=== PATIENT | female | born 2000 | race Caucasian/White ===

== ENCOUNTER 2019-10-06 22:22 | Emergency (ER) | payer MEDICAID, SELFPAY ==
[2019-10-06 22:41] VITALS: BP 134/82; PULSE 110; RESP 16; TEMP 36.6; O2SAT 98; BMI 44.8
[2019-10-06 23:19] LABS: Basophils # 0.1 K/mm3 (0-0.2); Eosinophils # 0.3 K/mm3 (0.0-0.4); Eosinophils % 3.4 % (0.1-12.0); Hematocrit 45.6 % (37.0-47.0); Hemoglobin 15.5 g/dL (12.2-16.2); Lymphocytes # 2.8 K/mm3 (0.7-4.5); Lymphocytes % 28.4 % (10-50); Mean Corpuscular HGB Conc 33.9 g/dL (31.8-35.4); Mean Corpuscular Hemoglobin 30.3 pg (27.0-31.2); Mean Corpuscular Volume 89.3 fl (81-99); Mean Platelet Volume 7.5 fl (7.4-10.4); Monocytes # 0.5 K/mm3 (0.1-1.0); Monocytes % 5.2 % (1.7-9.3); Neutrophils % 61.9 % (37.0-80.0); Platelet Count 340 K/mm3 (142-424); Red Blood Count 5.11 M/mm3 (4.20-5.40); Red Cell Distribution Width 12.7 % (11.5-17.5); White Blood Count 9.7 K/mm3 (4.8-10.8)
[2019-10-06 23:23] LABS: Chloride 103 mmol/L (98-107); Potassium 3.8 mmoL/L (3.5-5.1); Sodium 137 mmol/L (136-145)
[2019-10-06 23:25] LABS: Blood Urea Nitrogen 11 mg/dl (7-17); Creatinine Clearance Estimated 123 mL/min (50-200); Estimated Glomerular Filt Rate 126 ml/min (>60); GFR (African American) 153 ML/MIN (>60)
[2019-10-06 23:26] LABS: Alanine Aminotransferase 35 U/L (12-78); Albumin Level 4.3 g/dl (3.5-5.0); Albumin/Globulin Ratio 1.2 (1.1-1.8); Alkaline Phosphatase 115 U/L (38-126); Anion Gap 10.8 mEq/L (5-15); Aspartate Amino Transferase 28 U/L (14-36); Bilirubin,Total 0.5 mg/dl (0.2-1.3); Calcium 9.3 mg/dl (8.4-10.2); Carbon Dioxide 27 mmol/L (22.0-30.0); Globulin 3.7 g/dL (1.3-3.2); Glucose 90 mg/dl (74-100)
[2019-10-06 23:27] LABS: Lactic Acid 0.9 mmol/L (0.7-2.1)
--- NOTE | 2019-10-07 00:21 | HMH.EDSKAF ---
ED Disposition Clinical Impression: Pilonidal disease Disposition: Home, Self-Care Condition on Discharge: Good Instructions: DI for Pilonidal Cyst Drainage and Removal Additional Instructions: use meds and call surg for follow up Prescriptions: clindamycin HCL [Clindamycin HCl 300mg Cap] 300 mg PO Q6 #28 cap Transmission Status: Pending to [facility] cephALEXin [Keflex 500mg Cap] 500 mg PO TID #30 cap Transmission Status: Pending to [facility] Referrals: Shaniqua Dewitt APRN [Primary Care Provider] - - Critical Care Critical Care Time: No Attestation: On 10/06/19, the high probability of a clinically significant, sudden or life threatening deterioration of the following system(s) required my full and direct attention, intervention and personal management. The time I documented below is in addition to time spent performing reported procedures but includes the following listed in this critical care notation. Medical Decision Making - Medical Records Medical records reviewed: Yes: I reviewed the patient's medical records. - Horace Inquiry Pt receiving controlled substance: No Vital Signs: 10/06/19 22:41 Temperature 97.9 F Temperature Source Oral Pulse Rate [Right Brachial] 110 H Respiratory Rate 16 Blood Pressure [Right Arm] 134/82 Blood Pressure Mean [Right Arm] 99 Blood Pressure Source [Right Arm] Automatic Cuff Blood Pressure Position [Right Arm] Sitting 02 Sat by Pulse Oximetry 98 Oxygen Delivery Method Room Air - Lab Data Lab results reviewed: Yes: I reviewed the patient's lab results. Lab Results 10/06/19 23:10: WBC 9.7, RBC 5.11, Hgb 15.5, Hct 45.6, MCV 89.3, MCH 30.3, MCHC 33.9, RDW 12.7, Plt Count 340, MPV 7.5, Neut % (Auto) 61.9, Lymph % (Auto) 28.4, [place] % (Auto) 5.2, Eos % (Auto) 3.4, Baso % (Auto) 1.0, Neut # (Auto) 6.0, Lymph # (Auto) 2.8, [place] # (Auto) 0.5, Eos # (Auto) 0.3, Baso # (Auto) 0.1 10/06/19 23:10: Sodium 137, Potassium 3.8, Chloride 103, Carbon Dioxide 27, Anion Gap 10.8, BUN 11, Creatinine 0.60, Estimated Creat Clear 123, Estimated GFR 126, Est GFR ( Amer) 153, Glucose 90, Calcium 9.3, Total Bilirubin 0.5, AST 28, ALT 35, Alkaline Phosphatase 115, Total Protein 8.0, Albumin 4.3, Globulin 3.7 H, Albumin/Globulin Ratio 1.2 10/06/19 23:10: Lactate 0.9 Result diagrams: 10/06/19 23:10 10/06/19 23:10 Orders (Tests/Meds): ED MEDICATIONS Generic Name Dose Route Start Last Admin Trade Name Freq PRN Reason Stop Dose Admin Sodium Chloride 1,000 mls @ 999 mls/hr 10/06/19 23:15 10/06/19 23:46 Sod Chlor 0.9% 1000ml Bag IV 10/07/19 00:15 999 mls/hr .Q1H1M MAYELA Administration Ceftriaxone Sodium 1 gm/ 50 mls @ 100 mls/hr 10/07/19 00:30 10/07/19 00:25 Sodium Chloride IV 10/21/19 00:29 100 mls/hr Q24H MAYELA Administration Protocol Discontinued Medications Generic Name Dose Route Start Last Admin Trade Name Freq PRN Reason Stop Dose Admin Ketorolac Tromethamine 30 mg 10/07/19 00:23 10/07/19 00:25 Toradol 30mg/Ml Vial IV 10/07/19 00:24 30 mg ONCE ONE Administration Morphine Sulfate 4 mg 10/07/19 00:23 10/07/19 00:25 Morphine 4mg/Ml Syringe IV 10/07/19 00:24 4 mg ONCE ONE Administration Ondansetron HCl 4 mg 10/07/19 00:23 10/07/19 00:25 Zofran 4mg/2ml Vial IV 10/07/19 00:24 4 mg ONCE ONE Administration ORDERS Category Date Time Status Blood Culture Stat Micro 10/06/19 23:10 Received Skin/Abscess/FB HPI - General Chief complaint: Skin/Abscess/Foreign Body Stated complaint: Spot on butt, spreading to both cheeks Time Seen by Provider: 10/07/19 00:22 Mode of Arrival: Family Vehicle Source of Information: Patient, Medical Record Limitations: No Limitations Description of Symptoms (Recalled from ER Triage Doc. by RN): suspected pilonidal cyst that has increased in size over the course of the last week; pt states is unable to set down and ws concerned about how rapidly it had in
[2019-10-07 00:41] VITALS: BP 138/75; PULSE 76; RESP 16; TEMP 36.7; O2SAT 98
== END 2019-10-07 00:54 | disposition home or self-care (01) ==
PROVIDERS: Emergency Provider Emergency Medicine; PCP Nurse Practitioner Family
DX: L05.91 Pilonidal cyst without abscess (principal); F17.210 Nicotine dependence, cigarettes, uncomplicated; Z88.0 Allergy status to penicillin
CPT/HCPCS: 80053; 83605; 85025; 87040; 96365; 96375; 99283; J2405

== ENCOUNTER 2019-10-15 16:33 | Emergency (ER) | payer MEDICAID, SELFPAY ==
[2019-10-15 16:47] VITALS: BP 133/79; PULSE 85; RESP 20; TEMP 36.6; O2SAT 98; BMI 43.9
--- NOTE | 2019-10-15 16:52 | HMH.EDUTC ---
[facility] [place] Clinical Impression: Encounter for laboratory testing for COVID-19 virus Disposition: Home, Self-Care Condition on Discharge: Good Instructions: Preventing the Spread of Coronavirus Discharge Instructions Additional Instructions: You was given handout for instructions for Quarantine for COVID19 Make sure to follow instructions to help prevent the spread of COVID19 Over the counter Tylenol may help with fever and body aches Return if needed Straight to ER if any life threatening symptoms FOllow up with Family doctor for further treatment and evaluation No work until negative COVID test Referrals: Shaniqua Dewitt APRN [Primary Care Provider] - Forms: Work/School Release Medical Decision Making - Horace Inquiry Pt receiving controlled substance: No Horace was queried for this patient: No Vital Signs: 10/15/19 16:47 Temperature 97.8 F Temperature Source Oral Pulse Rate [Right Brachial] 85 Respiratory Rate 20 Blood Pressure [Right Arm] 133/79 Blood Pressure Mean [Right Arm] 97 Blood Pressure Source [Right Arm] Automatic Cuff Blood Pressure Position [Right Arm] Sitting 02 Sat by Pulse Oximetry 98 Oxygen Delivery Method Room Air Orders (Tests/Meds): ORDERS Category Date Time Status SARS-CoV-2, YADI Stat Lab 10/15/19 16:39 Ordered [facility] - General Stated complaint: Wants COVID-19 Testing Time Seen by Provider: 10/15/19 16:52 Mode of Arrival: Ambulatory Source of Information: Patient Limitations: No Limitations Description of Symptoms (Recalled from Triage Doc. by RN): here for covid testing HEENT Symptoms (Recalled from RN notes): No Resp Symptoms (Recalled from RN notes): No Skin Symptoms (Recalled from RN notes): No MS Symptoms (Recalled from RN notes): No Functional Status (Recalled from RN notes): none - History of Present Illness Provider Complaint: Patient states that she was recently around someone that was tested today for COVID19 and her work told her that she could not return to work without being tested State that she hasnt had any symptoms but was around this person several times over the last couple of weeks so she came in to get checked - Related Data Home Medications Medication Instructions Recorded Confirmed cephALEXin [cephALEXin 500mg 500 mg PO DAILY 10/15/19 10/15/19 capsule*] clindamycin HCL [Clindamycin HCl] 300 mg PO BID 07/15/20 07/15/20 Allergies Allergy/AdvReac Type Severity Reaction Status Date / Time amoxicillin [AMOXICILLIN] Allergy Intermediate I-HIVES Verified 10/15/19 16:40 Penicillins [PENICILLINS] Allergy Intermediate I-HIVES Verified 10/15/19 16:40 - Worker's Comp Is this a Worker's Comp case?: No [facility] History - Hepatitis A Screen Drug use history?: No High risk sexual behaviors?: No History of sexually transmitted infection?: No Currently employed?: No Childcare worker?: No Do you have indoor plumbing?: Yes Do you have electricity?: Yes Attestation statement:: This patient has been screened for Hepatitis A risk factors. I have reviewed the patient's past medical history: Yes Medical History: Denies:: Cancer, Diabetes Mellitus Type 1, Diabetes Mellitus Type 2, Internal Pacemaker, MRSA Other Surgeries: Yes: No Previous Surgery. No: Pacemaker Amputation: No Fractures: No - Social History Smoking Status: Current every day smoker Tobacco Type: cigarettes # Packs/Day (cigarettes): 1 Alcohol Intake: never Substance Use Type: denies use Occupational Status: employed Housing: house Household Members: spouse Family Hx:: Cancer, Diabetes, Heart Attack, Stroke ROS Obtained: Yes All systems reviewed & no additional complaints, Yes Systems reviewed as appropriate & no additional complaints - Constitutional Constitutional: Reports system reviewed and no additional complaints, except as docu - Eyes Eyes: Reports system reviewed and no additional complaints, except as docu - ENT Ears, Nose, Mouth, and Throat: Rep
[2019-10-15 17:10] VITALS: BP 133/79; PULSE 85; RESP 20; TEMP 36.6; O2SAT 98
[2019-10-17 14:09] LABS: Covid-19 Nasal PCR Sendout Lex NOT DETECTED
== END 2019-10-15 17:10 | disposition home or self-care (01) ==
PROVIDERS: Emergency Provider Nurse Practitioner; PCP Nurse Practitioner Family
DX: Z20.828 Contact with and (suspected) exposure to other viral communicable diseases (principal); Z88.0 Allergy status to penicillin
CPT/HCPCS: 99201; U0004

== ENCOUNTER 2020-02-06 10:04 | Emergency (ER) | payer MEDICAID, SELFPAY ==
[2020-02-06 10:04] VITALS: BP 94/68; PULSE 100; RESP 18; O2SAT 98; BMI 32.3
--- NOTE | 2020-02-06 10:09 | XR_ITS ---
PROCEDURE: XR FINGER RT MIN 2V CLINICAL INDICATION: amputation Laceration COMPARISON: No exams were available for comparison FINDINGS: Fracture involves the tuft of the distal phalanx of the 5th finger. The fracture fragment is distracted distally by approximately 4 mm with comminution of that fracture fragment. There is associated soft tissue defect dorsally. The joint spaces are well-preserved. No significant degenerative/arthritic changes. No erosive changes evident. Other findings:None. IMPRESSION: Fracture of the tuft of the distal phalanx of the 5th digit with associated laceration and distraction of the distal fracture fragment Dictated by: Ramos Robles MD 02/06/2020 10:34 Ramos Robles MD in [place] 02/06/2020 10:34
--- NOTE | 2020-02-06 10:17 | HMH.EDGENADL ---
ED Disposition Clinical Impression: Near amputation of finger Disposition: Xfer Short-Term Hosp Condition on Discharge: Fair Additional Instructions: Go to [facility] emergency department now. Do not eat or drink. Referrals: PCP,No [Non-Staff] - Forms: Transfer Record - ED - Critical Care Critical Care Time: No Attestation: On 02/06/20, the high probability of a clinically significant, sudden or life threatening deterioration of the following system(s) required my full and direct attention, intervention and personal management. The time I documented below is in addition to time spent performing reported procedures but includes the following listed in this critical care notation. Medical Decision Making - Horace Inquiry Pt receiving controlled substance: No Vital Signs: 02/06/20 10:04 02/06/20 10:26 Pulse Rate [Left Radial] 100 H 91 H Respiratory Rate 18 Blood Pressure [Right Arm] 94/68 L 137/76 Blood Pressure Mean [Right Arm] 76 96 Blood Pressure Source [Right Arm] Automatic Cuff Automatic Cuff Blood Pressure Position [Right Arm] Sitting Sitting 02 Sat by Pulse Oximetry 98 98 Oxygen Delivery Method Room Air Room Air Orders (Tests/Meds): ED MEDICATIONS Generic Name Dose Route Start Last Admin Trade Name Freq PRN Reason Stop Dose Admin Cefazolin Sodium 2 gm/ Sodium 100 mls @ 200 mls/hr 02/06/20 10:54 Chloride IV 02/06/20 11:23 ONCE ONE Protocol Discontinued Medications Generic Name Dose Route Start Last Admin Trade Name Freq PRN Reason Stop Dose Admin Bupivacaine HCl 1 mg 02/06/20 10:20 02/06/20 10:46 Bupivacaine 0.5% 10ml Vial IJ 02/06/20 10:21 1 mg ONCE ONE Administration - Radiology Data #1 Image(s): Finger(s)/Thumb Image Reviewed: Yes I reviewed the patient's radiology image, Yes I have reviewed radiologist's interpretation PROCEDURE: XR FINGER RT MIN 2V CLINICAL INDICATION: amputation Laceration COMPARISON: No exams were available for comparison FINDINGS: Fracture involves the tuft of the distal phalanx of the 5th finger. The fracture fragment is distracted distally by approximately 4 mm with comminution of that fracture fragment. There is associated soft tissue defect dorsally. The joint spaces are well-preserved. No significant degenerative/arthritic changes. No erosive changes evident. Other findings:None. IMPRESSION: Fracture of the tuft of the distal phalanx of the 5th digit with associated laceration and distraction of the distal fracture fragment Dictated by: Ramos Robles MD 02/06/2020 10:34 Ramos Robles MD in [place] 02/06/2020 10:34 - Physician Consults Physician Consulted: Fady Time: 10:32 Reason -: Orthopedic Eval/Care Comment/Response: Prefers that the patient be transferred to hand surgery for possible salvage of fingertip Additional Consult: Selwyn - Hand Surgery Time: 10:35 Reason -: Other Comment/Response: Ancef 2 g IV. Irrigate wound. Bandage and ulnar gutter splint. Transfer to [facility] emergency department. General Adult HPI - General Chief complaint: Extremity Injury, Upper Stated complaint: partically amputated finger Time Seen by Provider: 02/06/20 10:08 Mode of Arrival: Ambulatory Limitations: No Limitations Description of Symptoms (Recalled from ER Triage Doc. by RN): pt was splitting wood and smashed her right pinky in the splitter. - History of Present Illness HPI narrative: The patient caught her right small fingertip in a wood splitter and has a near amputation of the tip of her small finger. Last oral intake was about 20 minutes prior to arrival, soda. Last food was last night. Last tetanus immunization was about a year and a half ago. She is not diabetic and has no chronic medical problems. She is right-hand dominant merchandise worker. Allergy to penicillin which she believes caused a rash as a child. - Related Data Home Medications Medica
--- NOTE | 2020-02-06 10:23 | PC.NURSE ---
Rad at bedside
[2020-02-06 10:26] VITALS: BP 137/76; PULSE 91; O2SAT 98
--- NOTE | 2020-02-06 10:26 | PC.NURSE ---
Calling [facility] at this time for hand surgery.
--- NOTE | 2020-02-06 10:33 | PC.NURSE ---
ELIGIO ZELAYA speaking with Dr Fraser at at this time.
--- NOTE | 2020-02-06 10:45 | PC.NURSE ---
Report called to Gerald at er
[2020-02-06 11:10] VITALS: BP 130/85; PULSE 89; RESP 18; TEMP 37; O2SAT 100
[2020-02-06 11:18] VITALS: BP 130/85; PULSE 96; O2SAT 100
== END 2020-02-06 11:30 | disposition short-term general hospital (02) ==
PROVIDERS: Emergency Provider Emergency Medicine; PCP Physician Assistant
DX: S68.126A Partial traumatic metacarpophalangeal amputation of right little finger, initial encounter (principal); S62.666A Nondisplaced fracture of distal phalanx of right little finger, initial encounter for closed fracture; W31.89XA Contact with other specified machinery, initial encounter; Y92.89 Other specified places as the place of occurrence of the external cause; F17.210 Nicotine dependence, cigarettes, uncomplicated; Z88.0 Allergy status to penicillin
CPT/HCPCS: 73140; 96365; 99284

== ENCOUNTER → 2021-01-03 11:34 | Outpatient (CLI) | payer OTHER, SELFPAY ==
[2021-01-03 12:08] LABS: Basophils # 0.1 K/mm3 (0-0.2); Basophils % 0.6 % (0.1-2.0); Eosinophils # 0.3 K/mm3 (0.0-0.4); Eosinophils % 2.1 % (0.1-12.0); Hematocrit 44.7 % (37.0-47.0); Hemoglobin 14.5 g/dL (12.2-16.2); Lymphocytes # 2.3 K/mm3 (0.7-4.5); Lymphocytes % 17.8 % (10-50); Mean Corpuscular HGB Conc 32.4 g/dL (31.8-35.4); Mean Corpuscular Hemoglobin 30.1 pg (27.0-31.2); Mean Corpuscular Volume 92.6 fl (81-99); Mean Platelet Volume 8.2 fl (7.4-10.4); Monocytes # 0.5 K/mm3 (0.1-1.0); Monocytes % 3.8 % (1.7-9.3); Neutrophils # 9.6 K/mm3 (1.8-7.8); Neutrophils % 75.6 % (37.0-80.0); Platelet Count 377 K/mm3 (142-424); Red Blood Count 4.82 M/mm3 (4.20-5.40); Red Cell Distribution Width 12.7 % (11.5-17.5); White Blood Count 12.6 K/mm3 (4.8-10.8)
[2021-01-03 12:33] LABS: Urine Pregnancy, HCG Qual. Negative (Negative)
[2021-01-03 13:14] LABS: Anion Gap 10.1 mEq/L (5-15); Blood Urea Nitrogen 8 mg/dl (7-17); Calcium 9.4 mg/dl (8.4-10.2); Carbon Dioxide 24 mmol/L (22.0-30.0); Chloride 108 mmol/L (98-107); Estimated Glomerular Filt Rate 154 ml/min (>60); GFR (African American) 187 ML/MIN (>60); Glucose 95 mg/dl (74-100); Potassium 4.1 mmoL/L (3.5-5.1); Sodium 138 mmol/L (136-145)
== END ==
PROVIDERS: Visit Provider Surgery
DX: Z01.812 Encounter for preprocedural laboratory examination (principal); Z11.52 Encounter for screening for COVID-19; L98.8 Other specified disorders of the skin and subcutaneous tissue
CPT/HCPCS: 36415; 80048; 81025; 85025; C9803; U0003; U0005

== ENCOUNTER 2021-01-04 09:24 | Day surgery (SDC) | payer OTHER, SELFPAY ==
[2021-01-04] VITALS (8 sets, daily range): BP systolic 140–160; BP diastolic 81–98; PULSE 76–115; RESP 16–20; TEMP 36.8–37.2; O2SAT 96–98
--- NOTE | 2021-01-04 10:00 | P.PN_ITS ---
[facility] Anesthesia Checklist - Patient Identification Patient Identification: Arm Band - Structural Data Admitted From: Home Planned Operative Procedure/s: Excision Pilonidal Cyst Consent for Planned Operative Procedure(s) Verified: Yes Verified Documents: Surgical Consent, History and Physical - NPO Status Verified Time NPO: 00:00 - Additional verifications Anesthesia Reactions: No Hx Blood Transfusions: No Blood Transfusion Reaction: No - Airway Assessment C-Spine Mobility Assessed: Yes (mp2) TMJ Mobility Assessed: Yes Dentition: Good Dentition - Neurological Assessment Level of Consciousness: Awake, Alert - Anesthesia Plan Anesthesia Risk discussed: Yes Anesthesia Plan: Verified ASA Class: II Anesthesia Type: General [facility] History I have reviewed the patient's past medical history: Yes Medical History: Reports:: Migraine Denies:: Cancer, Diabetes Mellitus Type 1, Diabetes Mellitus Type 2, Internal Pacemaker, MRSA, Seizures *Have you ever received a pneumonia vaccine?: Yes *Have you received a flu vaccine this season?: No Other Medical History: Denies: Blood Transfusion Reaction Anesthesia experience/problems:: nac Other Surgeries: Yes: Other. No: Pacemaker Amputation: Yes (RT HAND 5TH DIGIT) Fractures: No - *Social History Last grade of school completed: High school graduate Smoking Status: Current every day smoker Tobacco Type: cigarettes # Packs/Day (cigarettes): 1 Alcohol Intake: never Alcohol Intake Frequency:: other Substance Use Type: denies use *Occupational Status:: employed Housing: house Household Members: family *Travel in the last 8 weeks: None Family Hx:: Cancer
--- NOTE | 2021-01-04 11:04 | P.OP_ITS ---
Date of procedure: 01/04/21 Pre-op Diagnosis:: Pilonidal cyst with abscess Post-op Diagnosis:: Same Procedure performed:: Incision and drainage of pilonidal abscess Surgeon:: Wellington Nuñez MD [employer]:: Skyler Reina Anesthesia: GETA Estimated blood loss (mL): 5 Clinical Note:: Patient is a 20-year-old female seen in the office for pilonidal cyst. I had seen her in October 2019 for a pilonidal cyst. That time she has some tenderness in the post coccygeal region which became progressively more severe. She had been seen and evaluated emergency department at that time and was started on antibiotics of cephalexin and clindamycin. When I saw her in the office the area was quite subtle. She was able to be managed nonoperatively. She states however the past 4 days or so she has had some recurrent discomfort. It has become progressively more severe over the past 24 hours. Operative findings:: She had a large amount of thick pus which exuded from the wound Operative note:: Patient was taken to the operating room. She was positioned supine position. General anesthesia was induced via endotracheal tube. She was repositioned in prone jackknife position. The area was prepped and draped in the standard surgical fashion. Incision was made in the mid gluteal cleft adjacent to the area of induration and mild fluctuance. There was a very large amount of thick white pus which exuded from the wound. This was sent for cultures. The incision was opened somewhat superiorly. Overall length of the incision measured approximately 1-1/2 cm. There was somewhat of an abscess cavity toward the right gluteal region. Abscess cavity was thoroughly irrigated. Local anesthetic was infiltrated. The wound was packed with a portion of a saline moistened 4 x 4. Clean dry sterile dressing was applied. Condition: stable Disposition: PACU Specimens:: Culture sent Complications:: None immediately apparent
--- NOTE | 2021-01-04 11:10 | P.PN_ITS ---
[facility] Anesthesia Record Part I Intake, IV Amount: 300 Estimated blood loss (mL): 10 Urine output (mL): 0 Blood Pressure: 155/83 SaO2: 96 Pulse Rate: 115 Respiratory Rate: 16 Temperature: 98.9 F Patient is:: Drowsy, Stable Stable to PACU at:: 11:10
--- NOTE | 2021-01-04 11:43 | SUR.PHASEI ---
1139- detailed report called to casandra escudero in postop
[2021-01-05 08:26] VITALS: BP 140/81; PULSE 86; TEMP 37.2
--- NOTE | 2021-01-05 08:26 | P.PN_ITS ---
[facility] Anesthesia Record Part II Discharge Time: 11:40 Destination: [facility] PACU nurse assessment reviewed?: Yes Patient Condition:: Good Anesthesia Complications:: None Swallowing reflex intact?: Yes Cyanosis?: No Blood Pressure: 140/81 Pulse Rate: 86 Temperature: 98.9 F Mental Status: Alert & Oriented Pain level:: 3 Nausea and/or vomitting:: None Intake, IV Amount: 1,000
== END 2021-01-04 12:15 | disposition home or self-care (01) ==
LOC: OR 09:26
PROVIDERS: PCP Nurse Practitioner Family; Visit Provider Surgery
PROC: (CPT 10081; principal; 2021-01-04 11:00)
DX: L05.01 Pilonidal cyst with abscess (principal); G43.909 Migraine, unspecified, not intractable, without status migrainosus; Z89.021 Acquired absence of right finger(s); Z80.9 Family history of malignant neoplasm, unspecified; Z83.3 Family history of diabetes mellitus; Z82.3 Family history of stroke; Z88.0 Allergy status to penicillin; Z88.1 Allergy status to other antibiotic agents
CPT/HCPCS: 10081; 87070; 87075; 87077; 87186; 87205; 96374; J2405; J2710

== ENCOUNTER → 2021-01-05 12:46 | Outpatient (CLI) | payer OTHER, SELFPAY | PROVIDERS: PCP Nurse Practitioner Family; Visit Provider Surgery | DX: L05.01 Pilonidal cyst with abscess (principal); Z48.01 Encounter for change or removal of surgical wound dressing | CPT/HCPCS: G0463 ==

== ENCOUNTER 2021-01-06 12:38 | Outpatient (CLI) | payer OTHER, SELFPAY | END 2021-01-06 12:50 | disposition home or self-care (01) | LOC: INF 12:38 | PROVIDERS: PCP Nurse Practitioner Family; Visit Provider Surgery | DX: L05.01 Pilonidal cyst with abscess (principal); Z48.01 Encounter for change or removal of surgical wound dressing | CPT/HCPCS: G0463 ==

== ENCOUNTER 2021-01-07 12:46 | Outpatient (CLI) | payer OTHER, SELFPAY ==
--- NOTE | 2021-01-07 14:11 | PC.NURSE ---
1305 - REMOVED DRESSING OVER WOUND AND WET PACKING WITH NS TO MOISTEN PRIOR TO REMOVAL. AFTER PACKING REMOVED, IRRIGATED WOUND WITH NS AND REPACKED WITH SALINE MOISTENED GAUZE. COVERED WITH 2 DRY 4X4 GAUZES FOLDED IN HALF AND TAPED INTO PLACE.
== END 2021-01-07 13:30 | disposition home or self-care (01) ==
LOC: INF 12:47
PROVIDERS: PCP Nurse Practitioner Family; Visit Provider Surgery
DX: L05.01 Pilonidal cyst with abscess (principal); Z48.01 Encounter for change or removal of surgical wound dressing
CPT/HCPCS: G0463

== ENCOUNTER 2021-01-08 13:01 | Outpatient (CLI) | payer OTHER, SELFPAY ==
[2021-01-08 13:40] VITALS: BP 158/78; PULSE 88; RESP 18; TEMP 36.9; O2SAT 97
== END 2021-01-08 13:40 | disposition home or self-care (01) ==
PROVIDERS: PCP Nurse Practitioner Family; Visit Provider Surgery
DX: L05.01 Pilonidal cyst with abscess (principal); Z48.01 Encounter for change or removal of surgical wound dressing
CPT/HCPCS: G0463

== ENCOUNTER 2021-01-09 13:03 | Outpatient (CLI) | payer OTHER, SELFPAY ==
--- NOTE | 2021-01-09 13:35 | PC.NURSE ---
Dressing change completed hema Greenwood RN
== END 2021-01-09 13:21 | disposition home or self-care (01) ==
LOC: INF 13:04
PROVIDERS: PCP Nurse Practitioner Family; Visit Provider Surgery
DX: L05.01 Pilonidal cyst with abscess (principal); Z48.01 Encounter for change or removal of surgical wound dressing
CPT/HCPCS: G0463

== ENCOUNTER 2021-01-10 11:57 | Outpatient (CLI) | payer OTHER, SELFPAY | END 2021-01-10 12:15 | disposition home or self-care (01) | LOC: INF 11:58 | PROVIDERS: PCP Nurse Practitioner Family; Visit Provider Surgery | DX: L05.01 Pilonidal cyst with abscess (principal); Z48.01 Encounter for change or removal of surgical wound dressing | CPT/HCPCS: G0463 ==

== ENCOUNTER 2021-01-11 13:02 | Outpatient (CLI) | payer OTHER, SELFPAY | END 2021-01-11 13:15 | disposition home or self-care (01) | LOC: INF 13:02 | PROVIDERS: PCP Nurse Practitioner Family; Visit Provider Surgery | DX: L05.01 Pilonidal cyst with abscess (principal); Z48.01 Encounter for change or removal of surgical wound dressing | CPT/HCPCS: G0463 ==

== ENCOUNTER 2021-01-12 12:07 | Outpatient (CLI) | payer OTHER, SELFPAY | END 2021-01-12 12:29 | disposition home or self-care (01) | LOC: INF 12:07 | PROVIDERS: PCP Nurse Practitioner Family; Visit Provider Surgery | DX: L05.01 Pilonidal cyst with abscess (principal); Z48.01 Encounter for change or removal of surgical wound dressing | CPT/HCPCS: G0463 ==

== ENCOUNTER 2021-01-13 12:58 | Outpatient (CLI) | payer OTHER, SELFPAY | END 2021-01-13 13:10 | disposition home or self-care (01) | LOC: INF 13:00 | PROVIDERS: PCP Nurse Practitioner Family; Visit Provider Surgery | DX: L05.01 Pilonidal cyst with abscess (principal); Z48.01 Encounter for change or removal of surgical wound dressing | CPT/HCPCS: G0463 ==

== ENCOUNTER 2021-01-15 13:19 | Outpatient (CLI) | payer OTHER, SELFPAY | END 2021-01-15 13:35 | disposition home or self-care (01) | LOC: INF 13:20 | PROVIDERS: PCP Nurse Practitioner Family; Visit Provider Surgery | DX: L05.01 Pilonidal cyst with abscess (principal); Z48.01 Encounter for change or removal of surgical wound dressing | CPT/HCPCS: G0463 ==

== ENCOUNTER 2021-01-17 09:38 | Outpatient (CLI) | payer OTHER, SELFPAY | END 2021-01-17 09:50 | disposition home or self-care (01) | LOC: INF 09:39 | PROVIDERS: PCP Nurse Practitioner Family; Visit Provider Surgery | DX: L05.01 Pilonidal cyst with abscess (principal); Z48.01 Encounter for change or removal of surgical wound dressing | CPT/HCPCS: G0463 ==

== ENCOUNTER 2021-01-18 09:29 | Outpatient (CLI) | payer OTHER, SELFPAY | END 2021-01-18 09:38 | disposition home or self-care (01) | LOC: INF 09:29 | PROVIDERS: PCP Nurse Practitioner Family; Visit Provider Surgery | DX: L05.01 Pilonidal cyst with abscess (principal); Z48.01 Encounter for change or removal of surgical wound dressing | CPT/HCPCS: G0463 ==

== ENCOUNTER 2021-01-19 13:07 | Outpatient (CLI) | payer OTHER, SELFPAY | END 2021-01-19 14:53 | disposition home or self-care (01) | LOC: INF 13:08 | PROVIDERS: PCP Nurse Practitioner Family; Visit Provider Surgery | DX: L05.01 Pilonidal cyst with abscess (principal); Z48.01 Encounter for change or removal of surgical wound dressing | CPT/HCPCS: G0463 ==

== ENCOUNTER 2021-01-20 09:40 | Outpatient (CLI) | payer OTHER, SELFPAY | END 2021-01-20 10:05 | disposition home or self-care (01) | LOC: INF 09:40 | PROVIDERS: PCP Nurse Practitioner Family; Visit Provider Surgery | DX: L05.01 Pilonidal cyst with abscess (principal); Z48.01 Encounter for change or removal of surgical wound dressing | CPT/HCPCS: G0463 ==

== ENCOUNTER 2021-01-21 14:37 | Outpatient (CLI) | payer OTHER, SELFPAY | END 2021-01-21 14:45 | disposition home or self-care (01) | LOC: INF 14:37 | PROVIDERS: PCP Nurse Practitioner Family; Visit Provider Surgery | DX: L05.01 Pilonidal cyst with abscess (principal); Z48.01 Encounter for change or removal of surgical wound dressing | CPT/HCPCS: G0463 ==

== ENCOUNTER 2021-01-22 15:27 | Outpatient (CLI) | payer OTHER, SELFPAY ==
[2021-01-22 15:50] VITALS: BP 130/77; PULSE 105; RESP 18; TEMP 36.8; O2SAT 97
== END 2021-01-22 16:30 | disposition home or self-care (01) ==
LOC: INF 15:28
PROVIDERS: PCP Nurse Practitioner Family; Visit Provider Surgery
DX: L05.01 Pilonidal cyst with abscess (principal); Z48.01 Encounter for change or removal of surgical wound dressing
CPT/HCPCS: G0463

== ENCOUNTER 2021-01-23 15:18 | Outpatient (CLI) | payer OTHER, SELFPAY ==
--- NOTE | 2021-01-23 16:31 | PC.NURSE ---
Old packing removed. Small amount of serosanguineous drainage noted on old packing. Wound was cleansed with saline and packed w/saline soaked piece of 2x2, covered w/dry 4x4's and medipore tape. Pt tolerated well.
== END 2021-01-23 15:31 | disposition home or self-care (01) ==
LOC: INF 15:18
PROVIDERS: PCP Nurse Practitioner Family; Visit Provider Surgery
DX: L05.01 Pilonidal cyst with abscess (principal); Z48.01 Encounter for change or removal of surgical wound dressing
CPT/HCPCS: G0463

== ENCOUNTER 2021-01-24 13:32 | Outpatient (CLI) | payer OTHER, SELFPAY | END 2021-01-24 13:45 | disposition home or self-care (01) | LOC: INF 13:33 | PROVIDERS: PCP Nurse Practitioner Family; Visit Provider Surgery | DX: L05.01 Pilonidal cyst with abscess (principal); Z48.01 Encounter for change or removal of surgical wound dressing | CPT/HCPCS: G0463 ==

== ENCOUNTER 2021-01-25 13:13 | Outpatient (CLI) | payer OTHER, SELFPAY | END 2021-01-25 13:19 | disposition home or self-care (01) | LOC: INF 13:14 | PROVIDERS: PCP Nurse Practitioner Family; Visit Provider Surgery | DX: L05.01 Pilonidal cyst with abscess (principal); Z48.01 Encounter for change or removal of surgical wound dressing | CPT/HCPCS: G0463 ==

== ENCOUNTER 2021-01-26 09:35 | Outpatient (CLI) | payer OTHER, SELFPAY | END 2021-01-26 09:50 | disposition home or self-care (01) | LOC: INF 09:35 | PROVIDERS: PCP Nurse Practitioner Family; Visit Provider Surgery | DX: L05.01 Pilonidal cyst with abscess (principal); Z48.01 Encounter for change or removal of surgical wound dressing | CPT/HCPCS: G0463 ==

== ENCOUNTER 2021-01-27 09:32 | Outpatient (CLI) | payer OTHER, SELFPAY | END 2021-01-27 09:55 | disposition home or self-care (01) | LOC: INF 09:32 | PROVIDERS: PCP Nurse Practitioner Family; Visit Provider Surgery | DX: L05.01 Pilonidal cyst with abscess (principal); Z48.01 Encounter for change or removal of surgical wound dressing | CPT/HCPCS: G0463 ==

== ENCOUNTER 2021-01-31 09:29 | Outpatient (CLI) | payer OTHER, SELFPAY | END 2021-01-31 09:45 | disposition home or self-care (01) | LOC: INF 09:30 | PROVIDERS: PCP Nurse Practitioner Family; Visit Provider Surgery | DX: L05.01 Pilonidal cyst with abscess (principal); Z48.01 Encounter for change or removal of surgical wound dressing | CPT/HCPCS: G0463 ==

== ENCOUNTER 2021-02-01 16:25 | Outpatient (CLI) | payer OTHER, SELFPAY | END 2021-02-01 16:41 | disposition home or self-care (01) | LOC: INF 16:26 | PROVIDERS: PCP Nurse Practitioner Family; Visit Provider Surgery | DX: L05.01 Pilonidal cyst with abscess (principal); Z48.01 Encounter for change or removal of surgical wound dressing | CPT/HCPCS: G0463 ==

== ENCOUNTER 2021-02-02 09:38 | Outpatient (CLI) | payer OTHER, SELFPAY ==
--- NOTE | 2021-02-02 09:54 | PC.NURSE ---
0954-s/p pilonidal cyst removal wound is now healed with small divet noted; pt will not need to continue dressing changes; educated pt on still keeping area clean and dry.
== END 2021-02-02 09:56 | disposition home or self-care (01) ==
LOC: INF 09:38
PROVIDERS: PCP Nurse Practitioner Family; Visit Provider Surgery
DX: L05.01 Pilonidal cyst with abscess (principal); Z48.01 Encounter for change or removal of surgical wound dressing
CPT/HCPCS: G0463

== ENCOUNTER → 2021-03-08 11:13 | Outpatient (CLI) | payer OTHER, SELFPAY | PROVIDERS: PCP Nurse Practitioner Family; Visit Provider Nurse Practitioner | DX: U07.1 COVID-19 (principal) | CPT/HCPCS: C9803; U0003; U0005 ==

== ENCOUNTER → 2021-05-24 10:36 | Outpatient (CLI) | payer OTHER, SELFPAY ==
[2021-05-24 12:08] LABS: HCG,Quantitative 160 mIU/ml (0-5.42)
== END ==
PROVIDERS: Visit Provider Nurse Practitioner Obstetrics & Gynecology
DX: N92.6 Irregular menstruation, unspecified (principal)
CPT/HCPCS: 36415; 84702

== ENCOUNTER 2021-06-14 13:28 | Emergency (ER) | payer OTHER, SELFPAY ==
[2021-06-14 13:55] VITALS: BP 125/77; PULSE 85; RESP 18; TEMP 36.8; O2SAT 100; BMI 40.7
--- NOTE | 2021-06-14 14:03 | HMH.EDNVD ---
ED Disposition Clinical Impression: Hyperemesis arising during Disposition: Home, Self-Care Condition on Discharge: Good Instructions: Hyperemesis Gravidarum Prescriptions: Promethazine HCl [Phenergan 12.5mg Supp] 12.5 mg RC Q8 PRN #15 supp PRN Reason: Nausea And Vomiting Transmission Status: Pending to [id number] Referrals: Shaniqua Dewitt APRN [Primary Care Provider] - - Critical Care Critical Care Time: No Attestation: On 06/14/21, the high probability of a clinically significant, sudden or life threatening deterioration of the following system(s) required my full and direct attention, intervention and personal management. The time I documented below is in addition to time spent performing reported procedures but includes the following listed in this critical care notation. Medical Decision Making - Medical Records Medical records reviewed: Yes: I reviewed the patient's medical records. - Horace Inquiry Pt receiving controlled substance: No Vital Signs: 06/14/21 13:55 06/14/21 15:31 Temperature 98.2 F Temperature Source Oral Pulse Rate 74 Pulse Rate [Left Radial] 85 Respiratory Rate 18 18 Blood Pressure 119/69 Blood Pressure [Right Arm] 125/77 Blood Pressure Mean 83 Blood Pressure Mean [Right Arm] 93 02 Sat by Pulse Oximetry 100 98 Oxygen Delivery Method Room Air - Lab Data Lab Results 06/14/21 13:50: Urine Color Yellow, Urine Appearance Clear, Urine pH 6.5, Ur Specific [place] 1.020, Urine Protein Negative, Urine Glucose (UA) Negative, Urine Ketones Negative, Urine Blood Negative, Urine Nitrate Negative, Urine Bilirubin Negative, Urine Urobilinogen 0.2, Ur Leukocyte Esterase Negative, Urine RBC Occasional, Urine WBC Occasional, Ur Squamous Epith Cells 3-5, Urine Bacteria Trace 06/14/21 13:50: WBC 7.7, RBC 4.53, Hgb 13.6, Hct 41.5, MCV 91.6, MCH 30.1, MCHC 32.9, RDW 13.2, Plt Count 321, MPV 8.1, Neut % (Auto) 72.6, Lymph % (Auto) 21.6, [place] % (Auto) 4.4, Eos % (Auto) 0.4, Baso % (Auto) 1.0, Neut # (Auto) 5.6, Lymph # (Auto) 1.7, [place] # (Auto) 0.3, Eos # (Auto) 0.0, Baso # (Auto) 0.1 06/14/21 13:50: Urine HCG, Qual Positive 06/14/21 13:50: Sodium 135 L, Potassium 3.8, Chloride 106, Carbon Dioxide 22, Anion Gap 10.8, BUN 6 L, Creatinine 0.60, Estimated Creat Clear 240, Estimated GFR 124, Est GFR ( Amer) 150, Glucose 111 H, Calcium 8.3 L, Total Bilirubin 0.3, AST 26, ALT 28, Alkaline Phosphatase 61, Total Protein 7.4, Albumin 4.2, Globulin 3.2, Albumin/Globulin Ratio 1.3, HCG, Quant > [id number] H Result diagrams: 06/14/21 13:50 06/14/21 13:50 Orders (Tests/Meds): ED MEDICATIONS Discontinued Medications Generic Name Dose Route Start Last Admin Trade Name Freq PRN Reason Stop Dose Admin Sodium Chloride 1,000 mls @ 999 mls/hr 06/14/21 14:15 06/14/21 14:17 Sod Chlor 0.9% 1000ml Bag IV 06/14/21 15:15 999 mls/hr .Q1H1M MAYELA Administration Promethazine HCl 12.5 mg 06/14/21 14:02 06/14/21 14:18 Promethazine Hcl 25mg/Ml 1ml Vial IV 06/14/21 14:03 12.5 mg ONCE ONE Administration Sodium Chloride 25 ml 06/14/21 14:02 06/14/21 14:18 Sodium Chloride 0.9% 25ml Bag IV 06/14/21 14:03 25 ml ONCE ONE Administration Nausea/Vomiting/Diarrhea HPI - General Chief complaint: Nausea/Vomiting/Diarrhea Stated complaint: prg vomiting possible dehydration Time Seen by Provider: 06/14/21 14:03 Mode of Arrival: Ambulatory Limitations: No Limitations Description of Symptoms (Recalled from ER Triage Doc. by RN): pt to ed c/o nausea and vomiting since yesterday. pt states she is but has not had her first appointment. pt states she called her OB today and dr clements called her in phenergan to the pharmacy but pt states she cant keep it down. - History of Present Illness HPI Narrative: n/v mult times, recent preg <20 wks Description of Vomiting: watery Severity: moderate Relieving factors: none Exacerbating factors: eating As
--- NOTE | 2021-06-14 14:04 | PC.NURSE ---
spoke with dr clements who was agreeable to treatment.
[2021-06-14 14:06] LABS: Microscopic, Urine URINE MICROSCOPIC (MICROSCOPIC)
[2021-06-14 14:12] LABS: Chloride 106 mmol/L (98-107); Potassium 3.8 mmoL/L (3.5-5.1); Sodium 135 mmol/L (136-145)
[2021-06-14 14:15] LABS: Alanine Aminotransferase 28 U/L (12-78); Albumin Level 4.2 g/dl (3.5-5.0); Albumin/Globulin Ratio 1.3 (1.1-1.8); Alkaline Phosphatase 61 U/L (38-126); Anion Gap 10.8 mEq/L (5-15); Aspartate Amino Transferase 26 U/L (14-36); Bilirubin,Total 0.3 mg/dl (0.2-1.3); Blood Urea Nitrogen 6 mg/dl (7-17); Carbon Dioxide 22 mmol/L (22.0-30.0); Creatinine Clearance Estimated 240 mL/min (50-200); Estimated Glomerular Filt Rate 124 ml/min (>60); GFR (African American) 150 ML/MIN (>60); Globulin 3.2 g/dL (1.3-3.2); Total Protein,Serum 7.4 g/dl (6.3-8.2)
[2021-06-14 14:16] LABS: Appearance,Urine CLEAR (Clear); Basophils # 0.1 K/mm3 (0-0.2); Bilirubin,Urine Negative (Negative); Blood, Urine Negative (Negative); Calcium 8.3 mg/dl (8.4-10.2); Color,Urine YELLOW (Yellow); Eosinophils % 0.4 % (0.1-12.0); Glucose 111 mg/dl (74-100); Glucose,Urine (UA) Negative (Negative); Hematocrit 41.5 % (37.0-47.0); Hemoglobin 13.6 g/dL (12.2-16.2); Ketones,Urine Negative (Negative); Leukocyte Esterase,Urine Negative (Negative); Lymphocytes # 1.7 K/mm3 (0.7-4.5); Lymphocytes % 21.6 % (10-50); Mean Corpuscular HGB Conc 32.9 g/dL (31.8-35.4); Mean Corpuscular Hemoglobin 30.1 pg (27.0-31.2); Mean Corpuscular Volume 91.6 fl (81-99); Mean Platelet Volume 8.1 fl (7.4-10.4); Monocytes # 0.3 K/mm3 (0.1-1.0); Monocytes % 4.4 % (1.7-9.3); Neutrophils # 5.6 K/mm3 (1.8-7.8); Neutrophils % 72.6 % (37.0-80.0); Nitrate,Urine Negative (Negative); PH,Urine 6.5 (5.0-8.5); Platelet Count 321 K/mm3 (142-424); Protein,Urine Negative (Negative); Red Blood Count 4.53 M/mm3 (4.20-5.40); Red Cell Distribution Width 13.2 % (11.5-17.5); Urobilinogen,Urine 0.2 EU/dl (0.2); White Blood Count 7.7 K/mm3 (4.8-10.8)
[2021-06-14 14:18] LABS: Urine Pregnancy, HCG Qual. Positive (Negative)
[2021-06-14 14:31] LABS: Bacteria,Urine Trace /lpf; RBC,Urine Occasional #/hpf (0-3); WBC,Urine Occasional #/hpf (0-3)
[2021-06-14 14:42] LABS: HCG,Quantitative > 15000 mIU/ml (0-5.42)
[2021-06-14 15:31] VITALS: BP 119/69; PULSE 74; RESP 18; O2SAT 98
[2021-06-14 15:47] VITALS: BP 119/69; PULSE 74; RESP 18; TEMP 36.8; O2SAT 98
== END 2021-06-14 16:13 | disposition home or self-care (01) ==
PROVIDERS: Emergency Provider Emergency Medicine; PCP Nurse Practitioner Family
DX: O99.611 Diseases of the digestive system complicating pregnancy, first trimester (principal); O21.1 Hyperemesis gravidarum with metabolic disturbance; O99.331 Smoking (tobacco) complicating pregnancy, first trimester; F17.210 Nicotine dependence, cigarettes, uncomplicated; O99.355 Diseases of the nervous system complicating the puerperium; Z79.1 Long term (current) use of non-steroidal anti-inflammatories (NSAID); Z79.899 Other long term (current) drug therapy; Z88.0 Allergy status to penicillin; Z88.1 Allergy status to other antibiotic agents; Z88.3 Allergy status to other anti-infective agents; Z82.49 Family history of ischemic heart disease and other diseases of the circulatory system; Z83.3 Family history of diabetes mellitus; Z3A.01 Less than 8 weeks gestation of pregnancy
CPT/HCPCS: 80053; 81001; 81025; 84702; 85025; 96361; 96365; 96374; 96375; 99283

== ENCOUNTER → 2021-06-22 15:14 | Outpatient (CLI) | payer OTHER, SELFPAY ==
[2021-06-22 16:12] LABS: Basophils # 0.1 K/mm3 (0-0.2); Basophils % 0.6 % (0.1-2.0); Eosinophils # 0.1 K/mm3 (0.0-0.4); Eosinophils % 0.6 % (0.1-12.0); Hematocrit 43.9 % (37.0-47.0); Hemoglobin 14.4 g/dL (12.2-16.2); Lymphocytes # 1.4 K/mm3 (0.7-4.5); Mean Corpuscular HGB Conc 32.8 g/dL (31.8-35.4); Mean Corpuscular Hemoglobin 29.8 pg (27.0-31.2); Mean Corpuscular Volume 90.9 fl (81-99); Mean Platelet Volume 8.9 fl (7.4-10.4); Monocytes # 0.6 K/mm3 (0.1-1.0); Monocytes % 6.3 % (1.7-9.3); Neutrophils # 7.1 K/mm3 (1.8-7.8); Neutrophils % 77.5 % (37.0-80.0); Platelet Count 344 K/mm3 (142-424); Red Blood Count 4.83 M/mm3 (4.20-5.40); Red Cell Distribution Width 13.2 % (11.5-17.5); White Blood Count 9.2 K/mm3 (4.8-10.8)
[2021-06-24 08:35] LABS: HSV 1 IgG, Type Spec <0.91 index (0.00-0.90); HSV 2 IgG, Type Spec <0.91 index (0.00-0.90)
[2021-06-24 09:26] LABS: HIV Screen 4th Generation wRfx Non Reactive (Non Reactive); Hepatitis B Surface Antigen Negative (Negative); Hepatitis C Antibody 0.1 s/co ratio (0.0-0.9)
[2021-06-24 12:12] LABS: Rapid Plasma Reagin Ab Titer Non Reactive (NonRea<1:1)
== END ==
PROVIDERS: Visit Provider Nurse Practitioner Obstetrics & Gynecology
DX: Z34.90 Encounter for supervision of normal pregnancy, unspecified, unspecified trimester (principal)
CPT/HCPCS: 36415; 85025; 86592; 86695; 86703; 86762; 86790; 86850; 87340; 87380; G0432

== ENCOUNTER → 2021-06-28 12:47 | Outpatient (CLI) | payer OTHER, SELFPAY ==
--- NOTE | 2021-06-28 12:48 | US_ITS ---
FINAL REPORT CLINICAL HISTORY: for dates FINDINGS: Sonographic images of the pelvis were obtained. A single, living intrauterine is noted. A yolk sac is present and measures 0.52 cm. Dustin to rump length measures 2.48 cm which corresponds to 9 weeks 2 days gestation. There is a small amount of fluid adjacent to the gestational sac which may represent a small subchorionic hemorrhage. Heartbeat is identified and measures 176 beats per minute. The right ovary is within normal limits. The left ovary is within normal limits. IMPRESSION: Single, living, intrauterine gestation with 9 weeks 2 days gestational age. There is a small amount of fluid adjacent to the gestational sac which may represent a small subchorionic hemorrhage. Reviewed, Interpreted and Dictated by Wellington Mohr III, MD Transcribed by Mary Ellen Short Authenticated by Wellington Mohr III, MD on 06/28/2021 03:08:46 PM [facility]
== END ==
PROVIDERS: PCP Nurse Practitioner Family; Visit Provider Nurse Practitioner Obstetrics & Gynecology
DX: Z34.90 Encounter for supervision of normal pregnancy, unspecified, unspecified trimester (principal)
CPT/HCPCS: 76801

== ENCOUNTER → 2021-07-22 12:20 | Outpatient (CLI) | payer OTHER, SELFPAY | PROVIDERS: Visit Provider Nurse Practitioner Obstetrics & Gynecology | DX: Z34.90 Encounter for supervision of normal pregnancy, unspecified, unspecified trimester (principal) | CPT/HCPCS: 36415 ==

== ENCOUNTER 2021-08-09 21:10 | Emergency (ER) | payer BC, OTHER, SELFPAY ==
[2021-08-09 21:11] VITALS: BP 135/70; PULSE 75; RESP 16; TEMP 37.1; O2SAT 100; BMI 41.5
[2021-08-09 22:37] LABS: Basophils # 0.1 K/mm3 (0-0.2); Eosinophils # 0.1 K/mm3 (0.0-0.4); Eosinophils % 0.7 % (0.1-12.0); Hematocrit 39.7 % (37.0-47.0); Hemoglobin 13.4 g/dL (12.2-16.2); Lymphocytes # 1.4 K/mm3 (0.7-4.5); Lymphocytes % 17.1 % (10-50); Mean Corpuscular HGB Conc 33.8 g/dL (31.8-35.4); Mean Corpuscular Hemoglobin 30.4 pg (27.0-31.2); Mean Corpuscular Volume 89.9 fl (81-99); Mean Platelet Volume 8.2 fl (7.4-10.4); Monocytes # 0.5 K/mm3 (0.1-1.0); Monocytes % 5.5 % (1.7-9.3); Neutrophils # 6.4 K/mm3 (1.8-7.8); Neutrophils % 75.7 % (37.0-80.0); Platelet Count 308 K/mm3 (142-424); Red Blood Count 4.41 M/mm3 (4.20-5.40); Red Cell Distribution Width 13.2 % (11.5-17.5); White Blood Count 8.5 K/mm3 (4.8-10.8)
--- NOTE | 2021-08-09 22:45 | HMH.EDHA ---
ED Disposition Clinical Impression: Headache Qualifiers: Headache type: unspecified Headache chronicity pattern: acute headache Intractability: not intractable Qualified Code(s): R51.9 - Headache, unspecified Qualifiers: Weeks of gestation: 14 weeks Qualified Code(s): Z3A.14 - 14 weeks gestation of Disposition: Home, Self-Care Condition on Discharge: Good Instructions: DI for Headache Additional Instructions: call pcp or ob in am for follow up Referrals: Shaniqua Dewitt APRN [Primary Care Provider] - Higinio Louise MD [Staff Physician] - - Critical Care Critical Care Time: No Attestation: On 08/09/21, the high probability of a clinically significant, sudden or life threatening deterioration of the following system(s) required my full and direct attention, intervention and personal management. The time I documented below is in addition to time spent performing reported procedures but includes the following listed in this critical care notation. Medical Decision Making - Medical Records Medical records reviewed: Yes: I reviewed the patient's medical records. - Horace Inquiry Pt receiving controlled substance: No Vital Signs: 08/09/21 21:11 Temperature 98.8 F Temperature Source Oral Pulse Rate [Left Radial] 75 Respiratory Rate 16 Blood Pressure [Right Arm] 135/70 Blood Pressure Mean [Right Arm] 91 02 Sat by Pulse Oximetry 100 Oxygen Delivery Method Room Air - Lab Data Lab results reviewed: Yes: I reviewed the patient's lab results. Orders (Tests/Meds): ED MEDICATIONS Generic Name Dose Route Start Last Admin Trade Name Freq PRN Reason Stop Dose Admin Sodium Chloride 1,000 mls @ 999 mls/hr 08/09/21 22:30 08/09/21 22:24 Sod Chlor 0.9% 1000ml Bag IV 08/09/21 23:30 999 mls/hr .Q1H1M MAYELA Administration Discontinued Medications Generic Name Dose Route Start Last Admin Trade Name Freq PRN Reason Stop Dose Admin Acetaminophen 650 mg 08/09/21 22:27 08/09/21 22:30 Acetaminophen 325mg Tab PO 08/09/21 22:28 650 mg ONCE ONE Administration ORDERS Category Date Time Status CMP [Comprehensive Metabolic Panel] Stat Lab 08/09/21 22:20 Received Complete Blood Count Auto Diff Stat Lab 08/09/21 22:20 Received - Physician Consults Physician Consulted: starr Reason -: Pt condition Medical Decision Narrative: stable exam and will give treatment and d/c to call ob in am Headache HPI - General Chief Complaint: Headache Stated Complaint: 15 wk preg GARCIA Time Seen by Provider: 08/09/21 22:45 Mode of Arrival: Ambulatory Source of Information: Patient, Parent(s), Medical Record Limitations: No Limitations Description of Symptoms (Recalled from ER Triage Doc. by RN): PT IS 14 WEEKS AND PRESENTS WITH A MIGRAINE. PT REPORTS THAT SHE TOOK TYLENOL AT 1800 AND HAS TAKEN IT MULTIPLE TIMES TODAY WITHOUT RELIEF. - History of Present Illness HPI Narrative: pt with hx of bitemporal garcia with vomiting today - no fever or rash and no trauma - 15 weeks -no vaginal bleeding MD Complaint: headache Onset (ago): hour(s) Location: temporal Severity: moderate Quality: similar to previous headaches Associated symptoms: nausea, vomiting Treatments prior to arrival: acetaminophen - Related Data Home Medications Medication Instructions Recorded Confirmed prenat.vits,renny,[id number] 1 tab PO DAILY 02/04/21 08/09/21 Previous Rx's Medication Instructions Recorded Promethazine HCl [Phenergan 12.5mg 12.5 mg RC Q8 PRN #15 supp 06/14/21 Supp] ondansetron 4 mg disintegrating 4 mg PO Q6H PRN #30 tab 07/20/21 tablet Allergies Allergy/AdvReac Type Severity Reaction Status Date / Time amoxicillin [AMOXICILLIN] Allergy Intermediate I-HIVES Verified 07/20/21 15:24 Penicillins [PENICILLINS] Allergy Intermediate I-HIVES Verified 07/20/21 15:24 [facility] History - Hepatitis A Screen Attestation statement:: This patient has
--- NOTE | 2021-08-09 22:49 | PC.NURSE ---
Dr. Grey s/w Dr. Louise
[2021-08-09 22:56] LABS: Chloride 104 mmol/L (98-107); Potassium 3.4 mmoL/L (3.5-5.1); Sodium 136 mmol/L (136-145)
[2021-08-09 22:58] LABS: Blood Urea Nitrogen 6 mg/dl (7-17); Creatinine Clearance Estimated 197 mL/min (50-200); Estimated Glomerular Filt Rate 198 ml/min (>60); GFR (African American) 239 ML/MIN (>60)
[2021-08-09 22:59] LABS: Alanine Aminotransferase 21 U/L (12-78); Albumin Level 3.8 g/dl (3.5-5.0); Albumin/Globulin Ratio 1.2 (1.1-1.8); Alkaline Phosphatase 76 U/L (38-126); Anion Gap 12.4 mEq/L (5-15); Aspartate Amino Transferase 32 U/L (14-36); Bilirubin,Total 0.3 mg/dl (0.2-1.3); Carbon Dioxide 23 mmol/L (22.0-30.0); Globulin 3.1 g/dL (1.3-3.2); Glucose 106 mg/dl (74-100); Total Protein,Serum 6.9 g/dl (6.3-8.2)
[2021-08-09 23:05] VITALS: BP 133/78; PULSE 71; RESP 16; TEMP 37.1; O2SAT 99
== END 2021-08-09 23:23 | disposition home or self-care (01) ==
PROVIDERS: Emergency Provider Emergency Medicine; PCP Nurse Practitioner Family
DX: O99.355 Diseases of the nervous system complicating the puerperium (principal); G43.909 Migraine, unspecified, not intractable, without status migrainosus; O21.9 Vomiting of pregnancy, unspecified; O99.330 Smoking (tobacco) complicating pregnancy, unspecified trimester; F17.210 Nicotine dependence, cigarettes, uncomplicated; Z79.899 Other long term (current) drug therapy; Z88.0 Allergy status to penicillin; Z88.3 Allergy status to other anti-infective agents; Z82.49 Family history of ischemic heart disease and other diseases of the circulatory system; Z3A.14 14 weeks gestation of pregnancy; Z83.3 Family history of diabetes mellitus
CPT/HCPCS: 80053; 85025; 96374; 96375; 99284

== ENCOUNTER → 2021-09-14 12:41 | Outpatient (CLI) | payer BC, OTHER, SELFPAY ==
--- NOTE | 2021-09-14 12:41 | US_ITS ---
FINAL REPORT CLINICAL HISTORY: 20 weeks gestation FINDINGS: There is a single live intrauterine gestation. Presentation is cephalic. The cervix is closed and measures 3.3 cm. Placenta is anterior and grade 1. Cardiac activity is confirmed at 163 bpm. The fetus is active. Three-vessel cord with satisfactory umbilical cord insertion. Four-chamber heart is noted. brain and ventricles are unremarkable. Chest and diaphragm are unremarkable. ABDOMEN: Both kidneys are unremarkable. Stomach is unremarkable. SPINE: No anomalies identified. Both arms and legs noted. AMNIOTIC FLUID: Appropriate amount. MEASUREMENTS: ULTRASOUND AGE: 20 weeks 2 days. GESTATION AGE: 20 weeks 3 days. ESTIMATED WEIGHT: 347 g GROWTH PERCENTILE: 40% BPD: 4.7 cm consistent with 20 weeks 2 days. OFD: 6 cm consistent with 20 weeks 3 days. HC: 16.9 cm consistent with 19 weeks 4 days. AC: 15.1 cm consistent with 20 weeks 3 days. FL: 3.4 cm consistent with 20 weeks 4 days. CEREBELLUM: 2.0 cm consistent with 20 weeks 2 days. HUMERUS: 3.2 cm consistent with 20 weeks 6 days. Nuchal fold: 1.8 cm HC/AC: 1.12 CI: 79% FL/BPD: 72% FL/AC: 22% IMPRESSION: Single living IUP with an ultrasound age of 20 weeks 2 days. Reviewed, Interpreted and Dictated by Wellington Mohr III, MD Transcribed by Matty Rebolledo Authenticated and . [facility]
== END ==
PROVIDERS: PCP Nurse Practitioner Family; Visit Provider Nurse Practitioner Obstetrics & Gynecology
DX: Z36.0 Encounter for antenatal screening for chromosomal anomalies (principal); Z3A.20 20 weeks gestation of pregnancy
CPT/HCPCS: 76811

== ENCOUNTER 2021-10-01 20:25 | Outpatient (CLI) | payer OTHER, SELFPAY ==
[2021-10-01 21:00] VITALS: BP 136/87; PULSE 101; RESP 18; TEMP 36.7; O2SAT 96; BMI 42.7
[2021-10-01 21:13] VITALS: BMI 42.7
[2021-10-01 21:19] LABS: Microscopic, Urine URINE MICROSCOPIC (MICROSCOPIC)
[2021-10-01 21:25] LABS: Appearance,Urine SL CLOUDY (Clear); Bilirubin,Urine Negative (Negative); Blood, Urine Negative (Negative); Color,Urine YELLOW (Yellow); Glucose,Urine (UA) Negative (Negative); Ketones,Urine Negative (Negative); Leukocyte Esterase,Urine Negative (Negative); Nitrate,Urine Negative (Negative); PH,Urine 6.5 (5.0-8.5); Protein,Urine Negative (Negative); Urobilinogen,Urine 0.2 EU/dl (0.2)
[2021-10-01 21:29] LABS: Amorphous Sediment,Urine 4+ /lpf; Mucus,Urine 1+ /lpf; Squamous Epithelial Cell,Urine 20-50 #/hpf (0-5)
[2021-10-01 21:34] LABS: Amphetamine/Metha Screen,Urine Negative ng/ml (<1000)
[2021-10-01 21:35] LABS: Barbiturates Screen,Urine Negative ng/ml (<200); Benzodiazepines Screen,Urine Negative ng/ml (<200)
[2021-10-01 21:36] LABS: Cannabinoid Screen,Urine Negative ng/ml (<50)
[2021-10-01 21:37] LABS: Cocaine Screen,Urine Negative ng/ml (<300); Methadone Screen,Urine Negative ng/ml (<300)
[2021-10-01 21:38] LABS: Opiate Screen,Urine Negative ng/ml (<300)
[2021-10-01 21:39] LABS: Phencyclidine Screen,Urine Negative ng/ml (<25)
== END 2021-10-01 23:15 | disposition home or self-care (01) ==
LOC: OBOUT 20:27 → OB 20:28
PROVIDERS: PCP Nurse Practitioner Family; Visit Provider Obstetrics & Gynecology
DX: O26.892 Other specified pregnancy related conditions, second trimester (principal); Z3A.22 22 weeks gestation of pregnancy; R51.9 Headache, unspecified; R11.2 Nausea with vomiting, unspecified; R53.1 Weakness
CPT/HCPCS: 80305; 81001; 96365; 96367; G0463; J2405

== ENCOUNTER 2021-10-16 16:52 | Emergency (ER) | payer BC, OTHER, SELFPAY ==
[2021-10-16 17:11] VITALS: BP 136/86; PULSE 103; RESP 17; TEMP 37.1; O2SAT 97; BMI 45.5
[2021-10-16 17:17] LABS: Adenovirus,PCR Not Detected (NotDetected); Bordetella Pertussis Not Detected (NotDetected); Chlamydophila Pneumoniae, PCR Not Detected (NotDetected); Coronavirus 19, PCR Not Detected (NotDetected); Coronavirus 229E Not Detected (NotDetected); Coronavirus NL63 Not Detected (NotDetected); Coronavirus OC43 Not Detected (NotDetected); Coronovirus HKU1,PCR Not Detected (NotDetected); Influenza A, PCR Not Detected (NotDetected); Influenza AH1, 2009 Not Detected (NotDetected); Influenza AH1, PCR Not Detected (NotDetected); Influenza AH3,PCR Not Detected (NotDetected); Influenza B, PCR Not Detected (NotDetected); Mycoplasma Pneumoniae, PCR Not Detected (NotDetected); Parainfluenza 1, PCR Not Detected (NotDetected); Parainfluenza 2, PCR Not Detected (NotDetected); Parainfluenza 3, PCR Not Detected (NotDetected); Parainfluenza 4, PCR Not Detected (NotDetected); Respiratory Syncytial Virus Not Detected (NotDetected); Rhinovirus/Enterovirus Not Detected (NotDetected)
[2021-10-16 17:30] VITALS: BP 122/76; PULSE 96; RESP 18; O2SAT 98
[2021-10-16 18:00] VITALS: BP 129/66; PULSE 97; RESP 18; O2SAT 98
[2021-10-16 18:30] VITALS: BP 161/85; PULSE 94; RESP 18; O2SAT 99
[2021-10-16 18:34] LABS: Strep Scrn Group A (Rapid) Negative (Negative)
[2021-10-16 18:37] LABS: Human Metapneumovirus Detected (NotDetected)
--- NOTE | 2021-10-16 18:49 | HMH.EDGENADL ---
ED Disposition Clinical Impression: Upper respiratory infection Qualifiers: Weeks of gestation: 25 weeks Qualified Code(s): Z3A.25 - 25 weeks gestation of Disposition: Home, Self-Care Condition on Discharge: Good Instructions: DI for Acute Bronchitis Referrals: Shaniqua Dewitt APRN [Primary Care Provider] - - Critical Care Critical Care Time: No Attestation: On 10/16/21, the high probability of a clinically significant, sudden or life threatening deterioration of the following system(s) required my full and direct attention, intervention and personal management. The time I documented below is in addition to time spent performing reported procedures but includes the following listed in this critical care notation. Medical Decision Making - Medical Records Medical records reviewed: Yes: I reviewed the patient's medical records. - Horace Inquiry Pt receiving controlled substance: No Vital Signs: 10/16/21 17:11 10/16/21 17:30 10/16/21 18:00 Temperature 98.7 F Temperature Source Oral Pulse Rate 96 H 97 H Pulse Rate [Right Radial] 103 H Respiratory Rate 17 18 18 Blood Pressure 122/76 129/66 Blood Pressure [Right Arm] 136/86 Blood Pressure Mean 91 85 Blood Pressure Mean [Right Arm] 102 Blood Pressure Source [Right Arm] Automatic Cuff Blood Pressure Position [Right Arm] Sitting 02 Sat by Pulse Oximetry 97 98 98 Oxygen Delivery Method Room Air 10/16/21 18:30 Temperature Temperature Source Pulse Rate 94 H Pulse Rate [Right Radial] Respiratory Rate 18 Blood Pressure 161/85 H Blood Pressure [Right Arm] Blood Pressure Mean 110 Blood Pressure Mean [Right Arm] Blood Pressure Source [Right Arm] Blood Pressure Position [Right Arm] 02 Sat by Pulse Oximetry 99 Oxygen Delivery Method - Lab Data Lab results reviewed: Yes: I reviewed the patient's lab results. Lab Results 10/16/21 17:07: Chlamy pneumoniae PCR Not detected, Adenovirus (PCR) Not detected, B. pertussis DNA (PCR) Not detected, Coronavirus OC43 (PCR) Not detected, Coronavirus HKU1 (PCR) Not detected, Coronavirus 229E (PCR) Not detected, SARS-CoV-2 (PCR) Not detected, Coronavirus NL63 (PCR) Not detected, Human Metapneumovir PCR Detected A, Influenza A (H1) PCR Not detected, Influ A (H1N1/09) PCR Not detected, Influenza A (H3) PCR Not detected, Influenza Type A (PCR) Not detected, Influenza Type B (PCR) Not detected, M. pneumoniae (PCR) Not detected, Parainfluenza 1 (PCR) Not detected, Parainfluenza 2 (PCR) Not detected, Parainfluenza 3 (PCR) Not detected, Parainfluenza 4 (PCR) Not detected, RSV (PCR) Not detected, Entero/Rhino (PCR) Not detected 10/16/21 18:20: Group A Strep Rapid Negative Orders (Tests/Meds): ORDERS Category Date Time Status Strep Screen Confirmation Stat Micro 10/16/21 18:20 Received General Adult HPI - General Chief complaint: Upper Respiratory Infection Stated complaint: 25 wk preg, with resp isues Time Seen by Provider: 10/16/21 18:53 Mode of Arrival: Ambulatory Limitations: No Limitations Description of Symptoms (Recalled from ER Triage Doc. by RN): Pt states that she woke up yesterday with a sore throat that progressed to GARCIA, nasal congestion and watery eyes. Advises that symptoms have worsened today - History of Present Illness HPI narrative: pt presents with nasal congestion since yesterday. Pt. is 25 weeks ega of . Sxs described as moderate. She denies fever, cough or SOA. Onset (ago): day(s) Severity: mild Consistency: constant Exacerbating factors: none Associated symptoms: negative: fever/chills - Related Data Home Medications Medication Instructions Recorded Confirmed prenat.vits,renny,[id number] 1 tab PO DAILY 02/04/21 10/13/21 Previous Rx's Medication Instructions Recorded Promethazine HCl [Phenergan 12.5mg 12.5 mg RC Q8 PRN #15 supp 06/14/21 Supp] ondansetron 4 mg disintegrating 4 mg PO Q6H PRN #30 tab 07/20/21
[2021-10-16 18:59] VITALS: BP 161/80; PULSE 68; RESP 16; TEMP 36.6; O2SAT 97
== END 2021-10-16 19:01 | disposition home or self-care (01) ==
PROVIDERS: Emergency Provider Emergency Medicine; PCP Nurse Practitioner Family
DX: O26.892 Other specified pregnancy related conditions, second trimester (principal); J06.9 Acute upper respiratory infection, unspecified; Z3A.25 25 weeks gestation of pregnancy; Z88.0 Allergy status to penicillin; Z81.1 Family history of alcohol abuse and dependence; G43.909 Migraine, unspecified, not intractable, without status migrainosus; Z72.0 Tobacco use
CPT/HCPCS: 87430; 87581; 87632; 87798; 99282; C9803; U0003; U0005

== ENCOUNTER → 2021-10-21 11:50 | Outpatient (CLI) | payer OTHER, SELFPAY ==
[2021-10-21 12:53] LABS: Glucose,Fasting 103 mg/dl (74-100)
[2021-10-21 13:43] LABS: Glucose 1 Hour 222 mg/dL (74-100)
== END ==
PROVIDERS: Visit Provider Obstetrics & Gynecology
DX: Z34.90 Encounter for supervision of normal pregnancy, unspecified, unspecified trimester (principal)
CPT/HCPCS: 82951

== ENCOUNTER → 2021-10-25 08:45 | Outpatient (CLI) | payer BC, OTHER, SELFPAY ==
[2021-10-25 09:16] LABS: Glucose,Fasting 97 mg/dl (74-100)
[2021-10-25 10:47] LABS: Glucose 1 Hour 251 mg/dL (74-100)
[2021-10-25 12:01] LABS: Glucose 2 Hour 182 mg/dL (74-100)
[2021-10-25 12:59] LABS: Glucose 3 Hour 147 mg/dL (74-100)
== END ==
PROVIDERS: PCP Nurse Practitioner Family; Visit Provider Nurse Practitioner Obstetrics & Gynecology
DX: Z34.90 Encounter for supervision of normal pregnancy, unspecified, unspecified trimester (principal)
CPT/HCPCS: 36415; 82951

== ENCOUNTER 2021-12-23 10:25 | Outpatient (CLI) | payer OTHER, SELFPAY ==
[2021-12-23 10:35] VITALS: BMI 46.2
[2021-12-23 10:47] VITALS: BP 135/85; PULSE 105; RESP 18; TEMP 36.5; O2SAT 97
[2021-12-23 11:20] LABS: Microscopic, Urine URINE MICROSCOPIC (MICROSCOPIC)
[2021-12-23 11:24] LABS: Appearance,Urine CLEAR (Clear); Bilirubin,Urine Negative (Negative); Blood, Urine Negative (Negative); Color,Urine YELLOW (Yellow); Glucose,Urine (UA) Negative (Negative); Ketones,Urine Negative (Negative); Leukocyte Esterase,Urine Negative (Negative); Nitrate,Urine Negative (Negative); PH,Urine 6.5 (5.0-8.5); Protein,Urine Negative (Negative); Specific Gravity, Urine <= 1.005 (1.005-1.030); Urobilinogen,Urine 0.2 EU/dl (0.2)
[2021-12-23 11:31] LABS: Fetal Membrane Rupture (Rapid) Negative (Negative)
[2021-12-23 11:36] LABS: Benzodiazepines Screen,Urine Negative ng/ml (<200)
[2021-12-23 11:37] LABS: Amphetamine/Metha Screen,Urine Negative ng/ml (<1000); Barbiturates Screen,Urine Negative ng/ml (<200)
[2021-12-23 11:38] LABS: Methadone Screen,Urine Negative ng/ml (<300)
[2021-12-23 11:39] LABS: Cannabinoid Screen,Urine Negative ng/ml (<50); Cocaine Screen,Urine Negative ng/ml (<300)
[2021-12-23 11:40] LABS: Opiate Screen,Urine Negative ng/ml (<300); Phencyclidine Screen,Urine Negative ng/ml (<25)
[2021-12-23 11:52] VITALS: BP 135/85; PULSE 105; RESP 18; TEMP 36.5; O2SAT 97; BMI 46.2
== END 2021-12-23 11:50 | disposition home or self-care (01) ==
LOC: OBOUT 10:28 → OB 10:29
PROVIDERS: Obstetrics & Gynecology; Visit Provider Obstetrics & Gynecology
DX: O26.893 Other specified pregnancy related conditions, third trimester (principal); Z3A.34 34 weeks gestation of pregnancy
CPT/HCPCS: 59025; 80305; 81001; 84112; G0463

== ENCOUNTER 2021-12-26 10:30 | Emergency (ER) | payer OTHER, SELFPAY ==
[2021-12-26 11:35] VITALS: BP 133/85; PULSE 84; RESP 20; TEMP 37.1; O2SAT 98; BMI 45.7
--- NOTE | 2021-12-26 11:54 | EXP.UTC ---
Discharge Plan Disposition Patient Disposition: Home, Self-Care Condition: Good Prescriptions Prescriptions: New azithromycin [Zithromax Z-Donell] 250 mg tablet See Rx Instructions .ROUTE .COMPLEX 5 Days Qty: 6 0RF Rx Instructions: For 250 mg dose pack: take 500 mg today (day 1), then 250 mg for 4 days (days 2-5) No Action prenat.vits,renny,jab-mlnx-sssch Tablet 1 tab PO DAILY metformin 500 mg tablet extended release 24 hr 500 mg PO AM ondansetron 4 mg tablet,disintegrating 4 mg PO Q6H PRN (Reason: nausea and vomiting) Qty: 30 1RF (DME) lancets [OneTouch Delica Plus Lancet] 33 gauge misc See Rx Instructions .ROUTE .MEDSUPPLY Qty: 100 Rx Instructions: As directed (DME) OneTouch Ultra Test Strip See Rx Instructions .ROUTE .MEDSUPPLY Qty: 10 Rx Instructions: As directed (DME) blood-glucose meter [OneTouch Ultra2 Meter] Misc See Rx Instructions .ROUTE .MEDSUPPLY Qty: 1 Rx Instructions: As directed promethazine 12.5 MG suppository 12.5 mg RC Q8 PRN (Reason: Nausea And Vomiting) Qty: 15 0RF Referrals Follow up/Referrals: Jong Grey MD [Primary Care Provider] - See instructions Activity Restrictions/Add. Instructions Additional Instructions/Restrictions: *Monitor Temp, Over the counter Motrin or Tylenol as directed/as needed Tylenol every 4 hours and Motrin every 6 hours (as long as your family doctor has told you that you can take it) for fever or pain. and straight to ER if unable to lower temp less than 101.0 after medication given *Warm salt water gargles may help to soothe the throat *Throat Lozenges? *Warm fluids like tea with honey may help to soothe the throat? *Sleep elevated *Humidifier/Vaporizer Your throat swab was sent for culture. Those results are typically sent to your primary care. Be sure to follow up in 2-3 days with your family doctor/primary care physician if no improvement so they can review those result and treat if necessary. If you don?t have a primary care doctor, I recommend you get one but in the mean time, you will have to return to a walk in clinic Follow up IMMEDIATELY for new or worsening symptoms or no Noticeable improvement over the next 48-72 hours. 911 for difficulty breathing or swallowing Clinical Impressions Clinical Impression: Sinusitis Instructions Patient Instructions: DI for Sinusitis, Sinusitis Discharge ED Provider: Latasha Garcia [facility] HPI General Stated complaint: sore and swollen throat Mode of Arrival: Ambulatory Source of Information: Patient Limitations: No Limitations Time Seen by Provider: 12/26/21 11:54 Description of Symptoms (Recalled from Triage Doc. by RN): PATIENT STATES SHE HAS HAD A SINUS INFECTION/BRONCHITIS FOR ABOUT A MONTH AND A HALF BUT HAS ONLY BEEN GIVEN CLARITIN FOR IT AND IS NOT BETTER. SHE ALSO STATES SHE WOKE UP THIS MORNING WITH SORE THROAT HEENT Symptoms (Recalled from RN notes): Yes Resp Symptoms (Recalled from RN notes): No Skin Symptoms (Recalled from RN notes): No MS Symptoms (Recalled from RN notes): No Functional Status (Recalled from RN notes): WNL History of Present Illness Provider Complaint: Patient states that she has been fighting bronchitis and sinusitis for over a month with Claritan and OTC sinus medications that is not working States that she is 35wks OB and today she woke up feeling like her throat was on fire and raw and irritated so she came in to get checked to see if there was anything she could take or do Related Data Home Medications Medication Instructions Recorded Confirmed prenat.vits,renny,[id number] 1 tab PO DAILY Supplement 02/04/21 12/23/21 blood sugar diagnostic (OneTouch #10 ea 11/25/21 12/23/21 Ultra Test strips) blood-glucose meter (OneTouch #1 ea 11/25/21 12/23/21 Ultra2 Meter) lancets 33 gauge (OneTouch Delica #100 ea 11/25/21 12/23/21 Plus Lancet) metformin 500 mg tablet,extende
[2021-12-26 11:58] LABS: UTC Strep Screen (Rapid) Negative (Negative)
[2021-12-26 12:07] VITALS: BP 133/85; PULSE 84; RESP 20; TEMP 37.1; O2SAT 98
== END 2021-12-26 12:10 | disposition home or self-care (01) ==
PROVIDERS: Emergency Provider Nurse Practitioner; PCP Emergency Medicine
DX: O26.893 Other specified pregnancy related conditions, third trimester (principal); O24.419 Gestational diabetes mellitus in pregnancy, unspecified control; O99.513 Diseases of the respiratory system complicating pregnancy, third trimester; J40 Bronchitis, not specified as acute or chronic; J02.9 Acute pharyngitis, unspecified; J32.9 Chronic sinusitis, unspecified; O21.9 Vomiting of pregnancy, unspecified; R51.9 Headache, unspecified; O99.333 Smoking (tobacco) complicating pregnancy, third trimester; Z79.4 Long term (current) use of insulin; Z79.899 Other long term (current) drug therapy; Z88.0 Allergy status to penicillin; Z88.1 Allergy status to other antibiotic agents; Z82.49 Family history of ischemic heart disease and other diseases of the circulatory system; Z3A.35 35 weeks gestation of pregnancy; Z88.3 Allergy status to other anti-infective agents; Z83.3 Family history of diabetes mellitus; Z80.9 Family history of malignant neoplasm, unspecified
CPT/HCPCS: 87880; 99213; G0463

== ENCOUNTER 2021-12-30 11:47 | Outpatient (CLI) | payer OTHER, SELFPAY ==
[2021-12-30 11:48] VITALS: BMI 46.9
--- NOTE | 2021-12-30 12:29 | US_ITS ---
FINAL REPORT CLINICAL HISTORY: bradycardia FINDINGS: There is a single live intrauterine gestation. Presentation is cephalic. Placenta is anterior high prematurely grade 3. movement is noted. There is significant calcification in the placenta and at the base plate. Amniotic fluid is 9.6 cm. Biophysical profile: Breathin Movement: 2 Tone: 2 Fluid: 2 Biophysical profile score: 8/8 IMPRESSION: Biophysical profile score 8/8. Reviewed, Interpreted and Dictated by Osmany Hyde MD Transcribed by Mely Vivar Authenticated and [facility]
[2021-12-30 12:33] VITALS: BP 140/89; PULSE 88; RESP 18; TEMP 36.5; O2SAT 97; BMI 46.9
[2021-12-30 12:54] LABS: Appearance,Urine CLEAR (Clear); Bilirubin,Urine Negative (Negative); Blood, Urine Negative (Negative); Color,Urine YELLOW (Yellow); Glucose,Urine (UA) Negative (Negative); Ketones,Urine Negative (Negative); Leukocyte Esterase,Urine 1+ (Negative); Microscopic, Urine URINE MICROSCOPIC (MICROSCOPIC); Nitrate,Urine Negative (Negative); PH,Urine 6.5 (5.0-8.5); Protein,Urine Negative (Negative); Specific Gravity, Urine <= 1.005 (1.005-1.030); Urobilinogen,Urine 0.2 EU/dl (0.2)
[2021-12-30 13:08] LABS: Amphetamine/Metha Screen,Urine Negative ng/ml (<1000)
[2021-12-30 13:09] LABS: Barbiturates Screen,Urine Negative ng/ml (<200)
[2021-12-30 13:10] LABS: Benzodiazepines Screen,Urine Negative ng/ml (<200); Cannabinoid Screen,Urine Negative ng/ml (<50)
[2021-12-30 13:11] LABS: Cocaine Screen,Urine Negative ng/ml (<300)
[2021-12-30 13:12] LABS: Bacteria,Urine 1+ /lpf; Methadone Screen,Urine Negative ng/ml (<300); Opiate Screen,Urine Negative ng/ml (<300)
[2021-12-30 13:13] LABS: Phencyclidine Screen,Urine Negative ng/ml (<25)
== END 2021-12-30 15:43 | disposition home or self-care (01) ==
LOC: OBOUT 11:49 → OB 11:50
PROVIDERS: PCP Nurse Practitioner Family; Referring Provider Obstetrics & Gynecology; Visit Provider Obstetrics & Gynecology
DX: O36.8331 Maternal care for abnormalities of the fetal heart rate or rhythm, third trimester, fetus 1 (principal); Z3A.35 35 weeks gestation of pregnancy
CPT/HCPCS: 59025; 76819; 80305; 81001; 87086; G0463

== ENCOUNTER → 2022-01-04 10:30 | Outpatient (CLI) | payer OTHER, SELFPAY | PROVIDERS: Visit Provider Obstetrics & Gynecology | DX: Z34.90 Encounter for supervision of normal pregnancy, unspecified, unspecified trimester (principal) ==

== ENCOUNTER 2022-01-05 06:16 | Inpatient (IN) | payer OTHER, SELFPAY ==
[2022-01-04] VITALS (10 sets, daily range): BP systolic 138–175; BP diastolic 86–130; PULSE 101; RESP 16; TEMP 36.6; O2SAT 100; BMI 47.1
[2022-01-04 11:57] LABS: Basophils % 0.5 % (0.1-2.0); Eosinophils # 0.1 K/mm3 (0.0-0.4); Eosinophils % 1.8 % (0.1-12.0); Hemoglobin 11.3 g/dL (12.2-16.2); Lymphocytes # 1.7 K/mm3 (0.7-4.5); Lymphocytes % 22.6 % (10-50); Mean Corpuscular HGB Conc 33.3 g/dL (31.8-35.4); Mean Corpuscular Hemoglobin 29.6 pg (27.0-31.2); Mean Corpuscular Volume 88.8 fl (81-99); Monocytes # 0.4 K/mm3 (0.1-1.0); Monocytes % 5.4 % (1.7-9.3); Neutrophils # 5.3 K/mm3 (1.8-7.8); Neutrophils % 69.6 % (37.0-80.0); Platelet Count 285 K/mm3 (142-424); Red Blood Count 3.83 M/mm3 (4.20-5.40); Red Cell Distribution Width 13.2 % (11.5-17.5); White Blood Count 7.6 K/mm3 (4.8-10.8)
[2022-01-04 12:08] LABS: D-Dimer 1.51 ug/mL (0.0-0.5)
[2022-01-04 12:19] LABS: Coronavirus 19, PCR Not Detected (NotDetected); Influenza A, PCR Not Detected (NotDetected); Influenza B, PCR Not Detected (NotDetected)
[2022-01-04 12:25] LABS: Activated Partial Thrombo Time 27.1 seconds (22.8-30.6); Chloride 107 mmol/L (98-107); Fibrinogen 504 mg/dL (229.9-363.5); INR 0.93 (0.9-1.1); Prothrombin Time 10.1 seconds (10.1-12.5); Sodium 140 mmol/L (136-145)
[2022-01-04 12:27] LABS: Potassium 2.9 mmoL/L (3.5-5.1)
[2022-01-04 12:28] LABS: Alanine Aminotransferase 15 U/L (12-78); Anion Gap 12.9 mEq/L (5-15); Aspartate Amino Transferase 28 U/L (14-36); Calcium 7.8 mg/dl (8.4-10.2); Carbon Dioxide 23 mmol/L (22.0-30.0); Creatinine Clearance Estimated 181 mL/min (50-200); Estimated Glomerular Filt Rate 198 ml/min (>60); GFR (African American) 239 ML/MIN (>60); Glucose 77 mg/dl (74-100)
[2022-01-04 12:31] LABS: Blood Urea Nitrogen < 2 mg/dl (7-17)
[2022-01-04 12:42] LABS: Magnesium 1.7 mg/dl (1.6-2.3)
[2022-01-04 13:37] LABS: Uric Acid 4.8 mg/dl (2.5-6.2)
[2022-01-04 15:35] LABS: POC Glucose,Bedside 122 (70-110)
--- NOTE | 2022-01-04 16:35 | EXP.OB.APHP ---
OB - H&P: HPI Antepartum History of Present Illness Chief complaint: Preeclampsia with severe features History of present illness: Ms Jose Macdonald is a 21 yo at 36w3d, by LMP and confirmed by first trimester ultrasound, with EDC 01/29/22, who presents to [facility] Labor [facility] Delivery from the office for elevated blood pressure, 160/114. She admits to intermittent headaches. She also has bilateral lower extremity swelling. She is a GDMA2 taking Metformin 500 mg daily. She is following with [facility] at [facility] for GDM. She had an ultrasound at [facility] yesterday, 01/03/22, and was found to have a headache and elevated BP. She was sent to [facility] L&D for evaluation. Blood pressures were mild range and normotensive. Headache relieved by Tylenol. [facility] labs within normal limits. Upon arrival to L&D today, 01/04/22, BP was severe range 160/120, 175/128. She was given IV Labetalol 20 mg x 1 dose. Repeat BP was 160/130. She then received IV Labetalol 40 mg x 1 dose. Repeat BP was 138/86. [facility] labs within normal limits. However, potassium was low, 2.9. History of Present Criteria for establishing EDC:: LMP confirmed by 1st trimester US care: good care Ultrasounds: normal mid trimester US Obstetrical complications: gestational diabetes and preeclampsia Labs Blood type: A (+) positive Rubella: immune RPR/VDRL: nonreactive GBS status: unknown HBsAG: negative [facility] Medical History (Updated 01/04/22 @ 17:09 by Maricruz Sol DO) Gestational diabetes mellitus (GDM) Headache Hypokalemia Pilonidal cyst Pre-eclampsia, severe, third trimester Surgical History History of hand surgery Family History Other Cancer Diabetes Heart attack Stroke Social History Smoking Status: Current every day smoker tobacco type: cigarettes packs per day: 1 (uses vape pen) second hand exposure: Yes (uses vape pen) alcohol intake: never substance use type: marijuana current occupational status: employed Travel in the last 8 weeks: None household members: family housing: house marital status: single current occupation: [employer] current occupational exposures/hazards: No sexually active: Yes caffeine: No do you feel safe at home: Yes victim of physical abuse: No victim of emotional abuse: No victim of sexual abuse: No Review of Systems Review of Systems Review of systems:: pertinent systems reviewed and negative unless documented below Constitutional Constitutional: Reports headache(s) ENT Ears, Nose, Mouth, and Throat: Reports headache(s) *Cardiovascular Cardiovascular: Reports leg edema *Musculoskeletal Comments: + bilateral lower extremity edema *Neurologic Neurologic: Reports headache(s) Meds Home Medications and Allergies Home Medications Medication Instructions Recorded Confirmed Type prenat.vits,renny,cma-izit-mggce 1 tab PO DAILY Supplement 02/04/21 01/04/22 History promethazine 12.5 mg rectal 12.5 mg KS Q8 PRN Nausea And 06/14/21 01/04/22 Rx suppository Vomiting #15 supp ondansetron 4 mg disintegrating 4 mg PO Q6H PRN nausea and 07/20/21 01/04/22 Rx tablet vomiting #30 tabs blood sugar diagnostic (OneTouch #10 ea 11/25/21 01/04/22 History Ultra Test strips) blood-glucose meter (OneTouch #1 ea 11/25/21 01/04/22 History Ultra2 Meter) lancets 33 gauge (OneTouch Delica #100 ea 11/25/21 01/04/22 History Plus Lancet) metformin 500 mg tablet,extended 500 mg PO AM 12/23/21 01/04/22 History release 24 hr azithromycin 250 mg tablet See Rx Instructions PO .COMPLEX 5 12/26/21 01/04/22 Rx (Zithromax Z-Donell) days #6 tabs New Prescriptions to Start Prescriptions: Allergies Allergy/AdvReac Type Severity Reaction Status Date / Time amoxicillin [AMOXICILLIN] Allergy Intermediate I-HIVES Verified
[2022-01-04 19:42] LABS: Magnesium 4.2 mg/dl (1.6-2.3)
[2022-01-05] VITALS (8 sets, daily range): BP systolic 152–169; BP diastolic 10–109; PULSE 98–104; RESP 18–22; TEMP 36.4–36.9; O2SAT 93–97
[2022-01-05 04:30] LABS: POC Glucose,Bedside 87 (70-110)
--- NOTE | 2022-01-05 08:01 | EXP.LABOR.NO ---
Labor Note Subjective: Date: 01/05/22 Time: 08:01 regular contraction Objective: NST:: Reactive Contractions:: every 2-3 minutes Cervical Dilation:: 3 Effacement:: 80% Station: -2 Membranes: artificially ruptured (AROM with amniotomy hook at 0744, clear fluid) Fetus: Monitoring?: Yes monitoring type:: Internal Comment:: IUPC and FSE placed without difficulty Assessment: Labor progressing?: Yes All Active Problems (Updated 01/04/22 @ 17:09 by Maricruz Sol DO) Hypokalemia (Acute) Pre-eclampsia, severe, third trimester (Acute) Hyperemesis arising during (Acute) (Acute) Morbid obesity with BMI of 40.0-44.9, adult (Acute) Tobacco smoking affecting (Acute) Sinusitis (Acute) Gestational diabetes mellitus (GDM) (Chronic) Headache (Acute) Plan: Continue to monitor?: Yes
[2022-01-05 08:04] LABS: Magnesium 4.8 mg/dl (1.6-2.3)
--- NOTE | 2022-01-05 14:04 | P.PN_ITS ---
[facility] Medical History Gestational diabetes mellitus (GDM) Headache Hypokalemia Pilonidal cyst Pre-eclampsia, severe, third trimester Surgical History History of hand surgery Family History Other Cancer Diabetes Heart attack Stroke Social History Smoking Status: Current every day smoker tobacco type: cigarettes packs per day: 1 (uses vape pen) second hand exposure: Yes (uses vape pen) alcohol intake: never substance use type: marijuana current occupational status: employed Travel in the last 8 weeks: None household members: family housing: house marital status: single current occupation: [employer] current occupational exposures/hazards: No sexually active: Yes caffeine: No do you feel safe at home: Yes victim of physical abuse: No victim of emotional abuse: No victim of sexual abuse: No [facility] Anesthesia Checklist Patient Identification Patient Identification: Arm Band and Verbal (Name & ) Structural Data Admitted From: Inpatient Planned Operative Procedure/s: Labor epidural Consent for Planned Operative Procedure(s) Verified: Yes NPO Status Verified Time NPO: 13:00 (Ice chips) Chart Verification Results Verified: CBC and BMP Additional verifications Patient : Yes Anesthesia Reactions: No Hx Blood Transfusions: No Blood Transfusion Reaction: No Airway Assessment C-Spine Mobility Assessed: Yes TMJ Mobility Assessed: Yes Dentition: Good Dentition Neurological Assessment Level of Consciousness: Awake Hx Seizures: No Numbness or tingling in extremities: No Anesthesia Plan Anesthesia Risk discussed: Yes Anesthesia Plan: Verified ASA Class: III Anesthesia Type: Epidural
--- NOTE | 2022-01-05 16:03 | EXP.LABOR.NO ---
Labor Note Subjective: Date: 01/05/22 Time: 16:03 regular contraction Comment:: Patient comfortable with epidural Objective: NST:: Reactive Contractions:: every 2-3 minutes Cervical Dilation:: 5 Effacement:: 90% Station: -1 Membranes: artificially ruptured Fetus: Monitoring?: Yes monitoring type:: Internal Assessment: Labor progressing?: Yes All Active Problems (Updated 01/04/22 @ 17:09 by Maricruz Sol DO) Hypokalemia (Acute) Pre-eclampsia, severe, third trimester (Acute) Hyperemesis arising during (Acute) (Acute) Morbid obesity with BMI of 40.0-44.9, adult (Acute) Tobacco smoking affecting (Acute) Sinusitis (Acute) Gestational diabetes mellitus (GDM) (Chronic) Headache (Acute) Plan: Continue to monitor?: Yes
--- NOTE | 2022-01-05 19:45 | PC.NURSE ---
1941-Surgery team paged 1941-Cole returned call. 1942-Italia returned call. 1943-Michelle returned call.
--- NOTE | 2022-01-05 19:49 | EXP.LABOR.NO ---
Labor Note Subjective: Date: 01/05/22 Time: 19:49 regular contraction Objective: NST:: Reactive Contractions:: every 2-3 minutes Cervical Dilation:: 5 Effacement:: 90% Station: -1 Membranes: artificially ruptured Fetus: Monitoring?: Yes monitoring type:: Internal Assessment: Labor progressing?: No All Active Problems (Updated 01/04/22 @ 17:09 by Maricruz Sol, ) Hypokalemia (Acute) Pre-eclampsia, severe, third trimester (Acute) Hyperemesis arising during (Acute) (Acute) Morbid obesity with BMI of 40.0-44.9, adult (Acute) Tobacco smoking affecting (Acute) Sinusitis (Acute) Gestational diabetes mellitus (GDM) (Chronic) Headache (Acute) Comment:: Failure to progress Plan: Plan for ?: Yes Additional information:: - Cervical exam unchanged over 6.5 hours - Pitocin reached 18 units - Discussed risks, benefits, alternatives, expectations and possible complications of primary . All questions addressed answered. Patient voiced understanding of risks and possible complications. Consent form signed. - To OR for PLTCS - Continue mag sulfate for 24 hours after delivery
[2022-01-05 20:16] LABS: Microscopic, Urine URINE MICROSCOPIC (MICROSCOPIC)
[2022-01-05 20:53] LABS: Appearance,Urine CLEAR (Clear); Bilirubin,Urine Negative (Negative); Blood, Urine Negative (Negative); Color,Urine YELLOW (Yellow); Glucose,Urine (UA) Negative (Negative); Ketones,Urine TRACE (Negative); Leukocyte Esterase,Urine Negative (Negative); Nitrate,Urine Negative (Negative); Protein,Urine Negative (Negative); Specific Gravity, Urine >= 1.030 (1.005-1.030); Urobilinogen,Urine 0.2 EU/dl (0.2)
[2022-01-05 20:54] LABS: OB Protein,Urine (DIP) Negative (Negative)
[2022-01-05 21:04] LABS: Amphetamine/Metha Screen,Urine Negative ng/ml (<1000)
[2022-01-05 21:05] LABS: Barbiturates Screen,Urine Negative ng/ml (<200)
[2022-01-05 21:06] LABS: Benzodiazepines Screen,Urine Negative ng/ml (<200); Cannabinoid Screen,Urine Negative ng/ml (<50)
[2022-01-05 21:07] LABS: Cocaine Screen,Urine Negative ng/ml (<300)
[2022-01-05 21:08] LABS: Methadone Screen,Urine Negative ng/ml (<300); Opiate Screen,Urine Negative ng/ml (<300)
[2022-01-05 21:09] LABS: Phencyclidine Screen,Urine Negative ng/ml (<25)
[2022-01-05 21:28] LABS: Bacteria,Urine Trace /lpf; WBC,Urine Occasional #/hpf (0-3)
--- NOTE | 2022-01-05 21:32 | SUR.OPER ---
2047-viable female born at this time 2048-very minimal cord blood obtained per Dr. Sol after delivery of for routine blood work, only able to obtain very small amount in red blood vial, Dr. Sol OB staff and Dr. Brantley aware
--- NOTE | 2022-01-05 21:47 | P.PNANES_ITS ---
[facility] Anesthesia Record Part I Anesthesia Record I Intake, IV Amount: 1,000 Estimated blood loss (mL): 500 Urine output (mL): 0 Blood Pressure: 157/109 SaO2: 93 Pulse Rate: 104 Respiratory Rate: 22 Temperature: 98.4 F Patient is:: Awake Stable to PACU at:: 21:40
--- NOTE | 2022-01-05 21:48 | EXP.OP.NOTE ---
Date of procedure: 01/05/22 Pre-op Diagnosis:: 1. IUP at 36w4d 2. Preeclampsia with severe features 3. Gestational Diabetes Mellitus, A2 4. Morbid obesity 5. Hypokalemia 6. Failure to progress Post-op Diagnosis:: 1. IUP at 36w4d 2. Preeclampsia with severe features 3. Gestational Diabetes Mellitus, A2 4. Morbid obesity 5. Hypokalemia 6. Failure to progress Procedure performed:: Primary Low Transverse section Surgeon:: Maricruz Sol DO Pre Press Proofer(s):: Mary Jane Anthony MD PRESS WASHER:: Kaci Mazariegos Anesthesia: epidural Estimated blood loss (mL): 500 Clinical Note:: Ms Jose Macdonald is a 21 yo at 36w3d admitted to [facility] Labor and Delivery for induction of labor secondary to preeclampsia with severe features. She was treated with IV Labetalol and mag sulfate was started. Induction was performed with Cervidil followed by Pitocin and amniotomy. GBS was collected on 01/04/22 and in process. Cervical exam was 5/90/-1 at about 1330. She received an epidural. Cervical exam at 1600 was 5/90/-1. Cervical exam at 1940 was unchanged at 5/90/-1. No cervical post exchange manager 6.5 hours. Patient was fully internalized. Pitocin reached 18 miliunits. Discussed failure to progress with patient. Decision was made to proceed with primary . Operative findings:: 1. Uterus, bilateral fallopian tubes and bilateral ovaries grossly normal 2. Live female baby weighing 6 lbs 7 oz and APGARs 8, 8 Operative note:: The risks, benefits and alternatives of the procedure were reviewed with the patient. Informed consent was obtained. Patient was taken to the operating room where epidural was bolused. The patient received Clindamycin preoperatively. Patient was placed in dorsal supine position with a leftward tilt. SCDs in place. Good catheter had been placed and was draining clear urine prior to the start of the procedure. heart tones were obtained. Patient was then prepped and draped in normal sterile fashion. Vagina was prepped with Betadine swabs x 3. Allis clamp test was performed to ensure adequate anesthesia. A Pfannenstiel skin incision was made 2 cm above pubic symphysis. This was carried through to underlying layer of fascia. Fascia was incised in midline, extended laterally with Hernandez scissors. Superior aspect of fascial incision was grasped with two Chester clamps, elevated up, and rectus muscle dissected off bluntly and sharply with Hernandez scissors. The retcus muscle was then in the midline and the peritoneum was entered bluntly with a digit. Peritoneal incision was then extended superiorly and inferiorly with good visualization of the bladder. Ottoniel retractor was inserted. Metzenbaum scissors were used on the vesicouterine peritoneum to create a bladder flap. The lower uterine segment was incised in a transverse fashion. Head was delivered without difficulty. Remainder of body was delivered without difficulty. Mouth and nares were bulb suctioned. Spontaneous cry was noted. Delayed cord clamping was performed for 60 seconds. The umbilical cord was clamped and cut. The was handed to awaiting pediatric staff in stable condition. Dr. Brantley was present. Apgars were 8(1 min), 8(5 min). Small amount of cord blood was obtained. Gentle traction on the umbilical cord and uterine fundal massage delivered the placenta. Placenta was intact. Placenta will be sent to pathology for review. Uterus was cleared of all clots and debris with a moist laparotomy sponge. Corners of the uterine incision were grasped with Allis clamps. The uterine incision was reapproximated with # 1 Vicryl suture in a running, locked stitch. Second layer of the same stitch was used to imbricate the incision. Excellent hemostasis was noted. Posterior cul-de-sac was cleaned with moist laparotomy sponge. (Uterus returned to the abdomen)Gutters cleared of all clots and debris with a moist laparotomy sponge. Reinspection of the lower uterine segment demonstrated small amount of oozing
[2022-01-05 22:22] LABS: POC Glucose,Bedside 103 (70-110)
--- NOTE | 2022-01-05 22:51 | PC.NURSE ---
2112-detailed report called to Daniel,RN, pt eating few ice chips at this time and susan well, reports pain still easing, vss-at baseline 2115-fsbs checked with results of 103, pt transported to OB room 277 via hospital bed w/angelic rails up and left in care of VANNA Sanchez with bed locked in lowest position, family at bedside, vss @ baseline
[2022-01-06 07:03] LABS: Basophils # 0.1 K/mm3 (0-0.2); Basophils % 0.5 % (0.1-2.0); Eosinophils % 0.2 % (0.1-12.0); Hematocrit 34.1 % (37.0-47.0); Hemoglobin 11.3 g/dL (12.2-16.2); Lymphocytes # 1.6 K/mm3 (0.7-4.5); Lymphocytes % 16.1 % (10-50); Mean Corpuscular HGB Conc 33.2 g/dL (31.8-35.4); Mean Corpuscular Hemoglobin 29.5 pg (27.0-31.2); Mean Corpuscular Volume 88.9 fl (81-99); Mean Platelet Volume 8.9 fl (7.4-10.4); Monocytes # 0.5 K/mm3 (0.1-1.0); Monocytes % 5.2 % (1.7-9.3); Neutrophils # 7.8 K/mm3 (1.8-7.8); Platelet Count 315 K/mm3 (142-424); Red Blood Count 3.83 M/mm3 (4.20-5.40); Red Cell Distribution Width 13.2 % (11.5-17.5)
[2022-01-06 07:44] LABS: Chloride 104 mmol/L (98-107)
[2022-01-06 07:45] LABS: Sodium 136 mmol/L (136-145)
[2022-01-06 07:47] LABS: Alanine Aminotransferase 12 U/L (12-78); Alkaline Phosphatase 167 U/L (38-126); Aspartate Amino Transferase 28 U/L (14-36); Blood Urea Nitrogen 2 mg/dl (7-17); Creatinine Clearance Estimated 121 mL/min (50-200); Estimated Glomerular Filt Rate 124 ml/min (>60); GFR (African American) 150 ML/MIN (>60)
[2022-01-06 07:48] LABS: Albumin Level 2.5 g/dl (3.5-5.0); Albumin/Globulin Ratio 0.9 (1.1-1.8); Calcium 7.3 mg/dl (8.4-10.2); Carbon Dioxide 23 mmol/L (22.0-30.0); Globulin 2.9 g/dL (1.3-3.2); Glucose 88 mg/dl (74-100); Total Protein,Serum 5.4 g/dl (6.3-8.2)
[2022-01-06 07:49] LABS: Magnesium 5.4 mg/dl (1.6-2.3)
[2022-01-06 08:15] LABS: Bilirubin,Total < 0.1 mg/dl (0.2-1.3)
[2022-01-06 09:18] VITALS: BP 156/89; PULSE 98; TEMP 36.4
--- NOTE | 2022-01-06 09:18 | EXP.ANES.II ---
[facility] Anesthesia Record Part II Anesthesia Record Part II Discharge Time: 22:10 Destination: Obstetric PACU nurse assessment reviewed?: Yes Patient Condition:: Good Anesthesia Complications:: None Swallowing reflex intact?: Yes Cyanosis?: No Blood Pressure: 156/89 Pulse Rate: 98 Temperature: 97.6 F Mental Status: Alert & Oriented Pain level:: 5 Nausea and/or vomitting:: None Intake, IV Amount: 0
--- NOTE | 2022-01-06 10:11 | SW/DCPLANNER ---
Addendum entered by Miri Kolb 01/10/22 14:38: Infant cord screen is negative. Original Note: I received a consult for this patient regarding: positive marijuana on first appointment. Patient tested positive for THC on 06/22/21. The following urine drug screens are negative: 10/01/21, 12/23/21, 12/30/21 and 01/04/22. Patient delivered female (Erika Nathan). 's father (Barry Nathan 10/05/99) was present at the time of my visit. Patient, Barry, and Barry's two children (Yuval Briggs 06/16/14 and Willi Nathan 05/29/16) will reside at [address] [place] [address] in [place]. Contact number for patient is [phone]. Patient is established with [facility] and is interested in HANDS program. I will reach out to Diane gómez/ RAMONA to inform her of delivery. Patient stated that she has the following items at home: crib, carseat, clothing, diapers and will be breast feeding. Patient stated that she will have transportation to all follow up appointments. Patient is expected to discharge over the weekend. Per nursing staff (Cintia) patient/father are appropriate with .
--- NOTE | 2022-01-06 10:19 | EXP.PN ---
Subjective *Date: 01/06/22 *Time: 10:19 Interval history: POD # 1 s/p PLTCS Patient sleeping upon entry into the room. She is still on mag sulfate. Pain controlled at rest but reports increased pain with getting out of bed. TAP block was unsuccessful. She is breast feeding. Appropriate lochia. Good catheter in place draining clear urine. Not passing flatus yet. Admits to nausea and vomiting. Denies fever/chills, chest pain and shortness of breath. Denies headaches and vision changes. Admits to lower extremity swelling. Exam Data for Last 24 hours Vital signs and Labs for Last 24 Hours: Temp Pulse Resp BP Pulse Ox 97.6 F 98 H 22 156/89 H 96 01/06/22 09:18 01/06/22 09:18 01/05/22 22:10 01/06/22 09:18 01/05/22 22:10 Laboratory Results - last 24 hr 01/04/22 20:00: Urine Color Yellow, Urine Appearance Clear, Urine pH 6.0, Ur Specific [place] >= 1.030, Urine Protein Negative, Urine Glucose (UA) Negative, Urine Ketones Trace, Urine Blood Negative, Urine Nitrate Negative, Urine Bilirubin Negative, Urine Urobilinogen 0.2, Ur Leukocyte Esterase Negative, Urine RBC None, Urine WBC Occasional, Ur Squamous Epith Cells None, Urine Bacteria Trace 01/04/22 20:00: Urine Opiates Screen Negative, Urine Methadone Screen Negative, Ur Barbituates Screen Negative, Ur Phencyclidine Scrn Negative, Ur Amphetamines Screen Negative, U Benzodiazepines Scrn Negative, Urine Cocaine Screen Negative, U Marijuana (THC) Screen Negative 01/04/22 20:00: Urine Protein Negative 01/05/22 22:15: POC Glucose 103 01/06/22 06:19: Magnesium 5.4 H D 01/06/22 06:19: WBC 10.0 D, RBC 3.83 L, Hgb 11.3 L, Hct 34.1 L, MCV 88.9, MCH 29.5, MCHC 33.2, RDW 13.2, Plt Count 315, MPV 8.9, Neut % (Auto) 78.0, Lymph % (Auto) 16.1, [place] % (Auto) 5.2, Eos % (Auto) 0.2, Baso % (Auto) 0.5, Neut # (Auto) 7.8, Lymph # (Auto) 1.6, [place] # (Auto) 0.5, Eos # (Auto) 0.0, Baso # (Auto) 0.1 01/06/22 06:19: Sodium 136, Potassium 3.0 L, Chloride 104, Carbon Dioxide 23, Anion Gap 12.0, BUN 2 L, Creatinine 0.60 D, Estimated Creat Clear 121, Estimated GFR 124, Est GFR ( Amer) 150 D, Glucose 88, Calcium 7.3 L, Total Bilirubin < 0.1 L, AST 28, ALT 12, Alkaline Phosphatase 167 H, Total Protein 5.4 L, Albumin 2.5 L, Globulin 2.9, Albumin/Globulin Ratio 0.9 L I & O for Last 24 hours: Intake & Output 01/03/22 01/04/22 01/05/22 01/06/22 23:59 23:59 23:59 23:59 Intake Total 1185 / 1185 0 / 0 Output Total 575 / 575 Balance 610 / 610 0 / 0 Weight 266 lb Constitutional Constitutional: no acute distress *Routine HEENT Exam Head: Present normocephalic Eye: Absent conjunctivae pink ENT: Present mucous membranes moist *Routine Respiratory Exam Respiratory: Present CTA bilaterally and normal respiratory effort *Routine Cardiovascular Exam Cardiovascular: Present RRR *Routine Abdominal Exam Abdominal: Present soft; Absent normoactive bowel sounds (Hypoactive bowel sounds), tenderness or distended Comments: Uterine fundus firm and below umbilicus, Pfannenstiel incision clean/dry/intact with steri strips covering incision *Routine Extremities Exam Extremities: Present edema (+2 bilateral lower extremity edema) and full ROM; Absent calf tenderness *Routine Neurological Exam Neurological: Present alert and oriented X3 Routine Psychiatric Exam Psychiatric: Present normal affect and cooperative Assessment and Plan *Assessment and plan (1) : Status: Acute Qualifiers: Weeks of gestation: 36 weeks Qualified Code(s): Z3A.36 - 36 weeks gestation of Category: Medical Code(s): Z34.90 - Encounter for supervision of normal , unspecified, unspecified trimester (2) Pre-eclampsia, severe, third trimester: Status: Acute Category: Medical Code(s): O14.13 - Severe pre-eclampsia, third trimester (3) Gestational diabetes mellitus (GDM): Status: Chronic Qualifiers: Gestational diabetes mellitus control:
[2022-01-07 08:55] VITALS: BP 134/88; PULSE 105; RESP 18; TEMP 36.9; O2SAT 96
[2022-01-07 10:20] LABS: Potassium 3.5 mmoL/L (3.5-5.1)
--- NOTE | 2022-01-07 15:20 | EXP.PN ---
Subjective *Date: 01/07/22 *Time: 15:20 Interval history: POD # 2 s/p PLTCS Resting comfortably in bed. Pain controlled. She is breast feeding. Light lochia. Voiding without difficulty. Passing flatus. Tolerating regular diet. Denies fever/chills, chest pain and shortness of breath. Denies headache and vision changes. Admits to lower extremity swelling. Exam Data for Last 24 hours Vital signs and Labs for Last 24 Hours: Temp Pulse Resp BP Pulse Ox 98.5 F 105 H 18 134/88 96 01/07/22 08:55 01/07/22 08:55 01/07/22 08:55 01/07/22 08:55 01/07/22 08:55 Laboratory Results - last 24 hr 01/07/22 10:07: Potassium 3.5 I & O for Last 24 hours: Intake & Output 01/04/22 01/05/22 01/06/22 01/07/22 23:59 23:59 23:59 23:59 Intake Total 1185 / 1185 0 / 0 Output Total 575 / 575 Balance 610 / 610 0 / 0 Weight 266 lb Constitutional Constitutional: no acute distress and obese *Routine Respiratory Exam Respiratory: Present CTA bilaterally and normal respiratory effort *Routine Cardiovascular Exam Cardiovascular: Present RRR *Routine Abdominal Exam Abdominal: Present soft (Uterine fundus firm and below umbilicus, incision clean/dry/intact with steri strips in place) and normoactive bowel sounds; Absent tenderness or distended *Routine Extremities Exam Extremities: Present edema (+2 bilateral lower extremity edema) and full ROM; Absent calf tenderness or tenderness *Routine Neurological Exam Neurological: Present alert, oriented X3 and moving all extremities Routine Psychiatric Exam Psychiatric: Present normal affect and cooperative Assessment and Plan *Assessment and plan (1) : Status: Acute Qualifiers: Weeks of gestation: 36 weeks Qualified Code(s): Z3A.36 - 36 weeks gestation of Category: Medical Code(s): Z34.90 - Encounter for supervision of normal , unspecified, unspecified trimester (2) Pre-eclampsia, severe, third trimester: Status: Acute Category: Medical Code(s): O14.13 - Severe pre-eclampsia, third trimester (3) Gestational diabetes mellitus (GDM): Status: Chronic Qualifiers: Gestational diabetes mellitus control: oral hypoglycemic-controlled Trimester: third trimester Qualified Code(s): O24.415 - Gestational diabetes mellitus in , controlled by oral hypoglycemic drugs Category: Medical Code(s): O24.419 - Gestational diabetes mellitus in , unspecified control (4) Morbid obesity with BMI of 40.0-44.9, adult: Status: Acute Category: Medical Code(s): E66.01 - Morbid (severe) obesity due to excess calories; Z68.41 - Body mass index [BMI] 40.0-44.9, adult (5) Tobacco smoking affecting : Status: Acute Category: Medical Code(s): O99.330 - Smoking (tobacco) complicating , unspecified trimester (6) Hypokalemia: Status: Acute Category: Medical Code(s): E87.6 - Hypokalemia (7) S/P section: Status: Acute Category: Surgical Code(s): Z98.891 - History of uterine scar from previous surgery Plan Continue routine care Potassium today is 3.5. Last dose of Klor-Con this evening Continue PO pain meds Encouraged increased ambulation Continue Labetalol 100 mg PO BID Plan d/c home tomorrow
[2022-01-07 16:10] VITALS: BP 152/88; PULSE 114; RESP 18; TEMP 36.8; O2SAT 98
[2022-01-08 09:09] VITALS: BP 144/94; PULSE 95; RESP 17; TEMP 36.8; O2SAT 98
--- NOTE | 2022-01-08 10:25 | EXP.DC.SUM ---
General Admission date:: 01/05/22 Discharge date: 01/08/22 HPI HPI HPI: POD # 3 s/p PLTCS She is feeling well. Light lochia. Pain controlled. She is breast feeding. Voiding without difficulty. Passing flatus. She had a BM. Tolerating regular diet. Denies fever/chills, chest pain and shortness of breath. Denies headaches and dizziness. Admits to lower extremity swelling. Hospital Course Hospital Course Hospital Course: Ms Jose Macdonald is a 21 yo at 36w3d admitted to [facility] Labor and Delivery for induction of labor secondary to preeclampsia with severe features. She was treated with IV Labetalol and mag sulfate was started. Induction was performed with Cervidil followed by Pitocin and amniotomy. GBS was collected on 01/04/22 and in process. Cervical exam was 5/90/-1 at about 1330. She received an epidural. Cervical exam at 1600 was 5/90/-1.? Cervical exam at 1940 was unchanged at 5/90/-1. No cervical pattern changer 6.5 hours. Patient was fully internalized. Pitocin reached 18 miliunits. Discussed failure to progress with patient. Decision was made to proceed with primary .?She underwent a primary section on 01/05/22. She delivered a baby girl (baby's name is Erika) weighing 6 lb 7 oz with APGARs 8, 8. EBL was 500 cc. POD # 1 she was on mag sulfate. She admitted to appropriate pain somewhat controlled with medication. She was breast feeding. Appropriate amount of lochia. Heart was regular rate and rhythm, lungs were clear to auscultation. Abdomen was soft, appropriate tenderness to palpation. Bowel sounds were hypoactive. Good catheter was in place draining clear urine. Blood pressure was elevated. She denied symptoms. She was started on Labetalol 100 mg PO BID. Mag sulfate was discontinued 24 hours after delivery, ~ 2000 on 01/06/22. POD # 2. She was feeling better. Pain controlled. Light lochia. Breast feeding. Voiding without difficulty and passing flatus. Heart was regular rate and rhythm, lungs were clear to auscultation. Abdomen was soft, appropriate tenderness to palpation. Bowel sounds were normoactive. Tolerating regular diet. Vital signs stable. BP normal to mild range. Patient remained asymptomatic. She had +2 bilateral lower extremity swelling. No calf tenderness to palpation. POD # 3. She was feeling better. Pain controlled. Light lochia. Breast feeding. Voiding without difficulty and passing flatus. She had a BM. Heart was regular rate and rhythm, lungs were clear to auscultation. Abdomen was soft, appropriate tenderness to palpation. Bowel sounds were normoactive. Tolerating regular diet. Vital signs stable. BP continued normal and mild range. Patient remained asymptomatic. She had +1 bilateral lower extremity swelling, no calf tenderness to palpation. Exam Data for Last 24 hours Vital signs and Labs for Last 24 Hours: Temp Pulse Resp BP Pulse Ox 98.2 F 95 H 17 144/94 H 98 01/08/22 09:09 01/08/22 09:09 01/08/22 09:09 01/08/22 09:09 01/08/22 09:09 Laboratory Results - last 24 hr 01/07/22 10:07: Potassium 3.5 I & O for Last 24 hours: Intake & Output 01/05/22 01/06/22 01/07/22 01/08/22 23:59 23:59 23:59 23:59 Intake Total 1185 / 1185 0 / 0 Output Total 575 / 575 Balance 610 / 610 0 / 0 Constitutional Constitutional: no acute distress and obese *Routine HEENT Exam Head: Present normocephalic Eye: Absent conjunctivae pink ENT: Present mucous membranes moist *Routine Neck Exam Neck: Present full ROM *Routine Respiratory Exam Respiratory: Present CTA bilaterally and normal respiratory effort *Routine Cardiovascular Exam Cardiovascular: Present RRR *Routine Abdominal Exam Abdominal: Present soft, normoactive bowel sounds and other (uterine fundus firm and below umbilicus, pfannenstiel incision clean/dry/intact, no erythema or drainage. Steri strips in place); Absent tenderness or distended *Routine Extremities Exam Extremities: Present edema (+1 bilateral lower extremity edema)
== END 2022-01-08 11:30 | disposition home or self-care (01) | DRG 786 ==
LOC: OBOUT 06:18 → OB 06:18
PROVIDERS: Admitting Provider Obstetrics & Gynecology; Visit Provider Obstetrics & Gynecology
PROC: 10D00Z1 Extraction of Products of Conception, Low, Open Approach (ICD-10-PCS; CPT 59514; principal; 2022-01-05 20:15)
DX: O14.13 Severe pre-eclampsia, third trimester (principal); O60.14X0 Preterm labor third trimester with preterm delivery third trimester, not applicable or unspecified; Z3A.36 36 weeks gestation of pregnancy; O24.415 Gestational diabetes mellitus in pregnancy, controlled by oral hypoglycemic drugs; O99.330 Smoking (tobacco) complicating pregnancy, unspecified trimester; E87.6 Hypokalemia; F17.210 Nicotine dependence, cigarettes, uncomplicated; O66.40 Failed trial of labor, unspecified; Z37.0 Single live birth
CPT/HCPCS: 59514; 36415; 59025; 80048; 80053; 80305; 81001; 81002; 82962; 83735; 84132; 84450; 84460; 84550; 85025; 85378; 85384; 85610; 85730; 86403; 86850; 94761; C1758; C9803; G0283; J0595; J2405; U0003; U0005

== ENCOUNTER → 2022-01-19 17:28 | Outpatient (CLI) | payer OTHER, SELFPAY | PROVIDERS: PCP Obstetrics & Gynecology; Visit Provider Obstetrics & Gynecology | DX: N39.0 Urinary tract infection, site not specified (principal); B96.89 Other specified bacterial agents as the cause of diseases classified elsewhere | CPT/HCPCS: 87086; 87088; 87186 ==

== ENCOUNTER 2022-03-02 06:50 | Emergency (ER) | payer OTHER, SELFPAY ==
--- NOTE | 2022-03-02 06:47 | ECG_ITS ---
APPROVED REPORT Exam: Resting ECG HR:83 bpm ECG Measurements Heart Rate 83 AXES ND 151 P 42 QRSd 93 QRS 6 QT 368 T 3 QTc 408 Conclusion SINUS RHYTHM NORMAL ECG UNCONFIRMED REPORT Electronically signed by : Neville Eaton MD 03/02/2022 21:32:02
[2022-03-02 06:50] VITALS: BP 140/99; PULSE 79; RESP 18; TEMP 36.8; O2SAT 98; BMI 41.1
[2022-03-02 07:01] LABS: Basophils # 0.1 K/mm3 (0-0.2); Basophils % 1.1 % (0.1-2.0); Eosinophils # 0.1 K/mm3 (0.0-0.4); Hematocrit 41.5 % (37.0-47.0); Lymphocytes # 1.2 K/mm3 (0.7-4.5); Lymphocytes % 15.5 % (10-50); Mean Corpuscular HGB Conc 31.4 g/dL (31.8-35.4); Mean Corpuscular Volume 89.1 fl (81-99); Mean Platelet Volume 8.2 fl (7.4-10.4); Monocytes # 0.4 K/mm3 (0.1-1.0); Monocytes % 4.8 % (1.7-9.3); Neutrophils # 6.2 K/mm3 (1.8-7.8); Neutrophils % 77.6 % (37.0-80.0); Platelet Count 387 K/mm3 (142-424); Red Blood Count 4.66 M/mm3 (4.20-5.40); Red Cell Distribution Width 14.4 % (11.5-17.5)
[2022-03-02 07:08] LABS: Chloride 102 mmol/L (98-107); Potassium 3.8 mmoL/L (3.5-5.1); Sodium 138 mmol/L (136-145)
[2022-03-02 07:11] LABS: Alanine Aminotransferase 42 U/L (12-78); Alkaline Phosphatase 131 U/L (38-126); Amylase 47 U/L (30-110); Anion Gap 11.8 mEq/L (5-15); Aspartate Amino Transferase 31 U/L (14-36); Bilirubin,Total 0.2 mg/dl (0.2-1.3); Blood Urea Nitrogen 14 mg/dl (7-17); Calcium 9.4 mg/dl (8.4-10.2); Carbon Dioxide 28 mmol/L (22.0-30.0); Creatinine Clearance Estimated 182 mL/min (50-200); Estimated Glomerular Filt Rate 89 ml/min (>60); GFR (African American) 108 ML/MIN (>60); Glucose 117 mg/dl (74-100); Lipase 48 U/L (23-300)
[2022-03-02 07:12] LABS: Albumin Level 4.5 g/dl (3.5-5.0); Albumin/Globulin Ratio 1.3 (1.1-1.8); Globulin 3.4 g/dL (1.3-3.2); Total Protein,Serum 7.9 g/dl (6.3-8.2)
[2022-03-02 07:15] LABS: HCG Qualitative, Serum Negative (Negative)
--- NOTE | 2022-03-02 07:25 | HMH.EDABDPAI ---
Discharge Plan Disposition Patient Disposition: Home, Self-Care Prescriptions Prescriptions: New ondansetron HCl 4 mg Tablet 4 mg PO Q8H PRN (Reason: Nausea) Qty: 20 0RF No Action metoclopramide HCl [Reglan] 10 mg tablet 10 mg PO Q8H 14 Days Qty: 42 0RF labetalol 100 mg Tablet 100 mg PO BID Qty: 60 1RF Referrals Follow up/Referrals: Wellington Nuñez MD [Staff Physician] - See instructions Edilberto Hines MD [Staff Physician] - See instructions Clinical Impressions Clinical Impression: Cholelithiasis Instructions Patient Instructions: DI for Gallstones Discharge ED Provider: Jong Grey Abdominal Pain HPI General Chief Complaint: Abdominal Pain Stated Complaint: epigastric pain Time Seen by Provider: 03/02/22 07:10 Mode of Arrival: Ambulatory Source of Information: Patient and Medical Record Limitations: No Limitations Description of Symptoms (Recalled from ER Triage Doc. by RN): pt c/o epigastic pain and vomitting that started about midnight History of Present Illness HPI narrative: has upper abd pain which started last pm complaint: abdominal pain Onset (ago): hour(s) Consistency: intermittent Location: RUQ Severity: moderate Quality: sharp Associated symptoms: nausea Related Data Previous Rx's Medication Instructions Recorded labetalol 100 mg tablet 100 mg PO BID #60 tabs 01/07/22 metoclopramide HCl 10 mg tablet 10 mg PO Q8H 14 days #42 tabs 02/13/22 (Reglan) ondansetron HCl 4 mg tablet 4 mg PO Q8H PRN Nausea #20 tabs 03/02/22 Allergies Allergy/AdvReac Type Severity Reaction Status Date / Time amoxicillin [AMOXICILLIN] Allergy Intermediate I-HIVES Verified 02/20/22 13:40 Penicillins [PENICILLINS] Allergy Intermediate I-HIVES Verified 02/20/22 13:40 [facility] Disclaimer: The information contained in this section may have been updated after the patient was seen, as this information can be updated by other users. Medical History Decreased Gestational diabetes mellitus (GDM) Headache History of gestational diabetes History of pre-eclampsia Hypokalemia Pilonidal cyst Pre-eclampsia, severe, third trimester Tobacco smoking affecting Surgical History History of hand surgery S/P section S/P section Family History Other Cancer Diabetes Heart attack Stroke Social History Smoking Status: Never smoker second hand exposure: Yes (uses vape pen) alcohol intake: never substance use type: marijuana current occupational status: employed Travel in the last 8 weeks: None household members: family housing: house marital status: single current occupation: [employer] current occupational exposures/hazards: No sexually active: Yes caffeine: No do you feel safe at home: Yes victim of physical abuse: No victim of emotional abuse: No victim of sexual abuse: No ROS Obtained: Yes All systems reviewed & no additional complaints except as documented Physical Exam General General appearance: alert and obese Head Head exam: normocephalic Eye Eye exam: Present PERRL and EOMI ENT ENT exam: Present mucous membranes moist Neck Neck exam: Present trachea midline Respiratory Respiratory exam: Absent respiratory distress Cardiovascular Cardiovascular exam: Present regular rate Abdominal Exam Abdominal exam: Present soft and Taveras's sign Abdominal tenderness: Present RUQ and moderate Extremities Exam Extremities exam: Present full ROM Neurological Exam Neurological exam: Present alert and CN II-XII intact Psychiatric Psychiatric exam: Present normal affect Skin Skin exam: Absent rash Medical Decision Making Medical Records Medical records reviewed: Yes I reviewed the patient'
--- NOTE | 2022-03-02 07:26 | US_ITS ---
FINAL REPORT CLINICAL HISTORY: ruq and epigastric pain FINDINGS: Ultrasound images of the right upper quadrant were obtained. The liver parenchyma demonstrates focal fatty infiltration. The gallbladder is well visualized and the wall appears normal. There are gallstones in the dependent portion of the gallbladder. The common duct is normal. Limited images of the right kidney are unremarkable. IMPRESSION: Cholelithiasis. Focal fatty infiltration of the liver. Reviewed, Interpreted and Dictated by Azam Carrillo MD Transcribed by Matty Rebolledo Authenticated and [facility]
--- NOTE | 2022-03-02 07:26 | PC.NURSE ---
RADIOLOGY NOTIFIED OF GALLBLADDER US
--- NOTE | 2022-03-02 07:28 | PC.NURSE ---
PT REQUESTING PAIN MEDICATION, DR. AMARO NOTIFIED. WARM BLANKET PROVIDED PER PT REQUEST
--- NOTE | 2022-03-02 07:36 | PC.NURSE ---
PT TO U/S AT THIS TIME VIA WC
--- NOTE | 2022-03-02 08:07 | PC.NURSE ---
pt returned from us
--- NOTE | 2022-03-02 08:10 | PC.NURSE ---
notified ER MD Grey pt is vomiting
--- NOTE | 2022-03-02 08:13 | PC.NURSE ---
ALL MEDICATIONS VERIFIED WITH RASHI IN PHARMACY, SAFE TO GIVE WHILE
--- NOTE | 2022-03-02 08:46 | PC.NURSE ---
DR AMARO AT BEDSIDE TO DISCUSS POC WITH PT
[2022-03-02 09:09] VITALS: BP 141/104; PULSE 87; RESP 17; TEMP 36.6; O2SAT 98
== END 2022-03-02 09:14 | disposition home or self-care (01) ==
PROVIDERS: Emergency Provider Emergency Medicine; PCP Physician Assistant
DX: K80.20 Calculus of gallbladder without cholecystitis without obstruction; Z88.0 Allergy status to penicillin; Z88.1 Allergy status to other antibiotic agents; Z83.3 Family history of diabetes mellitus; Z80.9 Family history of malignant neoplasm, unspecified; Z82.3 Family history of stroke; F12.90 Cannabis use, unspecified, uncomplicated
CPT/HCPCS: 76705; 80053; 82150; 83690; 84703; 85025; 93005; 96365; 96375; 99284; J2405

== ENCOUNTER 2022-03-06 14:25 | Emergency (ER) | payer OTHER, SELFPAY ==
[2022-03-06 16:02] VITALS: BP 0/0; PULSE 0; RESP 0; TEMP -17.7; TEMP 0
== END 2022-03-06 16:03 | disposition left against medical advice (07) ==
LOC: UTC 14:28
PROVIDERS: Emergency Provider Nurse Practitioner; PCP Physician Assistant
DX: Z53.21 Procedure and treatment not carried out due to patient leaving prior to being seen by health care provider (principal)

== ENCOUNTER 2022-03-06 20:11 | Emergency (ER) | payer OTHER, SELFPAY ==
[2022-03-06 21:49] VITALS: BP 0/0; PULSE 0; RESP 0; TEMP -17.7; TEMP 0; O2SAT 0
== END 2022-03-06 21:49 | disposition left against medical advice (07) ==
LOC: ER 21:40
PROVIDERS: Emergency Provider Emergency Medicine; PCP Physician Assistant
DX: Z53.21 Procedure and treatment not carried out due to patient leaving prior to being seen by health care provider (principal)

== ENCOUNTER → 2022-03-23 10:36 | Outpatient (CLI) | payer OTHER, SELFPAY ==
[2022-03-23 11:06] LABS: Basophils # 0.1 K/mm3 (0-0.2); Basophils % 1.5 % (0.1-2.0); Eosinophils # 0.1 K/mm3 (0.0-0.4); Eosinophils % 2.2 % (0.1-12.0); Hematocrit 38.7 % (37.0-47.0); Hemoglobin 12.4 g/dL (12.2-16.2); Lymphocytes # 2.3 K/mm3 (0.7-4.5); Lymphocytes % 36.5 % (10-50); Mean Corpuscular HGB Conc 31.9 g/dL (31.8-35.4); Mean Corpuscular Hemoglobin 27.1 pg (27.0-31.2); Mean Corpuscular Volume 84.9 fl (81-99); Mean Platelet Volume 7.6 fl (7.4-10.4); Monocytes # 0.2 K/mm3 (0.1-1.0); Monocytes % 3.9 % (1.7-9.3); Neutrophils # 3.5 K/mm3 (1.8-7.8); Platelet Count 648 K/mm3 (142-424); Red Blood Count 4.56 M/mm3 (4.20-5.40); Red Cell Distribution Width 14.8 % (11.5-17.5); White Blood Count 6.3 K/mm3 (4.8-10.8)
[2022-03-23 11:31] LABS: Alanine Aminotransferase 41 U/L (12-78); Albumin Level 4.2 g/dl (3.5-5.0); Albumin/Globulin Ratio 1.3 (1.1-1.8); Alkaline Phosphatase 116 U/L (38-126); Amylase 78 U/L (30-110); Anion Gap 14.2 mEq/L (5-15); Aspartate Amino Transferase 27 U/L (14-36); Bilirubin,Total 0.3 mg/dl (0.2-1.3); Blood Urea Nitrogen 12 mg/dl (7-17); Calcium 9.9 mg/dl (8.4-10.2); Carbon Dioxide 24 mmol/L (22.0-30.0); Chloride 106 mmol/L (98-107); Estimated Glomerular Filt Rate 104 ml/min (>60); GFR (African American) 125 ML/MIN (>60); Globulin 3.2 g/dL (1.3-3.2); Glucose 98 mg/dl (74-100); Lipase 535 U/L (23-300); Potassium 4.2 mmoL/L (3.5-5.1); Sodium 140 mmol/L (136-145); Total Protein,Serum 7.4 g/dl (6.3-8.2)
== END ==
PROVIDERS: PCP Physician Assistant; Visit Provider Surgery
DX: Z01.812 Encounter for preprocedural laboratory examination (principal); K80.20 Calculus of gallbladder without cholecystitis without obstruction
CPT/HCPCS: 36415; 80053; 82150; 83690; 85025

== ENCOUNTER 2022-04-17 09:03 | Day surgery (SDC) | payer OTHER, SELFPAY ==
[2022-04-13 12:36] VITALS: BMI 41.1
[2022-04-17] VITALS (14 sets, daily range): BP systolic 112–159; BP diastolic 73–93; PULSE 80–107; RESP 8–18; TEMP 36.2–43; O2SAT 91–98
[2022-04-17 09:24] LABS: Urine Pregnancy, HCG Qual. Negative (Negative)
--- NOTE | 2022-04-17 09:43 | P.PN_ITS ---
[facility] Disclaimer: The information contained in this section may have been updated after the patient was seen, as this information can be updated by other users. Medical History Decreased Gestational diabetes mellitus (GDM) Headache History of gestational diabetes History of pre-eclampsia Hypokalemia Pilonidal cyst Pre-eclampsia, severe, third trimester Tobacco smoking affecting Surgical History History of hand surgery S/P section S/P section Family History Other Cancer Diabetes Heart attack Stroke Social History (Updated 04/17/22 @ 09:22 by Rula Mcgovern RN) Smoking Status: Never smoker second hand exposure: Yes (uses vape pen) alcohol intake: never substance use type: marijuana current occupational status: employed Travel in the last 8 weeks: None household members: family housing: house marital status: single current occupation: [employer] current occupational exposures/hazards: No sexually active: Yes caffeine: Yes do you feel safe at home: Yes victim of physical abuse: No victim of emotional abuse: No victim of sexual abuse: No [facility] Anesthesia Checklist Patient Identification Patient Identification: Arm Band Structural Data Admitted From: Home Planned Operative Procedure/s: Laparoscopic Cholecystectomy Consent for Planned Operative Procedure(s) Verified: Yes Verified Documents: Surgical Consent and History and Physical NPO Status Verified Time NPO: 00:00 Additional verifications Anesthesia Reactions: No Hx Blood Transfusions: No Blood Transfusion Reaction: No Airway Assessment C-Spine Mobility Assessed: Yes TMJ Mobility Assessed: Yes Dentition: Good Dentition Neurological Assessment Level of Consciousness: Awake and Alert Anesthesia Plan Anesthesia Risk discussed: Yes Anesthesia Plan: Verified ASA Class: III Anesthesia Type: General
[2022-04-17 09:48] LABS: Lipase 77 U/L (23-300)
[2022-04-17 10:34] LABS: Chloride 106 mmol/L (98-107); Potassium 4.1 mmoL/L (3.5-5.1); Sodium 139 mmol/L (136-145)
[2022-04-17 10:36] LABS: Alanine Aminotransferase 37 U/L (12-78); Amylase 43 U/L (30-110); Anion Gap 14.1 mEq/L (5-15); Aspartate Amino Transferase 33 U/L (14-36); Blood Urea Nitrogen 14 mg/dl (7-17); Carbon Dioxide 23 mmol/L (22.0-30.0); Creatinine Clearance Estimated 240 mL/min (50-200); Estimated Glomerular Filt Rate 123 ml/min (>60); GFR (African American) 149 ML/MIN (>60)
[2022-04-17 10:37] LABS: Albumin/Globulin Ratio 1.3 (1.1-1.8); Alkaline Phosphatase 84 U/L (38-126); Bilirubin,Total 0.5 mg/dl (0.2-1.3); Calcium 8.6 mg/dl (8.4-10.2); Globulin 3.2 g/dL (1.3-3.2); Glucose 94 mg/dl (74-100); Total Protein,Serum 7.2 g/dl (6.3-8.2)
--- NOTE | 2022-04-17 10:37 | P.PN_ITS ---
[facility] Disclaimer: The information contained in this section may have been updated after the patient was seen, as this information can be updated by other users. Medical History Decreased Gestational diabetes mellitus (GDM) Headache History of gestational diabetes History of pre-eclampsia Hypokalemia Pilonidal cyst Pre-eclampsia, severe, third trimester Tobacco smoking affecting Surgical History History of hand surgery S/P section S/P section Family History Other Cancer Diabetes Heart attack Stroke Social History (Updated 04/17/22 @ 09:22 by Rula Mcgovern RN) Smoking Status: Never smoker second hand exposure: Yes (uses vape pen) alcohol intake: never substance use type: marijuana current occupational status: employed Travel in the last 8 weeks: None household members: family housing: house marital status: single current occupation: [employer] current occupational exposures/hazards: No sexually active: Yes caffeine: Yes do you feel safe at home: Yes victim of physical abuse: No victim of emotional abuse: No victim of sexual abuse: No [facility] Anesthesia Checklist Patient Identification Patient Identification: Arm Band and Verbal (Name & ) Structural Data Admitted From: Home Planned Operative Procedure/s: Laparascopic Cholecystectomy Verified Documents: Surgical Consent NPO Status Verified Time NPO: 00:00 Chart Verification Results Verified: HCG Additional verifications Anesthesia Reactions: No Hx Blood Transfusions: No Blood Transfusion Reaction: No Airway Assessment C-Spine Mobility Assessed: Yes TMJ Mobility Assessed: Yes Dentition: Good Dentition Neurological Assessment Level of Consciousness: Awake, Alert and Appropriate Anesthesia Plan Anesthesia Risk discussed: Yes ASA Class: III Anesthesia Type: General
--- NOTE | 2022-04-17 11:07 | P.OP_ITS ---
Date of procedure: 04/17/22 Pre-op Diagnosis:: History of biliary pancreatitis, symptomatic gallstones Post-op Diagnosis:: Same Procedure performed:: Laparoscopic cholecystectomy Surgeon:: Wellington Nuñez MD PAPER FINAL INSPECTOR:: Geraldo Harris Anesthesia: ZAC Estimated blood loss (mL): 15 Clinical Note:: Patient is a 21-year-old female who presents for cholecystectomy. She was referred by the emergency department for gallbladder.? I had previously seen her for pilonidal cyst.? She is 2 months from a .? She was seen in the ER on 03/02/2022 with epigastric pain and vomiting.? She had an ultrasound of the gallbladder which revealed gallstones with no gallbladder wall thickening and fatty liver.? Blood work was unremarkable.? She was managed as an outpatient at that time with normal blood work and findings consistent with symptomatic gallstones. A couple days later she had recurrent symptoms. She ultimately had symptoms consistent with biliary pancreatitis and possibly an ascending cholangitis. At outside facility she underwent ERCP with sphincterotomy. She did convalesce. She was seen as a surgical consultation. Arrangements were made for cholecystectomy. Consideration was given for possible intraoperative cholangiogram. Patient has had some ongoing symptoms consistent with biliary colic. She underwent blood work which revealed above normal lipase after she was seen as a surgical consultation. Blood work was repeated the day of surgery and this revealed normal liver function tests and normal pancreatic enzymes. Operative findings:: She has somewhat thickened gallbladder. There were omental adhesions to the gallbladder. She did have fatty liver. Operative note:: Patient was taken to the operating room. She was given preoperative intravenous antibiotics. In the operating room she was placed in a supine position. General anesthesia was induced via endotracheal tube. Abdomen was prepped and draped in the standard surgical fashion. Subumbilical skin incision was made and while performing abdominal wall lift Veress needle was inserted. CO2 pneumoperitoneum was achieved to 15 mmHg. 11 mm optical trocar was inserted in the umbilicus. She was positioned in reverse Trendelenburg left side down. A couple of 5 mm trochars were inserted in the right upper abdomen. 10 mm trocar was inserted in the epigastrium. Gallbladder was grasped retracted anteriorly and superiorly over the dome of the liver. Adhesions were taken down using ANTHONY ultrasonic robotic ofelia and blunt dissection. Blunt dissection was carried out the neck of the gallbladder bluntly incising the visceral peritoneum. The cystic duct and cystic artery were clearly identified. While waiting for her lab repeat to return dissection was carried out prior to dividing the cystic duct. Once the laboratory values returned showing normal liver function tests and normal pancreatic enzymes cystic duct was multiply clipped and sharply divided. Cystic artery was carefully coagulated with ANTHONY ultrasonic robotic ofelia and divided. Gallbladder was dissected free from the remainder of its liver attachments with ANTHONY ultrasonic robotic ofelia. Gallbladder was placed within an Endo Catch retrieval device removed from the peritoneal cavity via the umbilical trocar site. There was good hemostasis of the gallbladder fossa. Fascia at the umbilicus was closed with the laparoscopic Neoclose device. Local anesthetic was infiltrated. Deep dermal tissue at the umbilical incision was closed with 0 Vicryl suture. Skin incision was closed with 4-0 Monocryl in a subcuticular fashion. Dermabond and dressings were applied. Condition: stable Disposition: PACU Complications:: None immediately apparent
--- NOTE | 2022-04-17 11:16 | P.PNANES_ITS ---
[facility] [place] Anesthesia Record Part I Anesthesia Record I Intake, IV Amount: 1,100 Estimated blood loss (mL): 5 Urine output (mL): 0 Blood Pressure: 127/84 SaO2: 91 Pulse Rate: 90 Respiratory Rate: 16 Temperature: 97.7 F Patient is:: Drowsy, Nasal O2, Oral/Nasal airway and Stable Stable to PACU at:: 11:14
--- NOTE | 2022-04-17 12:04 | PC.NURSE ---
1200- gave report to postop THatfieldRN- patient has warm blanket over abd for comfort, denies pain. asking for a pepsi
--- NOTE | 2022-04-17 15:39 | P.PNANES_ITS ---
[facility] Anesthesia Record Part II Anesthesia Record Part II Discharge Time: 12:00 Destination: Surgical Day Care (OP Surgery) PACU nurse assessment reviewed?: Yes Patient Condition:: Good Anesthesia Complications:: None Swallowing reflex intact?: Yes Cyanosis?: No Blood Pressure: 112/81 Pulse Rate: 93 Temperature: 97.2 F Mental Status: Alert & Oriented Pain level:: 0 Nausea and/or vomitting:: None Intake, IV Amount: 0
== END 2022-04-17 12:35 | disposition home or self-care (01) ==
PROVIDERS: PCP Physician Assistant; Visit Provider Surgery
PROC: 0FT44ZZ Resection of Gallbladder, Percutaneous Endoscopic Approach (ICD-10-PCS; CPT 47562; principal; 2022-04-17 10:45)
DX: K80.12 Calculus of gallbladder with acute and chronic cholecystitis without obstruction (principal); K76.0 Fatty (change of) liver, not elsewhere classified
CPT/HCPCS: 47562; 80053; 81025; 82150; 83690; 96374; J2405

== ENCOUNTER 2022-08-28 17:33 | Emergency (ER) | payer OTHER, SELFPAY ==
[2022-08-28 17:34] VITALS: BP 187/86; PULSE 98; RESP 18; TEMP 36.8; O2SAT 99; BMI 44.2
--- NOTE | 2022-08-28 17:46 | XR_ITS ---
PROCEDURE INFORMATION: Exam: XR Left Ankle Exam date and time: 08/28/2022 5:49 PM Age: 22 years old Clinical indication: Injury or trauma; Fall; Blunt trauma; Ankle; Left TECHNIQUE: Imaging protocol: Radiologic exam of the left ankle. Views: 3 or more views. COMPARISON: No relevant prior studies available. FINDINGS: Bones/joints: Osseous alignment is normal. No acute fracture arthritic change Soft tissues: Lateral soft tissue swelling noted IMPRESSION: No acute fracture
--- NOTE | 2022-08-28 17:47 | XR_ITS ---
PROCEDURE INFORMATION: Exam: XR Right Knee Exam date and time: 08/28/2022 5:49 PM Age: 22 years old Clinical indication: Injury or trauma; Fall; Blunt trauma; Knee; Right TECHNIQUE: Imaging protocol: Radiologic exam of the right knee. Views: 3 views. COMPARISON: No relevant prior studies available. FINDINGS: Bones/joints: Normal. Soft tissues: Normal. IMPRESSION: No acute findings.
--- NOTE | 2022-08-28 17:48 | PC.NURSE ---
DR CORONEL AT BEDSIDE
--- NOTE | 2022-08-28 17:53 | PC.NURSE ---
XR AT BEDSIDE
--- NOTE | 2022-08-28 17:55 | HMH.EDGENADL ---
Discharge Plan Disposition Patient Disposition: Home, Self-Care Condition: Good Prescriptions Prescriptions: No Action norgestimate-ethinyl estradiol [Sprintec (28)] 0.25-35 mg-mcg tablet 1 tab PO DAILY Qty: 84 1RF Referrals Follow up/Referrals: Esther Pacheco PA [Primary Care Provider] - See instructions Activity Restrictions/Add. Instructions Additional Instructions/Restrictions: Tylenol or Motrin, rest ice and elevation as needed for discomfort. Avoid prolonged standing or strenuous physical activity until symptoms subside. Clinical Impressions Clinical Impression: Contusion of knee, right, Left ankle sprain Discharge ED Provider: Alexx Magaña General Adult HPI General Chief complaint: PAIN Stated complaint: AO 08/27@2300 injured R knee L foot Time Seen by Provider: 08/28/22 17:47 Mode of Arrival: Ambulatory Limitations: No Limitations Description of Symptoms (Recalled from ER Triage Doc. by RN): PT WITH C/O LEFT FOOT/ANKLE PAIN AND RIGHT KNEE PAIN AFTER A FALL LAST NIGHT History of Present Illness HPI narrative: Patient presents complaint of pain to the right knee and left ankle following mechanical fall last night she also states she struck her chin but denies loss of consciousness. She describes the pain as moderate to the lower extremities and worse with weightbearing. Related Data Previous Rx's Medication Instructions Recorded norgestimate 0.25 mg-ethinyl 1 tab PO DAILY #84 tabs 06/09/22 estradiol 35 mcg tablet (Sprintec (28)) Allergies Allergy/AdvReac Type Severity Reaction Status Date / Time amoxicillin [AMOXICILLIN] Allergy Intermediate I-HIVES Verified 07/24/22 10:44 Penicillins [PENICILLINS] Allergy Intermediate I-HIVES Verified 07/24/22 10:44 [facility] Disclaimer: The information contained in this section may have been updated after the patient was seen, as this information can be updated by other users. 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 History of laparoscopic cholecystectomy S/P section Family History Other Cancer Diabetes Heart attack Stroke Social History Smoking Status: Current every day smoker second hand exposure: Yes (uses vape pen) alcohol intake: never current occupational status: employed Travel in the last 8 weeks: None household members: family housing: house marital status: single current occupation: [employer] current occupational exposures/hazards: No sexually active: Yes caffeine: Yes do you feel safe at home: Yes victim of physical abuse: No victim of emotional abuse: No victim of sexual abuse: No ROS Obtained: Yes All systems reviewed & no additional complaints except as documented Physical Exam General General appearance: alert and in no apparent distress Head Head exam: normocephalic, normal inspection and other (There is minimal if any tenderness to the chin. There is no malocclusion.) Eye Eye exam: Present normal appearance, PERRL and EOMI ENT ENT exam: Present normal exam Neck Neck exam: Present normal inspection, full ROM and trachea midline; Absent meningismus or lymphadenopathy Chest Chest inspection: Present normal inspection and symmetric chest wall rise; Absent tenderness Respiratory Respiratory exam: Present normal lung sounds bilaterally; Absent respiratory distress Cardiovascular Cardiovascular exam: Present regular rate and normal rhythm; Absent JVD Abdominal
[2022-08-28 18:52] VITALS: BP 153/97; PULSE 87; RESP 17; TEMP 37; O2SAT 98
== END 2022-08-28 18:54 | disposition home or self-care (01) ==
PROVIDERS: Emergency Provider Emergency Medicine; PCP Physician Assistant
DX: M25.561 Pain in right knee (principal); M25.572 Pain in left ankle and joints of left foot; W19.XXXA Unspecified fall, initial encounter; F17.290 Nicotine dependence, other tobacco product, uncomplicated
CPT/HCPCS: 73562; 73610; 99284

== ENCOUNTER 2022-11-07 19:57 | Emergency (ER) | payer OTHER, SELFPAY ==
[2022-11-07 19:59] VITALS: BP 138/85; PULSE 104; RESP 20; TEMP 36.8; O2SAT 97; BMI 45.3
[2022-11-07 21:20] VITALS: BP 126/89; PULSE 81; RESP 17; TEMP 36.8; O2SAT 98
--- NOTE | 2022-11-09 23:51 | HMH.EDGENADL ---
Discharge Plan Disposition Patient Disposition: Home, Self-Care Condition: Good Prescriptions Prescriptions: No Action promethazine 12.5 mg tablet 12.5 mg PO TID 3 Days Qty: 9 0RF norgestimate-ethinyl estradiol [Sprintec (28)] 0.25-35 mg-mcg tablet 1 tab PO DAILY Qty: 84 1RF Referrals Follow up/Referrals: Esther Pacheco PA [Primary Care Provider] - See instructions Activity Restrictions/Add. Instructions Additional Instructions/Restrictions: Please follow-up with your GI doctor. Please follow-up with your primary care provider. Please return to the emergency department if you develop any new or worsening symptoms or become concerned for your health. Clinical Impressions Clinical Impression: Diarrhea Instructions Patient Instructions: DI for Diarrhea and Traveler's Diarrhea -- Adult, DI for Nausea -- Adult Discharge ED Provider: Brant Plata Adult HPI General Chief complaint: Nausea/Vomiting/Diarrhea Stated complaint: nuasea, abd pain, V/D Time Seen by Provider: 11/07/22 20:16 Mode of Arrival: Ambulatory Source of Information: Patient Limitations: No Limitations Description of Symptoms (Recalled from ER Triage Doc. by RN): pt reports n/v/d and rt side abd pain since gallbladder was removed 04/17/22 History of Present Illness HPI narrative: 22-year-old female history of chronic abdominal pain, chronic nausea and vomiting, chronic diarrhea since April when she had her gallbladder removed who presents with concern for blood in her stool. She reports that she went to the bathroom during her 's softball game this evening and noted red in her stool. She reports it looked to be adherent to the stool, it was not black in nature. Reports no significant prior history of blood in her stool. Reports that she does not think she ate anything red today. She reports a history of anal fissures, hemorrhoids, not on blood thinners. Has not had any other episodes. Regarding her chronic abdominal pain and nausea and vomiting, it is stable from prior. She is not here for evaluation of the symptoms. Related Data Previous Rx's Medication Instructions Recorded norgestimate 0.25 mg-ethinyl 1 tab PO DAILY #84 tabs 09/03/22 estradiol 35 mcg tablet (Sprintec (28)) promethazine 12.5 mg tablet 12.5 mg PO TID 3 days #9 tabs 11/09/22 Allergies Allergy/AdvReac Type Severity Reaction Status Date / Time amoxicillin [AMOXICILLIN] Allergy Intermediate I-HIVES Verified 11/09/22 09:03 Penicillins [PENICILLINS] Allergy Intermediate I-HIVES Verified 11/09/22 09:03 [facility] Disclaimer: The information contained in this section may have been updated after the patient was seen, as this information can be updated by other users. Medical History (Updated 11/09/22 @ 15:29 by Wellington Nuñez MD) Abnormal uterine bleeding Decreased Gestational diabetes mellitus (GDM) Headache History of gestational diabetes History of pre-eclampsia Hypokalemia Pilonidal cyst Pre-eclampsia, severe, third trimester Tobacco smoking affecting Surgical History (Updated 11/09/22 @ 09:04 by DARBY Lund) History of hand surgery History of laparoscopic cholecystectomy History of surgical removal of pilonidal cyst S/P section Family History Other Cancer Diabetes Heart attack Stroke Social History Smoking Status: Current every day smoker second hand exposure: Yes (uses vape pen) alcohol intake: never current occupational status: employed Travel in the last 8 weeks: None household members: family housing: house marital status: single current occupation: [employer] current occupational exposures/hazards: No sexually active: Yes caffeine: Yes do you feel safe at home: Yes victim of physical abuse: No victim of emoti
== END 2022-11-07 21:20 | disposition home or self-care (01) ==
PROVIDERS: Emergency Provider Emergency Medicine; PCP Physician Assistant
DX: R10.9 Unspecified abdominal pain (principal); R11.2 Nausea with vomiting, unspecified; R19.7 Diarrhea, unspecified; F17.290 Nicotine dependence, other tobacco product, uncomplicated
CPT/HCPCS: 96374; 99284; J2405

== ENCOUNTER → 2022-11-09 09:48 | Outpatient (CLI) | payer OTHER, SELFPAY ==
[2022-11-09 10:29] LABS: Basophils % 0.6 % (0.1-2.0); Eosinophils # 0.1 K/mm3 (0.0-0.4); Hematocrit 44.7 % (37.0-47.0); Hemoglobin 14.4 g/dL (12.2-16.2); Lymphocytes # 1.5 K/mm3 (0.7-4.5); Lymphocytes % 24.5 % (10-50); Mean Corpuscular HGB Conc 32.2 g/dL (31.8-35.4); Mean Corpuscular Volume 86.8 fl (81-99); Mean Platelet Volume 8.3 fl (7.4-10.4); Monocytes # 0.4 K/mm3 (0.1-1.0); Monocytes % 6.5 % (1.7-9.3); Neutrophils # 4.1 K/mm3 (1.8-7.8); Neutrophils % 67.4 % (37.0-80.0); Platelet Count 270 K/mm3 (142-424); Red Blood Count 5.15 M/mm3 (4.20-5.40); Red Cell Distribution Width 13.6 % (11.5-17.5); White Blood Count 6.1 K/mm3 (4.8-10.8)
[2022-11-09 11:07] LABS: Alanine Aminotransferase 45 U/L (12-78); Albumin Level 4.6 g/dl (3.5-5.0); Albumin/Globulin Ratio 1.2 (1.1-1.8); Alkaline Phosphatase 98 U/L (38-126); Amylase 38 U/L (30-110); Anion Gap 16.6 mEq/L (5-15); Aspartate Amino Transferase 42 U/L (14-36); Bilirubin,Total 0.5 mg/dl (0.2-1.3); Blood Urea Nitrogen 8 mg/dl (7-17); Calcium 9.5 mg/dl (8.4-10.2); Carbon Dioxide 23 mmol/L (22.0-30.0); Chloride 105 mmol/L (98-107); Estimated Glomerular Filt Rate 103 ml/min (>60); GFR (African American) 124 ML/MIN (>60); Glucose 111 mg/dl (74-100); Lipase 49 U/L (23-300); Potassium 3.6 mmoL/L (3.5-5.1); Sodium 141 mmol/L (136-145); Total Protein,Serum 8.6 g/dl (6.3-8.2)
[2022-11-10 12:16] LABS: HBsAg Screen Negative (Negative); HCV Ab Non Reactive (Non Reactive); Hep A Ab, IGM Negative (Negative); Hep B Core Ab, IgM Negative (Negative)
== END ==
PROVIDERS: Visit Provider Surgery
DX: R10.9 Unspecified abdominal pain (principal)
CPT/HCPCS: 36415; 80053; 80074; 82150; 83690; 85025

== ENCOUNTER → 2022-11-10 13:43 | Outpatient (CLI) | payer OTHER, SELFPAY ==
[2022-11-10 13:49] LABS: Adenovirus F 40/41, stool Not Detected (NotDetected); Astrovirus Not Detected (NotDetected); Campylobacter Not Detected (NotDetected); Clostridium Difficile A/B, PCR Not Detected (NotDetected); Cryptosporidium Not Detected (NotDetected); Cyclospora Cayetanesis Not Detected (NotDetected); Entamoeba histolytica Not Detected (NotDetected); Enteroaggregative E coli Not Detected (NotDetected); Enterotoxigenic E coli Not Detected (NotDetected); Giardia lamblia Not Detected (NotDetected); Norovirus Not Detected (NotDetected); Plesimonas Shigalloides, PCR Not Detected (NotDetected); Rotavirus A Not Detected (NotDetected); Salmonella, PCR Not Detected (NotDetected); Sapovirus Not Detected (NotDetected); Shiga-like toxin E coli Not Detected (NotDetected); Shigella Enterovasive E coli Not Detected (NotDetected); Vibrio Cholerae Not Detected (NotDetected); Vibrio, PCR Not Detected (NotDetected); Yersinia Entercolitica, PCR Not Detected (NotDetected)
[2022-11-10 18:41] LABS: Enteropathogenic E coli Detected (NotDetected)
== END ==
LOC: LAB 13:44
PROVIDERS: Visit Provider Surgery
DX: R10.9 Unspecified abdominal pain (principal); A04.0 Enteropathogenic Escherichia coli infection
CPT/HCPCS: 87506

== ENCOUNTER 2022-11-11 19:51 | Emergency (ER) | payer OTHER, SELFPAY ==
[2022-11-11 20:00] VITALS: PULSE 79; O2SAT 97
[2022-11-11 20:01] VITALS: BP 139/79; PULSE 81; RESP 15; TEMP 36.6; O2SAT 98; BMI 45.3
--- NOTE | 2022-11-11 20:04 | HMH.EDGENADL ---
Discharge Plan Disposition Patient Disposition: Home, Self-Care Condition: Good Prescriptions Prescriptions: New azithromycin 500 mg tablet 500 mg PO DAILY 3 Days Qty: 3 0RF prochlorperazine maleate [Compazine] 5 mg tablet 5 mg PO DAILY Qty: 10 0RF Discontinued promethazine 12.5 mg tablet 12.5 mg PO TID ciprofloxacin HCl 500 mg tablet 500 mg PO BID No Action norgestimate-ethinyl estradiol [Sprintec (28)] 0.25-35 mg-mcg tablet 1 tab PO DAILY Referrals Follow up/Referrals: Provider,Referral, MD [Primary Care Provider] - See instructions Clinical Impressions Clinical Impression: Acute infectious diarrhea Instructions Patient Instructions: DI for Acute Abdominal Pain Discharge ED Provider: Aubrey Hebert General Adult HPI General Chief complaint: Abdominal Pain Stated complaint: ecoli seen by micheline Malcolm pain Time Seen by Provider: 11/11/22 20:03 History of Present Illness HPI narrative: Patient presents for evaluation of severe upset stomach and nausea and vomiting after administration of oral fluoroquinolone for treatment of infectious diarrhea. Symptoms were acute in onset starting today, constant, improved at this time, however has had longstanding history of nonbloody diarrhea and emesis after cholecystectomy, GI pathogen panel revealed E. coli in stool. Course of fluoroquinolone prescribed by surgeon earlier today. She is only taken 1 dose, patient denies any known allergies to medications. Describes associated chronic diffuse abdominal pain, able to have bowel movements and pass flatus, no urinary symptoms Related Data Home Medications Medication Instructions Recorded Confirmed norgestimate 0.25 mg-ethinyl 1 tab PO DAILY bc 11/11/22 11/11/22 estradiol 35 mcg tablet (Sprintec (28)) Previous Rx's Medication Instructions Recorded azithromycin 500 mg tablet 500 mg PO DAILY 3 days #3 tabs 11/11/22 prochlorperazine maleate 5 mg 5 mg PO DAILY #10 tabs 11/11/22 tablet (Compazine) Allergies Allergy/AdvReac Type Severity Reaction Status Date / Time amoxicillin [AMOXICILLIN] Allergy Intermediate I-HIVES Verified 11/09/22 09:03 Penicillins [PENICILLINS] Allergy Intermediate I-HIVES Verified 11/09/22 09:03 [facility] Disclaimer: The information contained in this section may have been updated after the patient was seen, as this information can be updated by other users. Medical History (Updated 11/11/22 @ 21:14 by Aubrey Hebert MD) Abnormal uterine bleeding Decreased Gestational diabetes mellitus (GDM) Headache History of gestational diabetes History of pre-eclampsia Hypokalemia Pilonidal cyst Pre-eclampsia, severe, third trimester Tobacco smoking affecting Surgical History (Updated 11/09/22 @ 09:04 by DARBY Lund) History of hand surgery History of laparoscopic cholecystectomy History of surgical removal of pilonidal cyst S/P section Family History Other Cancer Diabetes Heart attack Stroke Social History Smoking Status: Unknown if ever smoked second hand exposure: Yes (uses vape pen) alcohol intake: never current occupational status: employed Travel in the last 8 weeks: None household members: family housing: house marital status: single current occupation: [employer] current occupational exposures/hazards: No sexually active: Yes caffeine: Yes do you feel safe at home: Yes victim of physical abuse: No victim of emotional abuse: No victim of sexual abuse: No ROS Obtained: Yes Systems reviewed as appropriate & no additional complaints except as documented Physical Exam General General appearance: alert and in no apparent distress Head Head exam: atraumatic and normocephalic Eye Eye exam: Present normal appearance Neck N
[2022-11-11 20:30] VITALS: PULSE 78; O2SAT 100
--- NOTE | 2022-11-11 20:54 | PC.NURSE ---
patient to bathroom, visitor at bedside call light within reach
[2022-11-11 21:01] VITALS: BP 126/75; PULSE 84; O2SAT 97
[2022-11-11 21:20] VITALS: BP 126/75; PULSE 88; RESP 14; TEMP 36.1; O2SAT 97
== END 2022-11-11 21:29 | disposition home or self-care (01) ==
PROVIDERS: Emergency Provider Emergency Medicine
DX: A04.4 Other intestinal Escherichia coli infections (principal)
CPT/HCPCS: 96361; 96374; 99284

== ENCOUNTER → 2022-11-20 09:44 | Outpatient (CLI) | payer OTHER, SELFPAY ==
--- NOTE | 2022-11-20 09:47 | CT_ITS ---
FINAL REPORT TECHNIQUE: After the administration of intravenous contrast, axial images were obtained through the abdomen and pelvis by computed tomography. This study was performed with technique to keep radiation doses as low as reasonably achievable, (ALARA). Individualized dose reduction techniques using automated exposure control or adjustment of the MA and/or KV according to the patient's size were employed. CLINICAL HISTORY: abdominal pain pt states she was only able to drink 3/4 of the bottle of oral contrast and then started vomiting. refused to drink anymore FINDINGS: Abdomen: The lung bases are clear. There is mild fatty infiltration of the liver. Patient is status postcholecystectomy. Calcified granulomas are seen in the spleen. The adrenals are normal. The pancreas is unremarkable. The kidneys enhance appropriately. The aorta is normal in caliber. There is no free fluid or adenopathy. Pelvis: The appendix is normal. Uterus is present. There is possible mild mucosal prominence of the proximal small bowel which may be due to mild enteritis. The urinary bladder is unremarkable. There is no free fluid or adenopathy. IMPRESSION: Possible mild enteritis. Reviewed, Interpreted and Dictated by Azam Carrillo MD Transcribed by Lucie Moreno Authenticated and [facility][1]
== END ==
PROVIDERS: Visit Provider Surgery
DX: R10.9 Unspecified abdominal pain (principal); R11.2 Nausea with vomiting, unspecified
CPT/HCPCS: 74177; Q9967

== ENCOUNTER 2022-12-08 13:24 | Emergency (ER) | payer OTHER, SELFPAY ==
[2022-12-08 13:36] VITALS: BP 142/94; PULSE 105; RESP 20; TEMP 36.7; O2SAT 99; BMI 46.2
--- NOTE | 2022-12-08 13:37 | PC.NURSE ---
Dr. Melvin at [facility] for pt eval
[2022-12-08 13:39] LABS: Coronavirus 19, PCR Not Detected (NotDetected); Influenza A, PCR Not Detected (NotDetected); Influenza B, PCR Not Detected (NotDetected)
--- NOTE | 2022-12-08 13:44 | HMH.EDGENADL ---
Discharge Plan Disposition Patient Disposition: Home, Self-Care Condition: Good Prescriptions Prescriptions: No Action norgestimate-ethinyl estradiol [Sprintec (28)] 0.25-35 mg-mcg tablet 1 tab PO DAILY azithromycin 500 mg tablet 500 mg PO DAILY 3 Days Qty: 3 0RF prochlorperazine maleate [Compazine] 5 mg tablet 5 mg PO DAILY Qty: 10 0RF Referrals Follow up/Referrals: Provider,Referral, [Primary Care Provider] - See instructions Activity Restrictions/Add. Instructions Additional Instructions/Restrictions: Please return to the emergency department if you experience any new or worsening symptoms. Clinical Impressions Clinical Impression: Acute viral syndrome Migraine Qualifiers: Migraine type: unspecified Status migrainosus presence: without status migrainosus Intractability: not intractable Qualified Code(s): G43.909 - Migraine, unspecified, not intractable, without status migrainosus Discharge ED Provider: Aubrey Hebert General Adult HPI <Alexx Melvin MD - Last Filed: 12/08/22 15:53> General Chief complaint: Upper Respiratory Infection Stated complaint: Headache, vomiting, possible dehydration, chills Time Seen by Provider: 12/08/22 13:30 Mode of Arrival: Ambulatory Source of Information: Patient Limitations: No Limitations Description of Symptoms (Recalled from ER Triage Doc. by RN): pt to ed c/o headache, body aches x2 days. History of Present Illness HPI narrative: Is a 22-year-old female with history of migraine remotely presenting with migraine. Patient states that she started having migraines 2 days prior to arrival which was initially mild and has been crescendo in nature. Generalized migraine, does not radiate, not photophobic or phonophobic, but associated with chills and body aches. Denies pain with range of motion of neck, vision changes, neck stiffness, sore throat. Has had nausea without vomiting and denies diarrhea. No rash. No sick contacts that she knows of and no fevers. Has not noticed anything that makes it better or worse, but she has been taking Tylenol and Motrin without relief. Related Data Home Medications Medication Instructions Recorded Confirmed norgestimate 0.25 mg-ethinyl 1 tab PO DAILY bc 11/11/22 11/11/22 estradiol 35 mcg tablet (Sprintec (28)) Previous Rx's Medication Instructions Recorded azithromycin 500 mg tablet 500 mg PO DAILY 3 days #3 tabs 11/11/22 prochlorperazine maleate 5 mg 5 mg PO DAILY #10 tabs 11/11/22 tablet (Compazine) Allergies Allergy/AdvReac Type Severity Reaction Status Date / Time amoxicillin [AMOXICILLIN] Allergy Intermediate I-HIVES Verified 11/09/22 09:03 Penicillins [PENICILLINS] Allergy Intermediate I-HIVES Verified 11/09/22 09:03 [facility] <Alexx Melvin MD - Last Filed: 12/08/22 15:53> [facility] Disclaimer: The information contained in this section may have been updated after the patient was seen, as this information can be updated by other users. Medical History (Updated 12/08/22 @ 16:58 by Aubrey Hebert MD) Abnormal uterine bleeding Decreased Gestational diabetes mellitus (GDM) Headache History of gestational diabetes History of pre-eclampsia Hypokalemia Pilonidal cyst Pre-eclampsia, severe, third trimester Tobacco smoking affecting Surgical History (Updated 11/09/22 @ 09:04 by DARBY Lund) History of hand surgery History of laparoscopic cholecystectomy History of surgical removal of pilonidal cyst S/P section Family History Other Cancer Diabetes Heart attack Stroke Social History Smoking Status: Never smoker second hand exposure: Yes (uses vape pen) alcohol intake: never current occupational status: employed Travel in the last 8 weeks: None household members: family housing: house marital status: si
[2022-12-08 15:00] VITALS: BP 114/66; PULSE 77; O2SAT 97
--- NOTE | 2022-12-08 15:04 | PC.NURSE ---
Rounded on pt. No needs voiced at this time.
--- NOTE | 2022-12-08 15:16 | PC.NURSE ---
Dr. Melvin at [facility]
[2022-12-08 15:20] LABS: Chloride 103 mmol/L (98-107); Potassium 3.5 mmoL/L (3.5-5.1); Sodium 137 mmol/L (136-145)
[2022-12-08 15:23] LABS: Alanine Aminotransferase 30 U/L (12-78); Albumin Level 3.9 g/dl (3.5-5.0); Alkaline Phosphatase 93 U/L (38-126); Anion Gap 14.5 mEq/L (5-15); Aspartate Amino Transferase 30 U/L (14-36); Bilirubin,Total 0.4 mg/dl (0.2-1.3); Blood Urea Nitrogen 10 mg/dl (7-17); Carbon Dioxide 23 mmol/L (22.0-30.0); Creatinine Clearance Estimated 103 mL/min (50-200); Estimated Glomerular Filt Rate 103 ml/min (>60); GFR (African American) 124 ML/MIN (>60); Globulin 3.9 g/dL (1.3-3.2); Total Protein,Serum 7.8 g/dl (6.3-8.2)
[2022-12-08 15:24] LABS: Calcium 9.3 mg/dl (8.4-10.2); Glucose 103 mg/dl (74-100)
[2022-12-08 15:31] VITALS: BP 109/64; PULSE 91; O2SAT 96
[2022-12-08 16:35] LABS: Microscopic, Urine URINE MICROSCOPIC (MICROSCOPIC)
[2022-12-08 16:36] LABS: Basophils % 0.3 % (0.1-2.0); Eosinophils % 0.3 % (0.1-12.0); Hematocrit 41.8 % (37.0-47.0); Hemoglobin 13.3 g/dL (12.2-16.2); Lymphocytes # 1.1 K/mm3 (0.7-4.5); Lymphocytes % 21.6 % (10-50); Mean Corpuscular HGB Conc 31.7 g/dL (31.8-35.4); Mean Corpuscular Hemoglobin 28.2 pg (27.0-31.2); Mean Corpuscular Volume 88.9 fl (81-99); Mean Platelet Volume 8.6 fl (7.4-10.4); Monocytes # 0.3 K/mm3 (0.1-1.0); Monocytes % 5.6 % (1.7-9.3); Neutrophils # 3.6 K/mm3 (1.8-7.8); Neutrophils % 72.2 % (37.0-80.0); Platelet Count 239 K/mm3 (142-424); Red Cell Distribution Width 13.4 % (11.5-17.5); White Blood Count 4.9 K/mm3 (4.8-10.8)
[2022-12-08 16:37] LABS: Appearance,Urine CLEAR (Clear); Bilirubin,Urine Negative (Negative); Blood, Urine Negative (Negative); Color,Urine YELLOW (Yellow); Glucose,Urine (UA) Negative (Negative); Ketones,Urine Negative (Negative); Leukocyte Esterase,Urine Negative (Negative); Nitrate,Urine Negative (Negative); PH,Urine 6.5 (5.0-8.5); Protein,Urine Negative (Negative); Specific Gravity, Urine <= 1.005 (1.005-1.030); Urobilinogen,Urine 0.2 EU/dl (0.2)
[2022-12-08 16:39] LABS: Urine Pregnancy, HCG Qual. Negative (Negative)
[2022-12-08 16:51] LABS: Squamous Epithelial Cell,Urine Occasional #/hpf (0-5); WBC,Urine Occasional #/hpf (0-3)
[2022-12-08 17:22] VITALS: BP 112/70; PULSE 94; RESP 20; TEMP 36.7; O2SAT 97
== END 2022-12-08 17:22 | disposition home or self-care (01) ==
PROVIDERS: Emergency Medicine; Emergency Provider Emergency Medicine
DX: G43.909 Migraine, unspecified, not intractable, without status migrainosus (principal); B34.9 Viral infection, unspecified
CPT/HCPCS: 80053; 81001; 81025; 85025; 87636; 96361; 96374; 96375; 99285; J0131

== ENCOUNTER → 2022-12-25 09:53 | Outpatient (CLI) | payer OTHER, SELFPAY ==
[2022-12-25 10:33] LABS: Occult Blood,Stool Negative (Negative)
[2022-12-29 13:53] LABS: Calprotectin, Fecal <5 ug/g (0-120)
[2022-12-29 15:04] LABS: Pancreatic Elastase, Fecal 234 (>200)
== END ==
PROVIDERS: PCP Physician Assistant; Visit Provider Nurse Practitioner
DX: R19.7 Diarrhea, unspecified (principal); R10.10 Upper abdominal pain, unspecified
CPT/HCPCS: 82272; 82656; 83993; G0328

== ENCOUNTER 2023-01-11 20:17 | Observation (INO) | payer OTHER, SELFPAY ==
[2023-01-11 20:18] VITALS: BP 154/99; PULSE 101; RESP 18; TEMP 37; O2SAT 96; BMI 44.6
--- NOTE | 2023-01-11 21:05 | CT_ITS ---
PROCEDURE INFORMATION: Exam: CT Abdomen And Pelvis With Contrast Exam date and time: 01/11/2023 10:21 PM Age: 22 years old Clinical indication: Abdominal pain; Epigastric; Additional info: Persistent n/v, epigastric pain TECHNIQUE: Imaging protocol: Computed tomography of the abdomen and pelvis with contrast. Radiation optimization: All CT scans at this facility use at least one of these dose optimization techniques: automated exposure control; mA and/or kV adjustment per patient size (includes targeted exams where dose is matched to clinical indication); or iterative reconstruction. Contrast material: ISOVUE; Contrast volume: 75 ml; Contrast route: IV; REPORTING DATA: Count of CT and Cardiac NM exams in prior 12 months: This patient has received [address] and 0 known cardiac nuclear medicine studies in the 12 months prior to the current study. COMPARISON: CT ABDOMEN PELVIS W CON 11/20/2022 9:55 AM FINDINGS: Diaphragm: Small hiatal hernia. Liver: Normal. No mass. Gallbladder and bile ducts: Post cholecystectomy. Pancreas: Normal. No ductal dilation. Spleen: Numerous calcified granulomata within the spleen. Adrenal glands: Normal. No mass. Kidneys and ureters: Normal. No hydronephrosis. Stomach and bowel: Unremarkable. No obstruction. No mucosal thickening. Appendix: No evidence of appendicitis. Intraperitoneal space: Unremarkable. No free air. No significant fluid collection. Vasculature: Unremarkable. No abdominal aortic aneurysm. Lymph nodes: Unremarkable. No enlarged lymph nodes. Urinary bladder: Unremarkable as visualized. Reproductive: Unremarkable as visualized. Bones/joints: Unremarkable. No acute fracture. Soft tissues: Tiny, fat containing umbilical hernia. IMPRESSION: 1. Small hiatal hernia. 2. Post cholecystectomy. 3. Tiny, fat containing umbilical hernia.
[2023-01-11 21:23] LABS: Basophils % 0.4 % (0.1-2.0); Eosinophils # 0.1 K/mm3 (0.0-0.4); Eosinophils % 0.7 % (0.1-12.0); Hematocrit 40.6 % (37.0-47.0); Lymphocytes # 1.3 K/mm3 (0.7-4.5); Lymphocytes % 16.7 % (10-50); Mean Corpuscular HGB Conc 34.4 g/dL (31.8-35.4); Mean Corpuscular Hemoglobin 30.1 pg (27.0-31.2); Mean Corpuscular Volume 87.5 fl (81-99); Mean Platelet Volume 8.9 fl (7.4-10.4); Monocytes # 0.2 K/mm3 (0.1-1.0); Neutrophils # 6.1 K/mm3 (1.8-7.8); Neutrophils % 79.2 % (37.0-80.0); Platelet Count 272 K/mm3 (142-424); Red Blood Count 4.64 M/mm3 (4.20-5.40); White Blood Count 7.7 K/mm3 (4.8-10.8)
[2023-01-11 21:24] LABS: Acetone, Serum (Rapid) None Detected (None Detect)
[2023-01-11 21:29] LABS: Alanine Aminotransferase 52 U/L (12-78); Albumin Level 4.4 g/dl (3.5-5.0); Albumin/Globulin Ratio 1.1 (1.1-1.8); Alkaline Phosphatase 71 U/L (38-126); Anion Gap 15.5 mEq/L (5-15); Aspartate Amino Transferase 46 U/L (14-36); Bilirubin,Total 0.4 mg/dl (0.2-1.3); Blood Urea Nitrogen 8 mg/dl (7-17); Calcium 9.3 mg/dl (8.4-10.2); Carbon Dioxide 24 mmol/L (22.0-30.0); Chloride 103 mmol/L (98-107); Creatinine Clearance Estimated 103 mL/min (50-200); Estimated Glomerular Filt Rate 103 ml/min (>60); GFR (African American) 124 ML/MIN (>60); Globulin 3.9 g/dL (1.3-3.2); Glucose 112 mg/dl (74-100); Potassium 3.5 mmoL/L (3.5-5.1); Sodium 139 mmol/L (136-145); Total Protein,Serum 8.3 g/dl (6.3-8.2)
[2023-01-11 21:31] LABS: Lipase 44 U/L (23-300)
[2023-01-11 21:39] LABS: Microscopic, Urine URINE MICROSCOPIC (MICROSCOPIC)
--- NOTE | 2023-01-11 21:43 | HMH.EDGENADL ---
Discharge Plan Disposition Patient Disposition: Admitted Chief Complaint: Abdominal Pain Prescriptions Prescriptions: No Action norgestimate-ethinyl estradiol [Sprintec (28)] 0.25-35 mg-mcg tablet 1 tab PO DAILY Referrals Follow up/Referrals: Corine Lucas PA [Primary Care Provider] - See instructions Clinical Impressions Clinical Impression: Vomiting and diarrhea, Abdominal pain Instructions Patient Instructions: DI for Acute Abdominal Pain Discharge ED Provider: Alexx Melvin General Adult HPI General Chief complaint: Abdominal Pain Stated complaint: abd pain, chills V/D Time Seen by Provider: 01/11/23 20:55 Mode of Arrival: Ambulatory Source of Information: Patient Limitations: No Limitations Description of Symptoms (Recalled from ER Triage Doc. by RN): PT C/O RUQ,RLQ,LLQ ABD PAIN 11/09, N/V, ONSET SEVERAL MONTHS AGO SINCE GALL BLADDER REMOVAL, REOCCURRING THIS MORNING History of Present Illness HPI narrative: 22-year-old female history of abdominal pain, migraines, chronic vomiting and diarrhea presenting with abdominal pain, vomiting and diarrhea. Patient had gallbladder removed in April 2022, states that this is when her vomiting and diarrhea started. Has been getting worse over the past few days. Having diffuse abdominal pain. Vomiting is greenish-yellow, stool is dark, slimy. Patient ran out of Zofran, so came to the ER for further evaluation. Currently following with GI. Here to [facility]. Denies fevers or chills, yellowing of the skin or eyes, dysuria hematuria, abnormal vaginal discharge or bleeding, chance of , or any other concerns. Related Data Home Medications Medication Instructions Recorded Confirmed norgestimate 0.25 mg-ethinyl 1 tab PO DAILY bc 11/11/22 01/11/23 estradiol 35 mcg tablet (Sprintec (28)) Allergies Allergy/AdvReac Type Severity Reaction Status Date / Time amoxicillin [AMOXICILLIN] Allergy Intermediate I-HIVES Verified 12/21/22 09:35 Penicillins [PENICILLINS] Allergy Intermediate I-HIVES Verified 12/21/22 09:35 [facility] Disclaimer: The information contained in this section may have been updated after the patient was seen, as this information can be updated by other users. 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 History of laparoscopic cholecystectomy History of surgical removal of pilonidal cyst S/P section Family History Other Cancer Diabetes Heart attack Stroke Social History Smoking Status: Never smoker second hand exposure: Yes (uses vape pen) alcohol intake: never current occupational status: employed Travel in the last 8 weeks: None household members: family housing: house marital status: single current occupation: [employer] current occupational exposures/hazards: No sexually active: Yes caffeine: Yes do you feel safe at home: Yes victim of physical abuse: No victim of emotional abuse: No victim of sexual abuse: No ROS Obtained: Yes All systems reviewed & no additional complaints except as documented Physical Exam General General appearance: alert, in distress and obese Head Head exam: atraumatic and normocephalic Eye Eye exam: Present normal appearance, PERRL and EOMI ENT ENT exam: Present mucous membranes moist Neck Neck exam: Present normal inspection, full ROM and trachea midline Respiratory Respiratory exam: Present normal lung sounds bilater
[2023-01-11 21:45] LABS: Appearance,Urine CLEAR (Clear); Blood, Urine 3+ (Negative); Color,Urine YELLOW (Yellow); Glucose,Urine (UA) Negative (Negative); Ketones,Urine 2+ (Negative); Leukocyte Esterase,Urine Negative (Negative); Nitrate,Urine Negative (Negative); PH,Urine 7.5 (5.0-8.5); Protein,Urine 1+ (Negative); Specific Gravity, Urine 1.025 (1.005-1.030); Urobilinogen,Urine 0.2 EU/dl (0.2)
[2023-01-11 21:47] LABS: Bilirubin,Urine Negative (Negative)
[2023-01-11 21:53] LABS: HCG,Quantitative < 2 mIU/ml (0-5.42)
[2023-01-11 22:00] LABS: RBC,Urine 20-50 #/hpf (0-3); Squamous Epithelial Cell,Urine Occasional #/hpf (0-5)
--- NOTE | 2023-01-11 22:12 | ECG_ITS ---
APPROVED REPORT Exam: Resting ECG HR:71 bpm ECG Measurements Heart Rate 71 AXES UT 154 P 42 QRSd 119 QRS 32 QT 395 T -4 QTc 418 Conclusion SINUS RHYTHM WITH SINUS ARRHYTHMIA MODERATE INTRAVENTRICULAR CONDUCTION DELAY [110+ ms QRS DURATION] NONSPECIFIC ST & T-WAVE ABNORMALITY BORDERLINE ECG UNCONFIRMED REPORT Electronically signed by : Neville Eaton MD 01/13/2023 11:03:47
--- NOTE | 2023-01-11 22:14 | PC.NURSE ---
in room talking with patient at this time.
--- NOTE | 2023-01-11 22:18 | PC.NURSE ---
patient gone CT at this time.
--- NOTE | 2023-01-11 22:24 | PC.NURSE ---
patient back in room at this time
--- NOTE | 2023-01-11 22:25 | PC.NURSE ---
rounded on patient no new complaints.
--- NOTE | 2023-01-11 22:45 | PC.NURSE ---
AFTER ADMINISTRATION OF DROPERIDOL PT BEGAN TO DESAT WHEN FALLING TO SLEEP, EASILY AROUSED AND RESOLVED, ADMINISTERED 2L OXYGEN VIA NC TO SUPPLEMENT PT WHILE MEDICATED
--- NOTE | 2023-01-11 22:45 | INFXCTL.NOTE ---
assisted with moving patient up in bed.
[2023-01-11 23:01] VITALS: BP 119/66; PULSE 65; RESP 15; O2SAT 96
[2023-01-11 23:38] VITALS: BP 113/59; RESP 12
--- NOTE | 2023-01-11 23:57 | EXP.HP ---
History of Present Illness *Admission Date: 01/11/23 *Reason for visit:: intractable N/V *History of present illness: This is a 22-year-old female morbidly obese, with PMHx of gestational diabetes, migraine, cholelithiasis s/p recent cholecystectomy, abdominal pain, chronic vomiting and diarrhea presented to ER with abdominal pain, vomiting and diarrhea. Patient had gallbladder removed in April 2022, states that this is when her vomiting and diarrhea started. Has been getting worse over the past few days. Having diffuse abdominal pain. Vomiting is greenish-yellow, stool is dark, slimy. Patient ran out of Zofran, so came to the ER for further evaluation. History obtained from mother at bedside and ER documentation, since patient currently somnolent after light sedation given. Currently following with GI as outpatient. recent history of EPEC. Denies fevers or chills, yellowing of the skin or eyes, dysuria hematuria, abnormal vaginal discharge or bleeding, chance of , or any other concerns. Admitted for further treatment. [facility] Medical History (Updated 01/12/23 @ 09:39 by Shamir Anderson MD) BMI 45.0-49.9, adult History of gestational diabetes History of pre-eclampsia Tobacco dependence Surgical History History of hand surgery History of laparoscopic cholecystectomy History of surgical removal of pilonidal cyst S/P section Family History Other Cancer Diabetes Heart attack Stroke Social History (Updated 01/12/23 @ 01:22 by Marion Delgado RN) Smoking Status: Never smoker second hand exposure: Yes (uses vape pen) alcohol intake: never current occupational status: employed Travel in the last 8 weeks: None household members: family housing: house marital status: single current occupation: [employer] current occupational exposures/hazards: No sexually active: Yes caffeine: Yes do you feel safe at home: Yes victim of physical abuse: No victim of emotional abuse: No victim of sexual abuse: No Review of Systems Review of Systems Review of systems:: unable to obtain Meds Home Medications and Allergies Home Medications Medication Instructions Recorded Confirmed Type norgestimate 0.25 mg-ethinyl 1 tab PO DAILY Control 01/12/23 01/12/23 History estradiol 35 mcg tablet (Estarylla) New Prescriptions to Start Prescriptions: Allergies Allergy/AdvReac Type Severity Reaction Status Date / Time amoxicillin [AMOXICILLIN] Allergy Intermediate I-HIVES Verified 12/21/22 09:35 Penicillins [PENICILLINS] Allergy Intermediate I-HIVES Verified 12/21/22 09:35 Exam Data for Last 24 hours Vital signs and Labs for Last 24 Hours: Temp Pulse Resp BP Pulse Ox O2 Del Method 98.6 F 101 H 18 154/99 H 96 Nasal Cannula 01/11/23 20:18 01/11/23 20:18 01/11/23 20:18 01/11/23 20:18 01/11/23 20:18 01/11/23 20:18 Laboratory Results - last 24 hr 01/11/23 20:50: WBC 7.7, RBC 4.64, Hgb 14.0, Hct 40.6, MCV 87.5, MCH 30.1, MCHC 34.4, RDW 13.0, Plt Count 272, MPV 8.9, Neut % (Auto) 79.2, Lymph % (Auto) 16.7, [place] % (Auto) 3.0, Eos % (Auto) 0.7, Baso % (Auto) 0.4, Neut # (Auto) 6.1, Lymph # (Auto) 1.3, [place] # (Auto) 0.2, Eos # (Auto) 0.1, Baso # (Auto) 0.0, Sodium 139, Potassium 3.5, Chloride 103, Carbon Dioxide 24, Anion Gap 15.5 H, BUN 8, Creatinine 0.70, Estimated Creat Clear 103, Estimated GFR 103, Est GFR ( Amer) 124, Glucose 112 H, Calcium 9.3, Total Bilirubin 0.4, AST 46 H, ALT 52, Alkaline Phosphatase 71, Total Protein 8.3 H, Albumin 4.4, Globulin 3.9 H, Albumin/Globulin Ratio 1.1, Lipase 44, HCG, Quant < 2, Acetone Level None detected 01/11/23 21:37: Urine Color Yellow, Urine Appearance Clear, Urine pH 7.5, Ur Specific [place] 1.025, Urine Protein 1+, Urine Glucose (UA) Negative, Urine Ketones 2+, Urine Blood 3+, Urine Nitrate Negative, Urin
[2023-01-12 00:15] LABS: Hemoglobin A1C 5.1 % (4.0-6.0)
[2023-01-12 00:20] LABS: Lactic Acid 0.8 mmol/L (0.7-2.1)
[2023-01-12 00:34] VITALS: BP 113/59; PULSE 96; RESP 16; TEMP 37.1; O2SAT 99
[2023-01-12 00:58] VITALS: BP 123/80; PULSE 90; RESP 18; TEMP 36.8; O2SAT 90; BMI 44.4
--- NOTE | 2023-01-12 01:10 | PC.NURSE ---
pt arrived to the floor @00:53
[2023-01-12 04:00] VITALS: BP 127/66; PULSE 81; RESP 18; TEMP 36.8; O2SAT 99; BMI 44.4
[2023-01-12 05:34] LABS: POC Glucose,Bedside 94 (70-110)
[2023-01-12 06:38] LABS: Basophils % 0.5 % (0.1-2.0); Eosinophils % 0.5 % (0.1-12.0); Hematocrit 38.8 % (37.0-47.0); Hemoglobin 13.7 g/dL (12.2-16.2); Lymphocytes # 1.9 K/mm3 (0.7-4.5); Lymphocytes % 28.5 % (10-50); Mean Corpuscular HGB Conc 35.2 g/dL (31.8-35.4); Mean Corpuscular Hemoglobin 30.7 pg (27.0-31.2); Mean Corpuscular Volume 87.2 fl (81-99); Mean Platelet Volume 8.8 fl (7.4-10.4); Monocytes # 0.4 K/mm3 (0.1-1.0); Monocytes % 6.5 % (1.7-9.3); Neutrophils # 4.2 K/mm3 (1.8-7.8); Platelet Count 286 K/mm3 (142-424); Red Blood Count 4.46 M/mm3 (4.20-5.40); Red Cell Distribution Width 12.9 % (11.5-17.5); White Blood Count 6.5 K/mm3 (4.8-10.8)
[2023-01-12 06:48] LABS: Chloride 107 mmol/L (98-107); Potassium 3.7 mmoL/L (3.5-5.1); Sodium 138 mmol/L (136-145)
[2023-01-12 06:50] LABS: Alanine Aminotransferase 40 U/L (12-78); Aspartate Amino Transferase 33 U/L (14-36); Blood Urea Nitrogen 7 mg/dl (7-17); Creatinine Clearance Estimated 114 mL/min (50-200); Estimated Glomerular Filt Rate 123 ml/min (>60); GFR (African American) 149 ML/MIN (>60)
[2023-01-12 06:51] LABS: Albumin Level 3.7 g/dl (3.5-5.0); Albumin/Globulin Ratio 1.1 (1.1-1.8); Alkaline Phosphatase 66 U/L (38-126); Anion Gap 12.7 mEq/L (5-15); Bilirubin,Total 0.7 mg/dl (0.2-1.3); Calcium 8.6 mg/dl (8.4-10.2); Carbon Dioxide 22 mmol/L (22.0-30.0); Globulin 3.3 g/dL (1.3-3.2); Glucose 98 mg/dl (74-100); Magnesium 2.1 mg/dl (1.6-2.3)
[2023-01-12 07:16] VITALS: BP 132/65; PULSE 68; RESP 18; TEMP 36.8; O2SAT 98
[2023-01-12 07:51] LABS: Thyroid Stimulating Hormone 1.14 uIU/mL (0.465-4.68)
--- NOTE | 2023-01-12 07:52 | PC.NURSE ---
table games shift manager went to start an iv at shift change and patient stated that both times the nurse got the iv in and blood to draw, that it desouza. She had the nurse remove them both. I went in to start an iv and she wanted to wait until she was more awake.
[2023-01-12 07:54] VITALS: O2SAT 98
--- NOTE | 2023-01-12 08:50 | PC.NURSE ---
New iv placed right AC 20g one stick.
--- NOTE | 2023-01-12 08:54 | HMH.PHAINT1 ---
Pharmacy Intervention Comments: MEDICATION RECONCILIATION COMPLETED ON PATIENT USING EXTERNAL FILL HISTORY FROM PHARMACY. -GARRY MCCOY, BETHANIED
--- NOTE | 2023-01-12 09:55 | EXP.DC.SUM ---
General Admission date:: 01/12/23 Discharge date: 01/12/23 HPI HPI HPI: This is a 22-year-old female morbidly obese, with PMHx of gestational diabetes, migraine, cholelithiasis s/p recent cholecystectomy, abdominal pain, chronic vomiting and diarrhea presented to ER with abdominal pain, vomiting and diarrhea. Patient had gallbladder removed in April 2022, states that this is when her vomiting and diarrhea started. Has been getting worse over the past few days. Having diffuse abdominal pain. Vomiting is greenish-yellow, stool is dark, slimy. Patient ran out of Zofran, so came to the ER for further evaluation. History obtained from mother at bedside and ER documentation, since patient currently somnolent after light sedation given. Currently following with GI as outpatient. recent history of EPEC. Denies fevers or chills, yellowing of the skin or eyes, dysuria hematuria, abnormal vaginal discharge or bleeding, chance of , or any other concerns. Admitted for further treatment. Hospital Course Hospital Course Hospital Course: Patient was admitted with continued IV fluid resuscitation. Her labs and inflammatory markers were trended and identified improvement. With her fluid resuscitation and IV antiemetics the patient identified improvement and inquired about discharge home. We have recommended that she discontinue vaping and avoid CBD containing products. 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 With her BMI 45 we have Recommended discussions with her PCP concerning GLP-1 agonist. I spent [id number] time with the patient and nursing staff concerning the discharge process. We discussed the admitting diagnoses and hospital course. We discussed identified improvement and the patient's desire to be discharged. We reviewed inpatient studies and imaging. The patient voiced understanding on the importance of follow-up with her primary care provider and cutting machine operator helper. The patient plans to be compliant with the medication regimen prescribed and follow-up appointments. She understands that she can return to the emergency department with any sudden changes or concerns. Exam Data for Last 24 hours Vital signs and Labs for Last 24 Hours: Temp Pulse Resp BP Pulse Ox O2 Del Method O2 Flow Rate 98.3 F 68 18 132/65 98 Room Air 2 01/12/23 07:16 01/12/23 07:16 01/12/23 07:16 01/12/23 07:16 01/12/23 07:54 01/12/23 07:54 01/12/23 00:34 Laboratory Results - last 24 hr 01/11/23 20:50: WBC 7.7, RBC 4.64, Hgb 14.0, Hct 40.6, MCV 87.5, MCH 30.1, MCHC 34.4, RDW 13.0, Plt Count 272, MPV 8.9, Neut % (Auto) 79.2, Lymph % (Auto) 16.7, [place] % (Auto) 3.0, Eos % (Auto) 0.7, Baso % (Auto) 0.4, Neut # (Auto) 6.1, Lymph # (Auto) 1.3, [place] # (Auto) 0.2, Eos # (Auto) 0.1, Baso # (Auto) 0.0, Sodium 139, Potassium 3.5, Chloride 103, Carbon Dioxide 24, Anion Gap 15.5 H, BUN 8, Creatinine 0.70, Estimated Creat Clear 103, Estimated GFR 103, Est GFR ( Amer) 124, Glucose 112 H, Hemoglobin A1c 5.1, Calcium 9.3, Total Bilirubin 0.4, AST 46 H, ALT 52, Alkaline Phosphatase 71, Total Protein 8.3 H, Albumin 4.4, Globulin 3.9 H, Albumin/Globulin Ratio 1.1, Lipase 44, HCG, Quant < 2, Acetone Level None detected 01/11/23 21:37: Urine Color Yellow, Urine Appearance Clear, Urine pH 7.5, Ur Specific [place] 1.025, Urine Protein 1+, Urine Glucose (UA) Negative, Urine Ketones 2+, Urine Blood 3+, Urine Nitrate Negative, Urine Bilirubin Negative, Urine Urobilinogen 0.2, Ur Leukocyte Esterase Negative, Urine RBC 20-50, Urine WBC 3-5, Ur Squamous Epith Cells Occasional, Urine Bacteria None 01/12/23 00:01: Lactate 0.8 01/12/23 05:20: POC Glucose 94 01/12/23 06:30: WBC 6.5, RBC 4.46, Hgb 13.7, Hct 38.8, MCV 87.2, MCH 30.7, MCHC 35.2, RDW 12.9, Plt Count 286, MPV 8.8, Neut % (Auto) 64.0, Lymph % (Auto) 28.5, [place] % (Auto) 6.5, Eos % (Auto) 0.5, Baso % (Auto) 0.5, Neut # (Auto) 4.2, Lymph # (Auto
--- NOTE | 2023-01-17 09:47 | CARE MANAGER ---
Unable to reach patient via phone to discuss recent discharge. Call attempted x 2 and VM was left.
== END 2023-01-12 10:47 | disposition home or self-care (01) ==
LOC: ER 23:38 → 2ND 01-12 00:14
PROVIDERS: Nurse Practitioner Family; Admitting Provider Family Medicine; Emergency Provider Emergency Medicine; PCP Physician Assistant; Visit Provider Family Medicine
DX: R11.10 Vomiting, unspecified (principal); K91.89 Other postprocedural complications and disorders of digestive system; G43.909 Migraine, unspecified, not intractable, without status migrainosus; E66.01 Morbid (severe) obesity due to excess calories; Z68.41 Body mass index [BMI] 40.0-44.9, adult; F17.290 Nicotine dependence, other tobacco product, uncomplicated; R19.7 Diarrhea, unspecified
CPT/HCPCS: 36415; 74177; 80053; 81001; 82009; 82962; 83036; 83605; 83690; 83735; 84443; 84702; 85025; 93005; 99285; G0378; J0131; J1790; Q9967

== ENCOUNTER 2023-01-24 11:31 | Emergency (ER) | payer OTHER, SELFPAY ==
[2023-01-24 11:44] VITALS: BP 121/77; PULSE 90; RESP 16; TEMP 36.8; O2SAT 99; BMI 44.2
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
[2023-01-24 12:06] LABS: Basophils % 0.4 % (0.1-2.0); Eosinophils # 0.1 K/mm3 (0.0-0.4); Hematocrit 40.9 % (37.0-47.0); Hemoglobin 14.4 g/dL (12.2-16.2); Lymphocytes # 0.6 K/mm3 (0.7-4.5); Lymphocytes % 7.4 % (10-50); Mean Corpuscular HGB Conc 35.2 g/dL (31.8-35.4); Mean Corpuscular Hemoglobin 30.5 pg (27.0-31.2); Mean Corpuscular Volume 86.8 fl (81-99); Mean Platelet Volume 8.8 fl (7.4-10.4); Monocytes # 0.3 K/mm3 (0.1-1.0); Monocytes % 3.9 % (1.7-9.3); Neutrophils # 7.1 K/mm3 (1.8-7.8); Neutrophils % 87.3 % (37.0-80.0); Platelet Count 275 K/mm3 (142-424); Red Blood Count 4.71 M/mm3 (4.20-5.40); Red Cell Distribution Width 12.8 % (11.5-17.5); White Blood Count 8.2 K/mm3 (4.8-10.8)
[2023-01-24 12:06] LABS: Microscopic, Urine URINE MICROSCOPIC (MICROSCOPIC)
[2023-01-24 12:15] LABS: Appearance,Urine CLEAR (Clear); Bilirubin,Urine Negative (Negative); Blood, Urine Negative (Negative); Color,Urine YELLOW (Yellow); Glucose,Urine (UA) Negative (Negative); Ketones,Urine Negative (Negative); Leukocyte Esterase,Urine Negative (Negative); Nitrate,Urine Negative (Negative); PH,Urine 6.5 (5.0-8.5); Protein,Urine Negative (Negative); Urobilinogen,Urine 0.2 EU/dl (0.2)
[2023-01-24 12:16] LABS: MANUAL DIFFERENTIAL MANUAL DIFFERENTIAL (MANUAL DIFF)
[2023-01-24 12:18] LABS: Alanine Aminotransferase 52 U/L (12-78); Albumin Level 4.2 g/dl (3.5-5.0); Albumin/Globulin Ratio 1.2 (1.1-1.8); Alkaline Phosphatase 87 U/L (38-126); Anion Gap 19.7 mEq/L (5-15); Aspartate Amino Transferase 43 U/L (14-36); Bilirubin,Total 0.6 mg/dl (0.2-1.3); Blood Urea Nitrogen 13 mg/dl (7-17); Calcium 8.9 mg/dl (8.4-10.2); Carbon Dioxide 18 mmol/L (22.0-30.0); Chloride 105 mmol/L (98-107); Creatinine Clearance Estimated 120 mL/min (50-200); Estimated Glomerular Filt Rate 123 ml/min (>60); GFR (African American) 149 ML/MIN (>60); Globulin 3.5 g/dL (1.3-3.2); Glucose 121 mg/dl (74-100); HCG Qualitative, Serum Negative (Negative); Lipase 36 U/L (23-300); Magnesium 1.8 mg/dl (1.6-2.3); Potassium 3.7 mmoL/L (3.5-5.1); Sodium 139 mmol/L (136-145); Total Protein,Serum 7.7 g/dl (6.3-8.2)
[2023-01-24 12:19] LABS: Lactic Acid 1.9 mmol/L (0.7-2.1)
[2023-01-24 12:49] LABS: Lymphocytes % 11 % (10-50); Neutrophils % 89 % (42-76); Platelet Estimate Normal; RBC Morphology Normal; Total Cells Counted 100
--- NOTE | 2023-01-24 12:57 | PC.NURSE ---
Pt asked for something to drink. After checking with the doctor he advised that she could have anything.. Pt requsted a sprite which she was given.
[2023-01-24 13:41] VITALS: BP 104/71; PULSE 84; RESP 18; TEMP 36.7; O2SAT 97
== END 2023-01-24 13:42 | disposition home or self-care (01) ==
PROVIDERS: Emergency Provider Emergency Medicine
DX: R10.9 Unspecified abdominal pain (principal); R11.2 Nausea with vomiting, unspecified; R19.7 Diarrhea, unspecified; F17.290 Nicotine dependence, other tobacco product, uncomplicated; E66.01 Morbid (severe) obesity due to excess calories; Z68.41 Body mass index [BMI] 40.0-44.9, adult
CPT/HCPCS: 80053; 81001; 83605; 83690; 83735; 84703; 85007; 85025; 96361; 96374; 96375; 99284

== ENCOUNTER 2023-02-01 12:06 | Day surgery (SDC) | payer OTHER, SELFPAY ==
[2023-02-01 12:22] VITALS: BMI 44.6
[2023-02-01 12:29] VITALS: BP 133/66; PULSE 91; RESP 18; TEMP 36.2; O2SAT 97
[2023-02-01 12:41] LABS: Urine Pregnancy, HCG Qual. Negative (Negative)
--- NOTE | 2023-02-01 13:02 | EXP.ANES.CKL ---
[facility] Disclaimer: The information contained in this section may have been updated after the patient was seen, as this information can be updated by other users. Medical History BMI 45.0-49.9, adult History of gestational diabetes History of pre-eclampsia Tobacco dependence Surgical History History of hand surgery History of laparoscopic cholecystectomy History of surgical removal of pilonidal cyst S/P section Family History Other Cancer Diabetes Heart attack Stroke Social History Smoking Status: Current every day smoker second hand exposure: Yes (uses vape pen) alcohol intake: never substance use type: denies use current occupational status: employed Travel in the last 8 weeks: None household members: family housing: house marital status: single current occupation: [employer] current occupational exposures/hazards: No sexually active: Yes caffeine: Yes do you feel safe at home: Yes victim of physical abuse: No victim of emotional abuse: No victim of sexual abuse: No [facility] Anesthesia Checklist Patient Identification Patient Identification: Arm Band and Verbal (Name & ) Structural Data Admitted From: Home Planned Operative Procedure/s: EGD Consent for Planned Operative Procedure(s) Verified: Yes Verified Documents: Surgical Consent NPO Status Verified Time NPO: 00:00 Chart Verification Results Verified: HCG Additional verifications Anesthesia Reactions: No Hx Blood Transfusions: No Blood Transfusion Reaction: No Airway Assessment Mallampati Score:: Class II C-Spine Mobility Assessed: Yes TMJ Mobility Assessed: Yes Dentition: Good Dentition Neurological Assessment Level of Consciousness: Awake Hx Seizures: No Numbness or tingling in extremities: No Anesthesia Plan Anesthesia Risk discussed: Yes Anesthesia Plan: Verified ASA Class: III Anesthesia Type: MAC
[2023-02-01 13:07] VITALS: O2SAT 97
[2023-02-01 13:20] VITALS: BP 122/69; PULSE 83; RESP 14; TEMP 36.4; O2SAT 93
--- NOTE | 2023-02-01 13:22 | HMH.SCOPE ---
Procedure: Date: 02/01/23 Patient Date of :: 2000 Procedure Performed:: Diagnostic EGD Indications:: Abdominal pain, N/V/D Performing Provider:: Kael Thornton MD Referring Provider:: Makayla Thornton APRN Sedation:: Propofol Procedure:: The gastroscope was gently passed through the incisoral orifice into the oral cavity and under direct visualization the esophagus was intubated. The endoscope was passed down the esophagus, through the stomach, and into the duodenum. Color, texture, mucosa, and anatomy of the esophagus, stomach, and duodenum were carefully examined with the scope. Findings:: Oropharynx: normal Esophagus: normal EG Junction: intact at 40 cm Cardia: normal Fundus: normal Body: normal Antrum: normal Duodenal bulb: normal Duodenum (second and third portion): normal Impression: Normal colonoscopy Recommendations:: Symptomatic therapy & f/u with GI Clinic for dose adjustment Complications:: None Estimated blood obtained (mL): 0 Colonoscopy Component Colonoscopy Component Was a colonoscopy performed during today's procedure?: No
[2023-02-01 13:30] VITALS: BP 125/72; PULSE 94; RESP 16; O2SAT 93
[2023-02-01 13:40] VITALS: BP 136/75; PULSE 82; RESP 16; O2SAT 96
[2023-02-01 13:50] VITALS: BP 129/65; PULSE 81; RESP 16; TEMP 36.6; O2SAT 96
== END 2023-02-01 14:00 | disposition home or self-care (01) ==
PROVIDERS: PCP Physician Assistant; Visit Provider Internal Medicine Gastroenterology
PROC: 0DJ08ZZ Inspection of Upper Intestinal Tract, Via Natural or Artificial Opening Endoscopic (ICD-10-PCS; CPT 43235; principal; 2023-02-01 13:30)
DX: R10.9 Unspecified abdominal pain (principal); R11.2 Nausea with vomiting, unspecified; R19.7 Diarrhea, unspecified
CPT/HCPCS: 43235; 81025; J2704

== ENCOUNTER 2023-04-24 11:11 | Emergency (ER) | payer OTHER, SELFPAY ==
[2023-04-24 11:50] VITALS: BP 134/88; PULSE 118; RESP 18; TEMP 36.7; O2SAT 97; BMI 44.9
--- NOTE | 2023-04-24 11:52 | ED_ITS ---
Discharge Plan Disposition Patient Disposition: Home, Self-Care Condition: Good Prescriptions Prescriptions: New oseltamivir [Tamiflu] 75 mg capsule 75 mg PO BID Qty: 10 0RF ctcwidbouepjlfs-ambepsysp-VE [Bromfed DM] 2-30-10 mg/5 mL Syrup 5 ml PO Q6H PRN (Reason: Cough) Qty: 240 0RF ondansetron 4 mg Tablet,Disintegrating 4 mg PO Q8H PRN (Reason: Nausea) Qty: 12 0RF No Action ondansetron HCl 4 mg tablet 4 mg PO Q8H PRN (Reason: nausea and vomiting) Qty: 20 0RF oxybutynin chloride 5 mg tablet extended release 24hr 5 mg PO DAILY Qty: 30 2RF Eucrisa 2 % ointment 1 applic topical BID Qty: 100 0RF norgestimate-ethinyl estradiol [Estarylla] 0.25-35 mg-mcg tablet 1 tab PO DAILY Patient Comments: TAKE 1 TABLET BY MOUTH DAILY colestipol 1 gram tablet 1 g PO BID 60 Days Qty: 120 1RF Referrals Follow up/Referrals: Esther Pacheco PA [Primary Care Provider] - See instructions Activity Restrictions/Add. Instructions Additional Instructions/Restrictions: Drink plenty of fluids. Take tylenol or ibuprofen for pain or fever. Take the medications as directed. Follow up with your regular doctor. GO TO THE ER FOR ANY WORSENING SYMPTOMS Clinical Impressions Clinical Impression: Influenza B Instructions Patient Instructions: DI for Influenza -- Adult, Ondansetron, Oseltamivir Discharge ED Provider: Chacho Roger [facility] General Stated complaint: cough, fever, sob Time Seen by Provider: 04/24/23 11:52 History of Present Illness Provider Complaint: She states that for the past 2 days she has had fever, body aches, chills, cough, and sore throat. Related Data Home Medications Medication Instructions Recorded Confirmed norgestimate 0.25 mg-ethinyl 1 tab PO DAILY Control 01/12/23 03/14/23 estradiol 35 mcg tablet (Estarylla) Previous Rx's Medication Instructions Recorded colestipol 1 gram tablet 1 g PO BID 60 days #120 tabs 02/01/23 ondansetron HCl 4 mg tablet 4 mg PO Q8H PRN nausea and 03/14/23 vomiting #20 tabs oxybutynin chloride 5 mg 5 mg PO DAILY #30 tabs 03/14/23 tablet,extended release 24 hr crisaborole 2 % topical ointment 1 applic topical BID #100 grams 03/15/23 (Eucrisa) btbtowtmdxmemly-ikxaqlowtuoljkt-HT 5 ml PO Q6H PRN Cough #240 mL 04/24/23 2 mg-30 mg-10 mg/5 mL oral syrup (Bromfed DM) ondansetron 4 mg disintegrating 4 mg PO Q8H PRN Nausea #12 tabs 04/24/23 tablet oseltamivir 75 mg capsule (Tamiflu) 75 mg PO BID #10 caps 04/24/23 Allergies Allergy/AdvReac Type Severity Reaction Status Date / Time amoxicillin [AMOXICILLIN] Allergy Intermediate I-HIVES Verified 04/24/23 12:12 Penicillins [PENICILLINS] Allergy Intermediate I-HIVES Verified 04/24/23 12:12 PFS PFSH Disclaimer: The information contained in this section may have been updated after the patient was seen, as this information can be updated by other users. 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 History of laparoscopic cholecystectomy History of surgical removal of pilonidal cyst S/P section Family History Other Cancer Diabetes Heart attack Stroke Social History Smoking Status: Current every day smoker second hand exposure: Yes (uses vape pen) alcohol intake: never substance use type: denies use current occupational status: employed Travel in the last 8 weeks: None household members: family housing: house marital status: single current occupation: [email or web address] current occupational exposures/hazards: No sexually active: Yes caffeine: Yes do you feel safe at home: Yes victim of physical abuse: No victim of emotional abuse: No victim of sexual abuse: No ROS Obtained: Yes All systems reviewed & no additional complaints except as documented Constitutional Constitutional: Reports chills and Reports fever(s) Eyes Eyes: Denies eye discharge ENT Ears, Nose, Mouth, and Throat: Reports as per HPI Cardiovascular Cardiovascular: Denies chest pain Respiratory Respiratory: Denies chest congestion and Reports cough Gastrointestinal Gastrointestingal: Reports nausea; Denies abdominal pain, constipation, cramping, diarrhea or vomiting Musculoskeletal Musculoskeletal: Denies arthralgias Integumentary/Breasts Skin/Breast: Denies rash Neurologic Neurologic: Denies paresthesias Physical Exam General General appearance: alert and in no apparent distress Head Head exam: atraumatic, normocephalic and normal inspection Eye Eye exam: Present normal appearance, PERRL and EOMI ENT ENT exam: Present normal exam, normal oropharynx, mucous membranes moist, TM's normal bilaterally and normal external ear exam Neck Neck exam: Present normal inspection, full ROM and trachea midline; Absent meningismus or lymphadenopathy Chest Chest inspection: Present normal inspection and symmetric chest wall rise; Absent tenderness Respiratory Respiratory exam: Present normal lung sounds bilaterally; Absent respiratory distress Cardiovascular Cardiovascular exam: Present regular rate and normal rhythm; Absent JVD Abdominal Exam Abdominal exam: Present soft and normal bowel sounds; Absent distention, tenderness or guarding Extremities Exam Extremities exam: Present normal inspection, full ROM and normal capillary refill; Absent calf tenderness Back Exam Back exam: Present normal inspection; Absent tenderness Neurological Exam Neurological exam: Present alert and oriented X3 Psychiatric Psychiatric exam: Present normal affect and normal mood Skin Skin exam: Present warm, dry, intact and normal color Lymphatic Lymphatic Findings: no adenopathy Medical Decision Making Medical Records Medical records reviewed: No I reviewed the patient's medical records. Horace Inquiry Pt receiving controlled substance: No Lab Data Lab results reviewed: Yes I reviewed the patient's lab results.
[2023-04-24 12:13] LABS: UTC Influenza A Antigen Negative (Negative); UTC Strep Screen (Rapid) Negative (Negative)
[2023-04-24 12:14] LABS: UTC Influenza B Antigen Positive (Negative)
[2023-04-24 12:28] VITALS: BP 134/88; PULSE 118; RESP 18; TEMP 36.7; O2SAT 97
== END 2023-04-24 12:28 | disposition home or self-care (01) ==
PROVIDERS: Emergency Provider Nurse Practitioner Family; PCP Physician Assistant
DX: J10.1 Influenza due to other identified influenza virus with other respiratory manifestations (principal); R05.9 Cough, unspecified; R11.0 Nausea; R50.9 Fever, unspecified; R07.0 Pain in throat; M79.18 Myalgia, other site; F17.290 Nicotine dependence, other tobacco product, uncomplicated; E66.01 Morbid (severe) obesity due to excess calories; Z68.42 Body mass index [BMI] 45.0-49.9, adult
CPT/HCPCS: 87804; 87880; 99212; 99214; G0463

== ENCOUNTER 2023-04-27 12:19 | Emergency (ER) | payer OTHER, SELFPAY ==
[2023-04-27 12:19] VITALS: BP 132/91; PULSE 113; RESP 20; TEMP 36.7; O2SAT 99; BMI 44.8
--- NOTE | 2023-04-27 12:37 | PC.NURSE ---
Dr. Melvin at [facility] for pt eval
--- NOTE | 2023-04-27 12:52 | HMH.EDGENADL ---
Discharge Plan Disposition Patient Disposition: Home, Self-Care Prescriptions Prescriptions: New oseltamivir [Tamiflu] 75 mg capsule 75 mg PO BID 5 Days Qty: 10 0RF ondansetron 4 mg tablet,disintegrating 4 mg PO Q6H PRN (Reason: nausea and vomiting) Qty: 10 0RF No Action ondansetron HCl 4 mg tablet 4 mg PO Q8H PRN (Reason: nausea and vomiting) Qty: 20 0RF oxybutynin chloride 5 mg tablet extended release 24hr 5 mg PO DAILY Qty: 30 2RF Eucrisa 2 % ointment 1 applic topical BID Qty: 100 0RF norgestimate-ethinyl estradiol [Estarylla] 0.25-35 mg-mcg tablet 1 tab PO DAILY Patient Comments: TAKE 1 TABLET BY MOUTH DAILY colestipol 1 gram tablet 1 g PO BID 60 Days Qty: 120 1RF oseltamivir [Tamiflu] 75 mg capsule 75 mg PO BID Qty: 10 0RF vhrbwpbelprialp-kudrfxrgz-YN [Bromfed DM] 2-30-10 mg/5 mL Syrup 5 ml PO Q6H PRN (Reason: Cough) Qty: 240 0RF ondansetron 4 mg Tablet,Disintegrating 4 mg PO Q8H PRN (Reason: Nausea) Qty: 12 0RF Referrals Follow up/Referrals: Esther Pacheco PA [Primary Care Provider] - See instructions Activity Restrictions/Add. Instructions Additional Instructions/Restrictions: Call your family doctor to establish care for this visit to the emergency department and schedule follow-up within 48 hours to ensure improvement. If you have any worsening of your condition or any other concerning signs or symptoms, return to the emergency department or your primary care doctor for further evaluation. Clinical Impressions Clinical Impression: Influenza B Discharge ED Provider: Alexx Melvin General Adult HPI General Chief complaint: Upper Respiratory Infection Stated complaint: flu, vomiting, diarrea, pain all of body Time Seen by Provider: 04/27/23 12:20 Mode of Arrival: Ambulatory Source of Information: Patient Limitations: No Limitations Description of Symptoms (Recalled from ER Triage Doc. by RN): Patient diagnosed with the Flu on 04/24. States she has body aches, cough, congestion, SOB and unable to sleep due to pain. History of Present Illness HPI narrative: 23-year-old female presenting with multiple complaints. Patient states I feel like I am dying. She was diagnosed with the flu on Sunday, 5 days prior to this visit Related Data Home Medications Medication Instructions Recorded Confirmed norgestimate 0.25 mg-ethinyl 1 tab PO DAILY Control 01/12/23 03/14/23 estradiol 35 mcg tablet (Estarylla) Previous Rx's Medication Instructions Recorded colestipol 1 gram tablet 1 g PO BID 60 days #120 tabs 02/01/23 ondansetron HCl 4 mg tablet 4 mg PO Q8H PRN nausea and 03/14/23 vomiting #20 tabs oxybutynin chloride 5 mg 5 mg PO DAILY #30 tabs 03/14/23 tablet,extended release 24 hr crisaborole 2 % topical ointment 1 applic topical BID #100 grams 03/15/23 (Eucrisa) drhjmsddkgumeyc-ltcfdzpdbytalix-HU 5 ml PO Q6H PRN Cough #240 mL 04/24/23 2 mg-30 mg-10 mg/5 mL oral syrup (Bromfed DM) ondansetron 4 mg disintegrating 4 mg PO Q8H PRN Nausea #12 tabs 04/24/23 tablet oseltamivir 75 mg capsule (Tamiflu) 75 mg PO BID #10 caps 04/24/23 ondansetron 4 mg disintegrating 4 mg PO Q6H PRN nausea and 04/27/23 tablet vomiting #10 tabs oseltamivir 75 mg capsule (Tamiflu) 75 mg PO BID 5 days #10 caps 04/27/23 Allergies Allergy/AdvReac Type Severity Reaction Status Date / Time amoxicillin [AMOXICILLIN] Allergy Intermediate I-HIVES Verified 04/24/23 12:12 Penicillins [PENICILLINS] Allergy Intermediate I-HIVES Verified 04/24/23 12:12 [facility] Disclaimer: The information contained in this section may have been updated after the patient was seen, as this information can be updated by other users. 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 History of laparoscopic cholecystectomy History of surgical removal of pilonidal cyst S/P section Family History Other Cancer Diabetes Heart attack Stroke Social History Smoking Status: Current every day smoker second hand exposure: Yes (uses vape pen) alcohol intake: never substance use type: denies use current occupational status: employed Travel in the last 8 weeks: None household members: family housing: house marital status: single current occupation: [employer] current occupational exposures/hazards: No sexually active: Yes caffeine: Yes do you feel safe at home: Yes victim of physical abuse: No victim of emotional abuse: No victim of sexual abuse: No ROS Obtained: Yes All systems reviewed & no additional complaints except as documented Physical Exam General General appearance: alert and in no apparent distress Head Head exam: atraumatic and normocephalic Eye Eye exam: Present normal appearance, PERRL and EOMI ENT ENT exam: Present mucous membranes moist Neck Neck exam: Present normal inspection, full ROM and trachea midline Respiratory Respiratory exam: Absent respiratory distress, wheezes, stridor, accessory muscle use or prolonged expiratory phase Cardiovascular Cardiovascular exam: Present normal rhythm Abdominal Exam Abdominal exam: Present soft; Absent distention, tenderness, guarding, rebound or rigidity Extremities Exam Extremities exam: Absent edema Neurological Exam Neurological exam: Present alert, oriented X3, CN II-XII intact and normal gait; Absent motor sensory deficit Skin Skin exam: Present warm and dry; Absent diaphoresis or erythema Medical Decision Making Medical Records Medical records reviewed: Yes I reviewed the patient's medical records. Horace Inquiry Pt receiving controlled substance: No Horace was queried for this patient: No Vital Signs: 04/27/23 12:19 Temperature 98.1 F Temperature Source Oral Pulse Rate [Radial] 113 H Respiratory Rate 20 Blood Pressure [Right Arm] 132/91 H Blood Pressure Mean [Right Arm] 104 Blood Pressure Source [Right Arm] Automatic Cuff Blood Pressure Position [Right Arm] Sitting 02 Sat by Pulse Oximetry 99 Oxygen Delivery Method Room Air Orders (Tests/Meds): ED MEDICATIONS Discontinued Medications Generic Name Dose Route Start Last Admin Trade Name Freq PRN Reason Stop Dose Admin Dexamethasone 10 mg 04/27/23 12:38 04/27/23 13:01 Dexamethasone 4mg Tablet PO 04/27/23 12:39 10 mg ONCE ONE Administration Ibuprofen 600 mg 04/27/23 12:38 04/27/23 13:01 Ibuprofen 600 Mg Tablet PO 04/27/23 12:39 600 mg ONCE ONE Administration Ondansetron HCl 4 mg 04/27/23 12:38 04/27/23 13:02 Ondansetron 4mg Odt SL 04/27/23 12:39 4 mg ONCE ONE Administration ORDERS Category Date Time Status UA [Urinalysis and Microscopic] Stat Lab 04/27/23 13:33 Ordered Medical Decision Narrative: 23-year-old female presenting with multiple complaints after being flu be positive. On physical exam, patient well-appearing. She is tachycardic, but also feeling uncomfortable. Lungs clear to auscultation. No evidence of rash. No lymphadenopathy. Patient states that she has not been able to filler picker her medications at the pharmacy due to insurance issues. Medication sent to pharmacy here in clinic pharmacy because they do accept her insurance. No workup was deemed appropriate at this time due to fluid positivity and complaints of bodyaches, fevers and chills, generalized systemic signs and symptoms. She was given Decadron p.o. and Zofran p.o. Able to tolerate p.o. intake. Patient urinating and voiding without issue here in the emergency department. Because patient at baseline without signs or symptoms of clinical decompensation, deemed appropriate for discharge. Results were relayed to patient who voiced understanding and were agreeable to outpatient management and follow up. At the time of discharge the patient was hemodynamically stable, tolerating PO, and mobilizing appropriately. Critical Care Critical Care Time Critical Care Time: No
[2023-04-27] MEDS: DEXAMETHASONE 4MG TABLET 10 MG PO (13:01)
[2023-04-27] MEDS: IBUPROFEN 600 MG TABLET PO (13:01)
[2023-04-27] MEDS: ONDANSETRON 4MG ODT 4 MG SL (13:02)
--- NOTE | 2023-04-27 13:09 | PC.NURSE ---
Pt provided with warm blanket
--- NOTE | 2023-04-27 14:05 | PC.NURSE ---
pt went to bathroom twice, did not give a urine sample at this time. aware
[2023-04-27 14:20] VITALS: BP 116/84; PULSE 90; RESP 18; TEMP 36.7; O2SAT 98
== END 2023-04-27 14:21 | disposition home or self-care (01) ==
PROVIDERS: Emergency Provider Emergency Medicine; PCP Physician Assistant
DX: J10.1 Influenza due to other identified influenza virus with other respiratory manifestations (principal); J10.2 Influenza due to other identified influenza virus with gastrointestinal manifestations; R05.9 Cough, unspecified; R09.81 Nasal congestion; R06.02 Shortness of breath; R11.10 Vomiting, unspecified; R19.7 Diarrhea, unspecified; F17.200 Nicotine dependence, unspecified, uncomplicated
CPT/HCPCS: 99283

== ENCOUNTER 2023-08-08 15:58 | Outpatient (CLI) | payer OTHER, SELFPAY ==
--- NOTE | 2023-08-08 15:59 | US_ITS ---
PROCEDURE: US TRANSVAGINAL CLINICAL INDICATION: abnormal unterine bleeding COMPARISON: CT CT ABDOMEN PELVIS W CON from 01/11/2023 FINDINGS: Transvaginal sonographic images of the pelvis were obtained. UTERUS: 6.3cm x 4.4cmx 2.8 cm anteverted with a combined endometrial thickness of 3.5mm. LEFT OVARY: 2.8 cmx2.0cmx1.7cm with a volume of 5ml. There are several follicles. The largest measures 0.9 cm x 0.8 cm x 0.8 cm. RIGHT OVARY: 2.9 cm x 1.9 cmx2.0cm with a volume of 5.7ml. There are several small follicles. There is a dominant follicle measuring 1.4 cm x 0.8 cm x 1.0 cm. Both ovaries are seen and appear polycystic. Doppler flow to both ovaries are seen. There is no fluid in the cul-de-sac. IMPRESSION: 1. Anteverted uterus normal in shape and size. 2. The endometrium is thin. 3. Both ovaries are seen and have a polycystic appearance. 4. No fluid in the cul-de-sac. Dictated by: Higinio Louise MD 08/08/2023 17:00 Higinio Louise MD in OV 08/08/2023 17:00
== END 2023-08-08 23:59 | disposition home or self-care (01) ==
LOC: RAD 15:59
PROVIDERS: PCP Physician Assistant; Referring Provider Obstetrics & Gynecology; Visit Provider Obstetrics & Gynecology
DX: N93.9 Abnormal uterine and vaginal bleeding, unspecified (principal); N92.6 Irregular menstruation, unspecified
CPT/HCPCS: 76830

== ENCOUNTER 2023-08-15 12:58 | Outpatient (CLI) | payer OTHER, SELFPAY ==
[2023-08-15 13:31] LABS: Basophils # 0.1 K/mm3 (0-0.2); Basophils % 1.7 % (0.1-2.0); Eosinophils # 0.2 K/mm3 (0.0-0.4); Eosinophils % 2.2 % (0.1-12.0); Hematocrit 45.4 % (37.0-47.0); Hemoglobin 14.5 g/dL (12.2-16.2); Lymphocytes # 2.4 K/mm3 (0.7-4.5); Mean Corpuscular HGB Conc 32.1 g/dL (31.8-35.4); Mean Corpuscular Hemoglobin 29.2 pg (27.0-31.2); Monocytes # 0.4 K/mm3 (0.1-1.0); Monocytes % 5.1 % (1.7-9.3); Neutrophils # 5.1 K/mm3 (1.8-7.8); Platelet Count 335 K/mm3 (142-424); Red Blood Count 4.99 M/mm3 (4.20-5.40); Red Cell Distribution Width 13.3 % (11.5-17.5); White Blood Count 8.3 K/mm3 (4.8-10.8)
[2023-08-15 14:23] LABS: Hemoglobin A1C 5.1 % (4.0-6.0)
[2023-08-15 14:29] LABS: Alanine Aminotransferase 22 U/L (12-78); Albumin Level 4.2 g/dl (3.5-5.0); Albumin/Globulin Ratio 1.4 (1.1-1.8); Alkaline Phosphatase 74 U/L (38-126); Anion Gap 12.2 mEq/L (5-15); Aspartate Amino Transferase 21 U/L (14-36); Bilirubin,Total 0.3 mg/dl (0.2-1.3); Blood Urea Nitrogen 13 mg/dl (7-17); Calcium 9.5 mg/dl (8.4-10.2); Carbon Dioxide 29 mmol/L (22.0-30.0); Chloride 101 mmol/L (98-107); Estimated Glomerular Filt Rate 102 ml/min (>60); GFR (African American) 123 ML/MIN (>60); Globulin 3.1 g/dL (1.3-3.2); Glucose 78 mg/dl (74-100); Glucose,Fasting 78 mg/dl (74-100); Potassium 4.2 mmoL/L (3.5-5.1); Sodium 138 mmol/L (136-145); Total Protein,Serum 7.3 g/dl (6.3-8.2)
[2023-08-15 14:56] LABS: Thyroid Stimulating Hormone 1.44 uIU/mL (0.465-4.68)
[2023-08-17 11:14] LABS: Insulin Level Total 13.2 uIU/mL (2.6-24.9)
[2023-08-17 15:33] LABS: Estradiol 33.1 pg/mL (.); FSH 7.3 mIU/mL (.)
[2023-08-21 22:08] LABS: Testosterone, Total, LC/MS 27 ng/dL (.)
[2023-08-23 09:22] LABS: Anti Mullerian Hormone (AMH) 2.18
== END 2023-08-15 23:59 | disposition home or self-care (01) ==
LOC: LAB 12:59
PROVIDERS: PCP Physician Assistant; Visit Provider Obstetrics & Gynecology
DX: N93.9 Abnormal uterine and vaginal bleeding, unspecified (principal)
CPT/HCPCS: 36415; 80053; 82397; 82670; 82947; 83001; 83036; 83525; 84403; 84443; 85025

== ENCOUNTER 2023-09-03 11:03 | Outpatient (CLI) | payer OTHER, SELFPAY | END 2023-09-03 23:59 | disposition home or self-care (01) | LOC: RT 11:04 | PROVIDERS: PCP Physician Assistant; Visit Provider Physician Assistant | DX: R03.0 Elevated blood-pressure reading, without diagnosis of hypertension (principal) | CPT/HCPCS: 93225; 93227 ==

== ENCOUNTER 2023-09-20 08:33 | Outpatient (CLI) | payer OTHER, SELFPAY ==
--- NOTE | 2023-09-20 08:38 | US_ITS ---
FINAL REPORT TECHNIQUE: Ultrasound images of the kidneys and bladder were obtained. CLINICAL HISTORY: .hypertension FINDINGS: The right kidney measures 11.3 cm in length. It is normal in echogenicity. There is no hydronephrosis. The left kidney measures 11.8 cm in length. It is normal in echogenicity. There is no hydronephrosis. The urinary bladder is unremarkable. IMPRESSION: No hydronephrosis. Reviewed, Interpreted and Dictated by Osmany Hyde MD Transcribed by Lucie Moreno Authenticated and [facility]
== END 2023-09-20 23:59 | disposition home or self-care (01) ==
LOC: RAD 08:34
PROVIDERS: PCP Physician Assistant; Visit Provider Physician Assistant
DX: R03.0 Elevated blood-pressure reading, without diagnosis of hypertension (principal)
CPT/HCPCS: 76770

== ENCOUNTER 2023-10-22 10:24 | Outpatient (CLI) | payer OTHER, SELFPAY ==
[2023-10-22 16:50] LABS: Basophils # 0.1 K/mm3 (0-0.2); Basophils % 1.3 % (0.1-2.0); Eosinophils # 0.3 K/mm3 (0.0-0.4); Eosinophils % 4.4 % (0.1-12.0); Hematocrit 43.4 % (37.0-47.0); Hemoglobin 14.5 g/dL (12.2-16.2); Lymphocytes # 1.6 K/mm3 (0.7-4.5); Lymphocytes % 23.7 % (10-50); Mean Corpuscular HGB Conc 33.3 g/dL (31.8-35.4); Mean Corpuscular Hemoglobin 30.4 pg (27.0-31.2); Mean Corpuscular Volume 91.3 fl (81-99); Mean Platelet Volume 7.9 fl (7.4-10.4); Monocytes # 0.4 K/mm3 (0.1-1.0); Monocytes % 5.8 % (1.7-9.3); Neutrophils # 4.4 K/mm3 (1.8-7.8); Neutrophils % 64.8 % (37.0-80.0); Platelet Count 302 K/mm3 (142-424); Red Blood Count 4.75 M/mm3 (4.20-5.40); Red Cell Distribution Width 14.1 % (11.5-17.5); White Blood Count 6.8 K/mm3 (4.8-10.8)
[2023-10-22 17:22] LABS: Alanine Aminotransferase 27 U/L (12-78); Albumin Level 4.1 g/dl (3.5-5.0); Albumin/Globulin Ratio 1.3 (1.1-1.8); Alkaline Phosphatase 81 U/L (38-126); Anion Gap 12.9 mEq/L (5-15); Aspartate Amino Transferase 23 U/L (14-36); Bilirubin,Total 0.3 mg/dl (0.2-1.3); Blood Urea Nitrogen 11 mg/dl (7-17); Calcium 9.7 mg/dl (8.4-10.2); Carbon Dioxide 28 mmol/L (22.0-30.0); Chloride 103 mmol/L (98-107); Chol/HDL Ratio 4.2 (1-3.5); Cholesterol 168 mg/dl (140-200); Estimated Glomerular Filt Rate 87 ml/min (>60); GFR (African American) 106 ML/MIN (>60); Globulin 3.1 g/dL (1.3-3.2); Glucose 89 mg/dl (74-100); HDL Cholesterol 40 mg/dl (40-60); Potassium 3.9 mmoL/L (3.5-5.1); Sodium 140 mmol/L (136-145); Total Protein,Serum 7.2 g/dl (6.3-8.2); Triglycerides 169 mg/dl (30-150); VLDL Cholesterol 34 mg/dL (0-40)
[2023-10-22 17:27] LABS: Hemoglobin A1C 4.8 % (4.0-6.0)
[2023-10-22 17:36] LABS: Direct LDL Cholesterol 97.89 mg/dL (100-129)
== END 2023-10-22 23:59 | disposition home or self-care (01) ==
LOC: LAB.DROPOF 10-23 10:24
PROVIDERS: PCP Physician Assistant; Visit Provider Physician Assistant
DX: E28.2 Polycystic ovarian syndrome (principal); R53.83 Other fatigue; E66.01 Morbid (severe) obesity due to excess calories; Z68.41 Body mass index [BMI] 40.0-44.9, adult
CPT/HCPCS: 80050; 80053; 80061; 82306; 83036; 84443; 84681; 85025

== ENCOUNTER 2023-10-29 15:19 | Outpatient (CLI) | payer OTHER, SELFPAY ==
--- NOTE | 2023-10-29 15:19 | US_ITS ---
FINAL REPORT CLINICAL HISTORY: left ankle swelling, current vaping, HTN, bilateral rest pain COMPARISON: None FINDINGS: ANKLE-BRACHIAL PRESSURE INDICES Pressure indices are as follows: RIGHT LOWER EXTREMITY: Ankle-brachial pressure index: 1.2 Comments: Normal LEFT LOWER EXTREMITY: Ankle-brachial pressure index: Comments: Normal CONCLUSION: No evidence of significant obstructive peripheral vascular disease of the lower extremities Reviewed, Interpreted and Dictated by Azam Carrillo MD Transcribed by Natalia Amaral Authenticated and [facility]
== END 2023-10-29 23:59 | disposition home or self-care (01) ==
LOC: RT 15:19
PROVIDERS: PCP Physician Assistant; Visit Provider Physician Assistant
DX: M25.472 Effusion, left ankle (principal)
CPT/HCPCS: 93923

== ENCOUNTER 2024-01-18 17:44 | Emergency (ER) | payer SELFPAY ==
[2024-01-18 17:48] VITALS: BP 145/95; PULSE 85; RESP 18; TEMP 37.1; O2SAT 99; BMI 44.2
--- NOTE | 2024-01-18 18:30 | ED_ITS ---
<Statement entered by Ashanti Pulido DO - 01/18/24 22:49> I was consulted by the SAMANTHA, and we discussed the complexity of the problems being addressed. I approved the treatment and management plan for this patient's care in the emergency department, thus performing a substantive portion of the medical decision making. Ashanti Pulido DO Discharge Plan Disposition Patient Disposition: Home, Self-Care Condition: Fair Prescriptions Prescriptions: New promethazine 12.5 mg tablet 12.5 mg PO TID PRN (Reason: allergy symptoms) Qty: 10 0RF Rx Instructions: 3 doses during day; last dose no later than 4 hr before bedtime No Action metformin 500 mg tablet 500 mg PO DAILY Patient Comments: TAKE 1 TABLET BY MOUTH ONCE DAILY spironolactone 25 mg tablet 25 mg PO DAILY Patient Comments: TAKE 1 TABLET BY MOUTH ONCE DAILY Vraylar 1.5 mg capsule 1.5 mg PO DAILY Patient Comments: Take 1 capsule by mouth once daily azithromycin [Zithromax] 250 mg tablet 250 mg PO UD DOSE PK Qty: 6 0RF Rx Instructions: Take two (2) tablets today, then one (1) tablet days #2 thru #5 [id number]-mrliwpige-SL [Bromfed DM] 2-30-10 mg/5 mL Syrup 5 ml PO Q6H PRN (Reason: Cough) Qty: 240 0RF Referrals Follow up/Referrals: Esther Pacheco PA [Primary Care Provider] - See instructions Activity Restrictions/Add. Instructions Additional Instructions/Restrictions: Increase fluids and rest. Take meds as directed. Please call your OB on Sunday Clinical Impressions Clinical Impression: , Vomiting affecting Instructions Patient Instructions: DI for Diarrhea and Traveler's Diarrhea -- Adult, DI for Diarrhea and Traveler's Diarrhea -- Child, DI for Nausea -- Adult, DI for Nausea -- Child Print Language Print Language: Cuban Discharge ED Provider: Ashanti Pulido General Adult HPI General Chief complaint: Nausea/Vomiting/Diarrhea Stated complaint: with HG & morning sickness Time Seen by Provider: 01/18/24 17:52 Mode of Arrival: Ambulatory Source of Information: Patient Limitations: No Limitations Description of Symptoms (Recalled from ER Triage Doc. by RN): Patient presents to ED and states she took a home pregancy test today that was positive. Last menstral cycle was October 04-. Patient reports she is never regular with her cycles. Reports she can not keep anything down for 1 week, increased nasuea and vomiting today. History of Present Illness HPI narrative: This is a 23-year-old female who presents to the ED today for complaint of morning sickness. She woke up today vomiting and abdominal pain that is diffuse. She says her last menstrual period was October 04. She complains that she did take a test this morning and it turned positive. She has had fever, chills, diarrhea. She has not taken her temp but feels like she has had a fever. She has had no sick contacts. No cramping and no bleeding no cold symptoms. This will be her second she has a 2-year-old daughter. She had hyperemesis gravidarum the first . Related Data Home Medications ?Medication ?Instructions ?Recorded ?Confirmed cariprazine 1.5 mg capsule 1.5 mg PO DAILY 12/04/23 12/04/23 (Vraylar) metformin 500 mg tablet 500 mg PO DAILY 12/04/23 12/04/23 spironolactone 25 mg tablet 25 mg PO DAILY 12/04/23 12/04/23 Previous Rx's ?Medication ?Instructions ?Recorded azithromycin 250 mg tablet 250 mg PO UD DOSE PK #6 tabs 12/04/23 (Zithromax) jvvxjbrqbutsbom-cimusdbemudzdam-TI 5 ml PO Q6H PRN Cough #240 mL 12/04/23 2 mg-30 mg-10 mg/5 mL oral syrup (Bromfed DM) promethazine 12.5 mg tablet 12.5 mg PO TID PRN allergy 01/18/24 symptoms #10 tabs Allergies Allergy/AdvReac Type Severity Reaction Status Date / Time amoxicillin [AMOXICILLIN] Allergy Intermediate I-HIVES Verified 10/22/23 15:10 Penicillins [PENICILLINS] Allergy Intermediate I-HIVES Verified 10/22/23 15:[address] [facility] Disclaimer: The information contained in this section may have been updated after the patient was seen, as this information can be updated by other users. Medical History (Updated 01/18/24 @ 21:06 by Cass Castanon (ED), [employer]ENT) Tetrahydrocannabinol (THC) use disorder, mild, abuse Patient desires PCOS (polycystic ovarian syndrome) Elevated blood pressure reading Tobacco dependence BMI 45.0-49.9, adult History of gestational diabetes History of pre-eclampsia Surgical History History of surgical removal of pilonidal cyst History of laparoscopic cholecystectomy S/P section History of hand surgery Family History Other Cancer Diabetes Heart attack Stroke Social History Smoking Status: Current every day smoker second hand exposure: Yes (uses vape pen) alcohol intake: never substance use type: denies use current occupational status: employed Travel in the last 8 weeks: None household members: family housing: house marital status: single current occupation: [employer] current occupational exposures/hazards: No sexually active: Yes caffeine: Yes do you feel safe at home: Yes victim of physical abuse: No victim of emotional abuse: No victim of sexual abuse: No Other Medical History Have you received the Flu Vaccine for this season: No Have you received the Pneumonia Vaccine: No ROS Obtained: Yes Systems reviewed as appropriate & no additional complaints except as documented Constitutional Constitutional: Reports as per HPI Physical Exam General General appearance: alert Comment: Nauseated Head Head exam: atraumatic and normocephalic Eye Eye exam: Present normal appearance, PERRL and EOMI ENT ENT exam: Present normal exam, normal oropharynx and mucous membranes moist Neck Neck exam: Present normal inspection, full ROM and trachea midline Chest Chest inspection: Present normal inspection Respiratory Respiratory exam: Present normal lung sounds bilaterally Cardiovascular Cardiovascular exam: Present regular rate, normal rhythm, normal heart sounds, +S1 and +S2 Abdominal Exam Abdominal exam: Present soft, tenderness (Diffuse) and normal bowel sounds Extremities Exam Extremities exam: Present normal inspection, full ROM and normal capillary refill Neurological Exam Neurological exam: Present alert and oriented X3 Skin Skin exam: Present warm, dry and intact Medical Decision Making Medical Records Screening: Per USPSTF and CDC recommendations, given the prevalence of disease in our region, it is our hospital?s policy to screen for HIV and viral Hepatitis for all patients aged 18 and over and those with ongoing risk factors. Horace Inquiry Pt receiving controlled substance: No Horace was queried for this patient: No Vital Signs: 01/18/24 17:48 01/18/24 19:01 01/18/24 21:05 Temperature 98.7 F 97.7 F Temperature Source Oral Oral Pulse Rate 75 91 H Pulse Rate [Right Brachial] 85 Respiratory Rate 18 20 Blood Pressure 135/76 132/75 Blood Pressure [Right Arm] 145/95 H Blood Pressure Mean [Right Arm] 111 Blood Pressure Source Automatic Cuff Blood Pressure Source [Right Arm] Automatic Cuff Blood Pressure Position Sitting Blood Pressure Position [Right Arm] Supine 02 Sat by Pulse Oximetry 99 99 Oxygen Delivery Method Room Air Room Air Room Air Lab Data Lab Results 01/18/24 18:28: Urine Color Yellow, Urine Appearance Clear, Urine pH 7.0, Ur Specific [employer] 1.015, Urine Protein Negative, Urine Glucose (UA) Negative, Urine Ketones 2+, Urine Blood Negative, Urine Nitrate Negative, Urine Bilirubin Negative, Urine Urobilinogen 0.2, Ur Leukocyte Esterase 1+ A, Urine RBC Occasional, Urine WBC Tntc, Ur Squamous Epith Cells 10-20, Urine Bacteria 2+ 01/18/24 18:30: WBC 9.4, RBC 5.16, Hgb 15.3, Hct 45.8, MCV 88.8, MCH 29.6, MCHC 33.4, RDW 13.1, Plt Count 318, MPV 7.9, Neut % (Auto) 87.4 H, Lymph % (Auto) 7.0 L, [place] % (Auto) 4.6, Eos % (Auto) 0.3, Baso % (Auto) 0.6, Neut # (Auto) 8.2 H, Lymph # (Auto) 0.7, [place] # (Auto) 0.4, Eos # (Auto) 0.0, Baso # (Auto) 0.1, Total Counted 100, Neutrophils % (Manual) 90 H, Lymphocytes % (Manual) 6 L, Atypical Lymphs % 1.0, Monocytes % (Manual) 3, Platelet Estimate Normal, RBC Morphology Normal, Sodium 138, Potassium 4.0, Chloride 105, Carbon Dioxide 23, Anion Gap 14.0, BUN 10, Creatinine 0.60, Estimated Creat Clear 119, Estimated GFR 122, Est GFR ( Amer) 147, Glucose 116 H, Calcium 9.5, Total Bilirubin 0.7, AST 36, ALT 37, Alkaline Phosphatase 79, Total Protein 8.6 H, Albumin 4.8, Globulin 3.8 H, Albumin/Globulin Ratio 1.3, Lipase 61, HCG, Quant [id number] H, HIV 1&2 Antibody Rapid Nonreactive 01/18/24 18:30 01/18/24 18:30 Orders (Tests/Meds): ED MEDICATIONS Discontinued Medications Generic Name Dose Route Start Last Admin Trade Name Freq PRN Reason Stop Dose Admin Diphenhydramine HCl 50 mg 01/18/24 18:27 01/18/24 18:33 Diphenhydramine 50mg/Ml Vial IV 01/18/24 18:28 50 mg ONCE ONE Administration Famotidine 20 mg 01/18/24 19:23 01/18/24 19:45 Famotidine 20mg/2ml Vial IV 01/18/24 19:24 20 mg ONCE ONE Administration Lactated Ringer's 1,000 mls @ 999 mls/hr 01/18/24 18:27 01/18/24 18:33 Lactated Ringer's 1000 Ml Bag IV 01/18/24 19:27 999 mls/hr .Q1H1M ONE Administration Metoclopramide HCl 5 mg 01/18/24 20:21 01/18/24 20:27 Metoclopramide Hcl 10mg/2ml Vial IVP 01/18/24 20:22 5 mg ONCE ONE Administration Ondansetron HCl 4 mg 01/18/24 18:27 01/18/24 18:33 Ondansetron 4mg/2ml Vial IV 01/18/24 18:28 4 mg ONCE ONE Administration Promethazine HCl 12.5 mg 01/18/24 19:23 01/18/24 19:45 Promethazine Hcl 25mg/Ml 1ml Vial IV 01/18/24 19:24 12.5 mg ONCE ONE Administration Sodium Chloride 8 ml 01/18/24 19:23 Sodium Chloride 0.9% 10ml Vial IV 02/17/24 19:22 NEEDED PRN dilute pepcid Sodium Chloride 25 ml 01/18/24 19:23 01/18/24 19:45 Sodium Chloride 0.9% 25ml Bag IV 01/18/24 19:24 25 ml ONCE ONE Administration ORDERS Category Date Time Status Complete Blood Count Auto Diff Stat Lab 01/18/24 18:30 Completed Comprehensive Metabolic Panel Stat Lab 01/18/24 18:30 Completed HCG,Quantitative Stat Lab 01/18/24 18:30 Completed HIV (1&2) Antibody Rapid Stat Lab 01/18/24 18:30 Completed Hep C Ab with Reflex to RNA Stat Lab 01/18/24 18:30 Received Lipase Stat Lab 01/18/24 18:30 Completed Urinalysis and Microscopic Stat Lab 01/18/24 18:28 Completed Urine Culture Stat Micro 01/18/24 18:28 Received Medical Decision Narrative: Insert review patient is a 23-year-old female presenting to the emergency department for evaluation of vomiting, diarrhea and . Patient is hemodynamically stable and nontoxic-appearing upon arrival, afebrile. Differential diagnosis includes for hyperemesis gravidarum, vomiting among others. Workup will be conducted with hematologic labs. Initial inventions include crystalloid bolus, antiemetics. Initial workup reviewed by me positive leuks, hCG quant of over 10,000. Upon repeat evaluation patient's pain is improved, appears better perfused. If patient complained several times of nausea so she was given several antiemetics and Pepcid for her symptoms. Dr. Pulido and I discussed her care and we have given Pepcid, Zofran, Benadryl, Phenergan and Reglan for her symptoms. Patient was sleeping when I checked on her the last time. She sees Dr. Kaye for OB. Patient is safe for discharge home Critical Care Critical Care Time Critical Care Time: No
[2024-01-18] MEDS: LACTATED RINGERS 1000ML 1,000 ML 999 ML IV (18:33)
[2024-01-18] MEDS: diphenhydrAMINE 50MG/ML VIAL 50 MG IV (18:33)
[2024-01-18] MEDS: ONDANSETRON 4MG/2ML VIAL 4 MG IV (18:33)
[2024-01-18 18:49] LABS: Albumin Level 4.8 g/dl (3.5-5.0); Basophils # 0.1 K/mm3 (0-0.2); Basophils % 0.6 % (0.1-2.0); Chloride 105 mmol/L (98-107); Eosinophils % 0.3 % (0.1-12.0); Hematocrit 45.8 % (37.0-47.0); Hemoglobin 15.3 g/dL (12.2-16.2); Lymphocytes # 0.7 K/mm3 (0.7-4.5); Mean Corpuscular HGB Conc 33.4 g/dL (31.8-35.4); Mean Corpuscular Hemoglobin 29.6 pg (27.0-31.2); Mean Corpuscular Volume 88.8 fl (81-99); Mean Platelet Volume 7.9 fl (7.4-10.4); Monocytes # 0.4 K/mm3 (0.1-1.0); Monocytes % 4.6 % (1.7-9.3); Neutrophils # 8.2 K/mm3 (1.8-7.8); Neutrophils % 87.4 % (37.0-80.0); Platelet Count 318 K/mm3 (142-424); Red Blood Count 5.16 M/mm3 (4.20-5.40); Red Cell Distribution Width 13.1 % (11.5-17.5); Sodium 138 mmol/L (136-145); White Blood Count 9.4 K/mm3 (4.8-10.8)
[2024-01-18 18:51] LABS: Blood Urea Nitrogen 10 mg/dl (7-17); Creatinine Clearance Estimated 119 mL/min (50-200); Estimated Glomerular Filt Rate 122 ml/min (>60); GFR (African American) 147 ML/MIN (>60)
[2024-01-18 18:52] LABS: Alanine Aminotransferase 37 U/L (12-78); Albumin/Globulin Ratio 1.3 (1.1-1.8); Alkaline Phosphatase 79 U/L (38-126); Aspartate Amino Transferase 36 U/L (14-36); Bilirubin,Total 0.7 mg/dl (0.2-1.3); Calcium 9.5 mg/dl (8.4-10.2); Carbon Dioxide 23 mmol/L (22.0-30.0); Globulin 3.8 g/dL (1.3-3.2); Glucose 116 mg/dl (74-100); Lipase 61 U/L (23-300); Total Protein,Serum 8.6 g/dl (6.3-8.2)
[2024-01-18 18:58] LABS: MANUAL DIFFERENTIAL MANUAL DIFFERENTIAL (MANUAL DIFF)
[2024-01-18 19:01] VITALS: BP 135/76; PULSE 75; O2SAT 99
[2024-01-18 19:06] LABS: Microscopic, Urine URINE MICROSCOPIC (MICROSCOPIC)
[2024-01-18 19:09] LABS: Appearance,Urine CLEAR (Clear); Bilirubin,Urine Negative (Negative); Blood, Urine Negative (Negative); Color,Urine YELLOW (Yellow); Glucose,Urine (UA) Negative (Negative); Ketones,Urine 2+ (Negative); Leukocyte Esterase,Urine 1+ (Negative); Nitrate,Urine Negative (Negative); Protein,Urine Negative (Negative); Specific Gravity, Urine 1.015 (1.005-1.030); Urobilinogen,Urine 0.2 EU/dl (0.2)
[2024-01-18 19:09] LABS: HCG,Quantitative 10340 mIU/ml (0-5.42)
[2024-01-18 19:28] LABS: Bacteria,Urine 2+ /lpf; RBC,Urine Occasional #/hpf (0-3); WBC,Urine TNTC #/hpf (0-3)
[2024-01-18] MEDS: SODIUM CHLORIDE 0.9% 25ML BAG 25 ML IV (19:45)
[2024-01-18] MEDS: FAMOTIDINE 20MG/2ML VIAL 20 MG IV (19:45)
[2024-01-18] MEDS: PROMETHAZINE HCL 25MG/ML 1ML VIAL 12.5 MG IV (19:45)
[2024-01-18] MEDS: METOCLOPRAMIDE HCL 10MG/2ML VIAL 5 MG IVP (20:27)
[2024-01-18 20:35] LABS: Lymphocytes % 6 % (10-50); Monocytes % 3 % (2-9); Neutrophils % 90 % (42-76); Total Cells Counted 100
[2024-01-18 20:47] LABS: Platelet Estimate Normal; RBC Morphology Normal
[2024-01-18 21:05] VITALS: BP 132/75; PULSE 91; RESP 20; TEMP 36.5; O2SAT 97
[2024-01-18 21:21] LABS: HIV (1&2) Antibody Rapid NONREACTIVE (NONREACTIVE)
[2024-01-20 08:29] LABS: HCV Ab Non Reactive (Non Reactive)
== END 2024-01-18 21:12 | disposition home or self-care (01) ==
PROVIDERS: Nurse Practitioner; Emergency Provider Emergency Medicine; PCP Physician Assistant
DX: Z34.90 Encounter for supervision of normal pregnancy, unspecified, unspecified trimester (principal); R11.2 Nausea with vomiting, unspecified; R10.9 Unspecified abdominal pain; R50.9 Fever, unspecified; R19.7 Diarrhea, unspecified
CPT/HCPCS: 80053; 81001; 83690; 84702; 85007; 85025; 86803; 87086; 87088; 87186; 87389; 96361; 96374; 96375; 99283; J1200; J2405; J2550; J2765; J7120; S0028

== ENCOUNTER 2024-01-21 11:37 | Emergency (ER) | payer SELFPAY ==
[2024-01-21 11:47] VITALS: BP 130/80; PULSE 71; RESP 16; TEMP 36.8; O2SAT 100; BMI 44.8
[2024-01-21] MEDS: DEXTROSE 5%-LACTATED RINGERS 1,000 ML 999 ML IV (12:05)
[2024-01-21] MEDS: ONDANSETRON 4MG/2ML VIAL 4 MG IV (12:05)
[2024-01-21 12:43] LABS: Basophils # 0.1 K/mm3 (0-0.2); Basophils % 0.7 % (0.1-2.0); Eosinophils % 0.2 % (0.1-12.0); Hematocrit 46.6 % (37.0-47.0); Hemoglobin 15.6 g/dL (12.2-16.2); Lymphocytes # 1.4 K/mm3 (0.7-4.5); Lymphocytes % 14.8 % (10-50); Mean Corpuscular HGB Conc 33.5 g/dL (31.8-35.4); Mean Corpuscular Hemoglobin 29.8 pg (27.0-31.2); Mean Platelet Volume 7.7 fl (7.4-10.4); Monocytes # 0.4 K/mm3 (0.1-1.0); Monocytes % 4.4 % (1.7-9.3); Neutrophils # 7.5 K/mm3 (1.8-7.8); Neutrophils % 79.8 % (37.0-80.0); Platelet Count 346 K/mm3 (142-424); Red Blood Count 5.23 M/mm3 (4.20-5.40); White Blood Count 9.4 K/mm3 (4.8-10.8)
[2024-01-21 12:48] LABS: Albumin Level 4.9 g/dl (3.5-5.0)
[2024-01-21 12:51] LABS: Alanine Aminotransferase 36 U/L (12-78); Albumin/Globulin Ratio 1.3 (1.1-1.8); Aspartate Amino Transferase 35 U/L (14-36); Blood Urea Nitrogen 11 mg/dl (7-17); Carbon Dioxide 26 mmol/L (22.0-30.0); Creatinine Clearance Estimated 89 mL/min (50-200); Estimated Glomerular Filt Rate 87 ml/min (>60); GFR (African American) 106 ML/MIN (>60); Globulin 3.7 g/dL (1.3-3.2); Total Protein,Serum 8.6 g/dl (6.3-8.2)
[2024-01-21 12:52] LABS: Phosphorous 3.2 mg/dl (2.5-4.5)
--- NOTE | 2024-01-21 12:58 | HMH.EDGENADL ---
Discharge Plan Disposition Patient Disposition: Home, Self-Care Prescriptions Prescriptions: New promethazine 25 mg tablet 25 mg PO TID PRN (Reason: nausea and vomiting) 5 Days Qty: 20 0RF ondansetron 4 mg tablet,disintegrating 4 mg PO Q6H PRN (Reason: nausea and vomiting) 5 Days Qty: 20 0RF No Action promethazine 12.5 mg tablet 12.5 mg PO Q6H PRN (Reason: nausea and vomiting) Qty: 30 0RF metformin 500 mg tablet 500 mg PO DAILY Patient Comments: TAKE 1 TABLET BY MOUTH ONCE DAILY spironolactone 25 mg tablet 25 mg PO DAILY Patient Comments: TAKE 1 TABLET BY MOUTH ONCE DAILY Vraylar 1.5 mg capsule 1.5 mg PO DAILY Patient Comments: Take 1 capsule by mouth once daily azithromycin [Zithromax] 250 mg tablet 250 mg PO UD DOSE PK Qty: 6 0RF Rx Instructions: Take two (2) tablets today, then one (1) tablet days #2 thru #5 ukdfoyporvufcjr-nrwwjesie-SD [Bromfed DM] 2-30-10 mg/5 mL Syrup 5 ml PO Q6H PRN (Reason: Cough) Qty: 240 0RF Referrals Follow up/Referrals: Esther Pacheco PA [Primary Care Provider] - See instructions Activity Restrictions/Add. Instructions Additional Instructions/Restrictions: Please have Dr. Kaye follow-up on the blood test that have been ordered specifically the electrolytes. We will try to keep an eye on them as well. As discussed you may take your Phenergan first-line and if you are not improving and continued nausea and vomiting please take your Zofran. Return with any significant worsening symptoms such as abdominal pain loss of fluid vaginal bleeding or contractions etc. Clinical Impressions Clinical Impression: Nausea and vomiting during Instructions Patient Instructions: DI for Diarrhea and Traveler's Diarrhea -- Adult, DI for Diarrhea and Traveler's Diarrhea -- Child, DI for Nausea -- Adult, DI for Nausea -- Child Print Language Print Language: Hebrew Discharge ED Provider: Neli Anthony General Adult HPI General Chief complaint: Nausea/Vomiting/Diarrhea Stated complaint: Severe vomiting, Time Seen by Provider: 01/21/24 12:35 Mode of Arrival: Ambulatory Source of Information: Patient Limitations: No Limitations Description of Symptoms (Recalled from ER Triage Doc. by RN): pt is here for N/V. pt states she found out she was on 01/17 and seen here for the N/V. pt is . pts first OB appointment was scheduled today with Dr. Richard at 1315. pt had HG with her first . pt also reports tightness in her abd. pt takes vraylar daily, no other medications. pt denies vaginal bleeding or discharge. pt states she is approximately 10wks . unsure of LMP because of irregular cycles. History of Present Illness HPI narrative: Patient is a unknown gestational age presenting today with nausea and vomiting. She had hyperemesis gravidarum in the first and vomited throughout her entire last time. She was here few days ago and had a prescription of Phenergan which has not been helping at home. She also has an appointment today at [address] Kaye. She has a history of PCOS and has not been having periods and she does not know exactly when she got . But she has been having on protected sex. Denies any abdominal pain vaginal bleeding loss of fluid contractions etc. Related Data Home Medications ?Medication ?Instructions ?Recorded ?Confirmed cariprazine 1.5 mg capsule 1.5 mg PO DAILY 12/04/23 12/04/23 (Vraylar) metformin 500 mg tablet 500 mg PO DAILY 12/04/23 12/04/23 spironolactone 25 mg tablet 25 mg PO DAILY 12/04/23 12/04/23 Previous Rx's ?Medication ?Instructions ?Recorded azithromycin 250 mg tablet 250 mg PO UD DOSE PK #6 tabs 12/04/23 (Zithromax) poqfvqoxkytotvg-epakwubngudsqtt-SU 5 ml PO Q6H PRN Cough #240 mL 12/04/23 2 mg-30 mg-10 mg/5 mL oral syrup (Bromfed DM) ondansetron 4 mg disintegrating 4 mg PO Q6H PRN nausea and 01/21/24 tablet vomiting 5 days #20 tabs promethazine 12.5 mg tablet 12.5 mg PO Q6H PRN nausea and 01/21/24 vomiting #30 tabs promethazine 25 mg tablet 25 mg PO TID PRN nausea and 01/21/24 vomiting 5 days #20 tabs Allergies Allergy/AdvReac Type Severity Reaction Status Date / Time amoxicillin [AMOXICILLIN] Allergy Intermediate I-HIVES Verified 01/21/24 12:16 Penicillins [PENICILLINS] Allergy Intermediate I-HIVES Verified 01/21/24 12:16 [facility] Disclaimer: The information contained in this section may have been updated after the patient was seen, as this information can be updated by other users. Medical History (Updated 01/21/24 @ 12:57 by Neli Anthony MD) Tetrahydrocannabinol (THC) use disorder, mild, abuse Patient desires PCOS (polycystic ovarian syndrome) Elevated blood pressure reading Tobacco dependence BMI 45.0-49.9, adult History of gestational diabetes History of pre-eclampsia Surgical History History of surgical removal of pilonidal cyst History of laparoscopic cholecystectomy S/P section History of hand surgery Family History Other Cancer Diabetes Heart attack Stroke Social History Smoking Status: Current every day smoker second hand exposure: Yes (uses vape pen) alcohol intake: never substance use type: denies use current occupational status: employed Travel in the last 8 weeks: None household members: family housing: house marital status: single current occupation: [id number] current occupational exposures/hazards: No sexually active: Yes caffeine: Yes do you feel safe at home: Yes victim of physical abuse: No victim of emotional abuse: No victim of sexual abuse: No Other Medical History Have you received the Flu Vaccine for this season: No Have you received the Pneumonia Vaccine: No ROS Obtained: Yes All systems reviewed & no additional complaints except as documented Physical Exam General General appearance: alert and in no apparent distress Respiratory Respiratory exam: Present normal lung sounds bilaterally Cardiovascular Cardiovascular exam: Present regular rate and normal rhythm Abdominal Exam Abdominal exam: Present soft; Absent distention or tenderness Neurological Exam Neurological exam: Present alert and oriented X3 Medical Decision Making Medical Records Screening: Per USPSTF and CDC recommendations, given the prevalence of disease in our region, it is our hospital?s policy to screen for HIV and viral Hepatitis for all patients aged 18 and over and those with ongoing risk factors. Horace Inquiry Pt receiving controlled substance: No Vital Signs: 01/21/24 11:47 Temperature 98.2 F Temperature Source Oral Pulse Rate [Left] 71 Respiratory Rate 16 Blood Pressure [Right Arm] 130/80 Blood Pressure Mean [Right Arm] 96 Blood Pressure Source [Right Arm] Automatic Cuff Blood Pressure Position [Right Arm] Sitting 02 Sat by Pulse Oximetry 100 Oxygen Delivery Method Room Air Lab Data Lab results reviewed: Yes I reviewed the patient's lab results. Lab Results 01/21/24 11:59: WBC 9.4, RBC 5.23, Hgb 15.6, Hct 46.6, MCV 89.0, MCH 29.8, MCHC 33.5, RDW 13.0, Plt Count 346, MPV 7.7, Neut % (Auto) 79.8, Lymph % (Auto) 14.8, [place] % (Auto) 4.4, Eos % (Auto) 0.2, Baso % (Auto) 0.7, Neut # (Auto) 7.5, Lymph # (Auto) 1.4, [place] # (Auto) 0.4, Eos # (Auto) 0.0, Baso # (Auto) 0.1 01/21/24 11:59 Orders (Tests/Meds): ED MEDICATIONS Generic Name Dose Route Start Last Admin Trade Name Freq PRN Reason Stop Dose Admin Dextrose/Lactated Ringer's 1,000 mls @ 999 mls/hr 01/21/24 12:00 01/21/24 12:05 Dextrose 5% In Lactated Ringer's 1000ml IV 01/21/24 13:00 999 mls/hr .Q1H1M ONE Administration Discontinued Medications Generic Name Dose Route Start Last Admin Trade Name Freq PRN Reason Stop Dose Admin Ondansetron HCl 4 mg 01/21/24 12:18 01/21/24 12:05 Ondansetron 4mg/2ml Vial IV 01/21/24 12:19 4 mg ONCE ONE Administration ORDERS Category Date Time Status POCUS Point of Care (ER Only) Stat Exams 01/21/24 12:36 Ordered CBC w/Auto Diff [Complete Blood Count Auto Diff] Stat Lab 01/21/24 11:59 Completed CMP [Comprehensive Metabolic Panel] Stat Lab 01/21/24 11:59 Received HCG,Quantitative Stat Lab 01/21/24 11:59 Received Magnesium Stat Lab 01/21/24 11:59 Received Phosphorous Stat Lab 01/21/24 11:59 Received Medical Decision Narrative: unknown dates presents today with nausea and vomiting setting of a positive test. Limited bedside ultrasound shows a living IUP with gestational sac and yolk sac consistent with approximately 8 weeks IUP. Ectopic unlikely. Abdominal exam is benign. She did have blood work that was drawn however she was initially in triage during a busy time in the emergency department she was initiated on IV fluids and Zofran per my request in order and labs are pending but she has an appoint with Dr. Kaye at 115 so I discharged her prior to results being back and advised that she follow-up with her ELECT[employer]PER[employer] doctor to see if there is any significant abnormalities on her blood test and to return with any significant worsening we will also try to keep an eye on this as well. She felt much better after her IV fluids and Zofran. I had an extensive discussion with her regarding the pros and cons of Zofran in particular the literature review on whether or not there truly associated teratogenic side effects from the medication. When she is failing other medications I strongly advised that she take Zofran at home if she continues to have nausea vomiting or to come to the emergency department for IV fluids and antiemetics. Overall this appears to be a normal with associated nausea and vomiting. She has not lost any significant amount of weight nor which she severely dehydrated. She was stable for outpatient follow-up with Dr. Kaye. She was prescribed 12 and half milligrams of Phenergan a few days ago which is a very low dose for this patient to the higher dose was prescribed she has been advised to take that first line and then second line Zofran if she still symptomatic. Procedures Miscellaneous Procedure Procedure Performed: Limited OB ultrasound Indication: Confirmation of with a positive test Identified structures: [-Uterus -Left adnexa -Right adnexa -Pouch of [place]] Findings: Uterus: Definitive IUP with gestational sac and yolk sac identified approximately 8 weeks FHR: Unable to be seen given gestational age Right adnexa: No free f fluid Left adnexa: No free fluid Cul de sac: Free fluid absent Impression: Single living IUP approximately 8 weeks based on gestational sac diameter Images [were saved/were not saved] to permanent archive The study [was/was not] technically adequate CPT Transabdominal: 38991-56 This study was performed by me, and I personally interpreted all images/videos. Based on my clinical judgement, these images were [adequate/inadequate] and [did/did not] necessitate further imaging. Critical Care Critical Care Time Critical Care Time: No
[2024-01-21 13:03] VITALS: BP 130/76; PULSE 71; RESP 18; TEMP 36.7; O2SAT 100
[2024-01-21 13:39] LABS: HCG,Quantitative 15517 mIU/ml (0-5.42)
[2024-01-21 13:57] LABS: Alkaline Phosphatase 73 U/L (38-126); Anion Gap 13.1 mEq/L (5-15); Bilirubin,Total 0.9 mg/dl (0.2-1.3); Calcium 9.6 mg/dl (8.4-10.2); Chloride 101 mmol/L (98-107); Glucose 110 mg/dl (74-100); Magnesium 1.9 mg/dl (1.6-2.3); Potassium 3.1 mmoL/L (3.5-5.1); Sodium 137 mmol/L (136-145)
== END 2024-01-21 13:03 | disposition home or self-care (01) ==
PROVIDERS: Emergency Provider Student in an Organized Health Care Education/Training Program; PCP Physician Assistant
DX: O21.9 Vomiting of pregnancy, unspecified (principal)
CPT/HCPCS: 80053; 83735; 84100; 84702; 85025; 96361; 96374; 99283; J2405

== ENCOUNTER 2024-01-21 13:53 | Outpatient (CLI) | payer OTHER, SELFPAY ==
[2024-01-21 13:57] VITALS: BMI 44.2
[2024-01-21 14:25] VITALS: BP 95/58; PULSE 75; RESP 16; TEMP 36.8; O2SAT 97; BMI 44.2
[2024-01-21] MEDS: PANTOPRAZOLE 40MG VIAL 40 MG IV (14:37)
[2024-01-21] MEDS: MVI, ADULT NO.1 WITH VIT K 10 ML, THIAMINE HCL 100 MG, MAGNESIUM SULFATE 2 GM in LACTAT... 254 ML IV (14:38)
--- NOTE | 2024-01-21 14:55 | PC.NURSE ---
14:00 Pt. arrived to unit ambulatory. Pt. reports unknown gestation, as she has infrequent periods and took a test sunday01/18/2024, and has only been seen in ER since. Pt. denies vaginal bleeding and reports voiding prior to arrival. Pt. into room 272.
--- NOTE | 2024-01-21 14:57 | PC.NURSE ---
1340- Dr. Sol called unit to inform staff of pt. being sent in. Orders received to give 1L Banana Bag. give 40mg IV protonix, pt. may have zofran or phenergan if hasn't had it in 6 hours, UA, UDS, and Discharge pt. home after infusion. Orders read back and verified.
[2024-01-21] MEDS: PROMETHAZINE HCL 25MG/ML 1ML VIAL 12.5 MG IV (15:08)
[2024-01-21] MEDS: 0.9 % SODIUM CHLORIDE 25 ML 100 ML IV (15:08)
--- NOTE | 2024-01-21 15:51 | PC.NURSE ---
Pt. laying on left side playing on phone. Pt. denies needs.
--- NOTE | 2024-01-21 16:44 | PC.NURSE ---
16:35 Pt. laying in bed, watching Phone, Pt. requests Starry and crackers. Pt. denies further needs.
[2024-01-21 17:03] LABS: Microscopic, Urine URINE MICROSCOPIC (MICROSCOPIC)
[2024-01-21 17:06] LABS: Amphetamine/Metha Screen,Urine Negative ng/ml (<1000)
[2024-01-21 17:07] LABS: Barbiturates Screen,Urine Negative ng/ml (<200); Benzodiazepines Screen,Urine Negative ng/ml (<200)
[2024-01-21 17:08] LABS: Cannabinoid Screen,Urine Positive ng/ml (<50); Cocaine Screen,Urine Negative ng/ml (<300)
[2024-01-21 17:09] LABS: Methadone Screen,Urine Negative ng/ml (<300)
[2024-01-21 17:09] LABS: Appearance,Urine CLEAR (Clear); Bilirubin,Urine Negative (Negative); Blood, Urine Negative (Negative); Color,Urine YELLOW (Yellow); Glucose,Urine (UA) Negative (Negative); Ketones,Urine Negative (Negative); Leukocyte Esterase,Urine 2+ (Negative); Nitrate,Urine Negative (Negative); Protein,Urine Negative (Negative); Specific Gravity, Urine 1.015 (1.005-1.030)
[2024-01-21 17:10] LABS: Opiate Screen,Urine Negative ng/ml (<300); Phencyclidine Screen,Urine Negative ng/ml (<25)
[2024-01-21 17:52] LABS: Bacteria,Urine 3+ /lpf; WBC,Urine TNTC #/hpf (0-3)
--- NOTE | 2024-01-21 17:57 | PC.NURSE ---
Pt. resting in bed, Pt. denies needs. IV remains infusing.
--- NOTE | 2024-01-21 18:30 | PC.NURSE ---
Pt. sitting up in bed, playing on phone, pt. denies needs. Pt. tolerates IV infusion well.
--- NOTE | 2024-01-21 19:01 | PC.NURSE ---
report given to Coreen Woods RN
--- NOTE | 2024-01-21 19:18 | PC.NURSE ---
1909 IV infusion complete, tolerated well by pt. Pt reports she feels drowsy but is feeling better. [place] and soft drink provided as requested. IV removed, site covered with 2x2 and coban. Pt reports her S/O is en route to hospital for D/C home.
== END 2024-01-21 19:15 | disposition home or self-care (01) ==
LOC: OBOUT 13:54 → OB 13:55
PROVIDERS: PCP Physician Assistant; Visit Provider Nurse Practitioner Obstetrics & Gynecology
DX: O21.9 Vomiting of pregnancy, unspecified (principal)
CPT/HCPCS: 80307; 81001; 87086; 87088; 87186; G0463; J2550; J3411; J7120

== ENCOUNTER 2024-01-25 16:12 | Outpatient (CLI) | payer OTHER, SELFPAY | END 2024-01-25 23:59 | disposition home or self-care (01) | LOC: LAB.DROPOF 16:12 | PROVIDERS: PCP Obstetrics & Gynecology; Visit Provider Obstetrics & Gynecology | DX: Z34.81 Encounter for supervision of other normal pregnancy, first trimester (principal) | CPT/HCPCS: 87086 ==

== ENCOUNTER 2024-02-25 18:11 | Emergency (ER) | payer OTHER, SELFPAY ==
[2024-02-25 18:26] VITALS: BP 133/83; PULSE 106; RESP 18; TEMP 36.8; O2SAT 99; BMI 43.9
--- NOTE | 2024-02-25 18:47 | PC.NURSE ---
FHT 138
[2024-02-25 18:51] LABS: Microscopic, Urine URINE MICROSCOPIC (MICROSCOPIC)
--- NOTE | 2024-02-25 18:56 | ED_ITS ---
<Statement entered by Ashanti Pulido DO - 02/25/24 22:54> I was consulted by the SAMANTHA, and we discussed the complexity of the problems being addressed. I approved the treatment and management plan for this patient's care in the emergency department, thus performing a substantive portion of the medical decision making. On my assessment of the patient, she is ambulatory and neurologically intact in her lower extremities. She states that she has pain in her low back that radiates to her bilateral buttocks as well as a paresthesia sensation in her lower legs. No true numbness noted on exam. She is neurologically intact. No saddle anesthesia, incontinence, urinary retention, fecal incontinence, or other concerns. Ultimately based on reassuring history and exam, I do not have concern for cauda equina syndrome or spinal cord compression. I feel she likely has low back pain with bilateral sciatica. I did thoroughly explain these alarm findings concerning for spinal cord compression and cauda equina syndrome to the patient and advised that should she start experiencing any of these, it would be reason to return to the emergency department right away for emergent imaging, and she expressed understanding agreement. I charlee consulted gynecology who advised short course of ibuprofen is safe in 1st/2nd trimester. Patient also has been dealing with hyperemesis gravidarum and continues to complain of nausea and vomiting as well as mild headache. For this, will treat with IV fluids, IV Reglan, IV Benadryl, and IV Tylenol. Patient had improvement. She does have some ketones in her urine in the setting of hyperemesis gravidarum, so I did order bolus of fluids but she stated she did not want to stay any longer for that and was ready to go home. Given this, patient was discharged via patient directed discharge. She was given short course of NSAIDs after this was discussed with gynecology and she was given instructions for close follow-up and strict return precautions. Ashanti Pulido DO Discharge Plan Prescriptions Prescriptions: New ibuprofen 600 mg tablet 600 mg PO Q8H 2 Days Qty: 6 0RF ondansetron 4 mg tablet,disintegrating 4 mg PO Q8H PRN (Reason: nausea and vomiting) 4 Days Qty: 12 0RF No Action nitrofurantoin macrocrystal 100 mg capsule 100 mg PO BID Qty: 14 0RF Rx Instructions: must administer with a meal/food ondansetron 4 mg tablet,disintegrating 4 mg PO Q6H Qty: 20 1RF promethazine 25 mg tablet 25 mg PO TID PRN (Reason: nausea and vomiting) Qty: 20 0RF Vraylar 1.5 mg capsule 1.5 mg PO DAILY Patient Comments: Take 1 capsule by mouth once daily Referrals Follow up/Referrals: Esther Pacheco PA [Primary Care Provider] - See instructions Activity Restrictions/Add. Instructions Additional Instructions/Restrictions: You were evaluated in the emergency department today. Please follow-up closely with your primary care provider as well as with your furniture repairer over the next 24 to 48 hours. supervisor rose grading your prescription for ibuprofen and take as prescribed fourth 2 days only. Beyond this, do not take NSAIDs during , as they can be harmful. A short course during your 1st-2nd trimester under the supervision of a doctor is okay. Make sure you stay hydrated. Take Zofran as needed for nausea and vomiting. You may also take Tylenol every 4-6 hours at home as needed for pain. Return to the emergency department right away for new or worsening symptoms, such as inability to control your bladder or bowels, numbness and tingling in your groin area or you wipe after using the bathroom, fever greater than 100.4 ?F, or other concerns. Clinical Impressions Clinical Impression: Acute bilateral low back pain with bilateral sciatica Instructions Patient Instructions: DI for Low Back Pain Print Language Print Language: Cape Verdean Discharge ED Provider: Ashanti Pulido General Adult HPI General Chief complaint: Back Pain/Injury Stated complaint: back pain/numbness down legs ante pardum 11 Time Seen by Provider: 02/25/24 18:15 Mode of Arrival: Ambulatory Source of Information: Patient Limitations: No Limitations Description of Symptoms (Recalled from ER Triage Doc. by RN): PT C/O LOWER BACK PAIN THAT IS SHARP AND RADIATES DOWN HER LEGS THAT BECOMES NUMB THE FARTHER DISTAL IT IS. PT STATES THE PAIN IS 5/10. PT DENIES URINARY OR ABD SYMPTOMS. PT IS 11WK 3D . PT HAS 1 LIVING CHILD AND THIS IS HER SECOND . WITH HER PREVIOUS SHE HAD GESTATIONAL DM, PREECLAMPSIA, AND HG. LMP WAS THE END OF SEPTEMBER. PT HAS HAD A CONFIRMATION US AND HER OB IS . PT ALSO C/O A GENERALIZED GARCIA THAT IS ACHING AND THROBBING IN NATURE AND A 5/10. History of Present Illness HPI narrative: Patient presents for evaluation of bilateral low back pain with bilateral radiculopathy and numbness. Patient is 11 weeks and has been suffering from hyperemesis gravidarum. Patient states that she got up last night out of bed to go get a drink of water and while at the sink felt sharp bilateral low back pain and then began having initially pain radiating down her right leg. Patient states that today the pain is present and both lower extremities with some paresthesias. She denies motor or sensory loss, bowel or bladder incontinence, saddle anesthesia, or trauma. Patient states that elevating her legs on a pillow helped briefly last night. She has not taken anything else for it and has had difficulty holding anything down at all. She denies any fever chills hemoptysis hematochezia melena dysuria hematuria vaginal discharge. Related Data Home Medications ?Medication ?Instructions ?Recorded ?Confirmed cariprazine 1.5 mg capsule 1.5 mg PO DAILY 12/04/23 01/25/24 ([facility]) Previous Rx's ?Medication ?Instructions ?Recorded nitrofurantoin macrocrystal 100 mg 100 mg PO BID #14 caps 01/23/24 capsule ondansetron 4 mg disintegrating 4 mg PO Q6H #20 tabs 02/19/24 tablet promethazine 25 mg tablet 25 mg PO TID PRN nausea and 02/19/24 vomiting #20 tabs ibuprofen 600 mg tablet 600 mg PO Q8H pain 2 days #6 tabs 02/25/24 ondansetron 4 mg disintegrating 4 mg PO Q8H PRN nausea and 02/25/24 tablet vomiting 4 days #12 tabs Allergies Allergy/AdvReac Type Severity Reaction Status Date / Time amoxicillin (AMOXICILLIN) Allergy Intermediate I-HIVES Verified 01/25/24 10:21 Penicillins (PENICILLINS) Allergy Intermediate I-HIVES Verified 01/25/24 10:21 PFS PFS Disclaimer: The information contained in this section may have been updated after the patient was seen, as this information can be updated by other users. Medical History (Updated 02/25/24 @ 20:16 by Ashanti Pulido DO) Marijuana use during Maternal obesity affecting , antepartum History of pre-eclampsia in prior , currently Early stage of Tetrahydrocannabinol (THC) use disorder, mild, abuse Patient desires PCOS (polycystic ovarian syndrome) Elevated blood pressure reading Tobacco dependence BMI 45.0-49.9, adult History of gestational diabetes History of pre-eclampsia Surgical History History of surgical removal of pilonidal cyst History of laparoscopic cholecystectomy S/P section History of hand surgery Family History Other Cancer Diabetes Heart attack Stroke Social History Smoking Status: Current every day smoker second hand exposure: Yes (uses vape pen) alcohol intake: never substance use type: denies use current occupational status: unemployed household members: family housing: house marital status: single current occupation: [employer] current occupational exposures/hazards: No sexually active: Yes caffeine: Yes do you feel safe at home: Yes victim of physical abuse: No victim of emotional abuse: No victim of sexual abuse: No Other Medical History Have you received the Flu Vaccine for this season: No Have you received the Pneumonia Vaccine: No ROS Obtained: Yes Systems reviewed as appropriate & no additional complaints except as documented Physical Exam General General appearance: alert and in no apparent distress Respiratory Respiratory exam: Present normal lung sounds bilaterally Cardiovascular Cardiovascular exam: Present regular rate Neurological Exam Neurological exam: Present alert and oriented X3 Medical Decision Making Medical Records Medical records reviewed: Yes I reviewed the patient's medical records. Screening: Per USPSTF and CDC recommendations, given the prevalence of disease in our region, it is our hospital?s policy to screen for HIV and viral Hepatitis for all patients aged 18 and over and those with ongoing risk factors. Horace Inquiry Pt receiving controlled substance: No Vital Signs: 02/25/24 18:26 Temperature 98.3 F Temperature Source Oral Pulse Rate [Left] 106 H Respiratory Rate 18 Blood Pressure [Right Arm] 133/83 Blood Pressure Mean [Right Arm] 99 Blood Pressure Source [Right Arm] Automatic Cuff Blood Pressure Position [Right Arm] Sitting 02 Sat by Pulse Oximetry 99 Oxygen Delivery Method Room Air Lab Data Lab results reviewed: Yes I reviewed the patient's lab results. Lab Results 02/25/24 18:24: Urine Color [place], Urine Appearance Sl cloudy, Urine pH 7.5, Ur Specific [place] 1.020, Urine Protein Trace, Urine Glucose (UA) Negative, Urine Ketones 2+, Urine Blood Negative, Urine Nitrate Negative, Urine Bilirubin 1+ A, Urine Urobilinogen 2.0, Ur Leukocyte Esterase Negative, Urine RBC None, Urine WBC 5-10, Ur Squamous Epith Cells 20-50, Urine Bacteria 3+, Urine Mucus 3+ 02/25/24 19:45: WBC 4.4 L, RBC 4.71, Hgb 14.2, Hct 41.1, MCV 87.4, MCH 30.3, MCHC 34.6, RDW 13.3, Plt Count 216, MPV 8.4, Neut % (Auto) 76.6, Lymph % (Auto) 12.6, [place] % (Auto) 9.7 H, Eos % (Auto) 0.2, Baso % (Auto) 0.8, Neut # (Auto) 3.4, Lymph # (Auto) 0.6 L, [place] # (Auto) 0.4, Eos # (Auto) 0.0, Baso # (Auto) 0.0, Sodium 136, Potassium 3.5, Chloride 103, Carbon Dioxide 24, Anion Gap 12.5, BUN 3 L, Creatinine 0.60, Estimated Creat Clear 113, Estimated GFR 122, Est GFR ( Amer) 147, Glucose 92, Calcium 9.1, Total Bilirubin 0.5, AST 26, ALT 26, Alkaline Phosphatase 67, Total Protein 7.2, Albumin 3.9, Globulin 3.3 H, Albumin/Globulin Ratio 1.2 02/25/24 19:45 02/25/24 19:45 Orders (Tests/Meds): ED MEDICATIONS Generic Name Dose Route Start Last Admin Trade Name Freq PRN Reason Stop Dose Admin Sodium Chloride 1,000 mls @ 999 mls/hr 02/25/24 20:14 Sod Chlor 0.9% 1000ml Bag IV 02/25/24 21:14 .Q1H1M ONE Discontinued Medications Generic Name Dose Route Start Last Admin Trade Name Freq PRN Reason Stop Dose Admin Acetaminophen 1,000 mg 02/25/24 19:06 02/25/24 19:38 Acetaminophen 1,000mg/100ml Vial IV 02/25/24 19:07 1,000 mg ONCE ONE Administration Diphenhydramine HCl 25 mg 02/25/24 19:07 02/25/24 19:39 Diphenhydramine 50mg/Ml Vial IV 02/25/24 19:08 25 mg ONCE ONE Administration Metoclopramide HCl 10 mg 02/25/24 19:06 02/25/24 19:38 Metoclopramide Hcl 10mg/2ml Vial IVP 02/25/24 19:07 10 mg ONCE ONE Administration ORDERS Category Date Time Status Beta HCG, Quant [HCG,Quantitative] Stat Lab 02/25/24 19:45 Results CBC w/Auto Diff [Complete Blood Count Auto Diff] Stat Lab 02/25/24 19:45 Completed CMP [Comprehensive Metabolic Panel] Stat Lab 02/25/24 19:45 Results UA [Urinalysis and Microscopic] Stat Lab 02/25/24 18:24 Completed Urine Culture Stat Micro 02/25/24 18:24 Received Medical Decision Narrative: In summary patient is a 23-year-old female who presents to the emergency department for evaluation of acute low back pain with sciatica. Patient is hemodynamically stable upon arrival, afebrile. Physical exam is remarkable for no loss of motor or sensory but has painful bending of the low back painful to palpation in the paraspinous musculature but no obvious deformity. Patient's current BMI is 43.9. Patient has no saddle anesthesia and is not incontinent of urine.. Differential diagnosis includes musculoskeletal strain versus degenerative disc disease versus sciatica etc. Initial workup will be conducted with hematologic labs urinalysis. Initial interventions include crystalloid bolus Tylenol Benadryl Reglan. Initial workup reviewed by me shows her hematologic labs are nonactionable and her urinalysis is contaminated thus unreliable specimen. Upon repeat evaluation patient reports no improvement in her symptoms despite initial intervention. Given this we are limited in both treatment and evaluation due to her ongoing and the lack of red flags for any serious or life-threatening condition. Patient had heart rate of 111. Given this patient is appropriate for discharge with prescription for 600 mg every 8 hours of ibuprofen and referral back to her WEBSPHERE ADMINISTRATOR for further evaluation and care and MAURICIO. Critical Care Critical Care Time Critical Care Time: No
[2024-02-25 19:33] LABS: Appearance,Urine SL CLOUDY (Clear); Blood, Urine Negative (Negative); Color,Urine ORANGE (Yellow); Glucose,Urine (UA) Negative (Negative); Ketones,Urine 2+ (Negative); Leukocyte Esterase,Urine Negative (Negative); Nitrate,Urine Negative (Negative); PH,Urine 7.5 (5.0-8.5); Protein,Urine TRACE (Negative)
[2024-02-25] MEDS: METOCLOPRAMIDE HCL 10MG/2ML VIAL 10 MG IVP (19:38)
[2024-02-25] MEDS: ACETAMINOPHEN 1,000MG/100ML VIAL 1000 MG IV (19:38)
[2024-02-25 19:39] LABS: Bilirubin,Urine 1+ (Negative)
[2024-02-25] MEDS: diphenhydrAMINE 50MG/ML VIAL 25 MG IV (19:39)
[2024-02-25 20:00] LABS: Squamous Epithelial Cell,Urine 20-50 #/hpf (0-5)
[2024-02-25 20:01] LABS: Bacteria,Urine 3+ /lpf; Mucus,Urine 3+ /lpf
[2024-02-25 20:06] LABS: Basophils % 0.8 % (0.1-2.0); Eosinophils % 0.2 % (0.1-12.0); Hematocrit 41.1 % (37.0-47.0); Hemoglobin 14.2 g/dL (12.2-16.2); Lymphocytes # 0.6 K/mm3 (0.7-4.5); Lymphocytes % 12.6 % (10-50); Mean Corpuscular HGB Conc 34.6 g/dL (31.8-35.4); Mean Corpuscular Hemoglobin 30.3 pg (27.0-31.2); Mean Corpuscular Volume 87.4 fl (81-99); Mean Platelet Volume 8.4 fl (7.4-10.4); Monocytes # 0.4 K/mm3 (0.1-1.0); Monocytes % 9.7 % (1.7-9.3); Neutrophils # 3.4 K/mm3 (1.8-7.8); Neutrophils % 76.6 % (37.0-80.0); Platelet Count 216 K/mm3 (142-424); Red Blood Count 4.71 M/mm3 (4.20-5.40); Red Cell Distribution Width 13.3 % (11.5-17.5); White Blood Count 4.4 K/mm3 (4.8-10.8)
[2024-02-25 20:08] LABS: Albumin Level 3.9 g/dl (3.5-5.0); Chloride 103 mmol/L (98-107); Potassium 3.5 mmoL/L (3.5-5.1); Sodium 136 mmol/L (136-145)
[2024-02-25 20:11] LABS: Alanine Aminotransferase 26 U/L (12-78); Albumin/Globulin Ratio 1.2 (1.1-1.8); Anion Gap 12.5 mEq/L (5-15); Aspartate Amino Transferase 26 U/L (14-36); Blood Urea Nitrogen 3 mg/dl (7-17); Carbon Dioxide 24 mmol/L (22.0-30.0); Creatinine Clearance Estimated 113 mL/min (50-200); Estimated Glomerular Filt Rate 122 ml/min (>60); GFR (African American) 147 ML/MIN (>60); Globulin 3.3 g/dL (1.3-3.2); Total Protein,Serum 7.2 g/dl (6.3-8.2)
[2024-02-25 20:12] LABS: Alkaline Phosphatase 67 U/L (38-126); Bilirubin,Total 0.5 mg/dl (0.2-1.3); Calcium 9.1 mg/dl (8.4-10.2); Glucose 92 mg/dl (74-100)
[2024-02-25 20:49] VITALS: BP 100/62; PULSE 89; RESP 16; TEMP 36.8; O2SAT 96
[2024-02-25 21:01] LABS: HCG,Quantitative 88306 mIU/ml (0-5.42)
== END 2024-02-25 20:50 | disposition home or self-care (01) ==
PROVIDERS: Emergency Provider Emergency Medicine; PCP Physician Assistant
DX: M54.42 Lumbago with sciatica, left side (principal); R20.2 Paresthesia of skin; R51.9 Headache, unspecified
CPT/HCPCS: 80053; 81001; 84702; 85025; 87086; 96361; 96374; 96375; 99283; J0131; J1200; J2765

== ENCOUNTER 2024-02-26 12:15 | Outpatient (CLI) | payer OTHER, SELFPAY ==
[2024-02-26 12:40] LABS: Eosinophils % 0.2 % (0.1-12.0); Hemoglobin 14.6 g/dL (12.2-16.2); Lymphocytes # 0.9 K/mm3 (0.7-4.5); Mean Corpuscular HGB Conc 34.8 g/dL (31.8-35.4); Mean Corpuscular Hemoglobin 30.3 pg (27.0-31.2); Mean Corpuscular Volume 86.9 fl (81-99); Mean Platelet Volume 8.5 fl (7.4-10.4); Monocytes # 0.3 K/mm3 (0.1-1.0); Monocytes % 7.9 % (1.7-9.3); Neutrophils # 2.5 K/mm3 (1.8-7.8); Platelet Count 235 K/mm3 (142-424); Red Blood Count 4.84 M/mm3 (4.20-5.40); Red Cell Distribution Width 13.3 % (11.5-17.5); White Blood Count 3.7 K/mm3 (4.8-10.8)
[2024-02-26 18:16] LABS: HIV (1&2) Antibody Rapid NONREACTIVE (NONREACTIVE)
[2024-02-27 09:16] LABS: HCV Ab Non Reactive (Non Reactive); Hepatitis B Surface Antigen Negative (Negative)
[2024-02-27 10:31] LABS: Rubella Antibodies, IgG 1.65 index (Immune >0.99)
[2024-02-27 14:52] LABS: RPR W/RFX Titers Nonreactive (Nonreactive)
== END 2024-02-26 23:59 | disposition home or self-care (01) ==
LOC: LAB 12:17
PROVIDERS: PCP Physician Assistant; Visit Provider Obstetrics & Gynecology
DX: Z34.81 Encounter for supervision of other normal pregnancy, first trimester (principal)
CPT/HCPCS: 85025; 86592; 86762; 86803; 86850; 87340; 87389

== ENCOUNTER 2024-02-27 21:11 | Emergency (ER) | payer OTHER, SELFPAY ==
[2024-02-27 21:28] VITALS: BP 123/84; PULSE 126; RESP 16; TEMP 37.1; O2SAT 98; BMI 43.9
--- NOTE | 2024-02-27 21:34 | PC.NURSE ---
Pt awake alert and oriented x4 Skin pink warm and dry Lips cracked Pt appears dry. Resp full and easy FONTANA x4. Mother at bedside. abd soft and rounded. +bowel sounds x4
--- NOTE | 2024-02-27 21:51 | ED_ITS ---
Discharge Plan Disposition Patient Disposition: Home, Self-Care Prescriptions Prescriptions: New nitrofurantoin monohyd/m-cryst [Macrobid] 100 mg capsule 100 mg PO BID 5 Days Qty: 10 0RF Rx Instructions: must administer with a meal/food No Action promethazine 25 mg suppository 25 mg NC Q6H PRN (Reason: nausea and vomiting) Qty: 12 2RF doxylamine-pyridoxine (vit B6) [Diclegis] 10-10 mg tablet,delayed release (DR/EC) 1 tab PO TID Qty: 30 1RF ondansetron 4 mg tablet,disintegrating 4 mg PO Q6H Qty: 20 1RF promethazine 25 mg tablet 25 mg PO TID PRN (Reason: nausea and vomiting) Qty: 20 0RF Vraylar 1.5 mg capsule 1.5 mg PO DAILY Patient Comments: Take 1 capsule by mouth once daily Referrals Follow up/Referrals: Esther Pacheco PA [Primary Care Provider] - See instructions Activity Restrictions/Add. Instructions Additional Instructions/Restrictions: At this time it was felt you are safe to be discharged home. If new or worsening symptoms please do not hesitate to return the emergency department. Please take your antibiotics as discussed. For vomiting please get Unisom (doxylamine) and take 12.5 mg every 6 hours as well as vitamin B6 10 mg every 6 hours for nausea and vomiting in . Please follow-up with your OB within 1 week to recheck your potassium and see how things are going. Clinical Impressions Clinical Impression: Vomiting affecting , Hypokalemia, UTI (urinary tract infection) Instructions Patient Instructions: DI for Nausea -- Adult Print Language Print Language: Cymraes Discharge ED Provider: Ehsan Ellis General Adult HPI General Chief complaint: Nausea/Vomiting/Diarrhea Stated complaint: abdominal pain,nausea Time Seen by Provider: 02/27/24 21:25 Mode of Arrival: Ambulatory Source of Information: Patient Limitations: No Limitations Description of Symptoms (Recalled from ER Triage Doc. by RN): vomiting Pt states she is 11 weeks and cannot keep down food or drink for past 2 days. History of Present Illness HPI narrative: Patient is a G2, P1 EGA 11 weeks who has been dealing with hyperemesis gravidarum throughout her presents emergency department for evaluation of vomiting in . She has a chronic vomiting throughout her however has been worse over the last 24 to 48 hours. She has failed promethazine and Zofran. They called her in Diclegis today which was unfortunately not covered by her insurance. She tried to use promethazine suppositories which came back out immediately after insertion. She states that her OB has encouraged her to smoke marijuana for her vomiting which has been unsuccessful however after hitting a vape pen earlier this evening she does feel as if her symptoms have began to subside. She presents here for continued evaluation. She does not have any significant abdominal pain no chest pain no vaginal bleeding or discharge reported. Related Data Home Medications ?Medication ?Instructions ?Recorded ?Confirmed cariprazine 1.5 mg capsule 1.5 mg PO DAILY 12/04/23 02/27/24 (Vraylar) Previous Rx's ?Medication ?Instructions ?Recorded ondansetron 4 mg disintegrating 4 mg PO Q6H #20 tabs 02/19/24 tablet promethazine 25 mg tablet 25 mg PO TID PRN nausea and 02/19/24 vomiting #20 tabs doxylamine 10 mg-pyridoxine (vit 1 tab PO TID #30 tabs 02/27/24 B6) 10 mg tablet,delayed release (Diclegis) nitrofurantoin 100 mg PO BID UTI 5 days #10 caps 02/27/24 monohydrate/macrocrystals 100 mg capsule (Macrobid) promethazine 25 mg rectal 25 mg NC Q6H PRN nausea and 02/27/24 suppository vomiting #12 ea Allergies Allergy/AdvReac Type Severity Reaction Status Date / Time amoxicillin (AMOXICILLIN) Allergy Intermediate I-HIVES Verified 02/27/24 10:41 Penicillins (PENICILLINS) Allergy Intermediate I-HIVES Verified 02/27/24 10:41 [facility] Disclaimer: The information contained in this section may have been updated after the patient was seen, as this information can be updated by other users. 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 Family History Other Cancer Diabetes Heart attack Stroke Social History Smoking Status: Never smoker second hand exposure: Yes (uses vape pen) alcohol intake: never substance use type: denies use current occupational status: unemployed household members: family housing: house marital status: single current occupation: [employer] current occupational exposures/hazards: No sexually active: Yes caffeine: Yes do you feel safe at home: Yes victim of physical abuse: No victim of emotional abuse: No victim of sexual abuse: No Other Medical History Have you received the Flu Vaccine for this season: No Have you received the Pneumonia Vaccine: No ROS Obtained: Yes Systems reviewed as appropriate & no additional complaints except as documented Physical Exam General General appearance: alert and in no apparent distress Head Head exam: atraumatic and normocephalic Eye Eye exam: Present PERRL and EOMI ENT ENT exam: Present mucous membranes moist Neck Neck exam: Present normal inspection Chest Chest inspection: Present normal inspection and symmetric chest wall rise Respiratory Respiratory exam: Present normal lung sounds bilaterally; Absent respiratory distress Cardiovascular Cardiovascular exam: Present normal rhythm and tachycardia Abdominal Exam Abdominal exam: Present soft; Absent tenderness Extremities Exam Extremities exam: Present normal inspection Neurological Exam Neurological exam: Present alert Psychiatric Psychiatric exam: Present normal affect Skin Skin exam: Present warm and dry Medical Decision Making Medical Records Screening: Per USPSTF and CDC recommendations, given the prevalence of disease in our region, it is our hospital?s policy to screen for HIV and viral Hepatitis for all patients aged 18 and over and those with ongoing risk factors. Horace Inquiry Pt receiving controlled substance: No Vital Signs: 02/27/24 21:28 Temperature 98.7 F Temperature Source Oral Pulse Rate [Right Brachial] 126 H Respiratory Rate 16 Blood Pressure [Right Arm] 123/84 Blood Pressure Mean [Right Arm] 97 Blood Pressure Source [Right Arm] Automatic Cuff Blood Pressure Position [Right Arm] Supine 02 Sat by Pulse Oximetry 98 Oxygen Delivery Method Room Air Lab Data Lab Results 02/27/24 21:25: WBC 5.7 D, RBC 4.81, Hgb 14.6, Hct 42.0, MCV 87.3, MCH 30.4, MCHC 34.8, RDW 13.2, Plt Count 243, MPV 8.8, Neut % (Auto) 72.6, Lymph % (Auto) 19.1, [place] % (Auto) 7.3, Eos % (Auto) 0.4, Baso % (Auto) 0.6, Neut # (Auto) 4.2, Lymph # (Auto) 1.1, [place] # (Auto) 0.4, Eos # (Auto) 0.0, Baso # (Auto) 0.0, Sodium 138, Potassium 3.1 L, Chloride 102, Carbon Dioxide 24, Anion Gap 15.1 H, BUN 5 L D, Creatinine 0.60, Estimated Creat Clear 113, Estimated GFR 122, Est GFR ( Amer) 147, Glucose 97, Calcium 9.2, Magnesium 1.9, Total Bilirubin 0.4, AST 30, ALT 33 D, Alkaline Phosphatase 85, Total Protein 7.6, Albumin 4.2, Globulin 3.4 H, Albumin/Globulin Ratio 1.2, Lipase 58 02/27/24 21:50: Urine Color Yellow, Urine Appearance Sl cloudy, Urine pH 7.0, Ur Specific [place] 1.020, Urine Protein 1+ A, Urine Glucose (UA) Negative, Urine Ketones 2+, Urine Blood Negative, Urine Nitrate Negative, Urine Bilirubin Negative, Urine Urobilinogen 1.0, Ur Leukocyte Esterase 2+ A, Urine RBC 3-5, Urine WBC 10-20, Ur Squamous Epith Cells 5-10, Amorphous Sediment 2+, Urine Bacteria 3+, Urine Mucus 1+ 02/27/24 21:25 02/27/24 21:25 Orders (Tests/Meds): ED MEDICATIONS Discontinued Medications Generic Name Dose Route Start Last Admin Trade Name Freq PRN Reason Stop Dose Admin Doxylamine Succinate/Pyridoxine 1 tab 02/27/24 21:50 02/27/24 22:07 Doxylamine 10mg/Pyridoxine 10mg Tablet PO 02/27/24 21:51 1 tab ONCE ONE Administration Sodium Chloride 1,000 mls @ 999 mls/hr 02/27/24 21:55 02/27/24 22:08 Sod Chlor 0.9% 1000ml Bag IV 02/27/24 22:55 999 mls/hr .Q1H1M ONE Administration ORDERS Category Date Time Status CBC w/Auto Diff [Complete Blood Count Auto Diff] Stat Lab 02/27/24 21:25 Completed CMP [Comprehensive Metabolic Panel] Stat Lab 02/27/24 21:25 Completed Lipase Stat Lab 02/27/24 21:25 Completed MG [Magnesium] Stat Lab 02/27/24 21:25 Completed UA [Urinalysis and Microscopic] Stat Lab 02/27/24 21:50 Completed Urine Culture Stat Micro 02/27/24 21:50 Received Medical Decision Narrative: In summary patient is a 23-year-old female weeks presents emergency department for evaluation of vomiting in that is been vomiting throughout with hyperemesis gravidarum. Patient is hemodynamically stable nontoxic-appearing upon arrival, tachycardic, afebrile. Per review of Dr. Sol's note 10?25 she has had single intrauterine documented on ultrasound therefore does not need to be repeated formally here. Workup screening for electrolyte derangement and CL will be conducted with hematologic labs. Initial inventions include Diclegis crystalloid bolus given that she has failed Phenergan, ondansetron, suppository. Initial workup reviewed by me, no significant leukocytosis, mild hypokalemia which will be repleted orally, no CL fortunately. Urinalysis interpreted by me and equivocal due to squamous cells however is consistent with bacteria in the urine which will be treated with Macrobid. Upon repeat evaluation patient was tolerating p.o. at bedside with resolution of tachycardia. Given this we will give Macrobid for urinary tract infection and replete potassium orally. Patient is appropriate for discharge at this time and will continue to follow-up on an outpatient basis. Critical Care Critical Care Time Critical Care Time: No
[2024-02-27 22:00] LABS: Microscopic, Urine URINE MICROSCOPIC (MICROSCOPIC)
[2024-02-27 22:02] LABS: Appearance,Urine SL CLOUDY (Clear); Blood, Urine Negative (Negative); Color,Urine YELLOW (Yellow); Glucose,Urine (UA) Negative (Negative); Ketones,Urine 2+ (Negative); Leukocyte Esterase,Urine 2+ (Negative); Nitrate,Urine Negative (Negative); Protein,Urine 1+ (Negative)
[2024-02-27 22:05] LABS: Bilirubin,Urine Negative (Negative)
[2024-02-27] MEDS: DOXYLAMINE 10MG/PYRIDOXINE 10MG TABLET 1 TAB PO (22:07)
[2024-02-27] MEDS: 0.9 % SODIUM CHLORIDE 1000ML 1,000 ML 999 ML IV (22:08)
[2024-02-27 22:10] LABS: Amorphous Sediment,Urine 2+ /lpf; Bacteria,Urine 3+ /lpf; Mucus,Urine 1+ /lpf
[2024-02-27 22:12] LABS: Basophils % 0.6 % (0.1-2.0); Eosinophils % 0.4 % (0.1-12.0); Hemoglobin 14.6 g/dL (12.2-16.2); Lymphocytes # 1.1 K/mm3 (0.7-4.5); Lymphocytes % 19.1 % (10-50); Mean Corpuscular HGB Conc 34.8 g/dL (31.8-35.4); Mean Corpuscular Hemoglobin 30.4 pg (27.0-31.2); Mean Corpuscular Volume 87.3 fl (81-99); Mean Platelet Volume 8.8 fl (7.4-10.4); Monocytes # 0.4 K/mm3 (0.1-1.0); Monocytes % 7.3 % (1.7-9.3); Neutrophils # 4.2 K/mm3 (1.8-7.8); Neutrophils % 72.6 % (37.0-80.0); Platelet Count 243 K/mm3 (142-424); Red Blood Count 4.81 M/mm3 (4.20-5.40); Red Cell Distribution Width 13.2 % (11.5-17.5); White Blood Count 5.7 K/mm3 (4.8-10.8)
[2024-02-27 22:19] LABS: Lipase 58 U/L (23-300)
[2024-02-27 22:20] LABS: Alanine Aminotransferase 33 U/L (12-78); Albumin Level 4.2 g/dl (3.5-5.0); Albumin/Globulin Ratio 1.2 (1.1-1.8); Alkaline Phosphatase 85 U/L (38-126); Anion Gap 15.1 mEq/L (5-15); Aspartate Amino Transferase 30 U/L (14-36); Bilirubin,Total 0.4 mg/dl (0.2-1.3); Blood Urea Nitrogen 5 mg/dl (7-17); Calcium 9.2 mg/dl (8.4-10.2); Carbon Dioxide 24 mmol/L (22.0-30.0); Chloride 102 mmol/L (98-107); Creatinine Clearance Estimated 113 mL/min (50-200); Estimated Glomerular Filt Rate 122 ml/min (>60); GFR (African American) 147 ML/MIN (>60); Globulin 3.4 g/dL (1.3-3.2); Glucose 97 mg/dl (74-100); Magnesium 1.9 mg/dl (1.6-2.3); Potassium 3.1 mmoL/L (3.5-5.1); Sodium 138 mmol/L (136-145); Total Protein,Serum 7.6 g/dl (6.3-8.2)
--- NOTE | 2024-02-27 23:19 | PC.NURSE ---
Pt eating some crackers and has drank a sprite. Tolerating PO well IV fluids still infusing
[2024-02-27] MEDS: NITROFURANTOIN 100MG CAPSULE 100 MG PO (23:35)
[2024-02-27] MEDS: POTASSIUM CHLORIDE 20MEQ TAB 40 MEQ PO (23:35)
[2024-02-27 23:51] VITALS: BP 106/62; PULSE 75; RESP 24; TEMP 36.8; O2SAT 96
== END 2024-02-27 23:58 | disposition home or self-care (01) ==
PROVIDERS: Emergency Provider Emergency Medicine; PCP Physician Assistant
DX: O21.9 Vomiting of pregnancy, unspecified (principal); N39.0 Urinary tract infection, site not specified; E87.6 Hypokalemia
CPT/HCPCS: 80053; 81001; 83690; 83735; 85025; 87086; 96360; 99283; J7030

== ENCOUNTER 2024-04-30 10:24 | Outpatient (CLI) | payer OTHER, SELFPAY ==
--- NOTE | 2024-04-30 10:25 | US_ITS ---
PROCEDURE: US OB /MATERNAL DETAIL CLINICAL INDICATION: 20 wk anatomy COMPARISON: US POINT OF CARE US (ER ONLY) from 01/21/2024 FINDINGS: Transabdominal sonographic images of the pelvis were obtained. From her established due date she is 20 weeks 6 days. Single viable intrauterine gestation. Cephalic position. Placenta: Anteriorplacenta grade 1. There is an average amount of fluid. The cervix appears satisfactory. Closed and measuring 3.34 cm in length. Complete survey performed and was unremarkable on the submitted images as in PACS. No discrete anomalies identified on survey imaging by technologist. Active fetus. Three-vessel cord with satisfactory umbilical cord insertion. 4- chamber heart noted. Situs, aortic arch, LVOT, RVOT, three-vessel view appear normal. Survey of brain & ventricles Unremarkable. Cerebellum, thalamus, choroid plexus, cisterna magna appear normal. Face and neck survey unremarkable. Profile, nasion, lips and nose appeared normal. Diaphragm and chest views unremarkable. Abdomen: Both kidneys noted and unremarkable. Stomach and bladder noted and satisfactory. Spine: Survey of the spine satisfactory with no anomalies identified nor imaged. Cervical, thoracic, lower spine appear normal. Both arms and legs noted. Amniotic Fluid: Adequate. MVP 4.06 cm Measurements: Average ultrasound age 21weeks 4days. Estimated due date by ultrasound age 0609/06/2024. Estimated weight 423g BPD = 21weeks 4days HC = 21weeks 3days AC = 21weeks 5days FL = 21weeks 2days Growth Percentile= 76 Heart Rate = 146bpm Cerebellum = 20weeks 4days Humerus = 21weeks 2days HC/AC is 1.15 FL/BPD is 0.69 FL/AC is 0.21 IMPRESSION: 1. Viable fetus in the cephalic presentation with an anterior placenta grade 1. 2. The fluid is within normal limits with an MVP 4.06 cm. 3. Anatomical scan appears normal. 4. biometry is consistent with the dates. Dictated by: Higinio Louise MD 04/30/2024 12:04 Higinio Louise MD in [facility] 04/30/2024 12:04
== END 2024-04-30 23:59 | disposition home or self-care (01) ==
LOC: RAD 10:25
PROVIDERS: PCP Obstetrics & Gynecology; Visit Provider Obstetrics & Gynecology
DX: O09.292 Supervision of pregnancy with other poor reproductive or obstetric history, second trimester (principal); O99.212 Obesity complicating pregnancy, second trimester; Z3A.20 20 weeks gestation of pregnancy; E87.6 Hypokalemia
CPT/HCPCS: 76811

== ENCOUNTER 2024-06-04 16:37 | Outpatient (CLI) | payer OTHER, SELFPAY ==
[2024-06-04 17:00] VITALS: BP 125/80; PULSE 100; RESP 18; TEMP 36.7; O2SAT 99
[2024-06-04 17:13] VITALS: BMI 46.0
[2024-06-04 17:15] VITALS: BP 131/84; BMI 46.0
[2024-06-04 17:30] VITALS: BP 120/72
[2024-06-04] MEDS: PROMETHAZINE HCL 25MG/ML 1ML VIAL 12.5 MG IV (17:35)
[2024-06-04] MEDS: SODIUM CHLORIDE 0.9% 25ML BAG 25 ML IV (17:36)
[2024-06-04] MEDS: LACTATED RINGERS 1000ML 500 ML IV (17:36)
[2024-06-04 17:45] VITALS: BP 127/76
[2024-06-04 17:59] LABS: Basophils % 0.4 % (0.1-2.0); Chloride 106 mmol/L (98-107); Eosinophils # 0.1 K/mm3 (0.0-0.4); Eosinophils % 0.6 % (0.1-12.0); Hematocrit 36.1 % (37.0-47.0); Hemoglobin 11.9 g/dL (12.2-16.2); Lymphocytes # 1.1 K/mm3 (0.7-4.5); Lymphocytes % 13.6 % (10-50); Mean Corpuscular Hemoglobin 29.2 pg (27.0-31.2); Mean Corpuscular Volume 88.5 fl (81-99); Mean Platelet Volume 10.3 fl (7.4-10.4); Monocytes # 0.4 K/mm3 (0.1-1.0); Monocytes % 4.4 % (1.7-9.3); Neutrophils # 6.5 K/mm3 (1.8-7.8); Platelet Count 312 K/mm3 (142-424); Red Blood Count 4.08 M/mm3 (4.20-5.40); Red Cell Distribution Width 12.2 % (11.5-17.5); White Blood Count 8.2 K/mm3 (4.8-10.8)
[2024-06-04 18:00] VITALS: BP 127/90
[2024-06-04 18:00] LABS: Albumin Level 3.8 g/dl (3.5-5.0); Potassium 3.4 mmoL/L (3.5-5.1); Sodium 136 mmol/L (136-145)
[2024-06-04 18:02] LABS: Alanine Aminotransferase 22 U/L (12-78); Anion Gap 11.4 mEq/L (5-15); Aspartate Amino Transferase 26 U/L (14-36); Blood Urea Nitrogen 4 mg/dl (7-17); Carbon Dioxide 22 mmol/L (22.0-30.0); Creatinine Clearance Estimated 135 mL/min (50-200); Estimated Glomerular Filt Rate 149 ml/min (>60); GFR (African American) 180 ML/MIN (>60)
[2024-06-04 18:03] LABS: Albumin/Globulin Ratio 1.2 (1.1-1.8); Alkaline Phosphatase 111 U/L (38-126); Bilirubin,Total 0.3 mg/dl (0.2-1.3); Globulin 3.1 g/dL (1.3-3.2); Glucose 86 mg/dl (74-100); Total Protein,Serum 6.9 g/dl (6.3-8.2)
[2024-06-04 18:10] LABS: Activated Partial Thrombo Time 25.1 seconds (22.8-30.6); Fibrinogen 547 mg/dL (229.9-363.5); Prothrombin Time 10.2 seconds (10.1-12.5)
[2024-06-04 18:15] VITALS: BP 105/71
[2024-06-04 18:24] LABS: Creatinine,Urine Random 133 mg/dL (Not Estab.)
[2024-06-04 18:50] LABS: Uric Acid 5.1 mg/dl (2.5-6.2)
== END 2024-06-04 18:49 | disposition home or self-care (01) ==
LOC: OBOUT 16:39 → OB 16:40
PROVIDERS: Visit Provider Obstetrics & Gynecology
DX: O13.2 Gestational [pregnancy-induced] hypertension without significant proteinuria, second trimester (principal); Z3A.25 25 weeks gestation of pregnancy
CPT/HCPCS: 80053; 82570; 84156; 84550; 85025; 85384; 85610; 85730; G0463; J2550; J7120

== ENCOUNTER 2024-06-06 15:58 | Outpatient (CLI) | payer OTHER, SELFPAY ==
[2024-06-06 16:16] LABS: Total Volume,Urine 1200 mL (600-1600)
[2024-06-06 16:20] LABS: Total Protein 24 Hour,Urine 156 mg/24 hr (40-90)
== END 2024-06-06 23:59 | disposition home or self-care (01) ==
LOC: LAB 15:59
PROVIDERS: Visit Provider Obstetrics & Gynecology
DX: O16.2 Unspecified maternal hypertension, second trimester (principal); Z3A.25 25 weeks gestation of pregnancy
CPT/HCPCS: 84155

== ENCOUNTER 2024-07-16 12:56 | Outpatient (CLI) | payer OTHER, SELFPAY ==
[2024-07-16] MEDS: LACTATED RINGERS 1000ML 1,000 ML 999 ML IV (13:40)
[2024-07-16] MEDS: ONDANSETRON 4MG/2ML VIAL 4 MG IV (13:40)
[2024-07-16 13:56] VITALS: BP 131/86; PULSE 105; RESP 18; TEMP 36.9; O2SAT 97; BMI 46.3
[2024-07-16 14:14] LABS: Microscopic, Urine URINE MICROSCOPIC (MICROSCOPIC)
[2024-07-16 14:15] LABS: Basophils % 0.2 % (0.1-2.0); Eosinophils % 0.3 % (0.1-12.0); Hematocrit 35.4 % (37.0-47.0); Hemoglobin 11.8 g/dL (12.2-16.2); Lymphocytes # 0.9 K/mm3 (0.7-4.5); Lymphocytes % 15.3 % (10-50); Mean Corpuscular HGB Conc 33.3 g/dL (31.8-35.4); Mean Corpuscular Hemoglobin 28.5 pg (27.0-31.2); Mean Corpuscular Volume 85.5 fl (81-99); Mean Platelet Volume 10.6 fl (7.4-10.4); Monocytes # 0.3 K/mm3 (0.1-1.0); Monocytes % 4.4 % (1.7-9.3); Neutrophils # 4.8 K/mm3 (1.8-7.8); Neutrophils % 78.8 % (37.0-80.0); Nucleated Red Blood Cells # 0 10^3/uL; Nucleated Red Blood Cells % 0 %; Platelet Count 245 K/mm3 (142-424); Red Blood Count 4.14 M/mm3 (4.20-5.40); Red Cell Distribution Width 13.2 % (11.5-17.5); Red Cell Distribution Width-SD 39.7 fL; White Blood Count 6.1 K/mm3 (4.8-10.8)
[2024-07-16 14:29] LABS: Appearance,Urine SL CLOUDY (Clear); Blood, Urine Negative (Negative); Color,Urine YELLOW (Yellow); Glucose,Urine (UA) Negative (Negative); Ketones,Urine 3+ (Negative); Leukocyte Esterase,Urine Negative (Negative); Nitrate,Urine Negative (Negative); Protein,Urine TRACE (Negative); Specific Gravity, Urine 1.025 (1.005-1.030); Urobilinogen,Urine 0.2 EU/dl (0.2)
[2024-07-16 14:36] LABS: Alanine Aminotransferase 17 U/L (12-78); Albumin Level 3.5 g/dl (3.5-5.0); Albumin/Globulin Ratio 0.9 (1.1-1.8); Alkaline Phosphatase 136 U/L (38-126); Anion Gap 13.4 mEq/L (5-15); Aspartate Amino Transferase 22 U/L (14-36); Bilirubin,Total 0.5 mg/dl (0.2-1.3); Blood Urea Nitrogen 4 mg/dl (7-17); Calcium 8.8 mg/dl (8.4-10.2); Carbon Dioxide 20 mmol/L (22.0-30.0); Chloride 108 mmol/L (98-107); Creatinine Clearance Estimated 135 mL/min (50-200); Estimated Glomerular Filt Rate 149 ml/min (>60); GFR (African American) 180 ML/MIN (>60); Globulin 3.7 g/dL (1.3-3.2); Glucose 87 mg/dl (74-100); Potassium 3.4 mmoL/L (3.5-5.1); Sodium 138 mmol/L (136-145); Total Protein,Serum 7.2 g/dl (6.3-8.2)
[2024-07-16 14:46] LABS: Bilirubin,Urine 1+ (Negative)
[2024-07-16 14:47] LABS: Amorphous Sediment,Urine 4+ /lpf
[2024-07-16 15:01] LABS: Opiate Screen,Urine Negative ng/ml (<300)
[2024-07-16 15:02] LABS: Phencyclidine Screen,Urine Negative ng/ml (<25)
[2024-07-16 15:07] LABS: Amphetamine/Metha Screen,Urine Negative ng/ml (<1000)
[2024-07-16 15:08] LABS: Barbiturates Screen,Urine Negative ng/ml (<200); Benzodiazepines Screen,Urine Negative ng/ml (<200)
[2024-07-16 15:13] LABS: Cocaine Screen,Urine Negative ng/ml (<300); Methadone Screen,Urine Negative ng/ml (<300)
[2024-07-16 15:14] LABS: Cannabinoid Screen,Urine Positive ng/ml (<50)
[2024-07-16 23:41] LABS: RPR W/RFX Titers Nonreactive (Nonreactive)
== END 2024-07-16 15:05 | disposition home or self-care (01) ==
LOC: OBOUT 12:58 → OB 12:58
PROVIDERS: PCP Physician Assistant; Visit Provider Obstetrics & Gynecology
DX: O60.03 Preterm labor without delivery, third trimester (principal); Z3A.31 31 weeks gestation of pregnancy; O26.893 Other specified pregnancy related conditions, third trimester
CPT/HCPCS: 80053; 80307; 81001; 85025; 86592; G0463; J2405; J7120

== ENCOUNTER 2024-07-18 12:58 | Outpatient (CLI) | payer OTHER, SELFPAY ==
--- NOTE | 2024-07-18 13:00 | US_ITS ---
PROCEDURE: US OB BIOPHYSICAL PROFILE CLINICAL INDICATION: GDM, Elevated Bloodpressure during COMPARISON: US POINT OF CARE US (ER ONLY) from 01/21/2024 US US OB /MATERNAL DETAIL from 04/30/2024 FINDINGS: Transabdominal sonographic images of the uterus were obtained. From her established due date she is 32weeks 1day. The following parameters are obtained: Viable Fetus in the cephalic presentation with an anterior placenta grade 2. Average ultrasound age is 33weeks 2days Estimated weight 2,037g, 4 lb 8 oz The cervix measures 3.55 cm. Measurements: heart Rate = 136bpm BPD = 33weeks 6days, 86 percentile HC = 34weeks 3days, 72 percentile AC = 32weeks 6days, 69 percentile FL = 31weeks 6days, 26 percentile HC/AC is 1.07 FL/BPD is 0.73 FL/AC is 0.21 59 percentile Amniotic fluid index: 11.72cm ,MVP 4.29 cm. Qualitative AFV:2 Breathing movements: 2 Gross Body Movements: 2 Tone: 2 Biophysical profile score: 8 No obvious anomalies evident.Kidneys, profile, stomach, bladder, four-chamber heart, three-vessel cord appear normal. IMPRESSION: 1. Viable fetus in the cephalic presentation with an anterior placenta grade 2. 2. The fluid is within normal limits with an amniotic fluid index of 11.72 cm, MVP 4.29 cm. 3. Biophysical profile is 8/8 with good breathing movement seen. 4. There has been good interval growth with the fetus currently 59th percentile. 5. Limited anatomical scan appears normal. Dictated by: Higinio Louise MD 07/18/2024 20:28 Higinio Louise MD in [facility] 07/18/2024 20:28
== END 2024-07-18 23:59 | disposition home or self-care (01) ==
LOC: RAD 12:59
PROVIDERS: PCP Obstetrics & Gynecology; Visit Provider Obstetrics & Gynecology
DX: O24.419 Gestational diabetes mellitus in pregnancy, unspecified control (principal); O16.3 Unspecified maternal hypertension, third trimester; Z98.891 History of uterine scar from previous surgery; Z3A.32 32 weeks gestation of pregnancy
CPT/HCPCS: 76816; 76819

== ENCOUNTER 2024-07-21 20:40 | Outpatient (CLI) | payer OTHER, SELFPAY ==
[2024-07-21 20:45] VITALS: BMI 46.3
[2024-07-21 20:48] VITALS: BP 120/75; PULSE 98; RESP 17; TEMP 36.9; O2SAT 97; BMI 46.3
[2024-07-21 21:21] LABS: Microscopic, Urine URINE MICROSCOPIC (MICROSCOPIC)
[2024-07-21] MEDS: LACTATED RINGERS 1000ML 1,000 ML 999 ML IV (21:25)
[2024-07-21] MEDS: PROMETHAZINE HCL 25MG/ML 1ML VIAL 12.5 MG IV (21:26)
[2024-07-21 21:31] LABS: Appearance,Urine CLEAR (Clear); Blood, Urine Negative (Negative); Glucose,Urine (UA) Negative (Negative); Ketones,Urine 3+ (Negative); Leukocyte Esterase,Urine Negative (Negative); Nitrate,Urine Negative (Negative); PH,Urine 6.5 (5.0-8.5); Protein,Urine Negative (Negative); Specific Gravity, Urine >= 1.030 (1.005-1.030); Urobilinogen,Urine 0.2 EU/dl (0.2)
[2024-07-21 21:34] LABS: Chloride 111 mmol/L (98-107)
[2024-07-21 21:35] LABS: Albumin Level 3.4 g/dl (3.5-5.0); Basophils % 0.1 % (0.1-2.0); Eosinophils % 0.3 % (0.1-12.0); Hematocrit 33.7 % (37.0-47.0); Hemoglobin 11.2 g/dL (12.2-16.2); Lymphocytes # 1.2 K/mm3 (0.7-4.5); Lymphocytes % 17.8 % (10-50); Mean Corpuscular HGB Conc 33.2 g/dL (31.8-35.4); Mean Corpuscular Hemoglobin 28.2 pg (27.0-31.2); Mean Corpuscular Volume 84.9 fl (81-99); Mean Platelet Volume 10.7 fl (7.4-10.4); Monocytes # 0.4 K/mm3 (0.1-1.0); Neutrophils # 5.3 K/mm3 (1.8-7.8); Neutrophils % 76.4 % (37.0-80.0); Nucleated Red Blood Cells # 0 10^3/uL; Nucleated Red Blood Cells % 0 %; Platelet Count 247 K/mm3 (142-424); Potassium 3.1 mmoL/L (3.5-5.1); Red Blood Count 3.97 M/mm3 (4.20-5.40); Red Cell Distribution Width-SD 39.5 fL; Sodium 137 mmol/L (136-145)
[2024-07-21 21:37] LABS: Alanine Aminotransferase 17 U/L (12-78); Anion Gap 12.1 mEq/L (5-15); Aspartate Amino Transferase 26 U/L (14-36); Blood Urea Nitrogen 4 mg/dl (7-17); Carbon Dioxide 17 mmol/L (22.0-30.0); Creatinine Clearance Estimated 169 mL/min (50-200); Estimated Glomerular Filt Rate 193 ml/min (>60); GFR (African American) 233 ML/MIN (>60)
[2024-07-21 21:38] LABS: Albumin/Globulin Ratio 0.9 (1.1-1.8); Alkaline Phosphatase 131 U/L (38-126); Bilirubin,Total 0.6 mg/dl (0.2-1.3); Calcium 8.8 mg/dl (8.4-10.2); Globulin 3.6 g/dL (1.3-3.2); Glucose 87 mg/dl (74-100)
[2024-07-21 21:42] LABS: Bilirubin,Urine Negative (Negative); Color,Urine Dark Yellow (Yellow)
[2024-07-21 22:16] LABS: Bacteria,Urine 1+ /lpf; Mucus,Urine 1+ /lpf; RBC,Urine Occasional #/hpf (0-3); WBC,Urine Occasional #/hpf (0-3)
[2024-07-21] MEDS: POTASSIUM CHLORIDE 20MEQ TAB 40 MEQ PO (22:28)
[2024-07-21] MEDS: PANTOPRAZOLE 40MG VIAL 40 MG IV (22:28)
== END 2024-07-21 23:05 | disposition home or self-care (01) ==
LOC: OBOUT 20:43 → OB 20:43
PROVIDERS: PCP Physician Assistant; Visit Provider Obstetrics & Gynecology
DX: O21.1 Hyperemesis gravidarum with metabolic disturbance (principal); Z3A.32 32 weeks gestation of pregnancy
CPT/HCPCS: 80053; 81001; 85025; G0463; J2550; J7120

== ENCOUNTER 2024-07-25 12:47 | Outpatient (CLI) | payer OTHER, SELFPAY ==
--- NOTE | 2024-07-25 13:00 | US_ITS ---
PROCEDURE: US OB BIOPHYSICAL PROFILE CLINICAL INDICATION: GDM, Elevated Bloodpressure in COMPARISON: US US OB /MATERNAL DETAIL from 04/30/2024 US US OB BIOPHYSICAL PROFILE from 07/18/2024 FINDINGS: Transabdominal sonographic images of the uterus were obtained. From her established due date she is 33weeks 1day. The following parameters are obtained: Viable Fetus in the cephalic presentation with an anterior placenta grade 2. Cervix measures 3.16 cm Measurements: heart Rate = 125bpm Amniotic fluid index: 11.27cm, MVP 4.89 cm. Qualitative AFV:2 Breathing movements: 2 Gross Body Movements: 2 Tone: 2 Biophysical profile score: 8 No obvious anomalies evident.Kidneys, profile, stomach, bladder, four-chamber heart, three-vessel cord appear normal. IMPRESSION: 1. Viable fetus in the cephalic presentation with anterior placenta grade 2. 2. The fluid is within normal limits with an amniotic fluid index 11.27 cm, MVP 4.89 cm. 3. Biophysical profile is 8/8 with good breathing movement and movement seen. 4. Limited anatomical scan appears normal. Dictated by: Higinio Louise MD 07/25/2024 20:25 Higinio Louise MD in [facility] 07/25/2024 20:25
== END 2024-07-25 23:59 | disposition home or self-care (01) ==
LOC: RAD 12:48
PROVIDERS: PCP Physician Assistant; Visit Provider Obstetrics & Gynecology
DX: O24.419 Gestational diabetes mellitus in pregnancy, unspecified control (principal); O16.3 Unspecified maternal hypertension, third trimester; Z98.891 History of uterine scar from previous surgery; Z3A.33 33 weeks gestation of pregnancy
CPT/HCPCS: 76819

== ENCOUNTER 2024-07-29 10:44 | Outpatient (CLI) | payer OTHER, SELFPAY ==
--- NOTE | 2024-07-29 11:30 | US_ITS ---
PROCEDURE: US OB BIOPHYSICAL PROFILE CLINICAL INDICATION: 11:30am Today per Skyler, non reactive NST COMPARISON: US US OB /MATERNAL DETAIL from 04/30/2024 US US OB BIOPHYSICAL PROFILE from 07/18/2024 US US OB BIOPHYSICAL PROFILE from 07/25/2024 FINDINGS: Transabdominal sonographic images of the uterus were obtained. From her established due date she is 33weeks 5days. The following parameters are obtained: Viable Fetus in the cephalic presentation with an anterior placenta grade 2-3. Measurements: heart Rate = 120bpm Amniotic fluid index: 7.36cm, MVP 2.86 cm Qualitative AFV:2 Breathing movements: 2 Gross Body Movements: 2 Tone: 2 Biophysical profile score: 8 No obvious anomalies evident.Kidneys, profile, stomach, bladder, four-chamber heart, three-vessel cord appear normal. IMPRESSION: 1. Viable fetus in the cephalic presentation with anterior placenta grade 2-3. 2. The fluid is within normal limits with amniotic fluid index 7.36 cm, MVP 2.86 cm. Subjectively the fluid appears decreased. 3. Biophysical profile is 8/8 with good breathing movement and movement seen. 4. Limited anatomical scan appears normal. Dictated by: Higinio Louise MD 07/29/2024 13:41 Higinio Louise MD in [place] 07/29/2024 13:41
== END 2024-07-29 23:59 | disposition home or self-care (01) ==
LOC: RAD 10:45
PROVIDERS: PCP Obstetrics & Gynecology; Visit Provider Obstetrics & Gynecology
DX: O36.8330 Maternal care for abnormalities of the fetal heart rate or rhythm, third trimester, not applicable or unspecified (principal); Z3A.33 33 weeks gestation of pregnancy
CPT/HCPCS: 76819

== ENCOUNTER 2024-08-01 12:39 | Outpatient (CLI) | payer OTHER, SELFPAY ==
--- NOTE | 2024-08-01 13:00 | US_ITS ---
PROCEDURE: US OB BIOPHYSICAL PROFILE CLINICAL INDICATION: GDM, Elevated Bloodpressure in COMPARISON: US US OB /MATERNAL DETAIL from 04/30/2024 US OB BIOPHYSICAL PROFILE from 07/18/2024 US OB BIOPHYSICAL PROFILE from 07/25/2024 [facility] OB BIOPHYSICAL PROFILE from 07/29/2024 FINDINGS: Transabdominal sonographic images of the uterus were obtained. From her established due date she is 34weeks 1day. The following parameters are obtained: Viable Fetus in the cephalic presentation with an anterior placenta grade 2. Cervix measures 2.7 cm Measurements: heart Rate = 127bpm Amniotic fluid index: 7.95cm, MVP 3.24 cm Qualitative AFV:2 Breathing movements: 2 Gross Body Movements: 2 Tone: 2 Biophysical profile score: 8 No obvious anomalies evident.Kidneys, bladder, stomach, three-vessel cord appear normal. IMPRESSION: 1. Viable fetus in the cephalic presentation with an anterior placenta grade 2. 2. The fluid is within normal limits with amniotic fluid index 7.95 cm, MVP 3.24 cm. 3. Biophysical profile is 8/8 with good breathing movement and movement seen. 4. Limited anatomical scan appears normal. Dictated by: Higinio Louise MD 08/02/2024 08:53 Higinio Louise MD in [place] 08/02/2024 08:53
== END 2024-08-01 23:59 | disposition home or self-care (01) ==
LOC: RAD 12:39
PROVIDERS: PCP Obstetrics & Gynecology; Visit Provider Obstetrics & Gynecology
DX: O24.419 Gestational diabetes mellitus in pregnancy, unspecified control (principal); O16.3 Unspecified maternal hypertension, third trimester; Z98.891 History of uterine scar from previous surgery; Z3A.34 34 weeks gestation of pregnancy
CPT/HCPCS: 76819

== ENCOUNTER 2024-08-08 12:41 | Outpatient (CLI) | payer OTHER, SELFPAY ==
--- NOTE | 2024-08-08 13:00 | US_ITS ---
PROCEDURE: US OB BIOPHYSICAL PROFILE CLINICAL INDICATION: GDM, Elevated Bloodpressure in COMPARISON: US US OB /MATERNAL DETAIL from 04/30/2024 US OB BIOPHYSICAL PROFILE from 07/18/2024 [facility] OB BIOPHYSICAL PROFILE from 07/25/2024 [facility] OB BIOPHYSICAL PROFILE from 07/29/2024 [facility] OB BIOPHYSICAL PROFILE from 08/01/2024 FINDINGS: Transabdominal sonographic images of the uterus were obtained. From her established due date she is 35weeks 1day. The following parameters are obtained: Viable Fetus in the cephalic presentation with an anterior placenta grade 2. The cervix measures 3.94 cm Measurements: heart Rate = 129bpm Amniotic fluid index: 18.59cm, MVP 6.36 cm Qualitative AFV:2 Breathing movements: 2 Gross Body Movements: 2 Tone: 2 Biophysical profile score: 8 No obvious anomalies evident.Kidneys, stomach, bladder, four-chamber heart, three-vessel cord appear normal. IMPRESSION: 1. Viable fetus in the cephalic presentation with an anterior placenta grade 2. 2. The fluid is within normal limits with an amniotic fluid index 18.59 cm, MVP 6.36 cm. 3. Biophysical profile is 8/8 with good breathing movement and movement seen. 4. Limited anatomical scan appears normal. Dictated by: Higinio Louise MD 08/09/2024 07:32 Higinio Louise MD in [facility] 08/09/2024 07:32
== END 2024-08-08 23:59 | disposition home or self-care (01) ==
LOC: RAD 12:42
PROVIDERS: PCP Obstetrics & Gynecology; Visit Provider Obstetrics & Gynecology
DX: O24.419 Gestational diabetes mellitus in pregnancy, unspecified control (principal); O16.9 Unspecified maternal hypertension, unspecified trimester; Z3A.35 35 weeks gestation of pregnancy
CPT/HCPCS: 76819

== ENCOUNTER 2024-08-15 13:14 | Outpatient (CLI) | payer OTHER, SELFPAY ==
--- NOTE | 2024-08-15 13:45 | US_ITS ---
PROCEDURE: US OB BIOPHYSICAL PROFILE CLINICAL INDICATION: GDM COMPARISON: US US OB /MATERNAL DETAIL from 04/30/2024 US OB BIOPHYSICAL PROFILE from 07/18/2024 US OB BIOPHYSICAL PROFILE from 07/25/2024 US OB BIOPHYSICAL PROFILE from 07/29/2024 US OB BIOPHYSICAL PROFILE from 08/01/2024 [facility] OB BIOPHYSICAL PROFILE from 08/08/2024 FINDINGS: Transabdominal sonographic images of the uterus were obtained. From her established due date she is 36weeks 1day. The following parameters are obtained: Viable Fetus in the cephalic presentation with an anterior placenta grade 2-3. The cervix measures 3.38 cm Measurements: heart Rate = 130bpm Amniotic fluid index: 14.64cm, MVP 5.67 cm Qualitative AFV:2 Breathing movements: 2 Gross Body Movements: 2 Tone: 2 Biophysical profile score: 8 No obvious anomalies evident.Kidneys, stomach, bladder, three-vessel cord appear normal. IMPRESSION: 1. Viable fetus in the cephalic presentation with an anterior placenta grade 2-3. 2. Fluid is within normal limits with an amniotic fluid index 14.64 cm, MVP 5.67 cm. 3. Biophysical profile is 8/8 with good breathing movement and movement seen. 4. Limited anatomical scan appears normal. Dictated by: Higinio Louise MD 08/16/2024 10:22 Higinio Louise MD in [place] 08/16/2024 10:22
== END 2024-08-15 23:59 | disposition home or self-care (01) ==
LOC: RAD 13:15
PROVIDERS: PCP Obstetrics & Gynecology; Visit Provider Obstetrics & Gynecology
DX: O24.419 Gestational diabetes mellitus in pregnancy, unspecified control (principal); O16.9 Unspecified maternal hypertension, unspecified trimester; Z98.891 History of uterine scar from previous surgery; O99.210 Obesity complicating pregnancy, unspecified trimester; Z3A.36 36 weeks gestation of pregnancy
CPT/HCPCS: 76819

== ENCOUNTER 2024-08-22 12:43 | Outpatient (CLI) | payer OTHER, SELFPAY ==
--- NOTE | 2024-08-22 13:00 | US_ITS ---
PROCEDURE: US OB BIOPHYSICAL PROFILE CLINICAL INDICATION: GDM, Elevated Bloodpressure in COMPARISON: US POINT OF CARE US (ER ONLY) from 01/21/2024 US OB /MATERNAL DETAIL from 04/30/2024 US OB BIOPHYSICAL PROFILE from 07/18/2024 US OB BIOPHYSICAL PROFILE from 07/25/2024 US OB BIOPHYSICAL PROFILE from 07/29/2024 US OB BIOPHYSICAL PROFILE from 08/01/2024 [facility] OB BIOPHYSICAL PROFILE from 08/08/2024 [facility] OB BIOPHYSICAL PROFILE from 08/15/2024 FINDINGS: Transabdominal sonographic images of the uterus were obtained. From her established due date she is 37 weeks 1 day. The following parameters are obtained: Viable Fetus in the cephalic presentation with an anterior placenta grade 2-3. Average ultrasound age is 37weeks 2days Estimated weight 2,846g The cervix measures 3.46 cm Measurements: heart Rate = 130bpm BPD = 38weeks 1day, 86 percentile HC = 40weeks 0 days, 86 percentile AC = 35weeks 1day, 12 percentile FL = 35weeks 6days, 18 percentile HC/AC is 1.11 FL/BPD is 0.75 FL/AC is 0.22 percentile Amniotic fluid index: 10.47cm, MVP 4.42 cm Qualitative AFV:2 Breathing movements: 2 Gross Body Movements: 2 Tone: 2 Biophysical profile score: 8 No obvious anomalies evident.Kidneys, profile, stomach, bladder, four-chamber heart, three-vessel cord appear normal. IMPRESSION: 1. Viable fetus in the cephalic presentation with an anterior placenta grade 2-3. 2. The fluid is within normal limits with an amniotic fluid index 10.47 cm, MVP 4.42 cm. 3. Biophysical profile is 8/8 with good breathing movement and movement seen. 4. There has been good interval growth with the ultrasound age consistent with dates. 5. Limited anatomical scan appears normal. Dictated by: Higinio Louise MD 08/23/2024 06:03 Higinio Louise MD in [place] 08/23/2024 06:03
== END 2024-08-22 23:59 | disposition home or self-care (01) ==
LOC: RAD 12:43
PROVIDERS: PCP Physician Assistant; Visit Provider Obstetrics & Gynecology
DX: O24.419 Gestational diabetes mellitus in pregnancy, unspecified control (principal); O16.3 Unspecified maternal hypertension, third trimester; O34.22 Maternal care for cesarean scar defect (isthmocele); Z3A.37 37 weeks gestation of pregnancy
CPT/HCPCS: 76816; 76819

== ENCOUNTER 2024-08-22 14:47 | Outpatient (CLI) | payer OTHER, SELFPAY ==
[2024-08-22 15:16] VITALS: BMI 46.3
[2024-08-22 15:26] VITALS: BMI 46.3
[2024-08-22 15:35] LABS: Microscopic, Urine URINE MICROSCOPIC (MICROSCOPIC)
[2024-08-22 15:36] LABS: Appearance,Urine CLEAR (Clear); Bilirubin,Urine Negative (Negative); Blood, Urine Negative (Negative); Color,Urine YELLOW (Yellow); Glucose,Urine (UA) Negative (Negative); Ketones,Urine Negative (Negative); Leukocyte Esterase,Urine Negative (Negative); Nitrate,Urine Negative (Negative); Protein,Urine Negative (Negative); Urobilinogen,Urine 0.2 EU/dl (0.2)
[2024-08-22 15:39] LABS: Basophils % 0.2 % (0.1-2.0); Eosinophils % 0.6 % (0.1-12.0); Hemoglobin 10.5 g/dL (12.2-16.2); Immature Granulocytes # 0.07 10^3uL; Immature Granulocytes % 1.1 %; Lymphocytes % 15.6 % (10-50); Mean Corpuscular HGB Conc 31.8 g/dL (31.8-35.4); Mean Corpuscular Hemoglobin 26.8 pg (27.0-31.2); Mean Corpuscular Volume 84.2 fl (81-99); Monocytes # 0.4 K/mm3 (0.1-1.0); Monocytes % 5.4 % (1.7-9.3); Neutrophils % 77.1 % (37.0-80.0); Nucleated Red Blood Cells # 0 10^3/uL; Nucleated Red Blood Cells % 0 %; Platelet Count 210 K/mm3 (142-424); Red Blood Count 3.92 M/mm3 (4.20-5.40); Red Cell Distribution Width 13.5 % (11.5-17.5); Red Cell Distribution Width-SD 41.1 fL; White Blood Count 6.5 K/mm3 (4.8-10.8)
[2024-08-22 15:52] LABS: Alanine Aminotransferase 14 U/L (12-78); Albumin Level 3.1 g/dl (3.5-5.0); Alkaline Phosphatase 140 U/L (38-126); Aspartate Amino Transferase 25 U/L (14-36); Bilirubin,Total 0.4 mg/dl (0.2-1.3); Blood Urea Nitrogen 3 mg/dl (7-17); Calcium 8.7 mg/dl (8.4-10.2); Carbon Dioxide 22 mmol/L (22.0-30.0); Chloride 110 mmol/L (98-107); Creatinine Clearance Estimated 135 mL/min (50-200); Estimated Glomerular Filt Rate 149 ml/min (>60); GFR (African American) 180 ML/MIN (>60); Glucose 94 mg/dl (74-100); Sodium 136 mmol/L (136-145); Total Protein,Serum 6.1 g/dl (6.3-8.2); Uric Acid 4.1 mg/dl (2.5-6.2)
[2024-08-22 15:55] LABS: Creatinine,Urine Random 40 mg/dL (Not Estab.)
[2024-08-22 15:58] LABS: Anion Gap 7.4 mEq/L (5-15); Potassium 3.4 mmoL/L (3.5-5.1)
[2024-08-22 16:01] LABS: Activated Partial Thrombo Time 25.6 seconds (22.8-30.6); Fibrinogen 515 mg/dL (229.9-363.5); INR 0.94 (0.9-1.1); Prothrombin Time 10.5 seconds (10.1-12.5)
[2024-08-22 16:19] LABS: RBC,Urine Occasional #/hpf (0-3)
[2024-08-22 16:20] LABS: Bacteria,Urine 4+ /lpf
== END 2024-08-22 17:00 | disposition home or self-care (01) ==
LOC: OBOUT 14:49 → OB 14:50
PROVIDERS: PCP Physician Assistant; Visit Provider Nurse Practitioner Obstetrics & Gynecology
DX: O16.3 Unspecified maternal hypertension, third trimester (principal); O24.419 Gestational diabetes mellitus in pregnancy, unspecified control; Z3A.35 35 weeks gestation of pregnancy
CPT/HCPCS: 36415; 80053; 81001; 82570; 84156; 84550; 85025; 85384; 85610; 85730; 87086

== ENCOUNTER 2024-08-27 11:00 | Outpatient (CLI) | payer OTHER, SELFPAY ==
[2024-08-27 11:18] VITALS: BMI 46.4
[2024-08-27 11:20] VITALS: BP 116/75; PULSE 109; RESP 19; TEMP 36.6; O2SAT 95; BMI 46.4
[2024-08-27 11:23] LABS: POC Glucose,Bedside 118 (70-110)
[2024-08-27 11:34] LABS: Basophils % 0.3 % (0.1-2.0); Eosinophils # 0.1 Kmm3 (0.0-0.4); Hematocrit 32.2 % (37.0-47.0); Hemoglobin 10.5 g/dL (12.2-16.2); Immature Granulocytes # 0.06 10^3uL; Lymphocytes # 1.1 K/mm3 (0.7-4.5); Lymphocytes % 16.7 % (10-50); Mean Corpuscular HGB Conc 32.6 g/dL (31.8-35.4); Mean Corpuscular Hemoglobin 27.5 pg (27.0-31.2); Mean Corpuscular Volume 84.3 fl (81-99); Mean Platelet Volume 10.9 fl (7.4-10.4); Monocytes # 0.3 K/mm3 (0.1-1.0); Monocytes % 4.3 % (1.7-9.3); Neutrophils # 4.8 K/mm3 (1.8-7.8); Neutrophils % 76.7 % (37.0-80.0); Nucleated Red Blood Cells # 0 10^3/uL; Nucleated Red Blood Cells % 0 %; Platelet Count 239 K/mm3 (142-424); Red Blood Count 3.82 M/mm3 (4.20-5.40); Red Cell Distribution Width 13.6 % (11.5-17.5); Red Cell Distribution Width-SD 41.4 fL; White Blood Count 6.3 K/mm3 (4.8-10.8)
[2024-08-27 11:38] LABS: Creatinine,Urine Random 50 mg/dL (Not Estab.)
[2024-08-27 11:42] LABS: Chloride 109 mmol/L (98-107); Sodium 135 mmol/L (136-145)
[2024-08-27 11:43] LABS: Potassium 3.7 mmoL/L (3.5-5.1)
[2024-08-27 11:45] LABS: Alanine Aminotransferase 15 U/L (12-78); Alkaline Phosphatase 135 U/L (38-126); Anion Gap 8.7 mEq/L (5-15); Aspartate Amino Transferase 22 U/L (14-36); Bilirubin,Total 0.3 mg/dl (0.2-1.3); Blood Urea Nitrogen 5 mg/dl (7-17); Carbon Dioxide 21 mmol/L (22.0-30.0); Creatinine Clearance Estimated 169 mL/min (50-200); Estimated Glomerular Filt Rate 193 ml/min (>60); GFR (African American) 233 ML/MIN (>60); Globulin 3.1 g/dL (1.3-3.2); Total Protein,Serum 6.1 g/dl (6.3-8.2)
[2024-08-27 11:46] LABS: Calcium 8.7 mg/dl (8.4-10.2); Glucose 113 mg/dl (74-100)
== END 2024-08-27 12:15 | disposition home or self-care (01) ==
LOC: OBOUT 11:01 → OB 11:01
PROVIDERS: PCP Physician Assistant; Visit Provider Obstetrics & Gynecology
DX: O09.293 Supervision of pregnancy with other poor reproductive or obstetric history, third trimester (principal); O99.323 Drug use complicating pregnancy, third trimester; O16.3 Unspecified maternal hypertension, third trimester; O99.213 Obesity complicating pregnancy, third trimester; E66.9 Obesity, unspecified; F12.90 Cannabis use, unspecified, uncomplicated; Z3A.37 37 weeks gestation of pregnancy
CPT/HCPCS: 36415; 59025; 80053; 82570; 82962; 84156; 85025; G0463

== ENCOUNTER 2024-08-27 13:38 | Inpatient (IN) | payer OTHER, SELFPAY ==
--- NOTE | 2024-08-27 13:52 | P.CONPHA_ITS ---
Pharmacy Intervention Comments: MEDICATION RECONCILIATION COMPLETED ON PATIENT USING EXTERNAL FILL HISTORY FROM PHARMACY AND LIST FROM TECHNICIAN TEST [facility]S OFFICE. -BETHANIE LEONGD
--- NOTE | 2024-08-27 13:52 | HMH.PHAINT1 ---
Pharmacy Intervention Comments: MEDICATION RECONCILIATION COMPLETED ON PATIENT USING EXTERNAL FILL HISTORY FROM PHARMACY AND LIST FROM SENIOR ONLINE MARKETING MANAGER OFFICE. -BETHANIE LEONGD
[2024-08-27 14:01] VITALS: BMI 46.4
[2024-08-27 15:30] VITALS: BP 132/92; PULSE 103; RESP 19; TEMP 36.7; O2SAT 98; BMI 46.7
[2024-08-27] MEDS: METFORMIN 500MG TABLET 500 MG PO (17:12)
[2024-08-27 19:41] VITALS: BP 151/79; PULSE 110; RESP 16; TEMP 36.8; O2SAT 99
[2024-08-27 19:57] VITALS: BP 126/78
[2024-08-27 20:12] VITALS: BP 125/76; PULSE 107; RESP 16
[2024-08-27 20:42] LABS: Benzodiazepines Screen,Urine Negative ng/ml (<200)
[2024-08-27 20:43] LABS: Amphetamine/Metha Screen,Urine Negative ng/ml (<1000)
[2024-08-27 20:44] LABS: Barbiturates Screen,Urine Negative ng/ml (<200); Methadone Screen,Urine Negative ng/ml (<300)
[2024-08-27 20:45] LABS: Cannabinoid Screen,Urine Positive ng/ml (<50)
[2024-08-27 20:46] LABS: Cocaine Screen,Urine Negative ng/ml (<300)
[2024-08-27 20:47] LABS: Opiate Screen,Urine Negative ng/ml (<300)
[2024-08-27 20:48] LABS: Phencyclidine Screen,Urine Negative ng/ml (<25)
[2024-08-27] MEDS: LABETALOL 100MG TABLET 100 MG PO (21:19)
[2024-08-27 21:34] LABS: POC Glucose,Bedside 108 (70-110)
[2024-08-27 23:58] VITALS: BP 125/58; PULSE 108; RESP 16; TEMP 36.8; O2SAT 99
[2024-08-28] VITALS (8 sets, daily range): BP systolic 119–141; BP diastolic 63–88; PULSE 87–100; RESP 16–18; TEMP 36.6–37; O2SAT 97–98
[2024-08-28] MEDS: LACTATED RINGERS 1000ML 1,000 ML 999 ML IV (06:10)
--- NOTE | 2024-08-28 06:59 | EXP.OB.APHP ---
OB - H&P: HPI Antepartum History of Present Illness Chief complaint: Gestational hypertension History of present illness: Ms Jose Macdonald is a 24 yo at 38w0d admitted to [facility] L&D for monitoring overnight and scheduled repeat this morning. has been complicated by newly diagnosed GHTN (she was started on Labetalol 100 mg BID 06/24/24); GDMA2 on Metformin 500 mg PO BID, maternal obesity, marijuana use during and nausea/vomiting throughout . She has had good care. She is complete with childbearing and desires permanent sterilization. History of Present Criteria for establishing EDC:: based on 1st trimester US only care: good care Ultrasounds: normal mid trimester US Obstetrical complications: gestational diabetes, gestational hypertension and previous Labs Blood type: A (+) positive Rubella: immune RPR/VDRL: nonreactive HBsAG: negative PFSH PFS Disclaimer: The information contained in this section may have been updated after the patient was seen, as this information can be updated by other users. Medical History Gestational hypertension Request for sterilization GDM, class A2 Elevated blood pressure complicating , antepartum Marijuana use during Maternal obesity affecting , antepartum History of pre-eclampsia in prior , currently Early stage of Tetrahydrocannabinol (THC) use disorder, mild, abuse Patient desires PCOS (polycystic ovarian syndrome) Elevated blood pressure reading Tobacco dependence BMI 45.0-49.9, adult History of gestational diabetes History of pre-eclampsia Surgical History History of History of surgical removal of pilonidal cyst History of laparoscopic cholecystectomy S/P section History of hand surgery Family History Other Cancer Diabetes Heart attack Stroke Social History (Updated 08/27/24 @ 18:36 by Alondra Bray RN) Smoking Status: Current every day smoker tobacco type: e-cigarettes second hand exposure: Yes (uses vape pen) alcohol intake: never substance use type: denies use current occupational status: unemployed Travel in the last 8 weeks?: None household members: family housing: house marital status: single current occupation: [employer] current occupational exposures/hazards: No sexually active: Yes caffeine: Yes do you feel safe at home: Yes victim of physical abuse: No victim of emotional abuse: No victim of sexual abuse: No Have you lived/traveled outside [place] in past 30 days?: No Contact w/someone who lives/traveled outside US past 30 days?: No Exposure to someone with infectious disease in past 14 days?: No Do you have a fever (greater than 100.4 F or 38 C)?: No Have you tested positive for COVID-19?: No Exposed to someone with COVID-19 in past 14 days?: No Do you have a sore throat?: No Do you have a cough?: No Do you have any weakness?: No Are you experiencing any nausea/vomitting?: No Do you have any diarrhea?: No Are you experiencing any unusual bleeding?: No Do you have any muscle aches/pain?: No Do you have any abdominal pain?: No Are you experiencing loss of taste or smell?: No Other Medical History Have you received the Flu Vaccine for this season: No Have you received the Pneumonia Vaccine: No Review of Systems Review of Systems Review of systems:: pertinent systems reviewed and negative unless documented below *Gastrointestinal Gastrointestinal: Reports nausea and Reports vomiting Meds Home Medications and Allergies Home Medications ?Medication ?Instructions ?Recorded ?Confirmed ?Type pyridoxine (vitamin B6) 25 mg 25 mg PO TID #30 tabs 05/14/24 08/27/24 Rx tablet blood-glucose meter #1 ea 06/06/24 08/27/24 Rx cariprazine 1.5 mg capsule 1.5 mg PO DAILY #30 caps 06/26/24 08/27/24 Rx (Vraylar) pantoprazole 40 mg tablet,delayed 40 mg PO DAILY #30 tabs 07/22/24 08/27/24 Rx release metformin 500 mg tablet,extended 500 mg PO BID 07/29/24 08/27/24 History release 24 hr labetalol 100 mg tablet 100 mg PO BID 08/27/24 08/27/24 History ondansetron 4 mg disintegrating 4 mg PO Q6HP PRN Nausea And 08/27/24 08/27/24 History tablet Vomiting New Prescriptions to Start Prescriptions: Allergies Allergy/AdvReac Type Severity Reaction Status Date / Time amoxicillin (AMOXICILLIN) Allergy Intermediate I-HIVES Verified 08/27/24 18:48 Penicillins (PENICILLINS) Allergy Intermediate I-HIVES Verified 08/27/24 18:48 OB - H&P: Exam Physical Exam Vital signs: Temp Pulse Resp BP Pulse Ox O2 Del Method 98.6 F 96 H 16 131/73 97 Room Air 08/28/24 05:35 08/28/24 05:35 08/28/24 05:35 08/28/24 05:35 08/28/24 05:35 08/28/24 05:35 Constitutional no acute distress, obese and cooperative Routine HEENT Exam Head: Present normocephalic and atraumatic Eye: Absent conjunctivae pink ENT: Present mucous membranes moist Routine Neck Exam Present full ROM Routine Respiratory Exam Present CTA bilaterally and normal respiratory effort Routine Cardiovascular Exam Present RRR Routine Abdominal Exam Present soft (Gravid) and obese; Absent tenderness Routine Rectal Exam Patient deferred: visual exam Routine Exam External: Present normal urethra appearance; Absent erythema, swelling, lesions, lacerations, vulvar erythema or vulvar tenderness Routine Extremities Exam Present full ROM; Absent edema or calf tenderness Routine Neurological Exam Present alert, moving all extremities and normal speech Routine Psychiatric Exam Present normal affect and cooperative OB - A/P Antepartum (1) Gestational hypertension: Status: Acute (2) GDM, class A2: Status: Acute (3) Maternal obesity affecting , antepartum: Status: Acute (4) Marijuana use during : Status: Acute (5) History of pre-eclampsia in prior , currently : Status: Acute (6) History of : Status: Acute (7) Request for sterilization: Status: Acute Additional Plan Additional Information:: Admit to [facility] L&D for scheduled repeat with bilateral salpingectomy Reviewed risks, benefits, alternatives, expectations and possible complications of surgery. All questions addressed and answered. She voiced understanding of risks and possible complications. Consent form signed Proceed with RLTCS and BS
[2024-08-28] MEDS: CLINDAMYCIN PHOSPHATE 900 MG in 0.9 % SODIUM CHLORIDE 100 ML 200 MG IV (07:00)
[2024-08-28] MEDS: CITRIC ACID/SODIUM CITRATE ORAL SOLN 30ML UDC 30 ML PO (07:19)
[2024-08-28 08:05] LABS: Cord Blood PH 7.29 (7.35-7.45)
[2024-08-28] MEDS: GENTAMICIN SULFATE IV (08:15)
[2024-08-28] MEDS: SODIUM CHLORIDE 0.9% IV (08:15)
--- NOTE | 2024-08-28 08:55 | EXP.ANES.CKL ---
[facility] Disclaimer: The information contained in this section may have been updated after the patient was seen, as this information can be updated by other users. Medical History Gestational hypertension Request for sterilization GDM, class A2 Elevated blood pressure complicating , antepartum Marijuana use during Maternal obesity affecting , antepartum History of pre-eclampsia in prior , currently Early stage of Tetrahydrocannabinol (THC) use disorder, mild, abuse Patient desires PCOS (polycystic ovarian syndrome) Elevated blood pressure reading Tobacco dependence BMI 45.0-49.9, adult History of gestational diabetes History of pre-eclampsia Surgical History History of History of surgical removal of pilonidal cyst History of laparoscopic cholecystectomy S/P section History of hand surgery Family History Other Cancer Diabetes Heart attack Stroke Social History (Updated 08/27/24 @ 18:36 by Alondra Bray RN) Smoking Status: Current every day smoker tobacco type: e-cigarettes second hand exposure: Yes (uses vape pen) alcohol intake: never substance use type: denies use current occupational status: unemployed Travel in the last 8 weeks?: None household members: family housing: house marital status: single current occupation: [employer] current occupational exposures/hazards: No sexually active: Yes caffeine: Yes do you feel safe at home: Yes victim of physical abuse: No victim of emotional abuse: No victim of sexual abuse: No [facility] Anesthesia Checklist Patient Identification Patient Identification: Arm Band Structural Data Admitted From: Home Planned Operative Procedure/s: Repeat C/S, Bilateral Salpingectomy Consent for Planned Operative Procedure(s) Verified: Yes Verified Documents: Surgical Consent and History and Physical NPO Status Verified Time NPO: 00:00 Additional verifications Anesthesia Reactions: No Hx Blood Transfusions: No Blood Transfusion Reaction: No Airway Assessment Mallampati Score:: Class II C-Spine Mobility Assessed: Yes TMJ Mobility Assessed: Yes Dentition: Good Dentition Neurological Assessment Level of Consciousness: Awake, Alert and Appropriate Anesthesia Plan Anesthesia Risk discussed: Yes Anesthesia Plan: Verified ASA Class: II Anesthesia Type: Spinal (with Bilateral TAP Block)
--- NOTE | 2024-08-28 08:55 | EXP.ANES.I ---
[facility] Anesthesia Record Part I Anesthesia Record I Intake, IV Amount: 1,000 Hydration: Adequate Estimated blood loss (mL): 600 Urine output (mL): 200 Blood Products used (#): none Blood Pressure: 126/82 SaO2: 97 Pulse Rate: 94 Airway Patency: Patent Respiratory Rate: 16 Temperature: 97.9 F Patient is:: Awake and Stable Stable to PACU at:: 08:45
--- NOTE | 2024-08-28 09:00 | EXP.OP.NOTE ---
Date of procedure: 08/28/24 Pre-op Diagnosis:: 1. IUP at 38 weeks 2. GHTN 3. GDMA2 4. Maternal obesity 5. Marijuana use in 6. History of x 1 7. Complete family status, desires permanent sterilization Post-op Diagnosis:: 1. IUP at 38 weeks 2. GHTN 3. GDMA2 4. Maternal obesity 5. Marijuana use in 6. History of x 1 7. Complete family status, desires permanent sterilization Procedure performed:: 1. Repeat low transverse section 2. Bilateral salpingectomy Surgeon:: Maricruz Sol DO [employer] Aide(s):: Maryellen Viramontes DO Anesthesia: spinal Estimated blood loss (mL): 500 Clinical Note:: Ms Jose Macdonald is a 24 yo at 38w0d admitted to [facility] L&D for monitoring overnight and scheduled repeat this morning. has been complicated by newly diagnosed GHTN (she was started on Labetalol 100 mg BID 06/24/24); GDMA2 on Metformin 500 mg PO BID, maternal obesity, marijuana use during and nausea/vomiting throughout . She has had good care. She is complete with childbearing and desires permanent sterilization. Operative findings:: 1. Live male baby, Jonny Marmolejo, weighing 7 lb 10 oz 2. Grossly normal appearing uterus, bilateral fallopian tubes and ovaries Operative note:: The risks, benefits and alternatives of the procedure were reviewed with the patient. Informed consent was obtained. Patient was taken to the operating room where spinal anesthesia was placed. The patient received Clindamycin and Gentamicin preoperatively. Patient was placed in dorsal supine position with a leftward tilt. SCDs in place. Good catheter was inserted and draining clear urine prior to the start of the procedure. heart tones were obtained. Patient was then prepped and draped in normal sterile fashion. Allis clamp test was performed to ensure adequate anesthesia. A skin incision was made along prior Pfannenstiel scar. This was carried through to underlying layer of fascia. Fascia was incised in midline, extended laterally with Hernandez scissors. Superior aspect of fascial incision was grasped with two Chester clamps, elevated up, and rectus muscle dissected off bluntly and sharply with Hernandez scissors. Inferior aspect of fascial incision was grasped with two Chester clamps, elevated up, and rectus muscle dissected off bluntly and sharply with Hernandez scissors. The rectus muscle was then in the midline and the peritoneum was entered bluntly with a digit. Peritoneal incision was then extended superiorly and inferiorly with good visualization of the bladder. Ottoniel retractor was inserted. The lower uterine segment was incised in a transverse fashion. Clear amniotic fluid was noted. Head was delivered without difficulty. Remainder of body was delivered without difficulty. Mouth and nares were bulb suctioned and baby was stimulated to encourage cry. Delayed cord clamping was performed for 51 seconds. The umbilical cord was clamped and cut. The infant was handed to awaiting pediatric staff in stable condition. Dr. Eaton was present. Apgars were 6(1 min), 8(5 min). Section of umbilical cord was obtaiend for cord gases. Cord blood was obtained. Gentle traction on the umbilical cord and uterine fundal massage delivered the placenta. Placenta was intact. Placenta will be sent to pathology for review. Uterus was cleared of all clots and debris with a moist laparotomy sponge. Corners of the uterine incision were grasped with Allis clamps. The uterine incision was reapproximated with # 1 Vicryl suture in a running, locked stitch. Vesicouterine peritoneum was reapproximated in a running locked stitch with 2-0 Vicryl suture. Hemostasis was noted. Posterior cul-de-sac was cleaned with moist laparotomy sponge. Gutters cleared of all clots and debris with a moist laparotomy sponge. Attention was then turned to the left fallopian tube, which was grasped with a [place] clamp. Enseal device was used to clamp, ligate and transect the right mesosalpinx and fallopian tube at uterine cornua,. Same procedure was carried out on the contralateral side. Reinspection of the lower uterine segment demonstrated hemostasis. At this point all instruments and sponges were removed from the pelvis.? The peritoneum was grasped with Freya clamps x 3. The peritoneum was reapproximated with 0 Vicryl suture in a running stitch. The corners of the fascia were grasped with Chester clamps, and the fascia was reapproximated with two # 1 Vicryl suture overlapped to the right of midline. Subcutaneous tissue was irrigated with clear return of fluids. The subcutaneous tissue was reapproximated with 3-0 Vicryl. The skin was reapproximated with Insorb patricia. Steri strips and Telfa was placed over closed Pfannenstiel skin incision. At the end of the procedure, the uterus was firm with minimal vaginal bleeding. Patient tolerated the procedure well. Instrument, sponges and needle counts were correct x 2. Mom and baby were transported to recovery room in stable condition. Condition: stable Disposition: floor Specimens:: 1. Placenta and umbilical cord 2. Bilateral fallopian tubes Complications:: None
[2024-08-28 09:10] LABS: RPR W/RFX Titers Nonreactive (Nonreactive)
[2024-08-28] MEDS: PROMETHAZINE HCL 25MG/ML 1ML VIAL 12.5 MG IV (09:29)
[2024-08-28] MEDS: OXYTOCIN/RINGERS LACTATE 30 UNITS/500 ML BAG 40 UNITS IV (09:38)
[2024-08-28] MEDS: LABETALOL 100MG TABLET 100 MG PO ×2 (09:44→21:00)
[2024-08-28] MEDS: PAT OWN MED ***VRAYLAR 1.5 MG 1 EACH PO (09:44)
[2024-08-28] MEDS: LACTATED RINGERS 1000ML 1,000 ML 125 ML IV (09:44)
[2024-08-28] MEDS: ACETAMINOPHEN 500MG TAB 1000 MG PO ×3 (09:46→23:56)
--- NOTE | 2024-08-28 10:31 | P.PNANES_ITS ---
[facility] Anesthesia Record Part II Anesthesia Record Part II Discharge Time: 09:15 Destination: Obstetric PACU nurse assessment reviewed?: Yes Patient Condition:: Good Anesthesia Complications:: None Swallowing reflex intact?: Yes Airway Patency: Patent Cyanosis?: No Blood Pressure: 141/88 SaO2: 98 Respiratory Rate: 16 Pulse Rate: 87 Temperature: 97.9 F Mental Status: Alert & Oriented Pain level:: 0 Nausea and/or vomitting:: None Intake, IV Amount: 0 Hydration: Adequate
[2024-08-28 15:30] LABS: Microscopic,Cath URINE MICROSCOPIC (MICROSCOPIC)
[2024-08-28] MEDS: KETOROLAC 30MG/ML VIAL 30 MG IV (15:52)
[2024-08-28 16:12] LABS: Appearance,Urine/Cath CLEAR (Clear); Bilirubin,Cath Negative (Negative); Blood, Urine/Cath Negative (Negative); Color,Urine/Cath YELLOW (Yellow); Glucose,Urine/Cath (UA) Negative (Negative); Ketones,Urine/Cath Negative (Negative); Leukocyte Esterase,Cath Negative (Negative); Nitrate,Cath Negative (Negative); PH,Urine/Cath 7.5 (5.0-8.5); Protein,Urine/Cath Negative (Negative); Urobilinogen,Cath 0.2 EU/dl (0.2)
[2024-08-28 16:30] LABS: Bacteria,Urine/Cath TRACE /lpf; RBC,Urine/Cath Occasional # /hpf (0-3); Squamous Epithelial Ur./Cath Occasional #/hpf (0-5); WBC,Urine/Cath Occasional #/hpf (0-3)
[2024-08-28] MEDS: PRENATAL MULTIVITAMIN W/IRON 1 EACH PO (18:16)
[2024-08-28] MEDS: IBUPROFEN 400 MG TABLET 800 MG PO (21:00)
[2024-08-29] MEDS: IBUPROFEN 400 MG TABLET 800 MG PO ×3 (05:59→22:07)
[2024-08-29] MEDS: ACETAMINOPHEN 500MG TAB 1000 MG PO ×3 (08:47→20:55)
[2024-08-29] MEDS: LABETALOL 100MG TABLET 100 MG PO ×2 (08:50→20:55)
[2024-08-29] MEDS: PAT OWN MED ***VRAYLAR 1.5 MG 1 EACH PO (08:51)
[2024-08-29 09:00] VITALS: BP 151/71; PULSE 103; RESP 18; TEMP 36.8; O2SAT 99
[2024-08-29 09:22] LABS: Basophils % 0.4 % (0.1-2.0); Eosinophils # 0.1 Kmm3 (0.0-0.4); Eosinophils % 0.6 % (0.1-12.0); Hematocrit 30.5 % (37.0-47.0); Hemoglobin 9.5 g/dL (12.2-16.2); Immature Granulocytes # 0.08 10^3uL; Lymphocytes # 1.4 K/mm3 (0.7-4.5); Lymphocytes % 17.6 % (10-50); Mean Corpuscular HGB Conc 31.1 g/dL (31.8-35.4); Mean Corpuscular Hemoglobin 26.9 pg (27.0-31.2); Mean Corpuscular Volume 86.4 fl (81-99); Mean Platelet Volume 10.7 fl (7.4-10.4); Monocytes # 0.5 K/mm3 (0.1-1.0); Monocytes % 6.2 % (1.7-9.3); Neutrophils # 5.9 K/mm3 (1.8-7.8); Neutrophils % 74.2 % (37.0-80.0); Nucleated Red Blood Cells # 0 10^3/uL; Nucleated Red Blood Cells % 0 %; Platelet Count 243 K/mm3 (142-424); Red Blood Count 3.53 M/mm3 (4.20-5.40); Red Cell Distribution Width-SD 43.5 fL
[2024-08-29 12:00] VITALS: BP 133/68; PULSE 110; RESP 18; O2SAT 98
--- NOTE | 2024-08-29 12:53 | SW/DCPLANNER ---
Addendum entered by Miri Kolb 09/03/24 07:59: Cord screen results faxed to Meme Nelson w/ CPS. Addendum entered by Miri Klob 08/29/24 15:18: Per Central Intake this criteria did meet criteria for investigation under alternative response (up to 5 days to investigate). Addendum entered by Miri Kolb 08/29/24 13:16: Central Intake ID# [id number]. Original Note: I received a consult on this patient regarding THC use during . Patient tested positive for THC on the following dates: 01/21/24, 05/12/24, 06/23/24, 07/16/24, 08/27/24. was also positive for THC at admission. Patient admits to [facility] for the past two years due to being sick. Patient delivered infant male (Jonny Davenport) on 08/28/2024. Infant's father (Barry Davenport 10/05/99) was present at the time of my visit. This is patient's second child. No previous Social Service involvement w/ first child. Patient will reside at [address] [place] [address] w/ Barry, and other child. Patient's contact number is [phone]. Patient is currently established w/ [place]. PED MD will be Dr Schaefer and patient will have transportation to all follow up appointments. Patient stated that she has the following items at home: crib, car seat, clothing, diapers and will be breast feeding. Expected discharge date is later today or tomorrow. Due to positive THC use in and at admission I will make a report to Central Intake.
--- NOTE | 2024-08-29 13:20 | P.PN_ITS ---
Subjective *Date: 08/29/24 *Time: 13:39 Interval history: POD # 1 s/p RLTCS, BS Feeling well. Pain controlled. Breast feeding. Lochia is appropriate. Voiding without difficulty and passing flatus. Tolerating regular diet. Denies fever/chills, chest pain and shortness of breath. No headaches, vision changes, lightheadedness/dizziness. No lower extremity swelling. Ambulating well ad db. Medical Exam Vital signs and Labs for Last 24 Hours: Vital Signs Temp Pulse Resp BP Pulse Ox O2 Del Method 08/29/24 09:00 98.2 F 103 H 18 151/71 H 99 Room Air 08/28/24 16:13 98.6 F 100 H 18 123/63 98 Room Air Laboratory Results - last 24 hr 08/28/24 07:32: Urine Color Yellow, Urine Appearance Clear, Urine pH 7.5, Ur Specific [place] 1.010, Urine Protein Negative, Urine Glucose (UA) Negative, Urine Ketones Negative, Urine Blood Negative, Urine Nitrate Negative, Urine Bilirubin Negative, Urine Urobilinogen 0.2, Ur Leukocyte Esterase Negative, U rine RBC Occasional, Urine WBC Occasional, Ur Squamous Epith Cells Occasional, Urine Bacteria Trace 08/29/24 09:04: WBC 8.0 D, RBC 3.53 L, Hgb 9.5 L, Hct 30.5 L, MCV 86.4, MCH 26.9 L, MCHC 31.1 L, RDW 14.0, Plt Count 243, MPV 10.7 H, Neut % (Auto) 74.2, Lymph % (Auto) 17.6, [place] % (Auto) 6.2, Eos % (Auto) 0.6, Baso % (Auto) 0.4, Neut # (Auto) 5.9, Lymph # (Auto) 1.4, [place] # (Auto) 0.5, Eos # (Auto) 0.1, Baso # (Auto) 0.0 I & O for Labs for Last 24 Hours: Intake & Output 08/26/24 08/27/24 08/28/24 08/29/24 23:59 23:59 23:59 23:59 Intake Total 1000 / 1000 Output Total 400 / 400 Balance 600 / 600 Weight 253 lb 15.983 oz Head: Present atraumatic and normocephalic ENT: Present normal exam and mucous membranes moist Neck: Present normal inspection and full ROM Respiratory: Present CTA bilaterally and normal respiratory effort Cardiac: Present Reg Rate and Rhythm GI: Present soft; Absent distention or tenderness Comments:: Pfannenstiel incision clean/dry/intact with steri strips in place Rectal (female): Present deferred (female): Present deferred Extremities: Present normal inspection and full ROM; Absent edema or calf tenderness Neuro: Present alert, awake and moves all extremities Assessment and Plan *Assessment and plan (1) S/P section: Status: Resolved Category: Medical Code(s): Z98.891 - History of uterine scar from previous surgery (2) Gestational hypertension: Status: Acute Qualifiers: Trimester: third trimester Qualified Code(s): O13.3 - Gestational [-induced] hypertension without significant proteinuria, third trimester Category: Medical Code(s): O13.9 - Gestational [-induced] hypertension without significant proteinuria, unspecified trimester (3) GDM, class A2: Status: Acute Category: Medical Code(s): O24.419 - Gestational diabetes mellitus in , unspecified control (4) Maternal obesity affecting , antepartum: Status: Acute Qualifiers: Obesity type affecting : unspecified obesity Qualified Code(s): O99.210 - Obesity complicating , unspecified trimester Category: Medical Code(s): O99.210 - Obesity complicating , unspecified trimester (5) Marijuana use during : Status: Acute Category: Medical Code(s): O99.320 - Drug use complicating , unspecified trimester; F12.90 - Cannabis use, unspecified, uncomplicated (6) History of pre-eclampsia in prior , currently : Status: Acute Category: Medical Code(s): O09.299 - Supervision of with other poor reproductive or obstetric history, unspecified trimester (7) History of : Status: Acute Category: Surgical Code(s): Z98.891 - History of uterine scar from previous surgery (8) Request for sterilization: Status: Acute Category: Medical Code(s): Z30.2 - Encounter for sterilization (9) Acute blood loss anemia: Status: Acute Category: Medical Code(s): D62 - Acute posthemorrhagic anemia Plan Continue routine care Encouraged increased ambulation Plan d/c home tomorrow, POD # 2
[2024-08-29] MEDS: PRENATAL MULTIVITAMIN W/IRON 1 EACH PO (14:41)
[2024-08-30] MEDS: ACETAMINOPHEN 500MG TAB 1000 MG PO (03:44)
[2024-08-30 08:00] VITALS: BP 131/65; PULSE 107; RESP 17; TEMP 36.8; O2SAT 98
[2024-08-30] MEDS: IBUPROFEN 400 MG TABLET 800 MG PO (08:10)
[2024-08-30] MEDS: PAT OWN MED ***VRAYLAR 1.5 MG 1 EACH PO (08:10)
[2024-08-30] MEDS: LABETALOL 100MG TABLET 100 MG PO (08:10)
--- NOTE | 2024-08-30 11:41 | PC.NURSE ---
Called Dr. Viramontes at this time to inform her of the patients IV status, that it infiltrated while her Vancomycin was infusing, stated to stop IV infusion and she is going to come in and round and possibly start her on a PO regimen for antibiotics.
[2024-08-30 12:46] LABS: Albumin Level 3.1 g/dl (3.5-5.0); Chloride 108 mmol/L (98-107); Potassium 3.9 mmoL/L (3.5-5.1); Sodium 139 mmol/L (136-145)
[2024-08-30 12:49] LABS: Alanine Aminotransferase 13 U/L (12-78); Alkaline Phosphatase 118 U/L (38-126); Anion Gap 7.9 mEq/L (5-15); Aspartate Amino Transferase 23 U/L (14-36); Blood Urea Nitrogen 13 mg/dl (7-17); Carbon Dioxide 27 mmol/L (22.0-30.0); Creatinine Clearance Estimated 80 mL/min (50-200); Estimated Glomerular Filt Rate 87 ml/min (>60); GFR (African American) 105 ML/MIN (>60); Globulin 3.1 g/dL (1.3-3.2); Total Protein,Serum 6.2 g/dl (6.3-8.2)
[2024-08-30 12:50] LABS: Bilirubin,Total 0.1 mg/dl (0.2-1.3); Calcium 8.9 mg/dl (8.4-10.2); Glucose 110 mg/dl (74-100)
--- NOTE | 2024-08-30 13:14 | EXP.DC.SUM ---
General Admission date:: 08/27/24 Discharge date: 08/30/24 HPI HPI HPI: Ms Jose Macdonald is a 24 yo at 38w0d admitted to [facility] L&D for monitoring overnight and scheduled repeat this morning. has been complicated by newly diagnosed GHTN (she was started on Labetalol 100 mg BID 06/24/24); GDMA2 on Metformin 500 mg PO BID, maternal obesity, marijuana use during and nausea/vomiting throughout . She has had good care. She is complete with childbearing and desires permanent sterilization. Hospital Course Hospital Course Hospital Course: Jose Macdonald is a 24-year-old G2P P2 day #2 from a repeat delivery and bilateral salpingectomy at 38 weeks and 0 days gestation secondary to gestational hypertension. EDC is established by first trimester ultrasound. She delivered a live viable male infant on 08/28/2024 at 0755 in the morning. weighed 7 pounds 10 ounces and was 18 inches long. Apgars were 6 and 9 at 1 and 5 minutes respectively. EBL was 500. She is breast-feeding. Her blood type is a positive. GBS was unknown. Hepatitis B was negative and rubella immune. She has done well and has remained afebrile with her at her hospitalization. She is eating and drinking and ambulating. Her lochia is normal/scant. She will be discharged home to follow-up with Dr. Sol in 2 weeks time. She will continue with her vitamins and iron. She has a prescription for Percocet and will continue these at home. She will take ibuprofen as well. She was given the usual instructions with respect to limiting her activity, driving and sexual activity. She was given instructions with respect to wound care. Her condition on discharge is stable and improved. See HPI for complications. She will be continued on all of her home medications. She has not required any narcotic pain medication today or yesterday and her pain has been well-controlled with ibuprofen and Tylenol. I did send medication for any exacerbation of pain as her activity level increases with discharge and being at home caring for 2 kids. Exam Data for Last 24 hours Vital signs and Labs for Last 24 Hours: Temp Pulse Resp BP Pulse Ox O2 Del Method 98.2 F 107 H 17 131/65 98 Room Air 08/30/24 08:00 08/30/24 08:00 08/30/24 08:00 08/30/24 08:00 08/30/24 08:00 08/30/24 08:00 Laboratory Results - last 24 hr 08/30/24 12:35: Sodium 139, Potassium 3.9, Chloride 108 H, Carbon Dioxide 27, Anion Gap 7.9, BUN 13, Creatinine 0.80, Estimated Creat Clear 80, Estimated GFR 87, Est GFR ( Amer) 105, Glucose 110 H, Calcium 8.9, Total Bilirubin 0.1 L, AST 23, ALT 13, Alkaline Phosphatase 118, Total Protein 6.2 L, Albumin 3.1 L, Globulin 3.1, Albumin/Globulin Ratio 1.0 L Temp Pulse Resp BP Pulse Ox O2 Del Method O2 Flow Rate 98.3 F 68 18 132/65 98 Room Air 2 01/12/23 07:16 01/12/23 07:16 01/12/23 07:16 01/12/23 07:16 01/12/23 07:54 01/12/23 07:54 01/12/23 00:34 Laboratory Results - last 24 hr 01/11/23 20:50: WBC 7.7, RBC 4.64, Hgb 14.0, Hct 40.6, MCV 87.5, MCH 30.1, MCHC 34.4, RDW 13.0, Plt Count 272, MPV 8.9, Neut % (Auto) 79.2, Lymph % (Auto) 16.7, Floyd % (Auto) 3.0, Eos % (Auto) 0.7, Baso % (Auto) 0.4, Neut # (Auto) 6.1, Lymph # (Auto) 1.3, Floyd # (Auto) 0.2, Eos # (Auto) 0.1, Baso # (Auto) 0.0, Sodium 139, Potassium 3.5, Chloride 103, Carbon Dioxide 24, Anion Gap 15.5 H, BUN 8, Creatinine 0.70, Estimated Creat Clear 103, Estimated GFR 103, Est GFR ( Amer) 124, Glucose 112 H, Hemoglobin A1c 5.1, Calcium 9.3, Total Bilirubin 0.4, AST 46 H, ALT 52, Alkaline Phosphatase 71, Total Protein 8.3 H, Albumin 4.4, Globulin 3.9 H, Albumin/Globulin Ratio 1.1, Lipase 44, HCG, Quant < 2, Acetone Level None detected 01/11/23 21:37: Urine Color Yellow, Urine Appearance Clear, Urine pH 7.5, Ur Specific [place] 1.025, Urine Protein 1+, Urine Glucose (UA) Negative, Urine Ketones 2+, Urine Blood 3+, Urine Nitrate Negative, Urine Bilirubin Negative, Urine Urobilinogen 0.2, Ur Leukocyte Esterase Negative, Urine RBC 20-50, Urine WBC 3-5, Ur Squamous Epith Cells Occasional, Urine Bacteria None 01/12/23 00:01: Lactate 0.8 01/12/23 05:20: POC Glucose 94 01/12/23 06:30: WBC 6.5, RBC 4.46, Hgb 13.7, Hct 38.8, MCV 87.2, MCH 30.7, MCHC 35.2, RDW 12.9, Plt Count 286, MPV 8.8, Neut % (Auto) 64.0, Lymph % (Auto) 28.5, Floyd % (Auto) 6.5, Eos % (Auto) 0.5, Baso % (Auto) 0.5, Neut # (Auto) 4.2, Lymph # (Auto) 1.9, Floyd # (Auto) 0.4, Eos # (Auto) 0.0, Baso # (Auto) 0.0, Sodium 138, Potassium 3.7, Chloride 107, Carbon Dioxide 22, Anion Gap 12.7, BUN 7, Creatinine 0.60, Estimated Creat Clear 114, Estimated GFR 123, Est GFR ( Amer) 149 D, Glucose 98, Calcium 8.6, Magnesium 2.1, Total Bilirubin 0.7, AST 33 D, ALT 40, Alkaline Phosphatase 66, Total Protein 7.0, Albumin 3.7 D, Globulin 3.3 H, Albumin/Globulin Ratio 1.1, TSH 1.14 I & O for Last 24 hours: Intake & Output 08/27/24 08/28/24 08/29/24 08/30/24 23:59 23:59 23:59 23:59 Intake Total 1000 / 1000 Output Total 400 / 400 Balance 600 / 600 Weight 253 lb 15.983 oz Intake & Output 01/09/23 01/10/23 01/11/23 01/12/23 23:59 23:59 23:59 23:59 Output Total 0 / 0 Balance 0 / 0 Weight 114.305 kg 113.88 kg Constitutional Constitutional: no acute distress and obese *Routine HEENT Exam Head: Present normocephalic Eye: Absent conjunctivae pink ENT: Present mucous membranes moist *Routine Neck Exam Neck: Present full ROM *Routine Respiratory Exam Respiratory: Present CTA bilaterally and normal respiratory effort *Routine Cardiovascular Exam Cardiovascular: Present RRR *Routine Abdominal Exam Abdominal: Present soft and normoactive bowel sounds; Absent tenderness or distended *Routine Extremities Exam Extremities: Present full ROM, pulses intact and normal capillary refill; Absent edema *Routine Skin Exam Skin: Present warm; Absent rash Comments: Well-healing Pfannenstiel skin incision. Steri-Strips in place. No signs of infection *Routine Neurological Exam Neurological: Present alert, oriented X3, moving all extremities, vision grossly intact, hearing grossly intact and normal speech; Absent sensory deficit or motor deficit Routine Psychiatric Exam Psychiatric: Present normal affect, normal thought process, cooperative, good insight and good judgment Results Data Completed and Pending Labs on day of discharge: Labs from last 24 hours 08/30/24 12:35 Sodium 139 Potassium 3.9 Chloride 108 H Carbon Dioxide 27 Anion Gap 7.9 BUN 13 Creatinine 0.80 Estimated Creat Clear 80 Estimated GFR 87 Est GFR ( Amer) 105 Glucose 110 H Calcium 8.9 Total Bilirubin 0.1 L AST 23 ALT 13 Alkaline Phosphatase 118 Total Protein 6.2 L Albumin 3.1 L Globulin 3.1 Albumin/Globulin Ratio 1.0 L DS: Diagnosis Discharge Diagnosis (1) S/P section: Status: Resolved Code(s): Z98.891 - History of uterine scar from previous surgery (2) Gestational hypertension: Status: Acute Code(s): O13.9 - Gestational [-induced] hypertension without significant proteinuria, unspecified trimester Qualifiers: Trimester: third trimester Qualified Code(s): O13.3 - Gestational [-induced] hypertension without significant proteinuria, third trimester (3) GDM, class A2: Status: Acute Code(s): O24.419 - Gestational diabetes mellitus in , unspecified control (4) Maternal obesity affecting , antepartum: Status: Acute Code(s): O99.210 - Obesity complicating , unspecified trimester Qualifiers: Obesity type affecting : unspecified obesity Qualified Code(s): O99.210 - Obesity complicating , unspecified trimester (5) Marijuana use during : Status: Acute Code(s): O99.320 - Drug use complicating , unspecified trimester; F12.90 - Cannabis use, unspecified, uncomplicated (6) History of pre-eclampsia in prior , currently : Status: Acute Code(s): O09.299 - Supervision of with other poor reproductive or obstetric history, unspecified trimester (7) History of : Status: Acute Code(s): Z98.891 - History of uterine scar from previous surgery (8) Request for sterilization: Status: Acute Code(s): Z30.2 - Encounter for sterilization (9) Acute blood loss anemia: Status: Acute Code(s): D62 - Acute posthemorrhagic anemia Meds Home Medications and Allergies Home Medications ?Medication ?Instructions ?Recorded ?Confirmed ?Type pyridoxine (vitamin B6) 25 mg 25 mg PO TID #30 tabs 05/14/24 08/27/24 Rx tablet cariprazine 1.5 mg capsule 1.5 mg PO DAILY #30 caps 06/26/24 08/27/24 Rx (Vraylar) pantoprazole 40 mg tablet,delayed 40 mg PO DAILY #30 tabs 07/22/24 08/27/24 Rx release metformin 500 mg tablet,extended 500 mg PO BID 07/29/24 08/27/24 History release 24 hr labetalol 100 mg tablet 100 mg PO BID 08/27/24 08/27/24 History ondansetron 4 mg disintegrating 4 mg PO Q6HP PRN Nausea And 08/27/24 08/27/24 History tablet Vomiting acetaminophen 500 mg tablet 500 mg PO Q6H PRN fever or pain 08/30/24 Rx #30 tabs ferrous sulfate 325 mg (65 mg 325 mg PO DAILY #30 tabs 08/30/24 Rx iron) tablet,delayed release ibuprofen 800 mg tablet 800 mg PO Q8H PRN pain #60 tabs 08/30/24 Rx oxycodone 5 mg tablet 5 mg PO Q8H PRN pain #15 tabs 08/30/24 Rx sennosides 8.6 mg tablet (Senna 8.6 mg PO BIDP PRN Constipation 08/30/24 Rx Lax) #60 tabs simethicone 125 mg tablet 125 mg PO DAILY PRN abdominal 08/30/24 Rx distention/ gas pain #60 tabs New Prescriptions to Start Prescriptions: acetaminophen Wander,Maryellen ferrous sulfate Wander,Maryellen ibuprofen Wander,Maryellen oxycodone Wander,Maryellen sennosides [Senna Lax] Wander,Maryellen simethicone Wander,Maryellen Allergies Allergy/AdvReac Type Severity Reaction Status Date / Time amoxicillin (AMOXICILLIN) Allergy Intermediate I-HIVES Verified 08/27/24 18:48 Penicillins (PENICILLINS) Allergy Intermediate I-HIVES Verified 08/27/24 18:48 Discharge Plan Disposition Patient Disposition: Home, Self-Care Condition: Other Discharge Order Discharge Orders: Discharge Order (Routine); Ordered 08/30/24 Ordered By: Maryellen Viramontes Follow up Plan Follow up with: Maricruz Sol DO [Staff Physician, [employer] [facility] [facility]] - 09/10/24 9:15 am Prescriptions/Medication Reconciliation: New sennosides [Senna Lax] 8.6 mg Tablet 8.6 mg PO BIDP PRN (Reason: Constipation) Qty: 60 2RF ibuprofen 800 mg tablet 800 mg PO Q8H PRN (Reason: pain) Qty: 60 2RF acetaminophen 500 mg tablet 500 mg PO Q6H PRN (Reason: fever or pain) Qty: 30 3RF simethicone 125 mg tablet 125 mg PO DAILY PRN (Reason: abdominal distention/ gas pain) Qty: 60 2RF ferrous sulfate 325 mg (65 mg iron) tablet,delayed release (DR/EC) 325 mg PO DAILY Qty: 30 3RF oxycodone 5 mg tablet 5 mg PO Q8H PRN (Reason: pain) Qty: 15 0RF Continued metformin 500 mg tablet extended release 24 hr 500 mg PO BID labetalol 100 mg tablet 100 mg PO BID Vraylar 1.5 mg capsule 1.5 mg PO DAILY Qty: 30 1RF pyridoxine (vitamin B6) 25 mg tablet 25 mg PO TID Qty: 30 1RF pantoprazole 40 mg tablet,delayed release (DR/EC) 40 mg PO DAILY Qty: 30 2RF ondansetron 4 mg tablet,disintegrating 4 mg PO Q6HP PRN (Reason: Nausea And Vomiting) Discontinued (DME) blood-glucose meter Kit See Rx Instructions .Route Qty: 1 0RF Rx Instructions: Test 4 times a day x7 days. Fasting and 2 hours after each meal. Problem Reconciliation Problems Reviewed?: Yes Patient Discharge Instructions ACTIVITY: Continue current activity DIET: regular diet Additional Instructions: Congratulations on the delivery of your sweet baby boy. It is my privilege to be a part of your [employer] [facility] [employer] team and I am so thankful I could be a part of your special day. Discharge: 1. Take 800 mg Ibuprofen every 8 hours as needed for pain. You can also take 500-1000mg of Tylenol in between doses, every 6-8 hours. Use prescription pain medicine for pain you feel in between 8 hour interval. -No driving while taking narcotic pain medications. In order to drive you should be able to slam on the brakes without significant abdominal pain. 2. Wean from prescription pain medicine first. Do not drive while taking it. 3. Prescription pain medicine can make you constipated. Colace can be taken 1-2 times per day as you need. Make sure to drink at least 8 cups of water per day. 4. Iron supplements can make you constipated. Colace can be taken 1-2 times per day as you need. You can take iron tablets every other day if constipation is too bad. 5. Nothing in the vagina for 6 weeks - no intercourse, douching, tampons. No tub baths or swimming pools 6. Do not lift greater than 15 pounds for 6 weeks, this is the equivalent of 2 gallons of milk. 7. Reasons to return to L&D or call On-Call doctor - fever (greater than 100.4) - heavy vaginal bleeding (soaking through 1 pad in less than 2 hours or passing clots that are egg sized) - vaginal discharge (malodorous and/or purulent) - bleeding or discharge from her incision - severe headaches, leg tenderness/edema, or any other symptoms that warrant immediate medical attention. 8. depression/blues - Normal to feel anxious/overwhelmed for first 2 weeks - Talk to your doctor if: anxiety lasts over 2 weeks, trouble bonding with baby, withdrawing from other family members, thoughts of harming yourself or others Blood pressure and preeclampsia instructions 1. Please take your blood pressure twice daily. 2. Please call if greater than 2 values are higher than: 160 systolic (the top number) or 110 diastolic (the bottom number). 3. Please go to the emergency room or labor and delivery triage if any value is higher than: 160 systolic (the top number) or 110 diastolic (the bottom number). 4. Please call if unrelenting headache (does not go away with rest or Tylenol or ibuprofen), changes in vision (spots, floaters, flashes of light), chest pain, shortness of breath, or right upper quadrant (liver) abdominal pain. Maryellen Viramontes DO [facility] [phone] *Nothing in the Vagina for 6 weeks* *No strenuous activity* *No heavy lifting* *No tub baths until okay's by MD* Patient Instructions: Depression, Hemorrhage, DI for , DI for Pre-eclampsia, [facility] Post Discharge Instructions Print Language: Thai Providers Primary Care Provider: Esthre Pacheco Admit Provider: Maricruz Sol Attending Provider: Maricruz Sol
== END 2024-08-30 13:40 | disposition home or self-care (01) | DRG 784 ==
PROVIDERS: Obstetrics & Gynecology; Admitting Provider Obstetrics & Gynecology; PCP Physician Assistant; Visit Provider Obstetrics & Gynecology
PROC: 10D00Z1 Extraction of Products of Conception, Low, Open Approach (ICD-10-PCS; CPT 59514; principal; 2024-08-28 07:30)
DX: O34.211 Maternal care for low transverse scar from previous cesarean delivery (principal); D62 Acute posthemorrhagic anemia; O99.324 Drug use complicating childbirth; O13.3 Gestational [pregnancy-induced] hypertension without significant proteinuria, third trimester; O99.214 Obesity complicating childbirth; Z3A.38 38 weeks gestation of pregnancy; Z37.0 Single live birth; N85.8 Other specified noninflammatory disorders of uterus; O24.425 Gestational diabetes mellitus in childbirth, controlled by oral hypoglycemic drugs; O13.4 Gestational [pregnancy-induced] hypertension without significant proteinuria, complicating childbirth; F12.90 Cannabis use, unspecified, uncomplicated; Z30.2 Encounter for sterilization; O90.81 Anemia of the puerperium
CPT/HCPCS: 36415; 51702; 59025; 80053; 80307; 81001; 82800; 82962; 85025; 86592; 86850; 88302; 88307; 94761; G0283; J0666; J0736; J1580; J1885; J2405; J2550; J3010; J7120

== ENCOUNTER 2025-02-16 08:19 | Outpatient (CLI) | payer OTHER, SELFPAY ==
--- NOTE | 2025-02-16 08:30 | US_ITS ---
PROCEDURE: US TRANSVAGINAL CLINICAL INDICATION: left ovarian pain COMPARISON: CT CT ABDOMEN PELVIS W CON from 01/11/2023 US US TRANSVAGINAL from 08/08/2023 FINDINGS: Transvaginal sonographic images of the pelvis were obtained. UTERUS: 8.4cm x 5.4cmx 3.9 cm with a combined endometrial thickness of 11.1mm. The endometrium is homogeneous. A scar is present. LEFT OVARY: 2.5cmx2.5 cmx1.6cm with a volume of 5.3ml. There are several small peripheral follicles. There is a dominant follicle measuring 8.2 mm. RIGHT OVARY: 3.1cmx 2.5cmx2.3cm with a volume of 9.4ml. There is a dominant follicle measuring 1.6 cm. There are multiple small peripheral follicles. Both ovaries are seen and appear normal. Doppler flow to both ovaries are seen. There is no fluid in the cul-de-sac. IMPRESSION: 1. Anteverted uterus normal in shape and size. There is a scar. The endometrium is homogeneous and normal in appearance. 2. Both ovaries are seen and have multiple small follicles. Each ovary contains a dominant follicle. 3. No fluid in the cul-de-sac Dictated by: Higinio Louise MD 02/16/2025 10:51 Higinio Louise MD in OV 02/16/2025 10:51
== END 2025-02-16 23:59 | disposition home or self-care (01) ==
LOC: RAD 08:20
PROVIDERS: PCP Nurse Practitioner Family; Visit Provider Obstetrics & Gynecology
DX: N85.4 Malposition of uterus (principal); N85.8 Other specified noninflammatory disorders of uterus; N83.02 Follicular cyst of left ovary; N83.01 Follicular cyst of right ovary; N94.89 Other specified conditions associated with female genital organs and menstrual cycle
CPT/HCPCS: 76830

== ENCOUNTER 2025-03-03 08:11 | Emergency (ER) | payer OTHER, SELFPAY ==
[2025-03-03 08:17] VITALS: BP 148/77; PULSE 99; RESP 15; TEMP 37; O2SAT 99; BMI 44.1
--- NOTE | 2025-03-03 08:18 | ED_ITS ---
Discharge Plan Disposition Patient Disposition: Home, Self-Care Condition: Good Prescriptions Prescriptions: New clindamycin HCl [Cleocin HCl] 300 mg capsule 300 mg PO TID 10 Days Qty: 30 0RF lidocaine HCl [Lidocaine Viscous] 2 % solution 10 ml mucous membrane Q6H PRN (Reason: pain) Qty: 100 0RF No Action Vraylar 1.5 mg capsule 1.5 mg PO DAILY Qty: 30 1RF pantoprazole 40 mg tablet,delayed release (DR/EC) 40 mg PO DAILY Qty: 30 2RF tranexamic acid 650 mg tablet 1,300 mg PO TID 5 Days Qty: 30 0RF ondansetron 4 mg tablet,disintegrating 4 mg PO Q6HP PRN (Reason: Nausea And Vomiting) ibuprofen 800 mg tablet 800 mg PO Q8H PRN (Reason: pain) Qty: 60 2RF acetaminophen 500 mg tablet 500 mg PO Q6H PRN (Reason: fever or pain) Qty: 30 3RF Referrals Follow up/Referrals: Corine Mcgovern APRN [Primary Care Provider, Medical] - See instructions Activity Restrictions/Add. Instructions Additional Instructions/Restrictions: Stay well-hydrated. Take a probiotic [id number] while you are taking these antibiotics. Finish antibiotic course completely. You may take 1000 mg of Tylenol alternating with 800 mg of ibuprofen every 3 hours as needed for pain. Make sure that the medicines themselves are spaced 6 hours apart. Return if you develop any worsening pain despite medications at home, inability to swallow or shortness of breath. Please follow up with your primary care provider in 2-3 days. Please return to ED if your symptoms worsen, change in location, change in renate rity, new symptoms develop or if you become concerned for your health. Clinical Impressions Clinical Impression: Acute streptococcal pharyngitis Print Language Print Language: Kiswahili Discharge ED Provider: Mahesh Talamantes Adult HPI General Chief complaint: Sore Throat Stated complaint: sore throat, fever Time Seen by Provider: 03/03/25 08:17 History of Present Illness HPI narrative: Patient is a 24 old female with no significant past medical history presenting today for sore throat. She reports that it started yesterday morning, was mild, treated with Tylenol. Woke up this morning and it was much worse. It is diffusely in her entire throat. She denies any recent cough, but does report some mild congestion. She reports chills without objective fever. She denies any shortness of breath abdominal pain vomiting or diarrhea. Denies any chest pain. She has not tried anything today for the pain. She denies possibility being . She denies pain with range of motion of the neck. No neck stiffness. Related Data Home Medications ?Medication ?Instructions ?Recorded ?Confirmed ondansetron 4 mg disintegrating 4 mg PO Q6HP PRN Nause a And 08/27/24 10/08/24 tablet Vomiting Previous Rx's ?Medication ?Instructions ?Recorded cariprazine 1.5 mg capsule 1.5 mg PO DAILY #30 caps (Vraylar) pantoprazole 40 mg tablet,delayed 40 mg PO DAILY #30 t abs 07/22/24 release acetaminophen 500 mg tablet 500 mg PO Q6H PRN fever or pain 08/30/24 #30 tabs ibuprofen 800 mg tablet 800 mg PO Q8H PRN pain #60 t abs 08/30/24 tranexamic acid 650 mg tablet 1,300 mg (2 x 650 mg) PO TID 5 11/21/24 days #30 tabs clindamycin HCl 300 mg capsule 300 mg PO TID 10 days # 30 caps 03/03/25 (Cleocin HCl) lidocaine HCl 2 % mucosal solution 10 ml mucous membra ne Q6H PRN pain 03/03/25 (Lidocaine Viscous) #100 mL Allergies Allergy/AdvReac Type Severity Reaction Status Date / Time amoxicillin (AMOXICILLIN) Allergy Intermediate I-HIVES Verified 10/08/24 10:00 Penicillins (PENICILLINS) Allergy Intermediate I-HIVES Verified 10/08/24 10:00 [facility] Disclaimer: The information contained in this section may have been updated after the patient was seen, as this information can be updated by other users. Medical History Acute blood loss anemia Gestational hypertension Request for sterilization GDM, class A2 Elevated blood pressure complicating , antepartum Marijuana use during Maternal obesity affecting , antepartum History of pre-eclampsia in prior , currently Early stage of Tetrahydrocannabinol (THC) use disorder, mild, abuse Patient desires PCOS (polycystic ovarian syndrome) Elevated blood pressure reading Tobacco dependence BMI 45.0-49.9, adult History of gestational diabetes History of pre-eclampsia Surgical History History of History of surgical removal of pilonidal cyst History of laparoscopic cholecystectomy S/P section 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 Family History Other Cancer Diabetes Heart attack Stroke Social History Smoking Status: Current every day smoker tobacco type: e-cigarettes second hand exposure: Yes (uses vape pen) alcohol intake: never substance use type: denies use current occupational status: unemployed Travel in the last 8 weeks?: None household members: family housing: house marital status: single 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 current occupational exposures/hazards: No sexually active: Yes caffeine: Yes do you feel safe at home: Yes victim of physical abuse: No victim of emotional abuse: No victim of sexual abuse: No Have you lived/traveled outside US in past 30 days?: No Contact w/someone who lives/traveled outside US past 30 days?: No Exposure to someone with infectious disease in past 14 days?: No Do you have a fever (greater than 100.4 F or 38 C)?: No Have you tested positive for COVID-19?: No Exposed to someone with COVID-19 in past 14 days?: No Do you have a sore throat?: No Do you have a cough?: No Do you have any weakness?: No Do you have any diarrhea?: No Are you experiencing any unusual bleeding?: No Do you have any muscle aches/pain?: No Do you have any abdominal pain?: No Are you experiencing loss of taste or smell?: No Other Medical History Have you received the Flu Vaccine for this season: No Have you received the Pneumonia Vaccine: No ROS Obtained: Yes All systems reviewed & no additional complaints except as documented Physical Exam General General appearance: alert and in no apparent distress Head Head exam: atraumatic and normocephalic Eye Eye exam: Present PERRL and EOMI ENT ENT exam: Present normal oropharynx, mucous membranes moist and other (Mild pos terior pharyngeal erythema without induration without uvular deviation and no significant tonsillar swelling. No exudates. No crepitus on the floor the mouth) Neck Neck exam: Present full ROM and trachea midline Chest Chest inspection: Present symmetric chest wall rise Respiratory Respiratory exam: Present normal lung sounds bilaterally; Absent stridor Cardiovascular Cardiovascular exam: Present regular rate and normal rhythm Abdominal Exam Abdominal exam: Present soft; Absent distention or tenderness Extremities Exam Extremities exam: Present full ROM Neurological Exam Neurological exam: Present alert and oriented X3 Psychiatric Psychiatric exam: Present normal mood Skin Skin exam: Present warm and dry Medical Decision Making Medical Records Screening: Per USPSTF and CDC recommendations, given the prevalence of disease in our region, it is our hospital?s policy to screen for HIV and viral Hepatitis for all patients aged 18 and over and those with ongoing risk factors. Horace Inquiry Pt receiving controlled substance: No Vital Signs: 03/03/25 08:17 Temperature 98.6 F Temperature Source Oral Pulse Rate [Right Radial] 99 H Respiratory Rate 15 Blood Pressure [Right Arm] 148/77 H Blood Pressure Mean [Right Arm] 100 Blood Pressure Source [Right Arm] Automatic Cuff Blood Pressure Position [Right Arm] Supine 02 Sat by Pulse Oximetry 99 Oxygen Delivery Method Room Air Lab Data Lab Results 03/03/25 08:17: Group A Strep Rapid Positive A Orders (Tests/Meds): ED MEDICATIONS Generic Name Dose Route Start Last Admin Trade Name Freq PRN Reason Stop Dose Admin Clindamycin HCl 300 mg 03/03/25 08:46 Clindamycin 150mg Capsule PO 03/03/25 08:47 ONCE ONE Discontinued Medications Generic Name Dose Route Start Last Admin Trade Name Freq PRN Reason Stop Dose Admin Dexamethasone 10 mg 03/03/25 08:34 03/03/25 08:46 Dexamethasone 4mg Tablet PO 03/03/25 08:35 10 mg ONCE ONE Administration Ketorolac Tromethamine 15 mg 03/03/25 08:34 03/03/25 08:46 Ketorolac 15mg/Ml Vial IM 03/03/25 08:35 15 mg ONCE ONE Administration Lidocaine HCl 15 ml 03/03/25 08:34 03/03/25 08:46 Lidocaine 2% Viscous Crystal 15ml Udc PO 03/03/25 08:35 15 ml ONCE ONE Administration ORDERS Category Date Time Status HIV Combo Stat Lab 03/03/25 08:21 Ordered Hepatitis C Ab Qual. W/ RFX Stat Lab 03/03/25 08:21 Ordered Strep Scrn Group A (Rapid) Stat Lab 03/03/25 08:17 Completed Medical Decision Narrative: Patient is a 24-year-old female presenting with sore throat. No medical history denies possibility of being . On arrival, she is afebrile, mildly tachycardic, otherwise stable. On exam warm and well-perfused with full pulses and brisk cap refill. No concern for sepsis. Suspect most likely viral pharyngitis versus strep pharyngitis. On exam, the posterior oropharynx is mildly erythematous without exudate tonsillar edema or uvular deviation. No concern for deep space infection given no crepitus on the floor the mouth and reassuring clinical exam. I considered CT face, but deferred given reassuring exam. Strep swab positive. Strep pharyngitis, given penicillin allergy will treat with clindamycin outpatient. Decadron Toradol for pain. PCP follow-up. My clinical impression was discussed with the patient and all questions were answered. Return precautions were given, with verbalization of understanding and agreement of this plan. Any pending results are to be followed up online. Critical Care Critical Care Time Critical Care Time: No
--- OUTSIDE RECORDS SUMMARY | 2025-03-03 08:30 | XMS_ITS | Clinical Summary ---
Author Organization Healthcare Address [address] [place] [address] Care Team Providers Care Desk Clerks Supervisor Name Role Phone Shaniqua Dewitt HOUSING ASSISTANT PROPERTY MANAGER Primary Care Provider [phone] Social History Tobacco Use Types Packs/Day Years Used Date Smoking Tobacco: Every Day Comments Unknown Sex and Gender Information Value Date Recorded Sex Assigned at Not on file Legal Sex Female 8:38 PM EDT Gender Identity Not on file Sexual Orientation Not on file Last Filed Vital Signs Vital Sign Reading Time Taken Comments Blood Pressure 133/78 03/08/2022 1:07 PM EST Pulse 115 03/08/2022 1:07 PM EST Temperature 37.2 C (99 F) 03/08/2022 1:07 PM EST Respiratory Rate - - Oxygen Saturation 94% 03/08/2022 1:07 PM EST RA Inhaled Oxygen Concentration - - Weight 115 kg (253 lb) 04/08/2020 2:57 PM EST Height 160 cm (5' 3 ) 04/08/2020 2:57 PM EST Body Mass Index 44.82 04/08/2020 2:57 PM EST Plan of Treatment Health Maintenance Due Date Last Done Comments [facility]-Depression Screening 1998 [facility]-HIV Screening 1998 [facility]-Hepatitis C Screening 1998 [facility]-/Child/Adol SDOH Screenings 1998 [facility]- SDOH Screenings 2016 [facility]-Adult SDOH Screenings 2016 [facility]-Pap Smear 2019 [id number] Vaccine ( season) 2024 02/12/2021 [facility]-Influenza Vaccine (#1) 2024 01/17/2017, [facility]-DTaP,Tdap,and Td Vaccines (4 - Td or Tdap) 07/07/2031 07/06/2021, 02/01/2018, 07/26/2010 [facility]-Zoster Vaccines (1 of 2) 2048 07/26/2010, 05/20/1999 [facility]-Hepatitis B Vaccines Completed 999, 1998, 1998 [facility]-HIB Vaccines Completed 08/23/2000, 05/1998, 1998, Additional history exists [facility]-IPV Vaccines Completed 04/15/2002, , 1998, Additional history exists [facility]-Varicella Vaccines Completed 07/26/2010, 1999 HPV Vaccines Completed 01/17/2017, 06/02, 01/05/2011, Additional history exists [facility]-Hepatitis A Vaccines Aged Out No longer eligible based on patient's age to complete this topic [facility]-Pneumococcal Vaccine: Pediatrics (0 to 5 Years) and At-Risk Patients (6 to 49 Years) Aged Out No longer eligible based on patient's age to complete this topic [facility]-Rotavirus Vaccines Aged Out No lo nger eligible based on patient's age to complete this topic Insurance Care Teams Desk Clerks Supervisor Relationship Specialty Start Date End Date Shaniqua Dewitt APRN [address] [place] [address] PCP - General 08/13/20
--- OUTSIDE RECORDS SUMMARY | 2025-03-03 08:30 | XMS_ITS | Clinical Summary ---
Author Organization [facility] Address [address] [place] [id number] Care Team Providers Care Hoop Maker Name Role Phone Provider, No Known Primary Care Provider Unavail able Allergies Active Allergy Reactions Criticality Noted Date Comments Amoxicillin Rash Low 03/09/2022 childhood Penicillins Rash Low 11/08/2021 Medications Vit-Fe Fumarate-FA (WesTab Plus) 27-1 MG tablet Take 1 tablet by mouth Daily. 2 Active ondansetron (ZOFRAN) 4 MG tablet Take 4 mg by mouth Every 8 (Eight) Hours As Needed for Nausea or Vomiting. Active glucose blood (ReliOn True Metrix Test Strips) test stripIndications:D iet controlled gestational diabetes mellitus (GDM) in third trimester Use as instructed (4x/day and PRN) 150 each 2 2 Active Lancets Thin miscIndications:Di et controlled gestational diabetes mellitus (GDM) in third trimester 1 each 4 (Four) Times a Day. And PRN 150 each 2 2 Active metFORMIN ER (GLUCOPHAGE-XR) 500 MG 24 hr tablet Take 1 tablet by mouth Daily With Breakfast. 30 tablet 3 2 Active potassium bicarbonate (K-LYTE) 25 MEQ disintegrating tablet Take 25 mEq by mouth 1 (One) Time. Given at [facility] Active Active Problems Problem Noted Date Diagnosed Date Gestational HTN 01/03/2022 Morbid obesity with BMI of 45.0-49.9, adult 08/0 12/2021 11/08/2021 Gestational diabetes mellitu s (GDM) in third trimester controlled on oral hypoglycemic drug 11/08/2021 Social History Tobacco Use Types Packs/Day Years Used Date Smoking Tobacco: Former Cigarettes Q uit: 03/2021 Smokeless Tobacco: Never Tobacco Cessation:Counseling Given: No Alcohol Use Standard Drinks/Week Comments Not Currently 0 (1 standard drink = 0.6 oz pur e alcohol) 1/week when not Abuse Screen Answer Date Recorded Unsafe at Home or Work/School Not on file Feels Threatened by Someone? Not on file 12/2022 Does Anyone Keep You from Co ntacting Others or Doint Things Outside the Home? Not on file 03/11/2023 Physical Sign of Abuse Present Not on file 1 05/12/2022 Housing Stability Answer Date Recorded Current Living Arrangements Not on file 03/02 Potentially Unsafe Housing Conditions Not on pipo e 03/11/2023 Family and Community Support Answer Javier e Recorded Help with Day-to-Day Activities Not on file 01/12/2023 Lonely or Isolated Not on file 01/12/2023 Employment Answer Date Recorded Do you want help finding or keeping work or a rosina b? Not on file 01/12/2023 Disabilities Answer Date Recorded Concentrating, Remembering, or Making Decisions Difficulty Not on file 03/11/2023 Doing Errands Independently Difficulty Not on fi le 03/11/2023 Education Answer Date Recorded Help with school or training? Not on file Preferred Language Not on file 01/12/2023 Comments No Sex and Gender Information Value Date Recorded Sex Assigned at Not on file Legal Sex Female 3:09 PM EDT Gender Identity Not on file Sexual Orientation Not on file Last Filed Vital Signs Vital Sign Reading Time Taken Comments Blood Pressure 119/66 03/09/2022 5:30 PM EST Pulse 105 03/09/2022 5:30 PM EST Temperature 36.7 C (98.1 F) 03/09/2022 5:30 PM EST Respiratory Rate 16 03/09/2022 5:30 PM EST Oxygen Saturation 97% 03/09/2022 5:30 PM EST Inhaled Oxygen Concentration - - Weight 104 kg (230 lb) 03/09/2022 4:08 PM EST Height 160 cm (5' 3 ) 03/09/2022 4:08 PM EST Body Mass Index 40.74 03/09/2022 4:08 PM EST Plan of Treatment Health Maintenance Due Date Last Done Comments Annual Gynecologic Pelvic and Breast Exam 1998 ANNUAL PHYSICAL 10/26/2021 HEPATITIS C SCREENING 10/26/2021 INFLUENZA VACCINE 10/31/2024 TDAP/TD VACCINES (4 - Td or Tdap) 07/07/2031 07/06/2021, 02/01/2018, 07/26/2010 HPV VACCINES Completed 01/17/2017, 03, 01/05/2011, Additional history exists Pneumococcal Vaccine 0-49 Aged Out No longer eligible based on patient's age to complete this topic Insurance Care Teams Hoop Maker Relationship Specialty Start Date End Date Provider, No Known [facility] [place] [address] PCP - General 10/26/21
[2025-03-03 08:39] LABS: Strep Scrn Group A (Rapid) Positive (Negative)
[2025-03-03] MEDS: KETOROLAC 15MG/ML VIAL 15 MG IM (08:46)
[2025-03-03] MEDS: DEXAMETHASONE 4MG TABLET 10 MG PO (08:46)
[2025-03-03] MEDS: LIDOCAINE 2% VISCOUS SOL 15ML UDC 15 ML PO (08:46)
[2025-03-03] MEDS: CLINDAMYCIN 150MG CAPSULE 300 MG PO (08:51)
[2025-03-03 08:58] VITALS: BP 125/80; PULSE 98; RESP 16; TEMP 36.7; O2SAT 99
== END 2025-03-03 09:04 | disposition home or self-care (01) ==
PROVIDERS: Emergency Provider Emergency Medicine; PCP Nurse Practitioner Family
DX: J02.0 Streptococcal pharyngitis (principal); R50.9 Fever, unspecified
CPT/HCPCS: 87430; 96372; 99283; J1885; J8540

== ENCOUNTER 2025-03-04 08:59 | Outpatient (CLI) | payer OTHER, SELFPAY ==
--- OUTSIDE RECORDS SUMMARY | 2025-03-04 09:03 | XMS_ITS | Clinical Summary ---
Author Organization [facility] Address [address] [place] [address] Care Team Providers Care Inpatient Nursing Aide Name Role Phone Provider, No Known Primary [...] by mouth 1 (One) Time. Given at [facility] Active Active Problems Problem Noted Date Diagnosed [...] to complete this topic Insurance Care Teams Inpatient Nursing Aide Relationship Specialty Start Date End Date Provider, No Known [facility] [place] [address] PCP - General 10/26/21
--- OUTSIDE RECORDS SUMMARY | 2025-03-04 09:03 | XMS_ITS | Clinical Summary ---
Author Organization Healthcare Address [address] [place] [address] Care Team Providers Care Spray Machine Loader Name Role Phone Shaniqua Dewitt CHAIN BUILDER LOOM CONTROL Primary Care Provider [phone]- [phone] Social History Tobacco Use Types Packs/Day Years [...] [facility]-Adult SDOH Screenings 2016 [facility]-Pap Smear 2019 [id number] Vaccine ( season) 2024 02/12/2021 [facility]-Influenza Vaccine [...] patient's age to complete [place] [address] Care Teams Spray Machine Loader Relationship Specialty Start Date End Date Shaniqua Dweitt APRN [address] [place] [address] PCP - General 08/13/20
--- NOTE | 2025-03-04 09:07 | US_ITS ---
FINAL REPORT TECHNIQUE: Sonographic images of the right upper quadrant were obtained. CLINICAL HISTORY: ELEVATED LIVER ENZYMES COMPARISON: 03/02/2022, report only FINDINGS: PANCREAS: The head of the pancreas is unremarkable in appearance, while the tail of the pancreas is obscured by overlying bowel gas. LIVER: Homogeneous. No focal hepatic lesion. No intrahepatic biliary ductal dilatation. GALLBLADDER: The gallbladder has been surgically resected. The common bile duct is dilated measuring 10 mm in diameter. COMMON DUCT: 10 mm. Dilated. RIGHT KIDNEY: The right kidney measures 11.5 cm. There is no hydronephrosis, mass, or stone. FREE FLUID: None. IMPRESSION: Prior cholecystectomy. Common bile duct is dilated to 10 mm, if indicated consider MRCP for further evaluation. Reviewed, Interpreted and Dictated by Kimberlyn Muniz MD Transcribed by Natalia Amaral Authenticated and [facility]
== END 2025-03-04 23:59 | disposition home or self-care (01) ==
LOC: RAD 08:59
PROVIDERS: PCP Nurse Practitioner Family; Visit Provider Nurse Practitioner Family
DX: K83.8 Other specified diseases of biliary tract (principal); R74.8 Abnormal levels of other serum enzymes; Z90.49 Acquired absence of other specified parts of digestive tract
CPT/HCPCS: 76705